=== PATIENT | male | born 1955 | race Caucasian/White ===

== ENCOUNTER 2017-07-22 14:58 | Emergency (ER) | payer MEDICAID, SELFPAY ==
[2017-07-22 14:59] VITALS: BP 159/103; PULSE 62; RESP 16; TEMP 36.7; O2SAT 100; BMI 41.9
--- NOTE | 2017-07-22 15:19 | ED.RN ---
PT REPORTED DIZZINESS IN TRIAGE. PT REPORTS MY SUGAR MAY BE LOW. GLUCOSE 90. PT WHEELED TO ROOM IN WHEELCHAIR. NO DIFFICULTY AMBULATING FROM WHEELCHAIR TO BED.
--- NOTE | 2017-07-22 15:34 | RAD_ITS ---
STUDY: X-RAY CHEST REASON FOR EXAM: Male, 61 years old. Cough TECHNIQUE: Frontal and lateral views of the chest COMPARISON: None. FINDINGS: The lungs are clear. There are no pleural effusions. There is no pneumothorax. The heart is normal in size. The visualized osseous structures are within normal limits. RAD/Chest PA and Lateral IMPRESSION: No acute thoracic pathology. Electronically Signed: Angel Walker, at 16:48 EST Tel , Service support ,
--- NOTE | 2017-07-22 15:39 | ED.DCSUM_ITS ---
- ER Visit Summary Date of Service: 07/22/17 Chief Complaint: Cough and congestion History of Present Illness: The patient is a 61 M who complains of a 7 day history of body aches, head and chest congestion, cough with clear sputum. He denies fever chills. Patient was seen at urgent care on the . He was given what sounds like Mucinex. He also has an albuterol inhaler. Patient reports no improvement. She denies having fever. He has had ill contacts with similar. Physical Examination: Blood pressure is 159/103, otherwise vitals are normal. Pulse ox is 100% on room air. Head and neck examination is unremarkable. Heart is regular rate and rhythm. Lung sounds are diminished throughout. Abdomen is soft nontender. Neuro exam is unremarkable. Test Results: Two-view chest x-ray reveals no acute pathology. Emergency Department Course and Treatment: Patient was given aerosols. On repeat evaluation he does have improved air movement. Oxygen saturations have maintained in the high 90s. Patient raises concern that the albuterol inhaler he has at home just states his tongue the back of his throat but is not really doing any good. Respiratory therapy will get him a spacer and teach him how to use it. He will be given a short course of prednisone. He was warned that this will make his blood sugars increase for a short period. I do not believe he needs antibiotics. Treatment Plan: [] Disposition: Discharge Impression: Viral URI with bronchospasm This note was generated with [employer] dictation software. It may contain incorrect words, spelling, and punctuation that were not noted in review of the chart prior to signing ED Disposition - Plan for ED Patient: Chief Complaint: Cold Sx Referrals: Frederic Montero MD [Primary Care Provider] -
[2017-07-22] MEDS: Ipratropium/Albuterol Sulfate 3 ML AMPUL.NEB INHALATION (15:44)
[2017-07-22] MEDS: Albuterol 2.5 MG/3 ML VIAL.NEB. INHALATION ×2 (15:44)
[2017-07-22 15:45] VITALS: PULSE 68; RESP 16
[2017-07-22 15:46] LABS: Bedside Glucose 90 mg/dL (70-110)
--- NOTE | 2017-07-22 17:09 | ED.DEP ---
ED Disposition - Plan for ED Patient: Disposition: Home or Assisted Living Chief Complaint: Cold Sx Instructions: ED URI Viral W Wheezing Prescriptions: Prednisone [Deltasone] 60 mg PO DAILY #15 tablet Referrals: Frederic Montero MD [Primary Care Provider] - 5-7 Days
[2017-07-22 17:35] VITALS: BP 130/69; PULSE 63; RESP 20; O2SAT 98
== END 2017-07-22 17:37 | disposition home or self-care (01) ==
PROVIDERS: Emergency Provider Emergency Medicine; Family Provider Family Medicine; PCP Family Medicine
DX: J06.9 Acute upper respiratory infection, unspecified (principal); J98.01 Acute bronchospasm; K21.9 Gastro-esophageal reflux disease without esophagitis; E11.40 Type 2 diabetes mellitus with diabetic neuropathy, unspecified; I10 Essential (primary) hypertension; Z86.39 Personal history of other endocrine, nutritional and metabolic disease; G47.33 Obstructive sleep apnea (adult) (pediatric); M54.9 Dorsalgia, unspecified; Z90.89 Acquired absence of other organs; Z90.49 Acquired absence of other specified parts of digestive tract; Z87.891 Personal history of nicotine dependence; Z79.82 Long term (current) use of aspirin; Z79.4 Long term (current) use of insulin; Z79.84 Long term (current) use of oral hypoglycemic drugs; Z79.899 Other long term (current) drug therapy
CPT/HCPCS: 71046; 82962; 94640; 94664; 99283

== ENCOUNTER → 2017-08-07 10:14 | Outpatient (CLI) | payer MEDICAID, SELFPAY ==
[2017-08-07 12:04] LABS: Hematocrit 39.6 % (40-54); Hemoglobin 13.1 g/dl (13.0-16.5); Mean Corp Hgb Conc 33.1 g/gl (32-36); Mean Corpuscular Hgb 29.7 pg (27.0-32.0); Mean Corpuscular Volume 89.8 fL (80-94); Mean Platelet Vol. 10.8 fl (6.2-12.0); Platelet Count 162 K/mm3 (150-450); RBC Distribution Width CV 14.8 % (11.6-14.6); RBC Distribution Width SD 47.6 fl (35.1-43.9); Red Blood Count 4.41 M/mm3 (4.6-6.2); White Blood Count 9.3 K/mm3 (4.4-11.0)
[2017-08-07 12:08] LABS: Scan Indicated on CBC? Y/N NO
[2017-08-07 12:30] LABS: Hemoglobin A1c 6.1 % (4.2-6.3)
[2017-08-07 12:31] LABS: ALB/GLOB Ratio 0.9 RATIO (0.9-2.4); AST(SGOT) 16 U/L (15-37); Alanine Aminotransfer ALT/SGPT 29 U/L (16-61); Albumin, Serum 3.5 g/dL (3.2-5.0); Alkaline Phosphatase 58 U/L (45-117); Anion Gap 7 (5-15); BUN 20 mg/dL (7-18); BUN/Creat Ratio 22.4 RATIO (10-20); Calcium,Total 8.4 mg/dL (8.5-10.1); Chloride 105 mmol/L (98-107); Cholesterol 110 mg/dL (200); Creatinine, Serum 0.89 mg/dL (0.70-1.30); EST Glomerular Filtration Rate 92 mL/min (>60); Est Glom Filt Rate - Afr Amer 112 mL/min (>60); Globulin 3.8 g/dL (2.2-4.2); Glucose 130 mg/dL (74-106); High Density Lipoprotein 31 mg/dL; Potassium 3.9 mmol/L (3.5-5.1); Protein, Total 7.3 g/dL (6.4-8.2); Sodium Level 140 mmol/L (136-145); Triglycerides 140 mg/dL; Very Low Density Lipoprotein 28 mg/dL (5-40)
[2017-08-07 12:43] LABS: Color, Urine Yellow (Yellow); Glucose, Dipstick 50 mg/dl (Normal); Ketone-Dipstick Negative (Negative); Leukocyte Esterase-Dipstick Negative /ul (Negative); Nitrite-Dipstick Negative (Negative); Occult Blood-Urine Negative /ul (Negative); Protein-Dipstick 15 mg/dl (Negative); Urine Bilirubin Dipstick Negative (Negative); Urine Clarity Clear (Clear); Urine Urobilinogen 1 mg/dl (Normal)
[2017-08-07 12:53] LABS: Microalbumin,Random Urine 66.8 mg/L (NO RANGE EST.); Microalbumin:Creatinine Ratio 52.6 mg/g CRE (<30 mg/g CRE)
== END ==
PROVIDERS: Family Provider Family Medicine; PCP Family Medicine; Visit Provider Family Medicine
DX: E11.9 Type 2 diabetes mellitus without complications (principal); E78.2 Mixed hyperlipidemia; I10 Essential (primary) hypertension
CPT/HCPCS: 36415; 80053; 80061; 81002; 82043; 82570; 83036; 85027

== ENCOUNTER → 2017-08-08 09:11 | Outpatient (CLI) | payer MEDICAID, SELFPAY ==
--- NOTE | 2017-08-08 09:13 | RAD_ITS ---
STUDY: X-RAY - RIGHT SHOULDER REASON FOR EXAM: Male, 61 years old. Right shoulder pain TECHNIQUE: 4 view(s) of the shoulder. COMPARISON: None. FINDINGS: Normal glenohumeral articulation. There is degenerative arthrosis of the acromioclavicular joint without inferior osseous spur formation. Normal acromion. Normal humeral head and visualized proximal humerus. There is a tiny calcification lateral to the humeral head on the internal rotation view which may represent calcific tendinitis or bursitis. Normal visualized pulmonary apex. RAD/Shoulder min 2 Views IMPRESSION: Degenerative changes of the right AC joint. Tiny calcification lateral to the right humeral head which may represent calcific tendinitis/bursitis. Electronically Signed: Sebastian Lim MD at 17:07 EDT , Service support ,
== END ==
PROVIDERS: Family Provider Family Medicine; PCP Family Medicine; Visit Provider Family Medicine
DX: M25.511 Pain in right shoulder (principal)
CPT/HCPCS: 73030

== ENCOUNTER → 2017-10-31 08:35 | Outpatient (CLI) | payer MEDICAID, SELFPAY ==
--- NOTE | 2017-10-31 08:35 | DT_ITS ---
This patient was seen during an EMR downtime October 30, 2017 - November 06, 2017. This patient may have a combination of paper and electronic documentation or all paper documentation. All documentation is viewable within the e-chart portion of [facility] for each patient visit.
[2017-11-05 09:31] LABS: ALB/GLOB Ratio 0.9 RATIO (0.9-2.4); Albumin, Serum 3.5 g/dL (3.2-5.0); BUN 16 mg/dL (7-18); BUN/Creat Ratio 17.6 RATIO (10-20); Calcium,Total 9.1 mg/dL (8.5-10.1); Creatinine, Serum 0.91 mg/dL (0.70-1.30); EST Glomerular Filtration Rate 91 mL/min (>60); Est Glom Filt Rate - Afr Amer 110 mL/min (>60); Globulin 3.7 g/dL (2.2-4.2); Glucose 188 mg/dL (74-106); Protein, Total 7.2 g/dL (6.4-8.2)
[2017-11-05 09:32] LABS: AST(SGOT) 15 U/L (15-37); Alanine Aminotransfer ALT/SGPT 27 U/L (16-61); Alkaline Phosphatase 64 U/L (45-117); Anion Gap 7 (5-15); Chloride 102 mmol/L (98-107); Cholesterol 93 mg/dL (200); Hemoglobin A1c 6.4 % (4.2-6.3); High Density Lipoprotein 29 mg/dL; Potassium 3.8 mmol/L (3.5-5.1); Sodium Level 139 mmol/L (136-145); Triglycerides 98 mg/dL; Very Low Density Lipoprotein 20 mg/dL (5-40)
[2017-11-05 09:33] LABS: Microalbumin,Random Urine 41.9 mg/L (NO RANGE EST.)
[2017-11-05 09:56] LABS: Hematocrit 39.1 % (40-54); Hemoglobin 12.7 g/dl (13.0-16.5); Mean Corp Hgb Conc 32.5 g/gl (32-36); Mean Corpuscular Hgb 29.3 pg (27.0-32.0); Mean Corpuscular Volume 90.1 fL (80-94); Red Blood Count 4.34 M/mm3 (4.6-6.2)
[2017-11-05 09:57] LABS: Platelet Count 155 K/mm3 (150-450); RBC Distribution Width SD 48.4 fl (35.1-43.9); Scan Indicated on CBC? Y/N NO
== END ==
LOC: MTLAB 11-04 08:59 → MFPLAB 11-04 17:55
PROVIDERS: Family Provider Family Medicine; PCP Family Medicine; Visit Provider Family Medicine
DX: I10 Essential (primary) hypertension (principal); E11.9 Type 2 diabetes mellitus without complications; Z13.220 Encounter for screening for lipoid disorders
CPT/HCPCS: 36415; 80053; 80061; 82043; 82570; 83036; 85027

== ENCOUNTER 2017-11-12 05:10 | Emergency (ER) | payer MEDICAID, SELFPAY ==
[2017-11-12 05:12] VITALS: BP 181/86; PULSE 74; RESP 18; TEMP 36.4; O2SAT 95; BMI 45.1
--- NOTE | 2017-11-12 05:50 | ED.DCSUM_ITS ---
- ER Visit Summary Date of Service: 11/12/17 Chief Complaint: Right shoulder pain after lifting things History of Present Illness: The patient is a 61 M hand dominant. Past medical history of insulin pen diabetes, hypertension, high cholesterol. He has never had any shoulder surgery. He states 2 weeks ago he was helping family move multiple objects. He felt a pop in his right shoulder and since that time he has had continued dull aching pain. He is able to move it. He has had no prior right shoulder history or surgery. He denies any weakness. Denies any fever or redness. He was seen by his primary care physician and he states his PCP did a shoulder joint injection without any significant relief. He denies any fever or redness. Physical Examination: Very well-appearing middle-age male. Vital signs are stable afebrile. No distress. H EENT exam unremarkable neck nontender no lymphadenopathy. Lungs clear to auscultation bilaterally. Chest wall nontender. Heart regular rate rhythm no murmur. Abdomen obese soft nontender normal bowel sounds no peritoneal signs. He is moving all 4 extremities. Neurovascular intact. Specifically he has mild soft tissue tenderness diffusely of his right shoulder. Clavicles nontender and appears to be normal position. He has full flexion, extension, and Abduction of his right shoulder. There is no bony deformity. No signs of dislocation. No bony tenderness. No redness or warmth. No axillary lymphadenopathy. Distal of the right humerus , elbow, forearm, wrist and hand are nontender neurovascular intact he has 5/5 motor strength in his right hand. He has normal touch sensation in the hand. Normal cap refill and radial pulse. Test Results: Discussed with patient and he deferred x-ray at this time. Clinically I do not think an x-ray would be of any significance. Emergency Department Course and Treatment: Be discharged home. To follow-up with local orthopedic surgeon Dr. Cr Escoto if he is not improving. He will be treated conservatively with ice and anti-inflammatories. Return if worse. Treatment Plan: Discharge follow-up with Dr. Cr Escoto of orthopedics Disposition: dc Impression: Acute right shoulder pain secondary to right shoulder strain This note was generated with [employer] software. It may contain incorrect words, spelling, and punctuation that were not noted in review of the chart prior to signing ED Disposition - Plan for ED Patient: Chief Complaint: Upper Extremity Injury Referrals: Frederic Montero MD [Primary Care Provider] -
--- NOTE | 2017-11-12 05:50 | ED.DEP ---
ED Disposition - Plan for ED Patient: Disposition: Home or Assisted Living Chief Complaint: Upper Extremity Injury Instructions: ED Sprain Shoulder Referrals: Frederic Montero MD [Primary Care Provider] - 1 Week if not improving Additional Instructions: Ice to the right shoulder to decrease inflammation. Motrin, Advil or Aleve for pain and inflammation. If not improving call follow-up with an area orthopedic surgeon for further evaluation.
[2017-11-12 05:57] VITALS: BP 172/80; PULSE 80; RESP 16; O2SAT 96
== END 2017-11-12 05:58 | disposition home or self-care (01) ==
PROVIDERS: Emergency Provider Emergency Medicine; Family Provider Family Medicine; PCP Family Medicine
DX: S46.911A Strain of unspecified muscle, fascia and tendon at shoulder and upper arm level, right arm, initial encounter (principal); M25.511 Pain in right shoulder; X50.9XXA Other and unspecified overexertion or strenuous movements or postures, initial encounter; Y93.9 Activity, unspecified; Y92.9 Unspecified place or not applicable; E11.9 Type 2 diabetes mellitus without complications; I10 Essential (primary) hypertension; E78.00 Pure hypercholesterolemia, unspecified; Z90.49 Acquired absence of other specified parts of digestive tract; Z79.4 Long term (current) use of insulin; Z79.84 Long term (current) use of oral hypoglycemic drugs; Z79.82 Long term (current) use of aspirin; Z79.899 Other long term (current) drug therapy
CPT/HCPCS: 99282

== ENCOUNTER 2018-01-04 18:32 | Emergency (ER) | payer MEDICAID, SELFPAY ==
[2018-01-04 18:33] VITALS: BP 163/71; PULSE 59; RESP 20; TEMP 37.2; O2SAT 97; BMI 44.4
--- NOTE | 2018-01-04 19:32 | RAD_ITS ---
STUDY: X-RAY CHEST REASON FOR EXAM: Male, 62 years old. Bilateral lower extremity swelling. TECHNIQUE: 1 view COMPARISON: Prior chest radiograph of July 22, 2017. FINDINGS: The lungs are clear and expanded. There is no demonstrated pleural abnormality. Normal size heart. Normal mediastinum and pina. Normal visualized pulmonary arteries. There is atherosclerotic calcification of the aortic arch with tortuosity. Normal visualized thoracic spine. Normal visualized ribs, clavicles, and shoulders. There is no demonstrated abnormality of the visualized soft tissue structures of the upper abdomen. RAD/Chest 1 View (Portable) IMPRESSION: No acute cardiopulmonary findings or changes. Negative for major consolidation, atelectasis, pleural effusion or cardiomegaly. Electronically Signed: Pinky Cain MD at 19:46 EDT , Service support ,
--- NOTE | 2018-01-04 19:39 | US_ITS ---
STUDY: VENOUS DOPPLER ULTRASOUND - BILATERAL LOWER EXTREMITIES REASON FOR EXAM: Male, 62 years old. Swelling of lower extremities TECHNIQUE: Ultrasound evaluation of the deep vein system to include riojas-scale imaging and compression was performed. Riojas-scale imaging and Doppler sonographic evaluation, including duplex spectral analysis and qualitative color flow sonography, was performed. COMPARISON: None. FINDINGS: RIGHT LEG Common Femoral Vein: Normal compression, spontaneity and augmentation. Normal color Doppler. Common Femoral Vein/Greater Saphenous Junction: Normal compression, spontaneity and augmentation. Normal color Doppler. Deep Femoral Vein: Normal compression, spontaneity and augmentation. Normal color Doppler. Femoral Proximal: Normal compression, spontaneity and augmentation. Normal color Doppler. Femoral Middle: Normal compression, spontaneity and augmentation. Normal color Doppler. Femoral Distal: Normal compression, spontaneity and augmentation. Normal color Doppler. Popliteal Vein: Normal compression, spontaneity and augmentation. Normal color Doppler. Posterior Tibial Vein: Normal compression, spontaneity and augmentation. Normal color Doppler. Peroneal Vein: Normal compression, spontaneity and augmentation. Normal color Doppler. LEFT LEG Common Femoral Vein: Normal compression, spontaneity and augmentation. Normal color Doppler. Common Femoral Vein/Greater Saphenous Junction: Normal compression, spontaneity and augmentation. Normal color Doppler. Deep Femoral Vein: Normal compression, spontaneity and augmentation. Normal color Doppler. Femoral Proximal: Normal compression, spontaneity and augmentation. Normal color Doppler. Femoral Middle: Normal compression, spontaneity and augmentation. Normal color Doppler. Femoral Distal: Normal compression, spontaneity and augmentation. Normal color Doppler. Popliteal Vein: Normal compression, spontaneity and augmentation. Normal color Doppler. Posterior Tibial Vein: Normal compression, spontaneity and augmentation. Normal color Doppler. Peroneal Vein: Normal compression, spontaneity and augmentation. Normal color Doppler. US/Venous Duplex Imag/Caesar Extrem IMPRESSION: Normal venous Doppler ultrasound of the bilateral lower extremities. Electronically Signed: Avtar Ceron MD at 20:23 EDT , Service support ,
[2018-01-04 20:14] LABS: Absolute Lymphocyte Count 3.16 X10^3/ul (0.83-4.51); Absolute Neutrophil Count 4.5 X10^3/uL (2.0-7.7); Basophil# 0.09 X10^3/uL; Eosinophil# 0.51 X10^3/uL; Eosinophils% 5.9 % (0-5); Hematocrit 37.2 % (40-54); Hemoglobin 12.3 g/dl (13.0-16.5); Lymphocyte # 3.16 X10^3/ul (4.0); Lymphocyte % 36.3 % (19-41); Mean Corp Hgb Conc 33.1 g/gl (32-36); Mean Corpuscular Hgb 29.2 pg (27.0-32.0); Mean Corpuscular Volume 88.4 fL (80-94); Mean Platelet Vol. 10.3 fl (6.2-12.0); Monocyte# 0.39 X10^3/uL; Monocyte% 4.5 % (0-10); Neutrophil # 4.52 X10^3/uL (2.7-7.7); Platelet Count 172 K/mm3 (150-450); RBC Distribution Width CV 14.8 % (11.6-14.6); RBC Distribution Width SD 46.9 fl (35.1-43.9); Red Blood Count 4.21 M/mm3 (4.6-6.2); White Blood Count 8.7 K/mm3 (4.4-11.0)
[2018-01-04 20:15] LABS: POSITIVE COUNT NO; POSITIVE DIFFERENTIAL NO; POSITIVE MORPHOLOGY NO
[2018-01-04 20:20] LABS: Anion Gap 6 (5-15); BUN 21 mg/dL (7-18); BUN/Creat Ratio 21.8 RATIO (10-20); Calcium,Total 8.9 mg/dL (8.5-10.1); Chloride 103 mmol/L (98-107); Creatinine, Serum 0.96 mg/dL (0.70-1.30); EST Glomerular Filtration Rate 85 mL/min (>60); Est Glom Filt Rate - Afr Amer 102 mL/min (>60); Estimated Creatinine Clearance 73.84 ml/min; Glucose 167 mg/dL (74-106); Potassium 4.1 mmol/L (3.5-5.1); Sodium Level 139 mmol/L (136-145)
[2018-01-04 20:42] LABS: BNP,B-Type NATRIURETIC PEPTIDE 8.3 pg/mL (0-100)
--- NOTE | 2018-01-04 21:05 | ED.VISSUMM ---
- ER Visit Summary Date of Service: 01/04/18 Chief Complaint: [] History of Present Illness: The patient is a 62 M [leg swelling presents the emergency department with leg swelling for 3 weeks. Patient states that he is on a diuretic. Patient denies any chest pain. He denies any significant shortness of breath. Patient denies recent travel or surgery. Patient denies any fevers. Patient does have a history of GERD, diabetes, hypertension, and high cholesterol.] Physical Examination: [HEENT-PERRLA, EOMI. Cranial nerves II through XII grossly intact. TMs clear. Mucous membranes moist. No adenopathy. Cardiovascular-regular rate and rhythm without murmur or ectopy Lungs-clear to auscultation, chest wall stable without crepitus or subcu emphysema Abdomen-normoactive bowel sounds, soft, nontender, no rebound or rigidity, no peritoneal signs. Extremities-intact ?4, normal range of motion, normal pulses, atraumatic]. Patient does have +2 edema both lower extremities from the knees down to the feet. Test Results: [EKG obtained arrival shows sinus rhythm with a ventricular rate of 59 bpm with no acute ST segment changes. CBC with differential was normal. Chemistries were normal. BUN was 21 creatinine 0.96. Troponin was less than 0.015. BNP was normal at 8.3. Venous duplex of both lower extremities were negative for DVT. Chest x-ray showed nothing acute.] Emergency Department Course and Treatment: [Patient was advised to continue with his Lasix and use compression stockings. Patient's states that he has 2 pair of compression stockings at home but will not wear them. ] Treatment Plan: [Vision advised to follow-up with primary care physician 3-5 days.] Disposition: [Discharged home in stable condition] Impression: [Bilateral lower extremity edema] This note was generated with [facility] dictation software. It may contain incorrect words, spelling, and punctuation that were not noted in review of the chart prior to signing ED Disposition - Plan for ED Patient: Chief Complaint: Edema Referrals: Frederic Montero MD [Primary Care Provider] -
--- NOTE | 2018-01-04 21:07 | ED.DEP ---
ED Disposition - Plan for ED Patient: Chief Complaint: Edema Instructions: ED Leg Swelling Bilateral Referrals: Frederic Montero MD [Primary Care Provider] - 3-5 Days
[2018-01-04 21:15] VITALS: BP 157/80; PULSE 76; RESP 18; O2SAT 97
== END 2018-01-04 21:15 | disposition home or self-care (01) ==
LOC: ED 19:48
PROVIDERS: Emergency Provider Emergency Medicine; Family Provider Family Medicine; PCP Family Medicine
DX: R60.0 Localized edema (principal); K21.9 Gastro-esophageal reflux disease without esophagitis; E11.9 Type 2 diabetes mellitus without complications; I10 Essential (primary) hypertension; E78.00 Pure hypercholesterolemia, unspecified; Z90.49 Acquired absence of other specified parts of digestive tract; Z79.82 Long term (current) use of aspirin; Z79.4 Long term (current) use of insulin; Z79.84 Long term (current) use of oral hypoglycemic drugs; Z79.899 Other long term (current) drug therapy
CPT/HCPCS: 71045; 80048; 83880; 84484; 85025; 93005; 93970; 99283; A4216

== ENCOUNTER → 2018-01-23 10:17 | Outpatient (CLI) | payer MEDICAID, SELFPAY ==
[2018-01-23 12:17] LABS: Anion Gap 9 (5-15); BUN 23 mg/dL (7-18); BUN/Creat Ratio 25.5 RATIO (10-20); Calcium,Total 8.9 mg/dL (8.5-10.1); Chloride 105 mmol/L (98-107); EST Glomerular Filtration Rate 91 mL/min (>60); Est Glom Filt Rate - Afr Amer 110 mL/min (>60); Glucose 169 mg/dL (74-106); Magnesium 1.9 mg/dL (1.6-2.6); Sodium Level 139 mmol/L (136-145)
== END ==
PROVIDERS: Family Provider Family Medicine; PCP Family Medicine; Visit Provider Family Medicine
DX: I10 Essential (primary) hypertension (principal)
CPT/HCPCS: 36415; 80048; 83735

== ENCOUNTER → 2018-02-13 09:21 | Outpatient (CLI) | payer MEDICAID, SELFPAY ==
[2018-02-13 09:24] LABS: Bacteria 0 SEEN /hpf (None Seen); Mucous, Urine 0 SEEN /hpf (<or=2+); Red Blood Cells-Urine 0 SEEN /hpf (0-5); White Blood Cells 0 SEEN /hpf (0-5)
[2018-02-13 12:14] LABS: Color, Urine Yellow (Yellow); Glucose, Dipstick 1000 mg/dl (Normal); Ketone-Dipstick 5 mg/dl (Negative); Leukocyte Esterase-Dipstick Negative /ul (Negative); Nitrite-Dipstick Negative (Negative); Occult Blood-Urine Negative /ul (Negative); Protein-Dipstick 30 mg/dl (Negative); Specific Gravity, Urine 1.015 (1.002-1.030); Urine Bilirubin Dipstick Negative (Negative); Urine Clarity Clear (Clear); Urine Urobilinogen 4 mg/dl (Normal)
[2018-02-13 12:23] LABS: Absolute Lymphocyte Count 2.07 X10^3/ul (0.83-4.51); Absolute Neutrophil Count 4.2 X10^3/uL (2.0-7.7); Basophil# 0.07 X10^3/uL; Eosinophil# 0.33 X10^3/uL; Eosinophils% 4.7 % (0-5); Hematocrit 39.7 % (40-54); Hemoglobin 12.9 g/dl (13.0-16.5); Lymphocyte # 2.07 X10^3/ul (4.0); Lymphocyte % 29.4 % (19-41); Mean Corp Hgb Conc 32.5 g/gl (32-36); Mean Corpuscular Hgb 28.9 pg (27.0-32.0); Mean Platelet Vol. 10.3 fl (6.2-12.0); Monocyte# 0.36 X10^3/uL; Monocyte% 5.1 % (0-10); Neutrophil # 4.21 X10^3/uL (2.7-7.7); Neutrophil % 59.7 % (47-70); Platelet Count 137 K/mm3 (150-450); RBC Distribution Width CV 14.9 % (11.6-14.6); RBC Distribution Width SD 47.9 fl (35.1-43.9); Red Blood Count 4.46 M/mm3 (4.6-6.2); White Blood Count 7.1 K/mm3 (4.4-11.0)
[2018-02-13 12:28] LABS: ALB/GLOB Ratio 0.9 RATIO (0.9-2.4); AST(SGOT) 14 U/L (15-37); Alanine Aminotransfer ALT/SGPT 31 U/L (16-61); Albumin, Serum 3.5 g/dL (3.2-5.0); Alkaline Phosphatase 65 U/L (45-117); Anion Gap 9 (5-15); BUN 23 mg/dL (7-18); BUN/Creat Ratio 27.9 RATIO (10-20); Calcium,Total 8.8 mg/dL (8.5-10.1); Chloride 104 mmol/L (98-107); Creatinine, Serum 0.82 mg/dL (0.70-1.30); EST Glomerular Filtration Rate 101 mL/min (>60); Est Glom Filt Rate - Afr Amer 122 mL/min (>60); Globulin 3.8 g/dL (2.2-4.2); Glucose 228 mg/dL (74-106); Potassium 3.8 mmol/L (3.5-5.1); Protein, Total 7.3 g/dL (6.4-8.2); Sodium Level 141 mmol/L (136-145)
[2018-02-13 12:31] LABS: POSITIVE COUNT NO; POSITIVE DIFFERENTIAL NO; POSITIVE MORPHOLOGY NO
[2018-02-13 12:36] LABS: Squamous Epithelial Cells - UA 0-5 SEEN /hpf (0-5)
[2018-02-13 12:45] LABS: Hemoglobin A1c 6.1 % (4.2-6.3)
[2018-02-13 12:48] LABS: Microalbumin:Creatinine Ratio 159.4 mg/g CRE (<30 mg/g CRE)
== END ==
PROVIDERS: Family Provider Family Medicine; PCP Family Medicine; Visit Provider Family Medicine
DX: I10 Essential (primary) hypertension (principal); E11.9 Type 2 diabetes mellitus without complications
CPT/HCPCS: 36415; 80053; 81001; 82043; 82570; 83036; 85025

== ENCOUNTER → 2018-05-15 10:16 | Outpatient (CLI) | payer MEDICAID, SELFPAY ==
--- NOTE | 2018-05-15 10:20 | RAD_ITS ---
STUDY: X-RAY CHEST REASON FOR EXAM: Male, 62 years old. Supraclavicular lymphadenopathy. TECHNIQUE: PA and lateral views of the chest. COMPARISON: January 04, 2018 chest x-ray FINDINGS: Alignment for body habitus there is mild prominence of the bilateral suprapubic clavicular soft tissues. There is minimal lower lobe atelectasis. There is no demonstrated pleural abnormality. Normal size heart. Normal mediastinum and pina. Normal visualized pulmonary arteries. There is atherosclerotic calcification of the aortic arch with tortuosity. There are diffuse degenerative changes of the visualized thoracic spine. Normal visualized ribs, clavicles, and shoulders. There is no demonstrated abnormality of the visualized soft tissue structures of the upper abdomen. RAD/Chest PA and Lateral IMPRESSION: Minimal lower lobe atelectasis. No obvious asymmetry of the supraclavicular soft tissues. If there is concern for neck soft tissue mass recommend dedicated CT scan neck soft tissue with IV contrast. Electronically Signed: Denise Hernandez MD at 3:00 EST Tel , Service support ,
[2018-05-15 12:11] LABS: Absolute Lymphocyte Count 2.13 X10^3/ul (0.83-4.51); Absolute Neutrophil Count 4.6 X10^3/uL (2.0-7.7); Basophil# 0.05 X10^3/uL; Basophil% 0.7 % (0-1); Eosinophil# 0.31 X10^3/uL; Eosinophils% 4.2 % (0-5); Hematocrit 40.4 % (40-54); Hemoglobin 13.4 g/dl (13.0-16.5); Lymphocyte # 2.13 X10^3/ul (4.0); Lymphocyte % 28.6 % (19-41); Mean Corp Hgb Conc 33.2 g/gl (32-36); Mean Corpuscular Hgb 29.7 pg (27.0-32.0); Mean Corpuscular Volume 89.6 fL (80-94); Mean Platelet Vol. 10.5 fl (6.2-12.0); Monocyte# 0.34 X10^3/uL; Monocyte% 4.6 % (0-10); Neutrophil # 4.59 X10^3/uL (2.7-7.7); Neutrophil % 61.5 % (47-70); Platelet Count 149 K/mm3 (150-450); RBC Distribution Width CV 15.3 % (11.6-14.6); RBC Distribution Width SD 49.3 fl (35.1-43.9); Red Blood Count 4.51 M/mm3 (4.6-6.2); White Blood Count 7.5 K/mm3 (4.4-11.0)
[2018-05-15 12:13] LABS: POSITIVE COUNT NO; POSITIVE DIFFERENTIAL NO; POSITIVE MORPHOLOGY NO
[2018-05-15 12:30] LABS: Hemoglobin A1c 6.8 % (4.2-6.3)
[2018-05-15 12:36] LABS: ALB/GLOB Ratio 0.9 RATIO (0.9-2.4); AST(SGOT) 17 U/L (15-37); Alanine Aminotransfer ALT/SGPT 32 U/L (16-61); Albumin, Serum 3.5 g/dL (3.2-5.0); Alkaline Phosphatase 58 U/L (45-117); Anion Gap 10 (5-15); BUN 28 mg/dL (7-18); BUN/Creat Ratio 26.2 RATIO (10-20); Calcium,Total 9.2 mg/dL (8.5-10.1); Chloride 103 mmol/L (98-107); Cholesterol 109 mg/dL (200); Creatinine, Serum 1.07 mg/dL (0.70-1.30); EST Glomerular Filtration Rate 75 mL/min (>60); Est Glom Filt Rate - Afr Amer 91 mL/min (>60); Globulin 3.7 g/dL (2.2-4.2); Glucose 253 mg/dL (74-106); High Density Lipoprotein 31 mg/dL; Protein, Total 7.2 g/dL (6.4-8.2); Sodium Level 142 mmol/L (136-145); Triglycerides 171 mg/dL; Very Low Density Lipoprotein 34 mg/dL (5-40)
[2018-05-15 12:39] LABS: Microalbumin:Creatinine Ratio 78.8 mg/g CRE (<30 mg/g CRE)
--- OUTSIDE RECORDS SUMMARY | 2018-08-16 18:31 | XMS RPT_ITS ---
:1955 Author Organization OH[employer] Support Name Relationship Address Phone D Unavailable Unavailable Unavailable RICHMOND, MIRTA Unavailable [address] [place] [address] [place] [address] D Unavailable Unavailable Unavailable RICHMOND, MIRTA Unavailable [address] [place] [address] [place] [address] D Unavailable Unavailable Unavailable RICHMOND, MIRTA Unavailable [phone] [place] [address] D Unavailable Unavailable Unavailable RICHMOND, MIRTA Unavailable [phone] [place] [address] D Unavailable Unavailable Unavailable RICHMOND, MIRTA Unavailable [phone] [place] [address] D Unavailable Unavailable Unavailable RICHMOND, MIRTA Unavailable [phone] [place] [address] D Unavailable Unavailable Unavailable RICHMOND, MIRTA Unavailable [phone] [place] [address] D Unavailable Unavailable Unavailable RICHMOND, MIRTA Unavailable [phone] [place] [address] D Unavailable Unavailable Unavailable RICHMOND, MIRTA Unavailable [phone] [place] [address] D Unavailable Unavailable Unavailable RICHMOND, MIRTA Unavailable [phone] [place] [address] D Unavailable Unavailable Unavailable RICHMOND, MIRTA Unavailable [address] + [place] [address] D Unavailable Unavailable Unavailable RICHMOND, MIRTA Unavailable [address] + [place] [address] D Unavailable Unavailable Unavailable MIRTA RICHMOND Unavailable [address] + [place] [address] D Unavailable Unavailable Unavailable MIRTA RICHMOND Unavailable [address] + [place] [address] D Unavailable Unavailable Unavailable MIRTA RICHMOND Unavailable [address] + [place] [address] Care Team Providers Name Role Phone Frederic Montero Attending Unavailable Frederic Montero Referring Unavailable Frederic Montero Primary Care Unavailable Frederic Montero Attending Unavailable Frederic Montero Referring Unavailable Frederic Montero Primary Care Unavailable Frederic Montero Attending Unavailable Frederic Montero Primary Care Unavailable SchFrederic beckwith Attending Unavailable Frederic Montero Referring Unavailable Frederic Montero Primary Care Unavailable Frederic Montero Attending Unavailable Frederic Montero Primary Care Unavailable Frederic Montero Attending Unavailable Frederic Montero Referring Unavailable Frederic Montero Primary Care Unavailable Frederic Montero Primary Care Unavailable Aleshia Galdamez Attending Unavailable Freddy Richmond Attending Unavailable Frederic Montero Primary Care Unavailable Matt Martell Attending Unavailable Frederic Montero Attending Unavailable Frederic Montero Primary Care Unavailable Frederic Montero Attending Unavailable Frederic Montero Referring Unavailable Frederic Montero Primary Care Unavailable Frederic Montero Attending Unavailable Frederic Montero Primary Care Unavailable Frederic Montero Primary Care Unavailable Luiza Barker Attending Unavailable Kathie Recinos Attending Unavailable Kathie Recinos Attending Unavailable Matt Almanzar Attending Unavailable PROBLEMS PROBLEMS DATE TYPE CONDITION / CODE ATTENDING STATUS SOURCE 05/15/2018 Unknown R59.0 - Localized Frederic Montero enlarged lymph E Community nodes / Hospital R59.0(ICD-10) Repository 01/03/2018 Unknown R60.9 - Edema, Freddy Richmond Active [place] unspecified / Community R60.9(ICD-10) Hospital Repository 11/22/2017 Unknown I10 - Essential Frederic Montero Active [place] (primary) E Community hypertension / Hospital I10(ICD-10) Repository 09/15/2017 Admitting Unknown / [place], Active [facility] Medical diagnosis UNK(Unknown) Matt [facility] Repository PROCEDURES PROCEDURES No Procedure Records FoundRESULTS RESULTS CAROTID DUPLEX Observed: 06/13/2018 Status: F Source: [place] ULTRASOUND 4:46 PM [facility] REPOSITORY [facility] Cardiovascular Services [address] [place] [address] Carotid Duplex Ultrasound 06/11/18 1246 MR#: [id number] Acct: [id number] Name: CHRIS RICHMOND Sr. Rep #: [id number] : 1955 62 From: Sohail Lambert MD Attending Dr: Frederic Montero MD Status: REG CLI Ordering Dr: Frederic Montero MD Date: 06/11/18 Location: [facility] Sex: M C Admitted: Reason For Study: Carotid Stenosis Rt. Velocities/BP Lt. Velocities/BP Prox CCA 67/12 cm/sec. Prox CCA 87/13 cm/sec. Mid CCA 58/11 cm/sec. Mid CCA 55/13 cm/sec. Dist CCA 49/9 cm/sec. Dist CCA 50/12 cm/sec. Prox ICA 82/17 cm/sec. Prox ICA 51/13 cm/sec. Mid ICA 158/60 cm/sec. Mid ICA 76/22 cm/sec. Dist ICA 84/16 cm/sec. Dist ICA 71/23 cm/sec. Rt. ICA/CCA = 2.72. Lt. ICA/CCA = 1.38. Prox ECA 65/6 cm/sec. Prox ECA 89/10 cm/sec. Rt. Vert. 43/13 cm/sec. Lt. Vert. 58/15 cm/sec. Right Extracranial There is heterogeneous, smooth atherosclerotic plaque noted in the right common carotid artery. There is heterogeneous, irregular atherosclerotic plaque noted in the right internal carotid artery. There is no significant atherosclerotic plaque noted in the right external carotid artery. Antegrade flow is noted in the right vertebral artery. Left Extracranial There is intimal thickening but no significant atherosclerotic plaque noted in the left common carotid artery. There is heterogeneous, irregular atherosclerotic plaque noted in the left internal carotid artery. There is heterogeneous, irregular atherosclerotic plaque noted in the left external carotid artery. Antegrade flow is noted in the left vertebral artery. Procedure Carotid Duplex 93252. Exam performed in department. Interpretation Summary Moderate (50-69%) stenosis right extracranial internal carotid. Mild (<50%) stenosis left extracranial internal carotid. Flow within the vertebral arteries is antegrade bilaterally. Ordering Physician: Frederic Montero Referring Physician: Frederic Montero Performed By: Shani Hines, JEFF, RVT 06/13/18 1646 Date Sohail Lambert MD CC: Frederic Montero MD Date Dictated: 06/11/18 1246 Date Transcribed: 06/13/181645 Fingerprint Technician: Signed THYROID Observed: 06/11/2018 Status: F Source: [place] 1:10 PM [facility] REPOSITORY [facility] Imaging Services [address] [place] [address] [place] [address] Thyroid MR#: [id number] Acct: [id number] Name: CHRIS RICHMOND Sr. Rep #: [id number] : 1955 M 62 From: Misael Allen PCP: Frederic Montero MD Status: REG CLI Study: Thyroid Date of Exam: 06/11/18 Exam# [id number] Ordering Dr: Frederic Montero MD STUDY: THYROID ULTRASOUND REASON FOR EXAM: Male, 62 years old. Goiter/nodule. TECHNIQUE: Ultrasound evaluation of the thyroid was performed with real-time and static riojas-scale imaging. COMPARISON: April 17, 2017. FINDINGS: RIGHT LOBE: The right lobe of the thyroid gland measures 5.4 x 2.3 x 2.6 cm. There is a homogeneous echotexture. There are no demonstrated solid, cystic or complex lesions. LEFT LOBE: The left lobe of the thyroid gland measures 4.6 x 1.9 x 2.1 cm. There is a homogeneous echotexture. There are no demonstrated solid, cystic or complex lesions. ISTHMUS: The isthmus measures 9 mm which is enlarged . The regional lymph nodes are normal. US/Thyroid IMPRESSION: Enlarged right lobe of the thyroid gland as well as the thyroid isthmus unchanged. No nodules identified. Slight decrease in size of the left lobe of the thyroid gland which is now at the upper limits of normal in size. No nodules identified. Electronically Signed: Misael Allen MD at 2:18 EST , Service support , CC: Frederic Montero MD Fingerprint Technician: Signed SOFT TISSUE NECK WITH Observed: 05/30/2018 Status: F Source: [place] CONTRAST 12:24 PM [facility] REPOSITORY [facility] Imaging Services [address] [place] [address] Soft Tissue Neck WITH Contrast MR#: [id number] Acct: [id number] Name: CHRIS RICHMOND Wang Sr. Rep #: [id number] : 1955 M 62 From: Pool Car MD PCP: Frederic Montero MD Status: REG CLI Study: Soft Tissue Neck WITH Contrast Date of Exam: 05/30/18 Exam# [id number] Ordering Dr: Frederic Montero MD STUDY: CT SOFT TISSUE NECK WITH CONTRAST REASON FOR EXAM: Male, 62 years old. Lymphadenopathy right side of the neck. RADIATION DOSAGE (If Supplied By Facility): CTDIvol = ( 24.88 ) mGy, DLP = ( 714.60 ) mGycm TECHNIQUE: The patient was scanned in a multi-detector CT scanner. High resolution transaxial imaging was performed following intravenous administration of 75CC ml of Isovue 300 contrast material. Sagittal and coronal images were reconstructed. Individualized dose optimization techniques were used for this CT. COMPARISON: X-ray chest 05/15/2018 FINDINGS: Thorax: Apical lungs clear. Apical thoracic cage and apical spine exhibit no acute process. Thoracic spondylosis and mild kyphoscoliosis with osteopenia. Supraclavicular: Nodular enlargement of the thyroid gland bilaterally, likely goitrous changes, partially extending substernal. Correlate thyroid function and thyroid ultrasound. No supraclavicular lymphadenopathy. Cervical soft tissues: Normal submandibular glands. Normal parotid glands. No cervical lymphadenopathy. Normal appearance of pharyngeal and laryngeal soft tissues. Facial: Superficial and deep facial soft tissues exhibit no acute process. Sinuses within the field of view are clear. Craniofacial osseous structures normal. Cervical spine: Moderately severe disc narrowing is present in the cervical spine between C3 and C7, with uncovertebral joint hypertrophy and facet hypertrophy contributing to most prominent foraminal stenosis on the left at C4-C5. At least mild multilevel foraminal stenosis is present at additional levels. Intracranial: No acute intracranial process, limited evaluation of the skull base. Vasculature: Nondilated aortic arch, patent cervical arch branching, normal cervical vertebral arteries. Mild calcified plaque of the right carotid bulb and bifurcation, with a more prominent focus of calcified irregular plaque in the right ICA beginning approximately 12 mm above the bifurcation. The segment of dense plaque measures up to 14 mm in length and contributes to high-grade stenosis. Mild plaque of the right carotid bulb, moderate calcified plaque in the proximal ICA over a segment measuring approximately 1.3 cm in length. Contributing to stenosis of the lumen of approximately 50%. CT/Soft Tissue Neck WITH Contrast IMPRESSION: There is no acute supraclavicular or cervical mass or lymphadenopathy. Suspected high-grade stenosis of the right ICA. Mild to moderate stenosis of the left ICA. Ultrasound carotid duplex imaging is recommended. Nodular enlargement of the thyroid gland likely reflecting goiter. Clinically correlate. Multilevel cervical spondylosis with foraminal stenosis. Correlate for any symptoms of cervical radiculopathy that may indicate the presence of nerve root impingement. Electronically Signed: Pool Car MD at 11:00 EST Tel , Service support , CC: Frederic Montero MD Fingerprint Technician: Signed CBC W/DIFF, AUTOMATED Collected: 05/15/2018 Status: F Source: [place] 10:29 AM [facility] REPOSITORY TYPE CODE TESTS RESULT OUT OF RANGE REFERENCE UNITS LAB L100.1000 4.4-11.0 K/mm3 Normal WBC 7.5 LAB L100.1200 4.6-6.2 M/mm3 Low RBC 4.51 LAB L100.1300 13.0-16.5 g/dl Normal HGB 13.4 LAB L100.1400 40-54 % Normal HCT 40.4 LAB L100.1500 80-94 fL Normal MCV 89.6 LAB L100.1600 27.0-32.0 pg Normal MCH 29.7 LAB L100.1700 32-36 g/gl Normal MCHC 33.2 LAB L100.1810 11.6-14.6 % High RDW CV 15.3 LAB L100.1820 35.1-43.9 fl High RDW SD 49.3 LAB L100.1900 150-450 K/mm3 Low PLT 149 LAB L100.2000 6.2-12.0 fl Normal MPV 10.5 LAB L100.2100 47-70 % Normal NEUT% 61.5 LAB L100.2200 19-41 % Normal LY% 28.6 LAB L100.2300 0-10 % Normal MONO% 4.6 LAB L100.2400 0-5 % Normal EO% 4.2 LAB L100.2500 0-1 % Normal BASO% 0.7 LAB L100.2550 0.0-0.9 % Normal IM GRAN % 0.400 Result Comment: IG% - Immature Granulocytes (promyelocytes, myelocytes and metamyelocytes) > 1% indicates that a LEFT SHIFT is Present. LAB L100.2620 2.0-7.7 X10 3/uL Normal Absolute Neut 4.6 LAB L100.2720 0.83-4.51 X10 3/ul Normal Absolute Lymph 2.13 Performed By: #### L100.0100 #### [facility] [address] [place], [place], [id number] HEMOGLOBIN A1C Collected: 05/15/2018 Status: F Source: [place] 10:29 AM [facility] REPOSITORY TYPE CODE TESTS RESULT OUT OF RANGE REFERENCE UNITS LAB L501.9985 4.2-6.3 % High HGB A1C 6.8 Performed By: #### L501.9985 #### [facility] [address] [place], [address] COMPREHENSIVE METABOLIC Collected: 05/15/2018 Status: F Source: [facility] 10:29 AM [facility] REPOSITORY TYPE CODE TESTS RESULT OUT OF RANGE REFERENCE UNITS LAB L501.0100 74-106 mg/dL High GLU 253 Result Comment: Glucose result greater than or equal to 200 mg/dL suggests DIABETES MELLITUS per A.D.A. criteria. Please note revised GLUCOSE reference range effective 2017. LAB L501.1000 7-18 mg/dL High BUN 28 LAB L501.1100 0.70-1.30 mg/dL Normal CREAT,SERUM 1.07 Result Comment: The validity of the calculated GFR AND GFRAA in patients over 70 years has not been determined. Clinical correlation is essential. LAB L501.1110 >60 mL/min Normal EST GFR 75 Result Comment: Non- GFR Calc LAB L501.1115 >60 mL/min Normal EST GFR - AA 91 Result Comment: GFR Calc LAB L501.1300 10-20 RATIO High BUN/CRE 26.2 LAB L501.1500 6.4-8.2 g/dL T Normal PROT 7.2 LAB L501.1800 3.2-5.0 g/dL Normal ALB 3.5 LAB L501.1950 2.2-4.2 g/dL Normal GLOB 3.7 LAB L501.2000 0.9-2.4 RATIO Normal A/G 0.9 LAB L501.2200 8.5-10.1 mg/dL CA Normal 9.2 LAB L501.4100 15-37 U/L Normal AST 17 LAB L501.4305 45-117 U/L Normal ALK P 58 LAB L501.4405 16-61 U/L Normal ALT 32 LAB L501.4600 0.20-1.00 mg/dL T Normal BILI 0.60 LAB L501.5300 136-145 mmol/L NA Normal 142 LAB L501.5600 3.5-5.1 mmol/L K Normal 4.0 LAB L501.5900 98-107 mmol/L CL Normal 103 LAB L501.6100 21.0-32.0 mmol/L Normal CO2 29.0 LAB L501.6200 5-15 Normal GAP 10 Performed By: #### L500.4050, L500.4100 #### [facility] [address] [place], [place], [id number] LIPID PROFILE Collected: 05/15/2018 Status: F Source: [place] 10:29 AM [facility] REPOSITORY TYPE CODE TESTS RESULT OUT OF RANGE REFERENCE UNITS LAB L501.4900 200 mg/dL Normal CHOL 109 Result Comment: <200 mg/dL Desirable 200-240 mg/dL Borderline >240 mg/dL High Risk LAB L501.5000 mg/dL Normal TRIG 171 Result Comment: The drugs N-Acetylcysteine and Metamizole may falsely depress this assay. Serum Triglycerides Reference Interval Normal <150 mg/dL Borderline high 150 - 199 mg/dL High 200 - 499 mg/dL Very High > or = 500 mg/dL LAB L501.6400 mg/dL Low HDL 31 Result Comment: The drugs N-Acetylcysteine and Metamizole may falsely depress this assay. Reference Range HDL <40 mg/dL Low HDL Cholesterol HDL >or= 60 mg/dL High HDL Cholesterol LAB L501.6500 0-130 mg/dL Normal LDL 44 LAB L501.6600 5-40 mg/dL Normal VLDL 34 Performed By: #### L500.4050, L500.4100 #### [facility] [address] [place], [place], [id number] MICROALB:CREAT Collected: 05/15/2018 Status: F Source: [place] RATIO,R[facility]OM UR 10:29 AM [facility] REPOSITORY TYPE CODE TESTS RESULT OUT OF RANGE REFERENCE UNITS LAB L501.1200 NO RANGE EST. mg/dL Normal UR CREAT 33.00 LAB L502.0500 NO RANGE EST. mg/L Normal 26.0 MICROALBUMIN ,UR LAB L502.0600 <30 mg/g CRE mg/g CRE High 78.8 MALB:CREAT Performed By: #### L502.0250 #### [facility] [address] [place], [address] CHEST PA AND LATERAL Observed: 05/15/2018 Status: F Source: [place] 10:20 AM [facility] REPOSITORY [facility] Imaging Services [address] [place] [address] Chest PA and Lateral MR#: [id number] Acct: [id number] Name: CHRIS RICHMOND Sr. Rep #: [id number] : 1955 M 62 From: Denise Hernandez MD PCP: Frederic Montero MD Status: REG CLI Study: Chest PA and Lateral Date of Exam: 05/15/18 Exam# [id number] Ordering Dr: Frederic Montero MD STUDY: X-RAY CHEST REASON FOR EXAM: Male, 62 years old. Supraclavicular lymphadenopathy. TECHNIQUE: PA and lateral views of the chest. COMPARISON: January 04, 2018 chest x-ray FINDINGS: Alignment for body habitus there is mild prominence of the bilateral suprapubic clavicular soft tissues. There is minimal lower lobe atelectasis. There is no demonstrated pleural abnormality. Normal size heart. Normal mediastinum and pina. Normal visualized pulmonary arteries. There is atherosclerotic calcification of the aortic arch with tortuosity. There are diffuse degenerative changes of the visualized thoracic spine. Normal visualized ribs, clavicles, and shoulders. There is no demonstrated abnormality of the visualized soft tissue structures of the upper abdomen. RAD/Chest PA and Lateral IMPRESSION: Minimal lower lobe atelectasis. No obvious asymmetry of the supraclavicular soft tissues. If there is concern for neck soft tissue mass recommend dedicated CT scan neck soft tissue with IV contrast. Electronically Signed: Denise Hernandez MD at 3:00 EST Tel , Service support , CC: Frederic Montero MD Fingerprint Technician: Signed URINALYSIS, COMPLETE Collected: 02/13/2018 Status: F Source: [place] 9:22 AM [facility] REPOSITORY Order Comment: How was Urine Obtained? CLEAN CATCH TYPE CODE TESTS RESULT OUT OF RANGE REFERENCE UNITS LAB L400.3000 Yellow COLOR Normal Yellow LAB L400.3050 Clear Normal CLARITY Clear LAB L400.3200 Normal mg/dl High GLUCOSE, UR 1000 LAB L400.3300 Negative mg/dL Normal BILIRUBIN URINE Negative LAB L400.3400 Negative mg/dl High 5 KETONE UR LAB L400.3465 1.002-1.030 Normal SP.GR. DIPSTX 1.015 LAB L400.3550 5.0 - 8.0 pH UR Normal 6.0 LAB L400.3600 Negative mg/dl High PROT 30 DIPSTX LAB L400.3700 Normal mg/dl High 4 UROBILI LAB L400.3750 Negative Normal NITRITE UR Negative LAB L400.3780 Negative /ul Normal OCCULT BLOOD-UR Negative LAB L400.3800 Negative /ul LEUK Normal ESTERASE Negative LAB L400.4050 0-5 /hpf WBC 0 Normal SEEN LAB L400.4100 0-5 /hpf 0 Normal RBC-UA SEEN LAB L400.4150 0-5 /hpf SQUAM Normal EPI 0-5 SEEN LAB L400.4300 None Seen /hpf 0 Normal BACTERIA SEEN LAB L400.4350 <or=2+ /hpf 0 Normal MUCUS, URINE SEEN Performed By: #### L400.0001 #### [facility] [address] [place], [place], [id number] COMPREHENSIVE METABOLIC Collected: 02/13/2018 Status: F [facility] REPOSITORY Order Comment: Order Date: 02/12/18 Order Info: 0786-1 - CMP TYPE CODE TESTS RESULT OUT OF RANGE REFERENCE UNITS LAB L501.0100 74-106 mg/dL High GLU 228 Result Comment: Glucose result greater than or equal to 200 mg/dL suggests DIABETES MELLITUS per A.D.A. criteria. Please note revised GLUCOSE reference range effective 2017. LAB L501.1000 7-18 mg/dL High BUN 23 LAB L501.1100 0.70-1.30 mg/dL Normal CREAT,SERUM 0.82 Result Comment: The validity of the calculated GFR AND GFRAA in patients over 70 years has not been determined. Clinical correlation is essential. LAB L501.1110 >60 mL/min Normal EST GFR 101 Result Comment: Non- GFR Calc LAB L501.1115 >60 mL/min Normal EST GFR - AA 122 Result Comment: GFR Calc LAB L501.1300 10-20 RATIO High BUN/CRE 27.9 LAB L501.1500 6.4-8.2 g/dL T Normal PROT 7.3 LAB L501.1800 3.2-5.0 g/dL Normal ALB 3.5 LAB L501.1950 2.2-4.2 g/dL Normal GLOB 3.8 LAB L501.2000 0.9-2.4 RATIO Normal A/G 0.9 LAB L501.2200 8.5-10.1 mg/dL CA Normal 8.8 LAB L501.4100 15-37 U/L Low AST 14 LAB L501.4305 45-117 U/L Normal ALK P 65 LAB L501.4405 16-61 U/L Normal ALT 31 LAB L501.4600 0.20-1.00 mg/dL T Normal BILI 0.50 LAB L501.5300 136-145 mmol/L NA Normal 141 LAB L501.5600 3.5-5.1 mmol/L K Normal 3.8 LAB L501.5900 98-107 mmol/L CL Normal 104 LAB L501.6100 21.0-32.0 mmol/L Normal CO2 28.0 LAB L501.6200 5-15 Normal GAP 9 Performed By: #### L500.4050, L100.0100, L501.9985, L502.0250 #### [facility] [address] [place], [address] CBC W/DIFF, AUTOMATED Collected: 02/13/2018 Status: F Source: [place] 9:22 AM [facility] REPOSITORY Order Comment: Order Date: 02/12/18 Order Info: 0184-1 - CBCD TYPE CODE TESTS RESULT OUT OF RANGE REFERENCE UNITS LAB L100.1000 4.4-11.0 K/mm3 Normal WBC 7.1 LAB L100.1200 4.6-6.2 M/mm3 Low RBC 4.46 LAB L100.1300 13.0-16.5 g/dl Low HGB 12.9 LAB L100.1400 40-54 % Low HCT 39.7 LAB L100.1500 80-94 fL Normal MCV 89.0 LAB L100.1600 27.0-32.0 pg Normal MCH 28.9 LAB L100.1700 32-36 g/gl Normal MCHC 32.5 LAB L100.1810 11.6-14.6 % High RDW CV 14.9 LAB L100.1820 35.1-43.9 fl High RDW SD 47.9 LAB L100.1900 150-450 K/mm3 Low PLT 137 LAB L100.2000 6.2-12.0 fl Normal MPV 10.3 LAB L100.2100 47-70 % Normal NEUT% 59.7 LAB L100.2200 19-41 % Normal LY% 29.4 LAB L100.2300 0-10 % Normal MONO% 5.1 LAB L100.2400 0-5 % Normal EO% 4.7 LAB L100.2500 0-1 % Normal BASO% 1.0 LAB L100.2550 0.0-0.9 % Normal IM GRAN % 0.100 Result Comment: IG% - Immature Granulocytes (promyelocytes, myelocytes and metamyelocytes) > 1% indicates that a LEFT SHIFT is Present. LAB L100.2620 2.0-7.7 X10 3/uL Normal Absolute Neut 4.2 LAB L100.2720 0.83-4.51 X10 3/ul Normal Absolute Lymph 2.07 Performed By: #### L500.4050, L100.0100, L501.9985, L502.0250 #### [facility] [address] [place], [address] HEMOGLOBIN A1C Collected: 02/13/2018 Status: F Source: [place] 9:22 AM [facility] REPOSITORY Order Comment: Order Date: 02/12/18 Order Info: 4548-4 - A1C TYPE CODE TESTS RESULT OUT OF RANGE REFERENCE UNITS LAB L501.9985 4.2-6.3 % Normal HGB A1C 6.1 Performed By: #### L500.4050, L100.0100, L501.9985, L502.0250 #### [facility] [address] [place], [address] MICROALB:CREAT Collected: 02/13/2018 Status: F Source: [place] RATIO,RANDOM UR 9:22 AM [facility] REPOSITORY Order Comment: Order Date: 02/12/18 Order Info: 0779-1 - MIACRE TYPE CODE TESTS RESULT OUT OF RANGE REFERENCE UNITS LAB L501.1200 NO RANGE EST. mg/dL Normal UR CREAT 143.00 LAB L502.0500 NO RANGE EST. mg/L Normal 228.0 MICROALBUMIN ,UR LAB L502.0600 <30 mg/g CRE mg/g CRE High 159.4 MALB:CREAT Performed By: #### L500.4050, L100.0100, L501.9985, L502.0250 #### [facility] [address] [place], [address] BASIC METABOLIC Collected: 01/23/2018 Status: F Source: [place] PROFILE (BMP) 10:18 AM [facility] REPOSITORY Order Comment: Order Date: 01/23/18 Order Info: 0667-1 - BMP Order Info: 26588-2 - MG TYPE CODE TESTS RESULT OUT OF RANGE REFERENCE UNITS LAB L501.0100 74-106 mg/dL High GLU 169 Result Comment: Fasting Glucose result greater than or equal to 126 mg/dL suggests DIABETES MELLITUS per A.D.A. criteria. Please note revised GLUCOSE reference range effective 2017. LAB L501.1000 7-18 mg/dL High BUN 23 LAB L501.1100 0.70-1.30 mg/dL Normal CREAT,SERUM 0.90 Result Comment: The validity of the calculated GFR AND GFRAA in patients over 70 years has not been determined. Clinical correlation is essential. LAB L501.1110 >60 mL/min Normal EST GFR 91 Result Comment: Non- GFR Calc LAB L501.1115 >60 mL/min Normal EST GFR - AA 110 Result Comment: GFR Calc LAB L501.1300 10-20 RATIO High BUN/CRE 25.5 LAB L501.2200 8.5-10.1 mg/dL CA Normal 8.9 LAB L501.5300 136-145 mmol/L NA Normal 139 LAB L501.5600 3.5-5.1 mmol/L K Normal 4.0 LAB L501.5900 98-107 mmol/L CL Normal 105 LAB L501.6100 21.0-32.0 mmol/L Normal CO2 25.0 LAB L501.6200 5-15 Normal GAP 9 Performed By: #### L500.2500, L501.5200 #### [facility] [facility] [address] [place], [address] MAGNESIUM Collected: 01/23/2018 Status: F Source: [place] 10:18 AM [facility] REPOSITORY Order Comment: Order Date: 01/23/18 Order Info: 0667-1 - BMP Order Info: 35657-7 - MG TYPE CODE TESTS RESULT OUT OF RANGE REFERENCE UNITS LAB L501.5200 1.6-2.6 mg/dL Normal MG 1.9 Performed By: #### L500.2500, L501.5200 #### [facility] [address] [facility] [place], [place], [address] 12 LEAD ELECTROCARDIOGRAM Observed: 01/08/2018 Status: F Source: [place] 3:17 PM [facility] REPOSITORY [facility] Cardiovascular Services [address] [place] [address] 12 Lead EKG 01/04/182012 MR#: [id number] Acct: [id number] Name: KERACHRIS R Sr. Rep #: [id number] : 1955 62 From: Wong Brown MD Attending Dr: Status: DEP ER Ordering Dr: Aleshia Galdamez DO Date: 01/04/18 Location: ED Sex: M C Admitted: Test Reason : EDEMA Blood Pressure : / mmHG Vent. Rate : 059 BPM Atrial Rate : 059 BPM P-R Int : 166 ms QRS Dur : 090 ms QT Int : 408 ms P-R-T Axes : 054 011 042 degrees QTc Int : 403 ms Sinus bradycardia Otherwise normal ECG Confirmed by ONEAL LOCO, WONG ([id number]), rewrite editor RAMILA QUINONEZ ([id number]) on 01/08/2018 3:17:23 PM Referred By: KAYLIN Confirmed By:WONG BROWN MD 01/08/18 1517 Date Wong Brown MD CC: Frederic Montero MD; Aleshia Galdamez DO Signed DISCHARGE INSTRUCTION Observed: 01/04/2018 Status: F Source: [place] 9:08 PM [facility] REPOSITORY [facility] Medical Records Department [address] [place] [address] Discharge Instruction 01/04/182106 MR#: [id number] Acct: [id number] Name: CHRIS RICHMOND Sr. Rep #: [id number] : 1955 62 From: Aleshia Galdamez DO PCP: Frederic Montero MD Status: REG ER ED Disposition - Plan for ED Patient: Chief Complaint: Edema Instructions: ED Leg Swelling Bilateral Referrals: Frederic Montero MD [Primary Care Provider] - 3-5 Days What to do if you have Problems For any increased pain, shortness of breath, bleeding, nausea or vomiting, chest pain, or any unexpected problems, contact your Primary Care Provider. Call [facility] ([phone]) or report to the closest Emergency Room. Call 911 if necessary. 01/04/182107 <Electronically signed by Aleshia Galdamez DO> Date Aleshia Galdamez DO Cosigner Signature (If Indicated): Date CC: Frederic Montero MD EMERGENCY DEPARTMENT Observed: 01/04/2018 Status: F Source: [place] SUMMARY 9:07 PM [facility] REPOSITORY [facility] Medical Records Department [address] [place] [address] Emergency Department Summary 01/04/18 2105 MR#: [id number] Acct: [id number] Name: CHRIS RICHMOND Sr. Rep #: [id number] : 1955 62 From: Aleshia Galdamez DO PCP: Frederic Montero MD Status: REG ER - ER Visit Summary Date of Service: 01/04/18 Chief Complaint: [] History of Present Illness: The patient is a 62 M [leg swelling presents the emergency department with leg swelling for 3 weeks. Patient states that he is on a diuretic. Patient denies any chest pain. He denies any significant shortness of breath. Patient denies recent travel or surgery. Patient denies any fevers. Patient does have a history of GERD, diabetes, hypertension, and high cholesterol.] Physical Examination: [HEENT-PERRLA, EOMI. Cranial nerves II through XII grossly intact. TMs clear. Mucous membranes moist. No adenopathy. Cardiovascular-regular rate and rhythm without murmur or ectopy Lungs-clear to auscultation, chest wall stable without crepitus or subcu emphysema Abdomen-normoactive bowel sounds, soft, nontender, no rebound or rigidity, no peritoneal signs. Extremities-intact 4, normal range of motion, normal pulses, atraumatic]. Patient does have +2 edema both lower extremities from the knees down to the feet. Test Results: [EKG obtained arrival shows sinus rhythm with a ventricular rate of 59 bpm with no acute ST segment changes. CBC with differential was normal. Chemistries were normal. BUN was 21 creatinine 0.96. Troponin was less than 0.015. BNP was normal at 8.3. Venous duplex of both lower extremities were negative for DVT. Chest x- ray showed nothing acute.] Emergency Department Course and Treatment: [Patient was advised to continue with his Lasix and use compression stockings. Patient's states that he has 2 pair of compression stockings at home but will not wear them. ] Treatment Plan: [Vision advised to follow-up with primary care physician 3-5 days.] Disposition: [Discharged home in stable condition] Impression: [Bilateral lower extremity edema] This note was generated with Dragon dictation software. It may contain incorrect words, spelling, and punctuation that were not noted in review of the chart prior to signing ED Disposition - Plan for ED Patient: Chief Complaint: Edema Referrals: Frederic Montero MD [Primary Care Provider] - What to do if you have Problems For any increased pain, shortness of breath, bleeding, nausea or vomiting, chest pain, or any unexpected problems, contact your Primary Care Provider. Call [facility] ([phone]) or report to the closest Emergency Room. Call 911 if necessary. 01/04/182106 <Electronically signed by Aleshia Galdamez DO> Date Aleshia Galdamez DO Cosigner Signature (If Indicated): Date CC: Frederic Montero MD CBC W/DIFF, AUTOMATED Collected: 01/04/2018 Status: F Source: [place] 7:42 PM [facility] REPOSITORY TYPE CODE TESTS RESULT OUT OF RANGE REFERENCE UNITS LAB L100.1000 4.4-11.0 K/mm3 Normal WBC 8.7 LAB L100.1200 4.6-6.2 M/mm3 Low RBC 4.21 LAB L100.1300 13.0-16.5 g/dl Low HGB 12.3 LAB L100.1400 40-54 % Low HCT 37.2 LAB L100.1500 80-94 fL Normal MCV 88.4 LAB L100.1600 27.0-32.0 pg Normal MCH 29.2 LAB L100.1700 32-36 g/gl Normal MCHC 33.1 LAB L100.1810 11.6-14.6 % High RDW CV 14.8 LAB L100.1820 35.1-43.9 fl High RDW SD 46.9 LAB L100.1900 150-450 K/mm3 Normal PLT 172 LAB L100.2000 6.2-12.0 fl Normal MPV 10.3 LAB L100.2100 47-70 % Normal NEUT% 52.0 LAB L100.2200 19-41 % Normal LY% 36.3 LAB L100.2300 0-10 % Normal MONO% 4.5 LAB L100.2400 0-5 % High EO% 5.9 LAB L100.2500 0-1 % Normal BASO% 1.0 LAB L100.2550 0.0-0.9 % Normal IM GRAN % 0.300 Result Comment: IG% - Immature Granulocytes (promyelocytes, myelocytes and metamyelocytes) > 1% indicates that a LEFT SHIFT is Present. LAB L100.2620 2.0-7.7 X10 3/uL Normal Absolute Neut 4.5 LAB L100.2720 0.83-4.51 X10 3/ul Normal Absolute Lymph 3.16 Performed By: #### L100.0100 #### [facility] [address] [place], [address] BASIC METABOLIC Collected: 01/04/2018 Status: F Source: [place] PROFILE ([facility]) 7:42 PM [facility] REPOSITORY TYPE CODE TESTS RESULT OUT OF RANGE REFERENCE UNITS LAB L501.0100 74-106 mg/dL High GLU 167 Result Comment: Fasting Glucose result greater than or equal to 126 mg/dL suggests DIABETES MELLITUS per A.D.A. criteria. Please note revised GLUCOSE reference range effective 2017. LAB L501.1000 7-18 mg/dL High BUN 21 LAB L501.1100 0.70-1.30 mg/dL Normal CREAT,SERUM 0.96 Result Comment: The validity of the calculated GFR AND GFRAA in patients over 70 years has not been determined. Clinical correlation is essential. LAB L501.1110 >60 mL/min Normal EST GFR 85 Result Comment: Non- GFR Calc LAB L501.1115 >60 mL/min Normal EST GFR - AA 102 Result Comment: GFR Calc LAB L501.1255 ml/min Normal Estimated CRCL 73.84 LAB L501.1300 10-20 RATIO High BUN/CRE 21.8 LAB L501.2200 8.5-10 mg/dL Normal .1 CA 8.9 LAB L501.5300 136-14 mmol/L Normal 5 NA 139 LAB L501.5600 3.5-5. mmol/L Normal 1 K 4.1 Result Comment: Moderate Hemolysis, Result may be falsely increased. LAB L501.5900 98-107 mmol/L Normal CL 103 LAB L501.6100 21.0-32.0 mmol/L Normal CO2 30.0 LAB L501.6200 5-15 Normal 6 GAP Performed By: #### L500.2500, L501.4010 #### [facility] [address] [place], [address] TROPONIN-I Collected: 01/04/2018 Status: F Source: [place] 7:42 PM [facility] REPOSITORY TYPE CODE TESTS RESULT OUT OF RANGE REFERENCE UNITS LAB L501.4010 <0.045 ng/mL Normal < 0.015 TROPONIN-I Result Comment: TROPONIN-I EXPECTED VALUES <0.045 Negative 0.045 - 0.590 Consistent with Cardiac Damage > OR = 0.600 Critical Value Not every elevated troponin is indicative of IL. These values should be used with clinical judgement in examining the patient's clinical picture for diagnosis. To establish a diagnosis of IL versus myocardial injury, there must be a demonstrated rise and/or fall in the troponin values, in addition to ischemic symptoms, EKG changes, new regional wall motion abnormality, and/or angiographical evidence. PLEASE NOTE: REFERENCE RANGES EDITED 17 Performed By: #### L500.2500, L501.4010 #### [facility] [address] [place], [address] BNP,B-TYPE NATRIURETIC Collected: 01/04/2018 Status: F Source: [place] PEPTIDE 7:42 PM [facility] REPOSITORY TYPE CODE TESTS RESULT OUT OF RANGE REFERENCE UNITS LAB L503.6620 0-100 pg/mL Normal B-TYPE 8.3 KEL PEP Performed By: #### L503.6620 #### [facility] [address] [place], [address] VENOUS DUPLEX Observed: 01/04/2018 Status: F Source: [place] IMAG/CAESAR EXTREM 7:39 PM [facility] REPOSITORY [facility] Imaging Services [address] [place] [address] Venous Duplex Imag/Caesar Extrem MR#: [id number] Acct: [id number] Name: CHRIS RICHMOND . Rep #: [id number] : 1955 M 62 From: Avtar Ceron MD PCP: Frederic Montero MD Status: REG ER Study: Venous Duplex Imag/Caesar Extrem Date of Exam: 01/04/18 Exam# [id number] Ordering Dr: Aleshia Galdamez DO STUDY: VENOUS DOPPLER ULTRASOUND - BILATERAL LOWER EXTREMITIES REASON FOR EXAM: Male, 62 years old. Swelling of lower extremities TECHNIQUE: Ultrasound evaluation of the deep vein system to include riojas-scale imaging and compression was performed. Riojas-scale imaging and Doppler sonographic evaluation, including duplex spectral analysis and qualitative color flow sonography, was performed. COMPARISON: None. FINDINGS: RIGHT LEG Common Femoral Vein: Normal compression, spontaneity and augmentation. Normal color Doppler. Common Femoral Vein/Greater Saphenous Junction: Normal compression, spontaneity and augmentation. Normal color Doppler. Deep Femoral Vein: Normal compression, spontaneity and augmentation. Normal color Doppler. Femoral Proximal: Normal compression, spontaneity and augmentation. Normal color Doppler. Femoral Middle: Normal compression, spontaneity and augmentation. Normal color Doppler. Femoral Distal: Normal compression, spontaneity and augmentation. Normal color Doppler. Popliteal Vein: Normal compression, spontaneity and augmentation. Normal color Doppler. Posterior Tibial Vein: Normal compression, spontaneity and augmentation. Normal color Doppler. Peroneal Vein: Normal compression, spontaneity and augmentation. Normal color Doppler. LEFT LEG Common Femoral Vein: Normal compression, spontaneity and augmentation. Normal color Doppler. Common Femoral Vein/Greater Saphenous Junction: Normal compression, spontaneity and augmentation. Normal color Doppler. Deep Femoral Vein: Normal compression, spontaneity and augmentation. Normal color Doppler. Femoral Proximal: Normal compression, spontaneity and augmentation. Normal color Doppler. Femoral Middle: Normal compression, spontaneity and augmentation. Normal color Doppler. Femoral Distal: Normal compression, spontaneity and augmentation. Normal color Doppler. Popliteal Vein: Normal compression, spontaneity and augmentation. Normal color Doppler. Posterior Tibial Vein: Normal compression, spontaneity and augmentation. Normal color Doppler. Peroneal Vein: Normal compression, spontaneity and augmentation. Normal color Doppler. US/Venous Duplex Imag/Caesar Extrem IMPRESSION: Normal venous Doppler ultrasound of the bilateral lower extremities. Electronically Signed: Avtar Ceron MD at 20:23 EDT , Service support , CC: Frederic Montero MD; Aleshia Galdamez DO Fingerprint Technician: Signed CHEST 1 VIEW Observed: 01/04/2018 Status: F Source: [place] (PORTABLE) 7:30 PM [facility] REPOSITORY [facility] Imaging Services [address] [place] [address] [place] [address] Chest 1 View (Portable) MR#: [id number] Acct: [id number] Name: CHRIS RICHMOND Wang Sr. Rep #: [id number] : 1955 62 From: Pinky Cain MD PCP: Frederic Montero MD Status: PRE ER Study: Chest 1 View (Portable) Date of Exam: 01/04/18 Exam# [id number] Ordering Dr: Aleshia Galdamez DO STUDY: X-RAY CHEST REASON FOR EXAM: Male, 62 years old. Bilateral lower extremity swelling. TECHNIQUE: 1 view COMPARISON: Prior chest radiograph of July 22, 2017. FINDINGS: The lungs are clear and expanded. There is no demonstrated pleural abnormality. Normal size heart. Normal mediastinum and pina. Normal visualized pulmonary arteries. There is atherosclerotic calcification of the aortic arch with tortuosity. Normal visualized thoracic spine. Normal visualized ribs, clavicles, and shoulders. There is no demonstrated abnormality of the visualized soft tissue structures of the upper abdomen. RAD/Chest 1 View (Portable) IMPRESSION: No acute cardiopulmonary findings or changes. Negative for major consolidation, atelectasis, pleural effusion or cardiomegaly. Electronically Signed: Pinky Cain MD at 19:46 EDT , Service support , CC: Frederic Montero MD; Aleshia Galdamez DO Fingerprint Technician: Signed DOWNTIME REPORT Observed: 11/16/2017 Status: F Source: [place] 1:57 PM [facility] Medical Records Department [address] [place] [address] Downtime Report MR#: [id number] Acct: [id number] Name: CHRIS RICHMOND Sr. Rep #: [id number] : 1955 61 From: Michael Quinonez PCP: Frederic Montero MD Status: REG CLI This patient was seen during an EMR downtime October 30, 2017 - November 06, 2017. This patient may have a combination of paper and electronic documentation or all paper documentation. All documentation is viewable within the e-chart portion of Monitor for each patient visit. EMERGENCY DEPARTMENT Observed: 11/12/2017 Status: F Source: [place] SUMMARY 7:45 AM [facility] Medical Records Department [address] [place] [address] Emergency Department Summary 11/12/17 0546 MR#: [id number] Acct: [id number] Name: RICHMONDCHRIS Sr. Rep #: [id number] : 1955 61 From: Matt Martell MD PCP: Frederic Montero MD Status: DEP ER - ER Visit Summary Date of Service: 11/12/17 Chief Complaint: Right shoulder pain after lifting things History of Present Illness: The patient is a 61 M hand dominant. Past medical history of insulin pen diabetes, hypertension, high cholesterol. He has never had any shoulder surgery. He states 2 weeks ago he was helping family move multiple objects. He felt a pop in his right shoulder and since that time he has had continued dull aching pain. He is able to move it. He has had no prior right shoulder history or surgery. He denies any weakness. Denies any fever or redness. He was seen by his primary care physician and he states his PCP did a shoulder joint injection without any significant relief. He denies any fever or redness. Physical Examination: Very well-appearing middle-age male. Vital signs are stable afebrile. No distress. H EENT exam unremarkable neck nontender no lymphadenopathy. Lungs clear to auscultation bilaterally. Chest wall nontender. Heart regular rate rhythm no murmur. Abdomen obese soft nontender normal bowel sounds no peritoneal signs. He is moving all 4 extremities. Neurovascular intact. Specifically he has mild soft tissue tenderness diffusely of his right shoulder. Clavicles nontender and appears to be normal position. He has full flexion, extension, and Abduction of his right shoulder. There is no bony deformity. No signs of dislocation. No bony tenderness. No redness or warmth. No axillary lymphadenopathy. Distal of the right humerus, elbow, forearm, wrist and hand are nontender neurovascular intact he has 5/5 motor strength in his right hand. He has normal touch sensation in the hand. Normal cap refill and radial pulse. Test Results: Discussed with patient and he deferred x-ray at this time. Clinically I do not think an x-ray would be of any significance. Emergency Department Course and Treatment: Be discharged home. To follow-up with local orthopedic surgeon Dr. Cr Escoto if he is not improving. He will be treated conservatively with ice and anti-inflammatories. Return if worse. Treatment Plan: Discharge follow-up with Dr. Cr Escoto of orthopedics Disposition: dc Impression: Acute right shoulder pain secondary to right shoulder strain This note was generated with flux - neutrinity dictation software. It may contain incorrect words, spelling, and punctuation that were not noted in review of the chart prior to signing ED Disposition - Plan for ED Patient: Chief Complaint: Upper Extremity Injury Referrals: Frederic Montero MD [Primary Care Provider] - What to do if you have Problems For any increased pain, shortness of breath, bleeding, nausea or vomiting, chest pain, or any unexpected problems, contact your Primary Care Provider. Call [facility] ([phone]) or report to the closest Emergency Room. Call 911 if necessary. 11/12/17 3578 <Electronically signed by Matt Martell MD> Date Matt Martell MD Cosigner Signature (If Indicated): Date CC: Frederic Montero MD DISCHARGE INSTRUCTION Observed: 11/12/2017 Status: F Source: [place] 7:45 AM [facility] REPOSITORY [facility] Medical Records Department [address] [place] [address] Discharge Instruction 11/12/17 0550 MR#: [id number] Acct: [id number] Name: CHRIS RICHMOND Sr. Rep #: [id number] : 1955 61 From: Matt Martell MD PCP: Frederic Montero MD Status: DEP ER ED Disposition - Plan for ED Patient: Disposition: Home or Assisted Living Chief Complaint: Upper Extremity Injury Instructions: ED Sprain Shoulder Referrals: Frederic Montero MD [Primary Care Provider] - 1 Week if not improving Additional Instructions: Ice to the right shoulder to decrease inflammation. Motrin, Advil or Aleve for pain and inflammation. If not improving call follow-up with an area orthopedic surgeon for further evaluation. What to do if you have Problems For any increased pain, shortness of breath, bleeding, nausea or vomiting, chest pain, or any unexpected problems, contact your Primary Care Provider. Call [facility] ([phone]) or report to the closest Emergency Room. Call 911 if necessary. 11/12/17 0745 <Electronically signed by Matt Martell MD> Date Matt Martell MD Cosigner Signature (If Indicated): Date CC: Frederic Montero MD CBC-COMPLETE BLOOD CNT Collected: 10/31/2017 Status: F Source: [place] NO DIFF 8:35 AM [facility] REPOSITORY Order Comment: RESULT(S) PREVIOUSLY REPORTED ON MANUAL REQUISITION DURING DOWNTIME. TYPE CODE TESTS RESULT OUT OF RANGE REFERENCE UNITS LAB L100.1000 4.4-11.0 K/mm3 Normal WBC 8.0 LAB L100.1200 4.6-6.2 M/mm3 Low RBC 4.34 LAB L100.1300 13.0-16.5 g/dl Low HGB 12.7 LAB L100.1400 40-54 % Low HCT 39.1 LAB L100.1500 80-94 fL Normal MCV 90.1 LAB L100.1600 27.0-32.0 pg Normal MCH 29.3 LAB L100.1700 32-36 g/gl Normal MCHC 32.5 LAB L100.1810 11.6-14.6 % High RDW CV 15.0 LAB L100.1820 35.1-43.9 fl High RDW SD 48.4 LAB L100.1900 150-450 K/mm3 Normal PLT 155 LAB L100.2000 6.2-12.0 fl Normal MPV 11.0 Performed By: #### L100.0500 #### [facility] [address] [place], [place], [address] COMPREHENSIVE METABOLIC Collected: 10/31/2017 Status: F Source: [place] PROFIL 8:35 AM [facility] REPOSITORY Order Comment: RESULT(S) PREVIOUSLY REPORTED ON MANUAL REQUISITION DURING DOWNTIME. TYPE CODE TESTS RESULT OUT OF RANGE REFERENCE UNITS LAB L501.0100 74-106 mg/dL High GLU 188 Result Comment: Fasting Glucose result greater than or equal to 126 mg/dL suggests DIABETES MELLITUS per A.D.A. criteria. Please note revised GLUCOSE reference range effective 2017. LAB L501.1000 7-18 mg/dL Normal BUN 16 LAB L501.1100 0.70-1.30 mg/dL Normal CREAT,SERUM 0.91 Result Comment: The validity of the calculated GFR AND GFRAA in patients over 70 years has not been determined. Clinical correlation is essential. LAB L501.1110 >60 mL/min Normal EST GFR 91 LAB L501.1115 >60 mL/min Normal EST GFR - AA 110 LAB L501.1300 10-20 RATIO Normal BUN/CRE 17.6 LAB L501.1500 6.4-8.2 g/dL Normal T PROT 7.2 LAB L501.1800 3.2-5.0 g/dL Normal ALB 3.5 LAB L501.1950 2.2-4.2 g/dL Normal GLOB 3.7 LAB L501.2000 0.9-2.4 RATIO Normal A/G 0.9 LAB L501.2200 8.5-10.1 mg/dL Normal CA 9.1 LAB L501.4100 15-37 U/L Normal AST 15 LAB L501.4305 45-117 U/L Normal ALK P 64 LAB L501.4405 16-61 U/L Normal ALT 27 LAB L501.4600 0.20-1.00 mg/dL Normal T BILI 0.50 LAB L501.5300 136-145 mmol/L Normal NA 139 LAB L501.5600 3.5-5.1 mmol/L Normal K 3.8 LAB L501.5900 98-107 mmol/L Normal CL 102 LAB L501.6100 21.0-32.0 mmol/L Normal CO2 30.0 LAB L501.6200 5-15 Normal GAP 7 Performed By: #### L500.4050, L500.4100 #### [facility] [address] [place], [place], [address] LIPID PROFILE Collected: 10/31/2017 Status: F Source: [place] 8:35 AM [facility] REPOSITORY Order Comment: RESULT(S) PREVIOUSLY REPORTED ON MANUAL REQUISITION DURING DOWNTIME. TYPE CODE TESTS RESULT OUT OF RANGE REFERENCE UNITS LAB L501.4900 200 mg/dL Normal CHOL 93 Result Comment: <200 mg/dL Desirable 200-240 mg/dL Borderline >240 mg/dL High Risk LAB L501.5000 mg/dL Normal TRIG 98 Result Comment: The drugs N-Acetylcysteine and Metamizole may falsely depress this assay. Serum Triglycerides Reference Interval Normal <150 mg/dL Borderline high 150 - 199 mg/dL High 200 - 499 mg/dL Very High > or = 500 mg/dL LAB L501.6400 mg/dL Low HDL 29 Result Comment: The drugs N-Acetylcysteine and Metamizole may falsely depress this assay. Reference Range HDL <40 mg/dL Low HDL Cholesterol HDL >or= 60 mg/dL High HDL Cholesterol LAB L501.6500 0-130 mg/dL Normal LDL 44 LAB L501.6600 5-40 mg/dL Normal VLDL 20 Performed By: #### L500.4050, L500.4100 #### [facility] [address] [facility] [place], [address] HEMOGLOBIN A1C Collected: 10/31/2017 Status: F Source: [place] 8:35 AM [facility] REPOSITORY Order Comment: RESULT(S) PREVIOUSLY REPORTED ON MANUAL REQUISITION DURING DOWNTIME. TYPE CODE TESTS RESULT OUT OF RANGE REFERENCE UNITS LAB L501.9985 4.2-6.3 % High HGB A1C 6.4 Performed By: #### L501.9985 #### [facility] [address] [place], [address] MICROALB:CREAT Collected: 10/31/2017 Status: F Source: [facility] 8:35 AM [facility] REPOSITORY Order Comment: RESULT(S) PREVIOUSLY REPORTED ON MANUAL REQUISITION DURING DOWNTIME. TYPE CODE TESTS RESULT OUT OF RANGE REFERENCE UNITS LAB L501.1200 NO RANGE EST. mg/dL Normal UR CREAT 141.00 LAB L502.0500 NO RANGE EST. mg/L Normal 41.9 MICROALBUMIN ,UR LAB L502.0600 <30 mg/g CRE mg/g CRE Normal 29.0 MALB:CREAT Performed By: #### L502.0250 #### [facility] [address] [place], [address] SHOULDER MIN 2 VIEWS Observed: 08/08/2017 Status: F Source: [place] 9:13 AM [facility] REPOSITORY [facility] Imaging Services [address] [place] [address] Shoulder min 2 Views MR#: [id number] Acct: [id number] Name: CHRIS RICHMOND Wang Sr. Rep #: [id number] : 1955 M 61 From: Sebastian Lim MD PCP: Frederic Montero MD Status: REG CLI Study: Shoulder min 2 Views Date of Exam: 08/08/17 Exam# [id number] Ordering Dr: Frederic Montero MD STUDY: X-RAY - RIGHT SHOULDER REASON FOR EXAM: Male, 61 years old. Right shoulder pain TECHNIQUE: 4 view(s) of the shoulder. COMPARISON: None. FINDINGS: Normal glenohumeral articulation. There is degenerative arthrosis of the acromioclavicular joint without inferior osseous spur formation. Normal acromion. Normal humeral head and visualized proximal humerus. There is a tiny calcification lateral to the humeral head on the internal rotation view which may represent calcific tendinitis or bursitis. Normal visualized pulmonary apex. RAD/Shoulder min 2 Views IMPRESSION: Degenerative changes of the right AC joint. Tiny calcification lateral to the right humeral head which may represent calcific tendinitis/bursitis. Electronically Signed: Sebastian Lim MD at 17:07 EDT , Service support , CC: Frederic Montero MD Fingerprint Technician: Signed CBC-COMPLETE BLOOD CNT Collected: 08/07/2017 Status: F Source: [place] NO DIFF 10:16 AM [facility] REPOSITORY Order Comment: Order Date: 08/07/17 Order Info: [id number] - CBC TYPE CODE TESTS RESULT OUT OF RANGE REFERENCE UNITS LAB L100.1000 4.4-11.0 K/mm3 Normal WBC 9.3 LAB L100.1200 4.6-6.2 M/mm3 Low RBC 4.41 LAB L100.1300 13.0-16.5 g/dl Normal HGB 13.1 LAB L100.1400 40-54 % Low HCT 39.6 LAB L100.1500 80-94 fL Normal MCV 89.8 LAB L100.1600 27.0-32.0 pg Normal MCH 29.7 LAB L100.1700 32-36 g/gl Normal MCHC 33.1 LAB L100.1810 11.6-14.6 % High RDW CV 14.8 LAB L100.1820 35.1-43.9 fl High RDW SD 47.6 LAB L100.1900 150-450 K/mm3 Normal PLT 162 LAB L100.2000 6.2-12.0 fl Normal MPV 10.8 Performed By: #### L100.0500, L501.9985, L500.4050, L500.4100, L400.2011, L502.0250 #### [facility] [address] [place], [address] HEMOGLOBIN A1C Collected: 08/07/2017 Status: F Source: [place] 10:16 AM [facility] REPOSITORY Order Comment: Order Date: 08/07/17 Order Info: [id number] - A1C TYPE CODE TESTS RESULT OUT OF RANGE REFERENCE UNITS LAB L501.9985 4.2-6.3 % Normal HGB A1C 6.1 Performed By: #### L100.0500, L501.9985, L500.4050, L500.4100, L400.2010, L502.0250 #### [facility] [address] [place], [place], [address] COMPREHENSIVE METABOLIC Collected: 08/07/2017 Status: F Source: [facility] 10:16 AM [facility] REPOSITORY Order Comment: Order Date: 08/07/17 Order Info: [id number] - CMP Order Info: [id number] - LIPID TYPE CODE TESTS RESULT OUT OF RANGE REFERENCE UNITS LAB L501.0100 74-106 mg/dL High GLU 130 Result Comment: Fasting Glucose result greater than or equal to 126 mg/dL suggests DIABETES MELLITUS per A.D.A. criteria. Please note revised GLUCOSE reference range effective 2017. LAB L501.1000 7-18 mg/dL High BUN 20 LAB L501.1100 0.70-1.30 mg/dL Normal CREAT,SERUM 0.89 Result Comment: The validity of the calculated GFR AND GFRAA in patients over 70 years has not been determined. Clinical correlation is essential. LAB L501.1110 >60 mL/min Normal EST GFR 92 Result Comment: Non- GFR Calc LAB L501.1115 >60 mL/min Normal EST GFR - AA 112 Result Comment: GFR Calc LAB L501.1300 10-20 RATIO High BUN/CRE 22.4 LAB L501.1500 6.4-8.2 g/dL T Normal PROT 7.3 LAB L501.1800 3.2-5.0 g/dL Normal ALB 3.5 LAB L501.1950 2.2-4.2 g/dL Normal GLOB 3.8 LAB L501.2000 0.9-2.4 RATIO Normal A/G 0.9 LAB L501.2200 8.5-10.1 mg/dL Low CA 8.4 LAB L501.4100 15-37 U/L Normal AST 16 LAB L501.4305 45-117 U/L Normal ALK P 58 LAB L501.4405 16-61 U/L Normal ALT 29 Result Comment: Please note revised ALT reference range effective 2017. LAB L501.4600 0.20-1.00 mg/dL Normal T BILI 0.50 LAB L501.5300 136-145 mmol/L Normal NA 140 LAB L501.5600 3.5-5.1 mmol/L Normal K 3.9 LAB L501.5900 98-107 mmol/L Normal CL 105 LAB L501.6100 21.0-32.0 mmol/L Normal CO2 28.0 LAB L501.6200 5-15 Normal GAP 7 Performed By: #### L100.0500, L501.9985, L500.4050, L500.4100, L400.2011, L502.0250 #### [facility] [address] [place], [address] LIPID PROFILE Collected: 08/07/2017 Status: F Source: [place] 10:16 AM [facility] REPOSITORY Order Comment: Order Date: 08/07/17 Order Info: [id number] - CMP Order Info: [id number] - LIPID TYPE CODE TESTS RESULT OUT OF RANGE REFERENCE UNITS LAB L501.4900 200 mg/dL Normal CHOL 110 Result Comment: <200 mg/dL Desirable 200-240 mg/dL Borderline >240 mg/dL High Risk LAB L501.5000 mg/dL Normal TRIG 140 Result Comment: The drugs N-Acetylcysteine and Metamizole may falsely depress this assay. Serum Triglycerides Reference Interval Normal <150 mg/dL Borderline high 150 - 199 mg/dL High 200 - 499 mg/dL Very High > or = 500 mg/dL LAB L501.6400 mg/dL Low HDL 31 Result Comment: The drugs N-Acetylcysteine and Metamizole may falsely depress this assay. Reference Range HDL <40 mg/dL Low HDL Cholesterol HDL >or= 60 mg/dL High HDL Cholesterol LAB L501.6500 0-130 mg/dL Normal LDL 51 LAB L501.6600 5-40 mg/dL Normal VLDL 28 Performed By: #### L100.0500, L501.9985, L500.4050, L500.4100, L400.2010, L502.0250 #### [facility] [address] [place], [place], [id number] URINALYSIS, ROUTINE Collected: 08/07/2017 Status: F Source: [place] (DIPSTICK) 10:16 AM [facility] REPOSITORY Order Comment: Order Date: 08/07/17 Order Info: [id number] - UA How was Urine Obtained? NAILHEAD SETTER TO SPECIFY TYPE CODE TESTS RESULT OUT OF RANGE REFERENCE UNITS LAB L400.3000 Yellow COLOR Normal Yellow LAB L400.3050 Clear Normal CLARITY Clear LAB L400.3200 Normal mg/dl High 50 GLUCOSE, UR LAB L400.3300 Negative mg/dL Normal BILIRUBIN URINE Negative LAB L400.3400 Negative mg/dl Normal KETONE UR Negative LAB L400.3465 1.002-1.030 Normal SP.GR. DIPSTX 1.010 LAB L400.3550 5.0 - 8.0 pH UR Normal 8.0 LAB L400.3600 Negative mg/dl High PROT 15 DIPSTX LAB L400.3700 Normal mg/dl High 1 UROBILI LAB L400.3750 Negative Normal NITRITE UR Negative LAB L400.3780 Negative /ul Normal OCCULT BLOOD-UR Negative LAB L400.3800 Negative /ul LEUK Normal ESTERASE Negative Performed By: #### L100.0500, L501.9985, L500.4050, L500.4100, L400.2010, L502.0250 #### [facility] [address] [place], [place], [id number] MICROALB:CREAT Collected: 08/07/2017 Status: F Source: [place] RATIO,RANDOM UR 10:16 AM [facility] REPOSITORY Order Comment: Order Date: 08/07/17 Order Info: [id number] - MIACRE TYPE CODE TESTS RESULT OUT OF RANGE REFERENCE UNITS LAB L501.1200 NO RANGE EST. mg/dL Normal UR CREAT 127.00 LAB L502.0500 NO RANGE EST. mg/L Normal 66.8 MICROALBUMIN ,UR LAB L502.0600 <30 mg/g CRE mg/g CRE High 52.6 MALB:CREAT Performed By: #### L100.0500, L501.9985, L500.4050, L500.4100, L400.2011, L502.0250 #### [facility] [address] [place], [address] EMERGENCY DEPARTMENT Observed: 07/22/2017 Status: F Source: [place] SUMMARY 10:56 PM [facility] REPOSITORY [facility] Medical Records Department [address] [place] [address] Emergency Department Summary 07/22/17 1538 MR#: [id number] Acct: [id number] Name: CHRIS RICHMOND . Rep #: [id number] : 1955 61 From: Luiza Barker MD PCP: Frederic Montero MD Status: DEP ER - ER Visit Summary Date of Service: 07/22/17 Chief Complaint: Cough and congestion History of Present Illness: The patient is a 61 M who complains of a 7 day history of body aches, head and chest congestion, cough with clear sputum. He denies fever chills. Patient was seen at urgent care on the . He was given what sounds like Mucinex. He also has an albuterol inhaler. Patient reports no improvement. She denies having fever. He has had ill contacts with similar. Physical Examination: Blood pressure is 159/103, otherwise vitals are normal. Pulse ox is 100% on room air. Head and neck examination is unremarkable. Heart is regular rate and rhythm. Lung sounds are diminished throughout. Abdomen is soft nontender. Neuro exam is unremarkable. Test Results: Two-view chest x-ray reveals no acute pathology. Emergency Department Course and Treatment: Patient was given aerosols. On repeat evaluation he does have improved air movement. Oxygen saturations have maintained in the high 90s. Patient raises concern that the albuterol inhaler he has at home just states his tongue the back of his throat but is not really doing any good. Respiratory therapy will get him a spacer and teach him how to use it. He will be given a short course of prednisone. He was warned that this will make his blood sugars increase for a short period. I do not believe he needs antibiotics. Treatment Plan: [] Disposition: Discharge Impression: Viral URI with bronchospasm This note was generated with flux - neutrinity dictation software. It may contain incorrect words, spelling, and punctuation that were not noted in review of the chart prior to signing ED Disposition - Plan for ED Patient: Chief Complaint: Cold Sx Referrals: Frederic Montero MD [Primary Care Provider] - What to do if you have Problems For any increased pain, shortness of breath, bleeding, nausea or vomiting, chest pain, or any unexpected problems, contact your Primary Care Provider. Call [facility] ([phone]) or report to the closest Emergency Room. Call 911 if necessary. 07/22/17 2256 <Electronically signed by Luiza Barker MD> Date Luiza Barker MD Cosigner Signature (If Indicated): Date CC: Frederic Montero MD DISCHARGE INSTRUCTION Observed: 07/22/2017 Status: F Source: [place] 5:11 PM [facility] REPOSITORY [facility] Medical Records Department [address] [place] [address] Discharge Instruction 07/22/17 1709 MR#: [id number] Acct: [id number] Name: CHRIS RICHMOND Wang . Rep #: [id number] : 1955 61 From: Luiza Barker MD PCP: Frederic Montero MD Status: REG ER ED Disposition - Plan for ED Patient: Disposition: Home or Assisted Living Chief Complaint: Cold Sx Instructions: ED URI Viral W Wheezing Prescriptions: Prednisone [Deltasone] 60 mg PO DAILY #15 tablet Referrals: Frederic Montero MD [Primary Care Provider] - 5-7 Days What to do if you have Problems For any increased pain, shortness of breath, bleeding, nausea or vomiting, chest pain, or any unexpected problems, contact your Primary Care Provider. Call [facility] ([phone]) or report to the closest Emergency Room. Call 911 if necessary. 07/22/17 1711 <Electronically signed by Luiza Barker MD> Date Luiza Barker MD Cosigner Signature (If Indicated): Date CC: Frederic Montero MD CHEST PA AND LATERAL Observed: 07/22/2017 Status: F Source: [place] 3:35 PM [facility] REPOSITORY [facility] Imaging Services [address] [place] [address] Chest PA and Lateral MR#: [id number] Acct: [id number] Name: KERACHRIS Wang Sr. Rep #: [id number] : 1955 M 61 From: Angel Walker MD PCP: Frederic Montero MD Status: REG ER Study: Chest PA and Lateral Date of Exam: 07/22/17 Exam# [id number] Ordering Dr: Luiza Barker MD STUDY: X-RAY CHEST REASON FOR EXAM: Male, 61 years old. Cough TECHNIQUE: Frontal and lateral views of the chest COMPARISON: None. FINDINGS: The lungs are clear. There are no pleural effusions. There is no pneumothorax. The heart is normal in size. The visualized osseous structures are within normal limits. RAD/Chest PA and Lateral IMPRESSION: No acute thoracic pathology. Electronically Signed: Angel Walker, at 16:48 EST Tel , Service support , CC: Luiza Barker MD; Frederic Montero MD Fingerprint Technician: Signed BEDSIDE GLUCOSE Collected: 07/22/2017 Status: F Source: [place] 3:13 PM [facility] REPOSITORY TYPE CODE TESTS RESULT OUT OF RANGE REFERENCE UNITS LAB L501.080 70-110 mg/dL Normal BEDSIDE GLU 90 Result Comment: MANAGEMENT OF PATIENT CARE PER NURSING PROTOCOL Performed By: #### L501.080 #### [facility] Point of Care [address] [place] [address] PROGRESS Observed: 07/18/2017 Status: COMPLETED Source: [place] 8:28 AM [facility] REPOSITORY HNO ID: [id number] Author: Pepper Trejo (Pa) Service: (none) Author Type: Physician Engineering Analyst Type: Progress Notes Filed: 07/18/2017 8:38 AM Note Text: Subjective HPI Pt presents with productive cough x 1 week. He states the sputum is clear. He is not a smoker, he quit 7 years ago. No history with asthma or copd that he knows of. He is diabetic. He feels short of breath when he coughs. No fever at home. He did get a flu shot this year. No chest pain. He states his throat is scratchy also. Review of Systems Constitutional: Negative for chills and fever. HENT: Positive for congestion and sore throat. Eyes: Negative. Respiratory: Positive for cough and sputum production. Cardiovascular: Negative. Gastrointestinal: Negative. Genitourinary: Negative. Musculoskeletal: Negative. Skin: Negative. Neurological: Negative. Psychiatric/Behavioral: Negative. All other systems reviewed and are negative. PAST MEDICAL HISTORY Diagnosis Date - Bilateral leg edema - GERD (gastroesophageal reflux disease) - Gout - HTN (hypertension) - Hyperlipidemia - Morbid obesity (HCC) - Neuropathy (HCC) - Restless legs - Type II or unspecified type diabetes mellitus without mention of complication, uncontrolled - Umbilical hernia 08/02/2016 Current Outpatient Prescriptions: aspirin, enteric coated (ASPIRIN, ENTERIC COATED) 81 mg EC tablet Take 1 tablet by mouth once daily. Disp: 30 tablet Rfl: 11 8 HOUR PAIN RELIEVER 650 mg CR tablet TAKE 1 TABLET BY MOUTH EVERY 8 HOURS Disp: 90 tablet Rfl: 1 FREESTYLE LITE STRIPS test strip Test blood sugar(s) 3 times daily. Dx: 250.02. Insulin: Yes Disp: 150 Strip Rfl: 3 insulin needles, DISPOSABLE, (UNIFINE PENTIPS) 31 gauge x 5/16 ndle Uses up to 5 times a day Disp: 200 Each Rfl: 5 furosemide (LASIX) 80 mg tablet Take 1 tablet by mouth once daily. Disp: 90 tablet Rfl: 3 losartan (COZAAR) 25 mg tablet Take 1 tablet by mouth once daily. Disp: 90 tablet Rfl: 3 traZODone (DESYREL) 50 mg tablet Take 1 tablet by mouth daily at bedtime. Disp: 30 tablet Rfl: 11 metFORMIN ER (FORTAMET) 1,000 mg 24 hr tablet Take 1 tablet by mouth twice daily with meals. Disp: 180 tablet Rfl: 3 insulin degludec (TRESIBA) 200 unit/mL (3 mL) injection Inject 118 Units subcutaneously every 24 hours. Disp: 18 mL Rfl: 5 gabapentin (NEURONTIN) 800 mg tablet Take 1 tablet by mouth three times daily. Disp: 270 tablet Rfl: 1 rosuvastatin (CRESTOR) 20 mg tablet TAKE 1 TABLET BY MOUTH AT BEDTIME Disp: 30 tablet Rfl: 11 meloxicam (MOBIC) 15 mg tablet Take 1 tablet by mouth once daily. Disp: 90 tablet Rfl: 1 Oral Medication Containers (BD SHARPS NAILHEAD SETTER) misc Use as directed for disposal of needles and lancets DM: yes Insulin: yes Dx: E11.40 Disp: 1 Each Rfl: 0 Blood Pressure Cuff - Home Use BLOOD PRESSURE CUFF FOR HOME USE. DX: LABILE BLOOD PRESSURE Disp: 1 Each Rfl: 0 Lancets lancets Test blood sugar(s) 3 times daily. Dx: E11.65. Insulin: Yes Disp: 100 Each Rfl: 11 COMPOUNDED PRESCRIPTION GabaKeto LP: Gabapentin 2.5%, Ketoprofen 2.5%, Lidocaine 2.225%, Prilocaine 2.25%SIG: Apply 0.5-1 g to area of pain BID-QID PRN, massaging in well. Repeat application after 10 minDispense: 240 G with 5 refills Disp: Rfl: Blood-Glucose Meter (FREESTYLE SYSTEM KIT) monitoring kit 1 Each as needed. Disp: 1 Each Rfl: 0 insulin aspart (NOVOLOG FLEXPEN) 100 unit/mL inpn Inject 50 Units subcutaneously three times daily with meals. Disp: 45 mL Rfl: 11 Medical Information ID Tag misc ID bracelet for type 2 diabetes Disp: 1 Each Rfl: 0 COMPOUNDED PRESCRIPTION Compression socks: 20-30 mmhg: venous insufficiency, Disp: 1 pair, six refillsWith zipper Disp: 1 Each Rfl: 0 COMPOUNDED PRESCRIPTION Patient is able to perform silver sneakersDX: DM Disp: 1 Each Rfl: 0 COMPOUNDED PRESCRIPTION jobst stockings diagnosis edema R60.115-20 wt1 large pair, 2 refills Disp: 1 Each Rfl: 0 COMPOUNDED PRESCRIPTION Diabetic shoes:Diabetes with neuropathy Disp: 1 Each Rfl: 0 Wheel Chair paris Diagnosis: debility Disp: 1 Device Rfl: 0 COMPOUNDED PRESCRIPTION Diabetic shoes Dx: 250.02 Disp: 1 Each Rfl: 0 doxycycline (VIBRA-TABS) 100 mg tablet Take 1 tablet by mouth twice daily for 10 days. Disp: 20 tablet Rfl: 0 albuterol HFA (VENTOLIN HFA) 90 mcg/actuation inhaler Inhale 2 Puffs as instructed every 4 hours as needed for Wheezing/Shortness of Breath. Disp: 1 Inhaler Rfl: 0 benzonatate (TESSALON PERLE) 100 mg capsule Take 2 capsules by mouth three times daily as needed for Cough. Disp: 20 capsule Rfl: 0 No current facility-administered medications for this visit. PAST SURGICAL HISTORY Procedure Laterality Date - LAP CHOLECYSTECT/CHOLANGIOGRAPHY 12/24/2007 Normal IOC - PAST SURGICAL HISTORY OF myringotomy tubes - REMOVAL OF TONSILS,<12 Y/O Tonsillectomy - REPAIR UMBILICAL HERNIA 08/02/2016 FAMILY HISTORY Problem Relation Age of Onset - Diabetes Mother - Hypertension Mother - brain tumor [OTHER] Mother - cirrhosis [OTHER] Father Social History Substance Use Topics - Smoking status: Former Smoker Packs/day: 1.00 Years: 25.00 Types: Cigarettes Quit date: 05/26/2011 - Smokeless tobacco: Never Used - Alcohol use No BP 130/60 Pulse 64 Temp 37.1 ?C (98.8 ?F) (Tympanic) Resp 16 Wt 119.7 kg (264 lb) SpO2 98% BMI 41.35 kg/m2 Objective Physical Exam Constitutional: He is oriented to person, place, and time and well-developed, well-nourished, and in no distress. HENT: Head: Normocephalic and atraumatic. Right Ear: External ear normal. Left Ear: External ear normal. Nose: Mucosal edema and rhinorrhea present. Mouth/Throat: Oropharynx is clear and moist. Neck: Normal range of motion. Neck supple. Cardiovascular: Normal rate, regular rhythm and normal heart sounds. Pulmonary/Chest: Effort normal and breath sounds normal. No respiratory distress. He has no wheezes. Harsh cough noted Lymphadenopathy: He has no cervical adenopathy. Neurological: He is alert and oriented to person, place, and time. Skin: Skin is warm and dry. No rash noted. Psychiatric: Affect and judgment normal. Nursing note and vitals reviewed. ASSESSMENT/PLAN: 1. Acute bronchitis, unspecified organism - ICD9: 466.0, ICD10: J20.9 Pt likely has underlying COPD as he is a former smoker. Oxygenating well here, no wheezing on auscultation. I will treat with doxycycline, albuterol mdi and tessalon. Discussed with patient concerning symptoms to go to the emergency department or follow up here. Pt agreeable with this plan. Pepper Trejo PA-C OBSOLETE Observed: 06/26/2017 Status: COMPLETED Source: [place] 12:00 AM [facility] REPOSITORY Refill (INTMWS) CHRIS RICHMOND ([id number]) 1955 M Date Time Provider Department 06/26/17 MARYANA MATOSWS During your visit today, we recorded the following information about you: Kiah Jackson LPN 06/26/2017 11:16 AM Signed Call from pharmacy requesting refill. Pending Prescriptions Disp Refills ASPIRIN 81 MG TABLET,DELAYED RELEASE 30 tablet 11 Sig: Take 1 tablet by mouth once daily. NAVARRO: No Patient last seen 02/2017 Kiah Jackson LILIANE Allergies As of Date: 06/26/2017 Noted Allergy Reaction LATEX 12/18/2012 2 - Rash 9 - Itching NORVASC (AMLODIPINE BESYLATE) 09/13/2016 5 - Intolerance Comments: Leg swelling uncomfortable Date Reviewed: 03/14/2017 Reviewed by: Lima Hancock Lamp Tester And Inspector - Fully Assessed Reason for Visit: Refill Request [94] Order(s):aspirin, enteric coated (ASPIRIN, ENTERIC COATED) 81 mg EC tabletTake 1 tablet by mouth once daily.Disp: 30 tabletRfl: 11 Prescriptions as of 06/26/2017 Sig: ASPIRIN 81 MG TABLET,DELAYED * Take 1 tablet by mouth once d* 8 HOUR PAIN RELIEVER 650 MG T* TAKE 1 TABLET BY MOUTH EVERY * FREESTYLE LITE STRIPS Test blood sugar(s) 3 times d* PEN NEEDLE, DIABETIC 31 GAUGE* Uses up to 5 times a day FUROSEMIDE 80 MG TABLET Take 1 tablet by mouth once d* LOSARTAN 25 MG TABLET Take 1 tablet by mouth once d* TRAZODONE 50 MG TABLET Take 1 tablet by mouth daily * METFORMIN ER 1,000 MG TABLET,* Take 1 tablet by mouth twice * INSULIN DEGLUDEC 200 UNIT/ML * Inject 118 Units subcutaneous* GABAPENTIN 800 MG TABLET Take 1 tablet by mouth three * ROSUVASTATIN 20 MG TABLET TAKE 1 TABLET BY MOUTH AT BED* MELOXICAM 15 MG TABLET Take 1 tablet by mouth once d* EMPTY CONTAINER Use as directed for disposal * COMPOUNDED PRESCRIPTION BLOOD PRESSURE CUFF FOR HOME * LANCETS Test blood sugar(s) 3 times d* COMPOUNDED PRESCRIPTION GabaKeto LP: Gabapentin 2.5%,* BLOOD-GLUCOSE METER KIT 1 Each as needed. INSULIN ASPART 100 UNIT/ML [place]* Inject 50 Units subcutaneousl* MEDICAL INFORMATION IDENTIFIC* ID bracelet for type 2 diabet* COMPOUNDED PRESCRIPTION Compression socks: 20- 30 mmhg* COMPOUNDED PRESCRIPTION Patient is able to perform si* COMPOUNDED PRESCRIPTION jobst stockings diagnosis* COMPOUNDED PRESCRIPTION Diabetic shoes: Diabetes wit* WHEELCHAIR Diagnosis: debility COMPOUNDED PRESCRIPTION Diabetic shoes Dx: 250.02 Problem List As Of Date 06/26/2017 Noted Resolved Acute cholecystitis [K81.0] INVALID FOR*07/28/2015 Diabetes mellitus type 2, uncontrolled (HCC) [E*INVALID FOR*11/10/2015 More... HTN (hypertension) [I10] Neuropathy (HCC) [G62.9] 11/10/2015 Restless legs [G25.81] Mixed hyperlipidemia [E78.2] Microalbuminuria [R80.9] INVALID FOR* Insulin use (long-term) in type 2 diabetes (HCC*INVALID FOR*11/10/2015 Bilateral adrenal adenomas [D35.00] INVALID FOR* More... 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 If too soon, we will put new RX on hold for next cycle. Route: ORAL Sig: Take 1 tablet by mouth once daily. Medications Discontinued During This Encounter aspirin, enteric coated (ASPIRIN, EN* 60 t* 11 06/24/2016 06/26/2017 Route: ORAL Sig: Take 1 tablet by mouth once daily. Disc: Reason for discontinue is not on file. Encounter Status:Closed by MARYANA MATOS MD on 06/26/17 ALLERGIES ALLERGIES DATE TYPE / CODE NAME / CODE REACTION SEVERITY SOURCE 01/04/2018 Drug Latex, Natural Rash Unknown [place] [facility]/416 Rubber/[id number] [facility] [id number]([facility](RXNORM) [facility] ED [place]) Repository 07/07/2017 Drug tramadol/[id number] Upset Stomach [place] [facility]/416 180(RXNORM) [facility] [id number]([facility] ED [place]) Repository 09/13/2016 DRUG AMLODIPINE INTOLERANCE [facility] INGREDI/419 BESYLATE [facility] 349505(SNOM Repository ED CT) 12/18/2012 DRUG LATEX RASH [facility] INGREDI/419 [facility] 188212(SNOM Repository ED CT) ENCOUNTERS ENCOUNTERS ADMIT/DISCHARGE ACCOUNT ADMITTING ENCOUNTER LOCATION SOURCE NUMBER CLASS 06/11/2018 [id number] [facility] ing:[facility] Repository 05/30/2018 [id number] Ambulatory [facility] ing:CT Repository 05/15/2018 [id number] Ambulatory [facility] ing:MTLAB Repository 02/13/2018 [id number] Ambulatory [facility] ing:MFPLAB Repository 01/31/2018 [id number] [facility] ing:OT Repository 01/23/2018 [id number] [facility] ing:MFPLAB Repository 01/04/2018/01/05/20 [id number] Emergency [address] ing:ED Repository 01/03/2018 [id number] Ambulatory [facility] ing:LAB.FUTUR Repository E 11/12/2017/11/13/19 [id number] Emergency [address] [address] ing:ED Repository 10/31/2017 [id number] [facility] ing:MFPLAB Repository 09/15/2017 [id number] Ambulatory [facility] [place] g:H.PM Repository 08/08/2017 [id number] [facility] ing:MTRAD Repository 08/07/2017 [id number] Ambulatory [facility] ing:MFPLAB Repository 07/22/2017/07/22/19 [id number] Emergency [address] ing:ED Repository 07/18/2017/07/19/19 [id number] Ambulatory [address] Repository 07/10/2017 [id number] Ambulatory BMSBuilding:Luann Reinoso [facility] Repository 07/07/2017 [id number] Ambulatory BMSBuilding:B [place].PM[facility] Repository PAYERS PAYERS ENCOUNTER GUARANTOR PAYER SUBSCRIBER SOURCE 06/11/2018 CHRIS RICHMOND Primary CHRIS Wang [place] [address] Insurance:CARESOURCEP Sr.: Community [place] porras [place]: [id number], [place] [id number] Repository 215[address]Wxm: [phone] Date:2018-06-06P O [phone] (HP) [address]ATTN: [place] [address]RW: 06/11/2018 Secondary NOT GIVENUNK [place] Insurance:SELF PAY [facility] Number: Effective Repository Date:2018-06-06 05/30/2018 CHRIS RICHMOND Primary CHRIS R KERA [place] Sr[address] [place] Insurance:CARESOURCEP Sr.: Community [place] porras Number: [id number], [place] [id number] Repository 13887Qsd: [phone]) Date:2018-05-23P O [phone] (HP) [address]ATTN: [place] [address]XW: 05/30/2018 Secondary NOT GIVENUNK [place] Insurance:SELF PAY [facility] Number: Effective Repository Date:2018-05-23 05/15/2018 CHRIS RICHMOND Primary CHRIS R KERA [place] Sr[address] PO[address] Insurance:CARESOURCEP Sr.: Community [place] porras Number: [id number], [place] [id number] Repository 85971Tos: [phone] Date:2018-05-15P O [phone] (HP) [address]ATTN: [place] [address]XS: 05/15/2018 Secondary NOT GIVENUNK [place] Insurance:SELF PAY [facility] Number: Effective Repository Date:2018-05-15 02/13/2018 CHRIS RICHMOND Primary CHRIS RICHMOND [place] Sr[address] [place] Insurance:CARESOURCEP Sr.: [facility] chiquita TEJADA Number: [id number] [facility] [address]Wni: [id number] Repository Date:2018-02-13P O (HP) [address]ATTN: [place] [address]HM: 02/13/2018 Secondary NOT GIVENUNK [place] Insurance:SELF PAY [facility] Number: Effective Repository Date:2018-02-13 01/31/2018 CHRIS RICHMOND Primary CHRIS RICHMOND [place] Sr[address] [place] Insurance:CARESOURCEP Sr.: [facility] chiquita TEJADA Number: [id number] Regional Medical Center [address]Fnb: [id number] Repository Date:2017-02-26P O (HP) [address]ATTN: [place] [address]JC: 01/31/2018 Secondary NOT GIVENUNK [place] Insurance:SELF PAY [facility] Number: Effective Repository Date:2018-01-23 01/23/2018 CHRIS RICHMOND Primary CHRIS Wang RICHMOND [place] Sr[address] [place] Insurance:CARESOURCEP Sr.: [facility] chiquita TEJADA Number: [id number] Regional Medical Center [address]Vow: [id number] Repository Date:2018-01-23P O (HP) [address]ATTN: [place] [address]VV: 01/23/2018 Secondary NOT GIVENUNK [place] Insurance:SELF PAY [facility] Number: Effective Repository Date:2018-01-23 01/04/2018 CHRIS Wang RICHMOND Primary CHRIS RICHMOND [place] Sr[address] [place] Insurance:CARESOURCEP Sr.: [facility] chiquita TEJADA Number: [id number] Regional Medical Center [address]Ldj: [id number] Repository Date:2018-01-04P O (HP) [address]ATTN: [place] [address]AO: 01/04/2018 Secondary NOT GIVENUNK [place] Insurance:SELF PAY [facility] Number: Effective Repository Date:2018-01-04 01/03/2018 CHRIS RICHMOND Primary CHRIS R KERA [place] Sr[address] [place] Insurance:CARESOURCEP Sr.: [facility] chiquita ETJADA Number: [id number] [facility] [address]Oug: [id number] Repository Date:2018-01-03P O (HP) [address]ATTN: CLAIMS [facility] [place] [address]PA: 01/03/2018 Secondary NOT GIVENUNK [place] Insurance:SELF PAY [facility] Number: Effective Repository Date:2018-01-03 11/12/2017 CHRIS RICHMOND Primary CHRIS R RICHMOND [place] Sr.[address] [facility] Insurance:CARESOURCEP Sr.: [facility] chiquita TEJADA Number: [id number] Regional Medical Center [address]Ypz: [id number] Repository [phone] Date:2017-11-12P O -6 (HP) [address]ATTN: [place] [address]TY: 11/12/2017 Secondary NOT GIVENUNK [place] Insurance:SELF PAY [facility] Number: Effective Repository Date:2017-11-12 10/31/2017 CHRIS RICHMOND Primary CHRIS R KERA [place] Sr[address] [place] Insurance:CARESOURCEP Sr.: [facility] chiquita TEJADA Number: [id number] Regional Medical Center [address]Omd: [id number] Repository Date:2017-10-31P O (HP) [address]ATTN: CLAIMS [facility] [place] [address]ZZ: 10/31/2017 Secondary NOT GIVENUNK [place] Insurance:SELF PAY [facility] Number: Effective Repository Date:2017-10-31 09/15/2017 CHRIS CESAR Primary CHRIS [facility] [place] Insurance:[facility] Number: [place] [address]Fwz: [id number] Date:2017-02-26P.O. () [address] [place] [address]JT: 08/08/2017 CHRIS RICHMOND Primary CHRIS RICHMOND [place] Sr[address] [place] Insurance:CARESOURCEP Sr.: [facility] Number: [id number], [place] [id number] Repository [address]Azd: Date:2017-08-08P O [phone] [address]ATTN: CLAIMS -6 (HP) [place] [address]EB: 08/08/2017 Secondary NOT GIVENUNK [place] Insurance:SELF PAY [facility] Number: Effective Repository Date:2017-08-08 08/07/2017 CHRIS RICHMOND Primary CHRIS RICHMOND [place] Sr[address] [place] Insurance:CARESOURCEP Sr.: [facility] Number: [id number], [place] [id number] Repository [address]Fio: Date:2017-08-07 O [phone] [address]ATTN: CLAIMS -6 (HP) [place] [address]EU: 08/07/2017 Secondary NOT GIVENUNK [place] Insurance:SELF PAY [facility] Number: Effective Repository Date:2017-08-07 07/22/2017 CHRIS RICHMOND Primary CHRIS RICHMOND [place] [address] Insurance:CARESOURCEP Sr.: [facility] Number: [id number] [address]Zob: [id number] Repository [phone] Date:2017-07-22P O -6 (HP) [address]ATTN: [place] [address]GI: 07/22/2017 Secondary NOT GIVENUNK [place] Insurance:SELF PAY [facility] Number: Effective Repository Date:2017-07-22 07/10/2017 CHRIS RICHMOND Primary CHRIS RICHMOND [place] [address] [place] Insurance:CARESOURCEP Sr.: [facility] Number: [id number] [address]Ixz: [id number] Repository [phone] Date:2017-07-10 O -6 (HP) [address]ATTN: [place] [address]CT: 07/10/2017 Secondary NOT GIVENUNK [place] Insurance:SELF PAY [facility] Number: Effective Repository Date:2017-07-10 07/07/2017 CHRIS RICHMOND Primary CHRIS RICHMOND [place] [address] Insurance:CARESOURCEP Sr.: [facility] Number: [id number] Hospital [address]Fjj: [id number] Repository [phone] Date:2017-07-07P O -6 (HP) [address]ATTN: [place] [address]VN: 07/07/2017 Secondary NOT GIVENUNK [place] Insurance:SELF PAY [facility] Number: Effective Repository Date:2017-07-07
== END ==
PROVIDERS: Family Provider Family Medicine; PCP Family Medicine; Referring Provider Family Medicine; Visit Provider Family Medicine
DX: R59.0 Localized enlarged lymph nodes (principal); E11.9 Type 2 diabetes mellitus without complications; E78.2 Mixed hyperlipidemia; R80.9 Proteinuria, unspecified
CPT/HCPCS: 36415; 71046; 80053; 80061; 82043; 82570; 83036; 85025

== ENCOUNTER → 2018-05-30 12:22 | Outpatient (CLI) | payer MEDICAID, SELFPAY ==
--- NOTE | 2018-05-30 12:24 | CT_ITS ---
STUDY: CT SOFT TISSUE NECK WITH CONTRAST REASON FOR EXAM: Male, 62 years old. Lymphadenopathy right side of the neck. RADIATION DOSAGE (If Supplied By Facility): CTDIvol = ( 24.88 ) mGy, DLP = ( 714.60 ) mGycm TECHNIQUE: The patient was scanned in a multi-detector CT scanner. High resolution transaxial imaging was performed following intravenous administration of 75CC ml of Isovue 300 contrast material. Sagittal and coronal images were reconstructed. Individualized dose optimization techniques were used for this CT. COMPARISON: X-ray chest 05/15/2018 FINDINGS: Thorax: Apical lungs clear. Apical thoracic cage and apical spine exhibit no acute process. Thoracic spondylosis and mild kyphoscoliosis with osteopenia. Supraclavicular: Nodular enlargement of the thyroid gland bilaterally, likely goitrous changes, partially extending substernal. Correlate thyroid function and thyroid ultrasound. No supraclavicular lymphadenopathy. Cervical soft tissues: Normal submandibular glands. Normal parotid glands. No cervical lymphadenopathy. Normal appearance of pharyngeal and laryngeal soft tissues. Facial: Superficial and deep facial soft tissues exhibit no acute process. Sinuses within the field of view are clear. Craniofacial osseous structures normal. Cervical spine: Moderately severe disc narrowing is present in the cervical spine between C3 and C7, with uncovertebral joint hypertrophy and facet hypertrophy contributing to most prominent foraminal stenosis on the left at C4-C5. At least mild multilevel foraminal stenosis is present at additional levels. Intracranial: No acute intracranial process, limited evaluation of the skull base. Vasculature: Nondilated aortic arch, patent cervical arch branching, normal cervical vertebral arteries. Mild calcified plaque of the right carotid bulb and bifurcation, with a more prominent focus of calcified irregular plaque in the right ICA beginning approximately 12 mm above the bifurcation. The segment of dense plaque measures up to 14 mm in length and contributes to high-grade stenosis. Mild plaque of the right carotid bulb, moderate calcified plaque in the proximal ICA over a segment measuring approximately 1.3 cm in length. Contributing to stenosis of the lumen of approximately 50%. CT/Soft Tissue Neck WITH Contrast IMPRESSION: There is no acute supraclavicular or cervical mass or lymphadenopathy. Suspected high-grade stenosis of the right ICA. Mild to moderate stenosis of the left ICA. Ultrasound carotid duplex imaging is recommended. Nodular enlargement of the thyroid gland likely reflecting goiter. Clinically correlate. Multilevel cervical spondylosis with foraminal stenosis. Correlate for any symptoms of cervical radiculopathy that may indicate the presence of nerve root impingement. Electronically Signed: Pool Car MD at 11:00 EST Tel , Service support ,
== END ==
PROVIDERS: Family Provider Family Medicine; PCP Family Medicine; Referring Provider Family Medicine; Visit Provider Family Medicine
DX: R59.1 Generalized enlarged lymph nodes (principal)
CPT/HCPCS: 70491; Q9967

== ENCOUNTER → 2018-06-11 12:40 | Outpatient (CLI) | payer MEDICAID, SELFPAY ==
--- NOTE | 2018-06-11 12:43 | CDU_ITS ---
Reason For Study: Carotid Stenosis Rt. Velocities/BP Lt. Velocities/BP Prox CCA 67/12 cm/sec. Prox CCA 87/13 cm/sec. Mid CCA 58/11 cm/sec. Mid CCA 55/13 cm/sec. Dist CCA 49/9 cm/sec. Dist CCA 50/12 cm/sec. Prox ICA 82/17 cm/sec. Prox ICA 51/13 cm/sec. Mid ICA 158/60 cm/sec. Mid ICA 76/22 cm/sec. Dist ICA 84/16 cm/sec. Dist ICA 71/23 cm/sec. Rt. ICA/CCA = 2.72. Lt. ICA/CCA = 1.38. Prox ECA 65/6 cm/sec. Prox ECA 89/10 cm/sec. Rt. Vert. 43/13 cm/sec. Lt. Vert. 58/15 cm/sec. Right Extracranial There is heterogeneous, smooth atherosclerotic plaque noted in the right common carotid artery. There is heterogeneous, irregular atherosclerotic plaque noted in the right internal carotid artery. There is no significant atherosclerotic plaque noted in the right external carotid artery. Antegrade flow is noted in the right vertebral artery. Left Extracranial There is intimal thickening but no significant atherosclerotic plaque noted in the left common carotid artery. There is heterogeneous, irregular atherosclerotic plaque noted in the left internal carotid artery. There is heterogeneous, irregular atherosclerotic plaque noted in the left external carotid artery. Antegrade flow is noted in the left vertebral artery. Procedure Carotid Duplex [id number]. Exam performed in department. Interpretation Summary Moderate (50-69%) stenosis right extracranial internal carotid. Mild (<50%) stenosis left extracranial internal carotid. Flow within the vertebral arteries is antegrade bilaterally. Ordering Physician: Frederic Montero Referring Physician: Frederic Montero Performed By: Shani Hines, JEFF, RVT
--- NOTE | 2018-06-11 13:10 | US_ITS ---
STUDY: THYROID ULTRASOUND REASON FOR EXAM: Male, 62 years old. Goiter/nodule. TECHNIQUE: Ultrasound evaluation of the thyroid was performed with real-time and static coughlin-scale imaging. COMPARISON: April 17, 2017. FINDINGS: RIGHT LOBE: The right lobe of the thyroid gland measures 5.4 x 2.3 x 2.6 cm. There is a homogeneous echotexture. There are no demonstrated solid, cystic or complex lesions. LEFT LOBE: The left lobe of the thyroid gland measures 4.6 x 1.9 x 2.1 cm. There is a homogeneous echotexture. There are no demonstrated solid, cystic or complex lesions. ISTHMUS: The isthmus measures 9 mm which is enlarged . The regional lymph nodes are normal. US/Thyroid IMPRESSION: Enlarged right lobe of the thyroid gland as well as the thyroid isthmus unchanged. No nodules identified. Slight decrease in size of the left lobe of the thyroid gland which is now at the upper limits of normal in size. No nodules identified. Electronically Signed: Misael Allen MD at 2:18 EST , Service support ,
== END ==
PROVIDERS: Family Provider Family Medicine; PCP Family Medicine; Referring Provider Family Medicine; Visit Provider Family Medicine
DX: E04.2 Nontoxic multinodular goiter (principal); I65.23 Occlusion and stenosis of bilateral carotid arteries
CPT/HCPCS: 76536; 93880

== ENCOUNTER → 2018-08-14 11:04 | Outpatient (CLI) | payer MEDICAID, SELFPAY ==
[2018-08-14 11:11] LABS: Mucous, Urine 0 SEEN /hpf (<or=2+); Red Blood Cells-Urine 0 SEEN /hpf (0-5); White Blood Cells 0 SEEN /hpf (0-5)
[2018-08-14 12:33] LABS: Color, Urine Yellow (Yellow); Glucose, Dipstick 1000 mg/dl (Normal); Ketone-Dipstick Negative (Negative); Leukocyte Esterase-Dipstick Negative /ul (Negative); Nitrite-Dipstick Negative (Negative); Occult Blood-Urine Negative /ul (Negative); Protein-Dipstick 30 mg/dl (Negative); Specific Gravity, Urine 1.015 (1.002-1.030); Urine Bilirubin Dipstick Negative (Negative); Urine Clarity Cloudy (Clear); Urine Urobilinogen 1 mg/dl (Normal)
[2018-08-14 12:52] LABS: Amorphous Sediment 2+; Bacteria 2+ /hpf (None Seen); Squamous Epithelial Cells - UA 5-10 SEEN /hpf (0-5)
[2018-08-14 13:01] LABS: Absolute Neutrophil Count 4.1 X10^3/uL (2.0-7.7); Basophil# 0.08 X10^3/uL; Basophil% 1.1 % (0-1); Eosinophil# 0.29 X10^3/uL; Eosinophils% 4.1 % (0-5); Hemoglobin 13.5 g/dl (13.0-16.5); Mean Corp Hgb Conc 32.9 g/gl (32-36); Mean Corpuscular Hgb 29.4 pg (27.0-32.0); Mean Corpuscular Volume 89.3 fL (80-94); Mean Platelet Vol. 10.6 fl (6.2-12.0); Monocyte% 5.7 % (0-10); Neutrophil % 58.7 % (47-70); POSITIVE COUNT NO; POSITIVE DIFFERENTIAL NO; POSITIVE MORPHOLOGY NO; Platelet Count 154 K/mm3 (150-450); RBC Distribution Width CV 14.7 % (11.6-14.6); RBC Distribution Width SD 47.4 fl (35.1-43.9); Red Blood Count 4.59 M/mm3 (4.6-6.2)
[2018-08-14 13:26] LABS: ALB/GLOB Ratio 1.2 RATIO (0.9-2.4); AST(SGOT) 18 U/L (15-37); Alanine Aminotransfer ALT/SGPT 34 U/L (16-61); Albumin, Serum 3.7 g/dL (3.2-5.0); Alkaline Phosphatase 61 U/L (45-117); Anion Gap 10 (5-15); BUN 18 mg/dL (7-18); BUN/Creat Ratio 19.8 RATIO (10-20); Calcium,Total 9.2 mg/dL (8.5-10.1); Chloride 104 mmol/L (98-107); Cholesterol 112 mg/dL (200); Creatinine, Serum 0.91 mg/dL (0.70-1.30); EST Glomerular Filtration Rate 91 mL/min (>60); Est Glom Filt Rate - Afr Amer 110 mL/min (>60); Globulin 3.1 g/dL (2.2-4.2); Glucose 258 mg/dL (74-106); High Density Lipoprotein 31 mg/dL; Potassium 3.8 mmol/L (3.5-5.1); Protein, Total 6.8 g/dL (6.4-8.2); Sodium Level 142 mmol/L (136-145); Triglycerides 183 mg/dL; Very Low Density Lipoprotein 37 mg/dL (5-40)
[2018-08-14 13:44] LABS: Microalbumin:Creatinine Ratio 186.4 mg/g CRE (<30 mg/g CRE)
[2018-08-14 14:03] LABS: Hemoglobin A1c 6.6 % (4.2-6.3)
== END ==
PROVIDERS: Family Provider Family Medicine; PCP Family Medicine; Referring Provider Family Medicine; Visit Provider Family Medicine
DX: E11.9 Type 2 diabetes mellitus without complications (principal); I10 Essential (primary) hypertension; E78.2 Mixed hyperlipidemia
CPT/HCPCS: 36415; 80053; 80061; 81001; 82043; 82570; 83036; 85025

== ENCOUNTER → 2018-09-04 | Outpatient (CLI) | payer MEDICAID, SELFPAY ==
--- NOTE | 2018-09-04 10:52 | ECHOCS_ITS ---
Reason For Study: SOB Procedure This was a 2D Doppler, Color Flow transthoracic echocardiogram. The study was technically difficult. Contrast injection was performed. Exam performed in department. Left Ventricle Normal LV size. Left ventricular systolic function is normal. The estimated ejection fraction is 65 %. Transmitral doppler flow suggestive of impaired relaxation of left ventricle. No regional wall motion abnormalities noted. Right Ventricle Normal RV size. Normal systolic function. Atria The left atrium is mildly enlarged. Normal right atrium. No doppler evidence for ASD. Mitral Valve There is no mitral annular calcification. Normal mitral valve. Trivial mitral valve insufficiency. Tricuspid Valve Normal tricuspid valve. Trivial tricuspid valve insufficiency. Unable to estimate RV systolic pressure/pulmonary artery pressure due to technically difficult study. Aortic Valve Trisinus/trileaflet aortic valve. Normal aortic valve. Trivial aortic valve insufficiency. Pulmonic Valve The pulmonic valve is not well visualized. Great Vessels Normal sized aortic root. Pericardium/Pleural No pericardial effusion. Medication 22 gauge I.V. with prn adaptor inserted into right arm. Diluted definity 4ml given slow IV push to enhance endocardial definition. MMode/2D Measurements & Calculations LVIDd: 5.1 cm IVSd: 1.1 cm Ao root diam: 3.6 cm LVIDs: 3.5 cm LVPWd: 1.0 cm RVDd: 3.8 cm FS: 32.1 % LAV(MOD-bp): 59.9 ml LVAd ap4: 33.3 cm2 SV(MOD-sp4): 72.1 ml LAV(MOD-bp) Indexed: 26.0 ml/m2 EDV(MOD-sp4): 107.4 ml LAV(MOD-sp2): 63.6 ml EDV(sp4-el): 113.1 ml LAV(MOD-sp4): 53.6 ml LVAs ap4: 16.6 cm2 ESV(MOD-sp4): 35.3 ml ESV(sp4-el): 37.0 ml EF(MOD-sp4): 67.2 % EF(sp4-el): 67.2 % SV(sp4-el): 76.0 ml LA A4 area: 21.1 cm2 LA dimension(2D): 3.8 cm RA A4 area: 17.9 cm2 Time Measurements MV dec time: 0.20 sec Doppler Measurements & Calculations MV E max maxwell: 88.7 cm/sec Lat Peak E' Maxwell: 6.8 cm/sec Med Peak E' Maxwell: 5.7 cm/sec MV A max maxwell: 92.3 cm/sec E/E' lat: 13.1 E/E' med: 15.6 MV E/A: 0.96 Ao V2 max: 169.4 cm/sec LV V1 max: 128.2 cm/sec Ao max P.5 mmHg LV V1 max P.6 mmHg Interpretation Summary The study was technically difficult. Contrast injection was performed. Left ventricular systolic function is normal. The estimated ejection fraction is 65 %. The left atrium is mildly enlarged. Trivial mitral valve insufficiency. Trivial tricuspid valve insufficiency. Trivial aortic valve insufficiency. Unable to estimate RV systolic pressure/pulmonary artery pressure due to technically difficult study. Transmitral doppler flow suggestive of impaired relaxation of left ventricle Ordering Physician: Frederic Montero Referring Physician: Frederic Montero Performed By: Ivy Ulloa, JEFF, RVT
== END | disposition home or self-care (01) ==
LOC: CVS 10:51
PROVIDERS: Family Provider Family Medicine; PCP Family Medicine; Referring Provider Family Medicine; Visit Provider Family Medicine
DX: R06.02 Shortness of breath (principal)
CPT/HCPCS: 93306; Q9957; A4216; C8929

== ENCOUNTER 2018-10-09 08:00 | Day surgery (SDC) | payer MEDICAID, SELFPAY ==
[2018-10-09 08:30] VITALS: BP 153/74; PULSE 63; RESP 16; TEMP 36.7; O2SAT 100; BMI 43.7
[2018-10-09 09:01] LABS: Bedside Glucose 80 mg/dL (70-110)
--- NOTE | 2018-10-09 09:30 | COLBX_PTH ---
PATIENT: CHRIS COTE LOC: EN U#:[id number] AGE/SX: 62/M ROOM: RE10/09/[address]: Dr. Max Villagomez MD : 1955 BED: DIS: 10/09/2018 SPEC #: [id number] RECD: 10/09/18 11:33 STATUS: ANGELINA GARIMA #: [id number] DEENA: 10/09/18 09:[address]: Max Villagomez DEPT: SURGICAL PATHOLOGY RECD BY: Cruzito Espinal ENTERED: 10/09/18 12:23 SP TYPE: COLON BX OT DR: Dr. Frederic Montero MD Tissues: A - Transverse colon B - Rectum, NOS Procedures: Surgery Specimen Level IV HEADER OPERATION: Colonoscopy - open access (MAC) PRE-OP DIAGNOSIS: Screening colonoscopy TISSUE SUBMITTED: A - Mid transverse colon polyp biopsy, B - Proximal rectum polyp biopsy MICROSCOPIC DIAGNOSIS A. Mid transverse colon polyp, biopsy: Fragments of tubular adenoma. B. Proximal rectal polyp, biopsy: Fragments of hyperplastic polyp. AM:christian 10/10/18 MICROSCOPIC DESCRIPTION Slides are reviewed. GROSS DESCRIPTION A - Received in fixative is one container labeled with the patient's name and designated mid transverse colon polyp biopsy. The specimen consists of multiple irregular fragments of light arnold soft tissue mixed with fecal material that in aggregate measure 0.7 x 0.5 x 0.1 cm. The specimen is totally submitted in one cassette. B - Received in fixative is one container labeled with the patient's name and designated proximal rectum polyp biopsy. The specimen consists of multiple irregular fragments of light arnold soft tissue that in aggregate measure 1.5 x 0.5 x 0.1 cm. The specimen is totally submitted in one cassette. / SJ:christian 10/09/18 TC:[facility]: [id number] x2
--- NOTE | 2018-10-09 10:01 | HP.PCM_ITS ---
Problem List (1) Personal history of colonic polyps Status: Acute History of Present Illness Date of Admission: 10/09/18 The patient is a 62 year old M who presents for surveillance colonoscopy. His previous colonoscopy was performed May 30, 2017. That was a very difficult c olonoscopy due to the patient's spasm of the bowels and sleep apnea and violent respiratory motions. Forcep biopsy of a descending colon polyp and snare polypectomy of a transverse colon polyp and snare polypectomy of a sigmoid colon polyp was performed. The pathology for the more proximal polyp was an adenoma in the transverse colon polyp with tubular adenoma in the distal sigmoid polyp tubulovillous adenoma with focal high-grade dysplasia. Bowel prep was moderate at that time. Elected to bring him back at this time for a follow-up colonoscopy. He denies bright red blood per rectum or melena. He does have severe sleep apnea but he refuses to utilize a CPAP mask. He has chronic lower extremity edema. Past Medical History Past Medical History (Chronic Problems): Chronic Problems (Last Updated 07/10/17 @ 06:52 by Kathie Recinos) GERD (gastroesophageal reflux disease) (Chronic) 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) nonhealing hidradenitis ulcer right inguinal area Hidradenitis (Chronic) hidradenitis right inguinal area Diabetes type 2, uncontrolled (Chronic) Medical History: Medical History (Last Updated 07/10/17 @ 06:52 by Kathie Recinos) Epigastric abdominal pain (Acute) R10.13 Screening for intestinal cancer (Acute) Z12.10 GERD (gastroesophageal reflux disease) (Chronic) K21.9 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) L98.492 nonhealing hidradenitis ulcer right inguinal area Hidradenitis (Chronic) L73.2 hidradenitis right inguinal area Non-healing open wound of right groin (Acute) S31.103A Diabetes type 2, uncontrolled (Chronic) E11.65 Right groin pain (Acute) R10.30 Adrenal adenoma D35.00 bilateral FIGUEROA (dyspnea on exertion) R06.09 Degeneration of intervertebral disc Former tobacco use Z87.891 GERD (gastroesophageal reflux disease) K21.9 Hx MRSA infection Z86.14 Lumbosacral neuritis M54.17 Microalbuminuria R80.9 Mixed hyperlipidemia E78.2 Pain in limb M79.609 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 Restless legs Hypertension I10 SANIA (obstructive sleep apnea) G47.33 Allergies Latex, Natural Rubber Adverse Reaction (Verified 10/05/18 09:49) Rash Home Medications: Ambulatory Orders Medication Instructions Recorded Aspirin [Aspirin, Baby] 81 mg PO DAILY@0800 10/20/13 Omeprazole [Prilosec] 20 mg PO PRN PRN 10/20/13 Insulin Aspart [Novolog Flexpen 45 units SC TIDCM 12/16/14 ([facility])] Insulin Degludec [Tresiba 128 unit SC DAILY 03/22/17 Flextouch U-200] Metformin(XR) [Glucophage Xr] 500 mg PO BIDCM 03/22/17 gabapentin 800 mg tablet 800 mg PO PRN PRN 05/03/17 Losartan/Hydrochlorothiazide 1 each PO DAILY 05/23/17 [Losartan-Hctz 100-25 mg Tab] Furosemide [Lasix] 20 mg PO BIDLX 01/04/18 Surgical History: Surgical History (Last Updated 07/10/17 @ 06:52 by Kathie Recinos) Hx of umbilical hernia repair Z98.890, Z87.19 08/02/2016 S/P laparoscopic cholecystectomy Z90.49 12/24/2007 S/P tonsillectomy Z90.89 S/P tube myringotomy Z96.22 History of appendectomy Z98.890, Z90.49 Left ear drum surgery Smoking Status: Former smoker Tobacco Use: Non-smoker Review of Systems Constitutional: Denies: Anorexia HEENT: Denies: Difficulty Swallowing Cardiovascular: Denies: Chest Pain Respiratory: Denies: Cough Gastrointestinal: Denies: Abdominal Pain, Melena Endocrine: Reports: Change in Body Habitus - Increased weight VTE Information - Inpt Only VTE Present on Admission: No Patient Problems: Active and Suspected Problems (Last Updated 07/10/17 @ 06:52 by Kathie Recinos) Personal history of colonic polyps (Acute) - Physical Exam General: Alert, Oriented x3, Cooperative, No apparent distress HEENT: Atraumatic Oral: Moist Mucosa Neck: Supple Lungs: Clear to auscultation Cardiovascular: Regular rate, Regular Rhythm Abdomen: Bowel Sounds Present, Soft, Non Tender, Obese Musculoskeletal: - - Marked nonpitting bilateral lower extremity edema Psych/Mental Status: Normal Affect Vital Signs Temp Pulse Resp BP Pulse Ox 98.1 F 63 16 153/74 H 100 10/09/18 08:30 10/09/18 08:30 10/09/18 08:30 10/09/18 08:30 10/09/18 08:30 Oxygen Delivery Method Room Air Weight: 288 lb Body Mass Index (BMI) 43.7 Finger Stick Blood Glucose 90 POC Glucose 10/09/18 08:47 POC Glucose 80 Assessment/Plan All Active Problems (Last Updated 07/10/17 @ 06:52 by Kathie Recinos) Personal history of colonic polyps (Acute) Epigastric abdominal pain (Acute) Screening for intestinal cancer (Acute) Non-healing open wound of right groin (Acute) Right groin pain (Acute) I recommend to the patient a surveillance colonoscopy. He is aware of the technique, benefits, risks and alternatives. He has had an opportunity to ask and have questions answered. He presents via open access for today. I have also vigorously encouraged him that he 3 rethink utilization of his CPAP mask at home Max Villagomez M.D., F.A.C.S.
[2018-10-09 10:41] VITALS: BP 127/61; BP 153/74; PULSE 74; RESP 16; TEMP 36.5; O2SAT 99
[2018-10-09 10:45] VITALS: BP 152/64; BP 153/74; PULSE 71; RESP 16; O2SAT 100
--- NOTE | 2018-10-09 10:45 | OP.ENDO_ITS ---
10/09/2018 Frederic Montero [address] [place] [address] Re : Colonoscopy procedure for Vinicio Richmond Dear Dr. Montero This procedure was performed on Tuesday, October 09, 2018. My impressions and recommendations are as follows: Impressions : - Non-thrombosed internal hemorrhoids and internal hemorrhoids that prolapse with straining, but spontaneously regress to the resting position (Grade II) found on digital rectal exam. - One 6 mm polyp in the mid transverse colon, removed with a cold biopsy forceps. Resected and retrieved. - One 5 mm polyp in the rectum, removed with a cold biopsy forceps. Resected and retrieved. - Diverticulosis in the sigmoid colon. Recommendations : - Discharge patient to home. - Resume previous diet. - Continue present medications. - Repeat colonoscopy in 5 years for surveillance. - Telephone my office for pathology results in 1 week. MAC provided and yet patient obesity and deep respiratory motion made this exam difficult My findings are described in the full procedure note, which is enclosed. If I can be of further assistance, please feel free to contact me at Doctor phone number(s): Work: . Sincerely, Max Villagomez MD 10/09/2018 10:44:58 AM This report has been signed electronically.
[2018-10-09 10:50] VITALS: BP 150/48; BP 153/74; PULSE 70; RESP 16; O2SAT 100
[2018-10-09 10:56] VITALS: BP 151/65; BP 153/74; PULSE 68; RESP 16; TEMP 36.7; O2SAT 100
[2018-10-09 11:37] VITALS: BP 153/74
== END 2018-10-09 11:25 | disposition home or self-care (01) ==
LOC: EN 08:01 → AC 08:02
PROVIDERS: Family Provider Family Medicine; PCP Family Medicine; Referring Provider Family Medicine; Visit Provider Surgery
PROC: 0DJD8ZZ Inspection of Lower Intestinal Tract, Via Natural or Artificial Opening Endoscopic (ICD-10-PCS; CPT 45378; principal; 2018-10-09 09:25)
DX: D12.3 Benign neoplasm of transverse colon (principal); K62.1 Rectal polyp; K64.1 Second degree hemorrhoids; K57.30 Diverticulosis of large intestine without perforation or abscess without bleeding; Z86.010 Personal history of colon polyps; I10 Essential (primary) hypertension; G47.33 Obstructive sleep apnea (adult) (pediatric); G25.81 Restless legs syndrome; K21.9 Gastro-esophageal reflux disease without esophagitis; E78.00 Pure hypercholesterolemia, unspecified; E11.9 Type 2 diabetes mellitus without complications; L73.2 Hidradenitis suppurativa; Z86.14 Personal history of Methicillin resistant Staphylococcus aureus infection; Z86.2 Personal history of diseases of the blood and blood-forming organs and certain disorders involving the immune mechanism; Z79.82 Long term (current) use of aspirin; Z79.4 Long term (current) use of insulin; Z79.84 Long term (current) use of oral hypoglycemic drugs; Z79.899 Other long term (current) drug therapy; Z87.891 Personal history of nicotine dependence
CPT/HCPCS: 45380; 82962; 88305; J7120

== ENCOUNTER 2018-10-15 09:51 | Day surgery (SDC) | payer MEDICAID, SELFPAY ==
[2018-10-15] VITALS (7 sets, daily range): BP systolic 139–156; BP diastolic 56–82; PULSE 68–75; RESP 16; TEMP 36.4–36.8; O2SAT 97–99; BMI 42.4
[2018-10-15 11:21] LABS: Bedside Glucose 155 mg/dL (70-110)
--- NOTE | 2018-10-15 11:30 | RAD_ITS ---
PROCEDURE: Cervical facet block. DATE OF EXAMINATION: October 15, 2018. INDICATION: Male, 62 years old. Chronic neck pain. FLUOROSCOPY TIME (if supplied): (0:15) minutes/seconds. 4 coned-down views were obtained. Intraoperative imaging provided for right C4-C7 cervical facet block. RAD/Cerv Spine 4 or 5 Views IMPRESSION: Intraoperative imaging provided for right C4 C7 cervical facet block. Electronically Signed: Anthony Watson, at 15:27 EDT , Service support ,
[2018-10-15] MEDS: Bupivacaine 0.25% 30 ML Vial (11:38)
[2018-10-15] MEDS: MethylPREDNISolone Acetate 80 MG/ML Vial (11:38)
--- NOTE | 2018-10-15 13:42 | PCM.OPRPT ---
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 Status: Chronic (2) Spondylosis of cervical region without myelopathy or radiculopathy Status: Chronic Report of Operation Date of Procedure: 10/15/18 Pre-Operative Diagnosis: Cervical spondylosis, cervicogenic disc disease, cervical facet arthropathy Post-Operative Diagnosis: Cervical spondylosis, cervicogenic disc disease, cervical facet arthropathy Surgery/Procedure Performed:: Right-sided cervical facet steroid injection C4, C5, C6, C7 Description of Surgical Findings:: PROCEDURE: Right-sided cervical facet steroid injection C4, C5, C6, C7 PREOPERATIVE DIAGNOSES: Cervical spondylosis, cervical degenerative disc disease, and cervical facet arthropathy POSTOPERATIVE DIAGNOSES: Cervical spondylosis, cervical degenerative disc disease, and cervical facet arthropathy ANESTHESIA: MAC COMPLICATIONS: None BLOOD LOSS: Minimal PROCEDURE IN DETAIL: History and physical today was reviewed. Risks and benefits of the procedure were explained. The patient understood, agreed to our procedure, and informed consent was obtained. IV inserted per routine protocol. The patient was taken to the operating room, placed in a prone position with a pillow positioned underneath the chest. The neck area was prepped and draped in a sterile fashion using iodine x3. Under fluoroscopy guidance, on AP view, C4 through C7 vertebral bodies were visualized. Approximately 10 degrees angle starting on the right C4 ending on the right C7 passing through the C5-C6 using a 25-gauge 3-1/2 inch spinal needle the needle was advanced by the skin the top of the knee was maneuvering directed towards the epiphyseal junction of each corresponding vertebra once the tip of the needle was at the percentage of the medial branch and contact with the bone the needle pulled approximately 2 mm of the bone after negative aspiration for blood or CSF and confirmation AP as well as oblique and lateral view a total of 4 cc of preservative-free 0.25% Marcaine with 80 mg of Depo-Medrol were injected in divided doses between those 4 and levels. The needles were then removed intact. The patient experienced no signs or symptoms of intrathecal, intravascular injection. The patient experienced no paraesthesia. The procedure was completed without any apparent difficulty, any complication. The patient appeared to tolerate well. Sensory as well as motor exam was unchanged from prior to procedure. ASSESSMENT AND PLAN: This is a 62-year-old male with cervical spondylosis, cervical degenerative disc disease, and cervical facet arthropathy, status post right-sided cervical facet steroid injection C4-C7. The patient will continue his current medications. The patient will follow up in approximately 2 weeks fo reevaluation.
== END 2018-10-15 12:55 | disposition home or self-care (01) ==
LOC: SDC 09:51 → AC 10:17
PROVIDERS: Family Provider Family Medicine; PCP Family Medicine; Referring Provider Anesthesiology Pain Medicine; Visit Provider Anesthesiology Pain Medicine
PROC: 3E0U3BZ Introduction of Anesthetic Agent into Joints, Percutaneous Approach (ICD-10-PCS; CPT 64490; principal; 2018-10-15 11:25)
DX: M47.812 Spondylosis without myelopathy or radiculopathy, cervical region (principal); M50.30 Other cervical disc degeneration, unspecified cervical region; E11.9 Type 2 diabetes mellitus without complications; I10 Essential (primary) hypertension; E78.00 Pure hypercholesterolemia, unspecified; Z87.891 Personal history of nicotine dependence; Z79.899 Other long term (current) drug therapy; Z79.82 Long term (current) use of aspirin; Z79.4 Long term (current) use of insulin; Z79.891 Long term (current) use of opiate analgesic; K21.9 Gastro-esophageal reflux disease without esophagitis
CPT/HCPCS: 01992; 64490; 64491; 64492; 72050; 82962

== ENCOUNTER → 2018-12-18 | Outpatient (CLI) | payer MEDICAID, SELFPAY ==
[2018-10-15 10:35] VITALS: BMI 42.4
[2018-12-18 10:09] LABS: Absolute Lymphocyte Count 2.59 X10^3/uL (0.83-4.51); Absolute Neutrophil Count 4.5 X10^3/uL (2.0-7.7); Basophil# 0.11 X10^3/uL; Basophil% 1.4 % (0-1); Eosinophil# 0.26 X10^3/uL; Eosinophils% 3.3 % (0-5); Hematocrit 37.9 % (40-54); Hemoglobin 12.4 g/dL (13.0-16.5); Lymphocyte # 2.59 X10^3/ul (4.0); Lymphocyte % 32.7 % (19-41); Mean Corp Hgb Conc 32.7 g/dL (32-36); Mean Corpuscular Hgb 29.2 pg (27.0-32.0); Mean Corpuscular Volume 89.2 fL (80-94); Mean Platelet Vol. 10.7 fl (6.2-12.0); Monocyte# 0.42 X10^3/uL; Monocyte% 5.3 % (0-10); NRBC Flagged by Analyzer 0 % (0-5); Neutrophil # 4.49 X10^3/uL (2.7-7.7); Neutrophil % 56.8 % (47-70); Platelet Count 152 K/mm3 (150-450); RBC Distribution Width CV 14.8 % (11.6-14.6); RBC Distribution Width SD 47.8 fl (35.1-43.9); Red Blood Count 4.25 M/mm3 (4.6-6.2); White Blood Count 7.9 K/mm3 (4.4-11.0)
[2018-12-18 10:31] LABS: ALB/GLOB Ratio 1.2 RATIO (0.9-2.4); AST(SGOT) 19 U/L (15-37); Alanine Aminotransfer ALT/SGPT 32 U/L (16-61); Albumin, Serum 3.7 g/dL (3.2-5.0); Alkaline Phosphatase 62 U/L (45-117); Anion Gap 8 (5-15); BUN 19 mg/dL (7-18); BUN/Creat Ratio 19.8 RATIO (10-20); Calcium,Total 8.5 mg/dL (8.5-10.1); Chloride 105 mmol/L (98-107); Cholesterol 89 mg/dL (200); Creatinine, Serum 0.96 mg/dL (0.70-1.30); EST Glomerular Filtration Rate 85 mL/min (>60); Est Glom Filt Rate - Afr Amer 102 mL/min (>60); Globulin 3.2 g/dL (2.2-4.2); Glucose 141 mg/dL (74-106); High Density Lipoprotein 33 mg/dL; Potassium 3.8 mmol/L (3.5-5.1); Protein, Total 6.9 g/dL (6.4-8.2); Sodium Level 140 mmol/L (136-145); Triglycerides 104 mg/dL; Very Low Density Lipoprotein 21 mg/dL (5-40)
[2018-12-18 10:44] LABS: Hemoglobin A1c 7.3 % (4.2-6.3)
[2018-12-18 13:19] LABS: Microalbumin,Random Urine 10.6 mg/L (NO RANGE EST.); Microalbumin:Creatinine Ratio 20.1 mg/g CRE (<30 mg/g CRE)
== END | disposition home or self-care (01) ==
LOC: MFPLAB 09:01
PROVIDERS: Family Provider Family Medicine; PCP Family Medicine; Referring Provider Family Medicine; Visit Provider Family Medicine
DX: E11.9 Type 2 diabetes mellitus without complications (principal); E78.2 Mixed hyperlipidemia; R80.9 Proteinuria, unspecified
CPT/HCPCS: 36415; 80053; 80061; 82043; 82570; 83036; 85025

== ENCOUNTER → 2019-01-18 | Outpatient (CLI) | payer MEDICAID, SELFPAY ==
[2018-10-15 10:35] VITALS: BMI 42.4
--- NOTE | 2019-01-18 09:43 | ART_ITS ---
Reason For Study: CLAUDICATION Procedure A bilateral lower extremity continuous wave Doppler with analog waveform analysis,segmental pressures,and ankle brachial indexes without exercise. Left Segmental Pressures Left brachial= 149mmHg. Left posterior tibial artery = 176mmHg. Left dorsalis pedis artery = 174mmHg. Left digit = 133 mmHg. The left dorsalis pedis waveforms are triphasic. The left posterior tibial artery waveforms are triphasic. Right Segmental Pressures Right brachial= 146mmHg. Right posterior tibial artery = 190mmHg. Right dorsalis pedis artery = 198mmHg. Right digit = 119 mmHg. The right dorsalis pedis waveforms are triphasic. The right posterior tibial artery waveforms are triphasic. Indices The right ankle brachial index by the dorsalis pedis is 1.33. The right ankle brachial index by the posterior tibial artery is 1.28. The right digital-brachial index is 0.80. The left ankle brachial index by the dorsalis pedis is 1.17. The left ankle brachial index by the posterior tibial artery is 1.18. The left digital-brachial index is 0.89. Interpretation Summary Triphasic Doppler waveforms are noted at ankle level bilaterally. Pulse-volume recordings appear satisfactory at ankle and digital levels bilaterally. Resting ankle-brachial indices are normal bilaterally. Digital-brachial indices are normal bilaterally. There is no evidence of significant arterial occlusive disease in the lower extremities bilaterally. (Concern for patient safety, did not exercise patient per order. PT ambulating with a cane, did not appear steady on feet.). Ordering Physician: Frederic Montero Referring Physician: Frederic Montero Performed By: Leandra Tellez RVT, RDCS
== END | disposition home or self-care (01) ==
LOC: CVS 09:41
PROVIDERS: Family Provider Family Medicine; PCP Family Medicine; Referring Provider Family Medicine; Visit Provider Family Medicine
DX: I73.9 Peripheral vascular disease, unspecified (principal)
CPT/HCPCS: 93922

== ENCOUNTER 2019-09-16 12:09 | Emergency (ER) | payer MEDICAID, SELFPAY ==
[2018-10-15 10:35] VITALS: BMI 42.4
[2019-09-16 12:11] VITALS: BP 205/83; PULSE 75; RESP 17; TEMP 36.4; O2SAT 98; BMI 45.6
--- NOTE | 2019-09-16 12:30 | RAD_ITS ---
STUDY: X-RAY CHEST REASON FOR EXAM: Male, 63 years old. INCREASED EDEMA IN B/L LEGS AND ABD -- NIGHT SWEATS TECHNIQUE: Single AP portable view of the chest. COMPARISON: Comparison is made with prior study dated May 15, 2018. FINDINGS: The lungs are clear and expanded. There is no demonstrated pleural abnormality. There is moderate cardiac enlargement. Normal mediastinum and pina. Normal visualized pulmonary arteries. Normal visualized aortic arch and descending thoracic aorta. There are diffuse degenerative changes of the visualized thoracic spine. Normal visualized ribs, clavicles, and shoulders. There is no demonstrated abnormality of the visualized soft tissue structures of the upper abdomen. RAD/Chest 1 View (Portable) IMPRESSION: Moderate cardiomegaly. Electronically Signed: Anthony Watson, at 13:13 EDT , Service support ,
--- NOTE | 2019-09-16 12:31 | EKG12_ITS ---
Test Reason : EDEMA Blood Pressure : / mmHG Vent. Rate : 068 BPM Atrial Rate : 068 BPM P-R Int : 170 ms QRS Dur : 088 ms QT Int : 384 ms P-R-T Axes : 012 046 069 degrees QTc Int : 408 ms Normal sinus rhythm Normal ECG Confirmed by NUSRAT LOCO, MAIA ([id number]), video editor RAMILA QUINONEZ ([id number] on 09/18/2019 9:35:21 AM Referred By: YOBANI Confirmed By:MAIA SILVERIO MD
--- NOTE | 2019-09-16 12:32 | ED.VIS.GEN ---
History of Present Illness Chief Complaint: Edema Informant: Patient Onset: Month(s) Narrative: Patient states that for months he has had swelling in his legs and his abdomen. He states he is on a water pill but it does not really help and that he ends up sweating it out. Called his doctor today and he is tells me that because he is a diabetic they wanted him to come to the emergency room to be seen. Patient states that nothing is really new over the past weeks to months. He denies any chest pain. No shortness of breath. He denies any cough or fevers. He states he is urinating normally. Noted 205/ in triage. He is unsure what medications he is on and we will call his doctors office to get a list. He denies any scrotal or penile swelling. Denies any wounds on his lower extremities that are present. Past Medical History - Allergies and Home Meds Allergies/Adverse Reactions: Allergies Latex, Natural Rubber Adverse Reaction (Verified 09/16/19 12:11) Rash Primary Care Physician: Domo Richards MD [Primary Care Provider] - Smoking Status: Former smoker Review of Systems General: Denies: Chills, Fever, Sweats Eyes: Denies: Visual changes - bilaterally, Diplopia ENT: Denies: Rhinorrhea, Sore throat Cardiovascular: Denies: Chest pain, Palpitations Respiratory: Denies: Dyspnea, Cough, Dyspnea on exertion Gastrointestinal: Reports: - - Abdominal swelling. Denies: Abdominal pain, Nausea, Vomiting, Diarrhea, Melena, Hematochezia Genitourinary: Denies: Dysuria, Hematuria, Frequency Musculoskeletal: Reports: Swelling. Denies: Back pain, Extremity Pain Skin: Denies: Rash, Wounds Neurological: Denies: Headache, Weakness, Numbness Physical Exam Vital Signs/Narrative: Vital Signs Temp Pulse Resp BP Pulse Ox 09/16/19 12:11 97.5 F L 75 17 205/83 H 98 Inital Vital Signs reviewed: Yes General: Well nourished, Well developed, Obese, No Acute Distress Head: Normocephalic, Atraumatic Eyes: Perrl, EOMI ENT: Moist mucous membranes, No rhinorrhea Neck: Supple, Nontender Cardiovascular: Regular rate, Regular rhythm, No murmurs Respiratory: No distress, CTA bilaterally, Chest nontender Abdomen: Soft, Nontender, Normal bowel sounds, - - The abdomen is firm but not painful. Back: Nontender, Normal Inspection Extremities: Nontender, Edema - There are 2+ lower extremity edema. Mild venous stasis changes. Skin: Normal color, No rash Neurological: Alert, Oriented x3, Cranial nerves II-XII grossly intact, Normal Strength, Normal Sensation Psychological: Normal affect, Normal Mood Diagnostic/Tx/Re-eval - EKG Initial EKG Interpretation: Sinus Rhythm - KG is a normal sinus rhythm at a rate of 68 without ectopy or concerning features of ACS - Medical Decision Making Chest x-ray shows no pleural effusion or evidence of CHF. Basic labs are essentially normal including a beta natruretic peptide and troponin. Patient's EKG is a normal sinus rhythm at a rate of 68 with no ACS features. Patient appears to have longstanding lymphedema. He appears volume overloaded. While he appears to be taking losartan-hydrochlorothiazide as well as Lasix. We do have substantial room to increase his Lasix especially with a normal creatinine. Therefore we will increase his Lasix and I would encourage early PCP follow-up. ED Disposition - Plan for ED Patient: Disposition: Home or Assisted Living Diagnosis: Lymphedema Instructions: ED Peripheral Edema, Bilateral Prescriptions: Furosemide [Lasix] 40 mg PO BID #10 tab Transmission Status: Pending to [facility] Referrals: Domo Richards MD [Primary Care Provider] - 3-5 Days Additional Instructions: For the next 5 days I would like you to take 60 mg of Lasix twice a day. I have written for 40 mg tablets that you can take twice daily in addition to the 20 mg you already take twice daily. You need to have early primary care follow-up.
--- NOTE | 2019-09-16 12:38 | ED.RN ---
DR [facility] OFFICE CONTACTED FOR MED LIST
[2019-09-16 12:53] LABS: Absolute Lymphocyte Count 2.45 X10^3/uL (0.83-4.51); Basophil# 0.11 X10^3/uL; Basophil% 1.3 % (0-1); Eosinophil# 0.31 X10^3/uL; Eosinophils% 3.7 % (0-5); Hematocrit 41.9 % (40-54); Hemoglobin 13.7 g/dL (13.0-16.5); Lymphocyte # 2.45 X10^3/ul (4.0); Lymphocyte % 29.2 % (19-41); Mean Corp Hgb Conc 32.7 g/dL (32-36); Mean Corpuscular Hgb 29.2 pg (27.0-32.0); Mean Corpuscular Volume 89.3 fL (80-94); Mean Platelet Vol. 10.9 fl (6.2-12.0); Monocyte# 0.49 X10^3/uL; Monocyte% 5.8 % (0-10); NRBC Flagged by Analyzer 0 % (0-5); Neutrophil # 4.97 X10^3/uL (2.7-7.7); Neutrophil % 59.3 % (47-70); Platelet Count 146 K/mm3 (150-450); RBC Distribution Width CV 15.1 % (11.6-14.6); RBC Distribution Width SD 48.2 fl (35.1-43.9); Red Blood Count 4.69 M/mm3 (4.6-6.2); White Blood Count 8.4 K/mm3 (4.4-11.0)
[2019-09-16 13:04] LABS: BNP,B-Type NATRIURETIC PEPTIDE 19.1 pg/mL (0-100)
[2019-09-16 13:08] LABS: AST(SGOT) 24 U/L (15-37); Alanine Aminotransfer ALT/SGPT 31 U/L (16-61); Albumin, Serum 3.8 g/dL (3.2-5.0); Alkaline Phosphatase 64 U/L (45-117); Anion Gap 6 (5-15); BUN 22 mg/dL (7-18); BUN/Creat Ratio 21.8 RATIO (10-20); Calcium,Total 9.1 mg/dL (8.5-10.1); Chloride 104 mmol/L (98-107); Creatinine, Serum 1.01 mg/dL (0.70-1.30); EST Glomerular Filtration Rate 80 mL/min (>60); Est Glom Filt Rate - Afr Amer 96 mL/min (>60); Estimated Creatinine Clearance 71.81 ml/min; Globulin 3.7 g/dL (2.2-4.2); Glucose 294 mg/dL (74-106); Potassium 4.1 mmol/L (3.5-5.1); Protein, Total 7.5 g/dL (6.4-8.2); Sodium Level 139 mmol/L (136-145)
== END 2019-09-16 13:45 | disposition home or self-care (01) ==
PROVIDERS: Emergency Provider Emergency Medicine; PCP Family Medicine
DX: I89.0 Lymphedema, not elsewhere classified (principal); E87.70 Fluid overload, unspecified; M79.89 Other specified soft tissue disorders; E11.9 Type 2 diabetes mellitus without complications; Z79.01 Long term (current) use of anticoagulants; Z79.82 Long term (current) use of aspirin; Z79.4 Long term (current) use of insulin; Z79.899 Other long term (current) drug therapy; Z91.040 Latex allergy status; Z87.891 Personal history of nicotine dependence
CPT/HCPCS: 71045; 80053; 83880; 84484; 85025; 93005; 99283

== ENCOUNTER → 2020-03-09 06:54 | Outpatient (CLI) | payer MEDICAID, SELFPAY | PROVIDERS: PCP Family Medicine | DX: R07.2 Precordial pain (principal); R07.89 Other chest pain | CPT/HCPCS: A4216; J2785 ==

== ENCOUNTER → 2020-07-23 11:24 | Outpatient (CLI) | payer MEDICAID, SELFPAY ==
[2020-07-15 07:51] VITALS: BMI 45.2
--- NOTE | 2020-07-23 11:26 | ECHOD_ITS ---
Reason For Study: Chest pain Procedure This was a 2D Doppler, Color Flow transthoracic echocardiogram. The study was technically difficult. Exam performed in department. Left Ventricle Normal LV size. Left ventricular systolic function is normal. The estimated ejection fraction is 65 %. Stage 1 diastolic dysfunction. No regional wall motion abnormalities noted. Right Ventricle Normal RV size. Normal systolic function. Atria Normal left atrium. Mitral Valve Normal mitral valve. Tricuspid Valve The tricuspid valve is not well visualized. Aortic Valve The aortic valve is not well visualized. Pulmonic Valve The pulmonic valve is not well visualized. Great Vessels Normal aortic root. The pulmonary artery is normal size. Normal inferior vena cava. Pericardium/Pleural No pericardial effusion. Medication 22 gauge I.V. with prn adaptor inserted into right arm. Diluted definity 4.5ml given slow IV push to enhance endocardial definition. MMode/2D Measurements & Calculations Ao root diam: 3.5 cm LAV(MOD-bp): 52.7 ml LA A4 area: 16.4 cm2 LAV(MOD-bp) Indexed: 22.3 ml/m2 LAV(MOD-sp2): 57.7 ml LAV(MOD-sp4): 43.8 ml LA dimension(2D): 3.4 cm RA A4 area: 13.5 cm2 Doppler Measurements & Calculations MV E max maxwell: 67.8 cm/sec Lat Peak E' Maxwell: 7.3 cm/sec Med Peak E' Maxwell: 4.3 cm/sec MV A max maxwell: 72.0 cm/sec E/E' lat: 9.3 E/E' med: 15.9 MV E/A: 0.94 Ao V2 max: 167.2 cm/sec LV V1 max: 116.4 cm/sec PA V2 max: 131.8 cm/sec Ao max P.2 mmHg LV V1 max P.4 mmHg Interpretation Summary Normal LV size. Left ventricular systolic function is normal. The estimated ejection fraction is 65 %. Stage 1 diastolic dysfunction. Contrast injection was performed. The study was technically limited. Ordering Physician: Wong Brown Referring Physician: Domo Richards Performed By: Gwendolyn Smart, JEFF
--- NOTE | 2020-07-23 12:00 | RAD_ITS ---
STUDY: X-RAY CHEST REASON FOR EXAM: Male, 64 years old. Chest pain, SOB AT NIGHT TECHNIQUE: PA and lateral views of the chest. COMPARISON: Comparison is made with prior study dated 09/16/2019. FINDINGS: The lungs are clear and expanded. There is no demonstrated pleural abnormality. There is borderline cardiomegaly. Normal mediastinum and pina. Normal visualized pulmonary arteries. There is atherosclerotic calcification of the aortic arch with tortuosity. There are diffuse degenerative changes of the visualized thoracic spine. Normal visualized ribs, clavicles, and shoulders. There is no demonstrated abnormality of the visualized soft tissue structures of the upper abdomen. RAD/Chest PA and Lateral IMPRESSION: No acute abnormality is seen. Electronically Signed: Anthony Watson MD at 12:05 EST , Service support ,
== END ==
PROVIDERS: PCP Family Medicine; Referring Provider Internal Medicine Cardiovascular Disease; Visit Provider Internal Medicine Cardiovascular Disease
DX: R07.9 Chest pain, unspecified (principal); R06.00 Dyspnea, unspecified
CPT/HCPCS: 71046; 93306; Q9957; A4216; C8929

== ENCOUNTER 2020-08-10 08:41 | Day surgery (SDC) | payer MEDICAID, SELFPAY ==
[2020-07-15 07:51] VITALS: BMI 45.2
[2020-07-23 12:07] LABS: Absolute Lymphocyte Count 2.36 X10^3/uL (0.83-4.51); Absolute Neutrophil Count 4.9 X10^3/uL (2.0-7.7); Basophil# 0.09 X10^3/uL; Basophil% 1.1 % (0-1); Eosinophil# 0.36 X10^3/uL; Eosinophils% 4.4 % (0-5); Hematocrit 43.8 % (40-54); Hemoglobin 14.1 g/dL (13.0-16.5); Lymphocyte # 2.36 X10^3/ul (4.0); Lymphocyte % 29.2 % (19-41); Mean Corp Hgb Conc 32.2 g/dL (32-36); Mean Corpuscular Hgb 29.5 pg (27.0-32.0); Mean Corpuscular Volume 91.6 fL (80-94); Mean Platelet Vol. 10.5 fl (6.2-12.0); Monocyte# 0.26 X10^3/uL; Monocyte% 3.2 % (0-10); NRBC Flagged by Analyzer 0 % (0-5); Neutrophil % 60.6 % (47-70); Platelet Count 156 K/mm3 (150-450); RBC Distribution Width CV 14.8 % (11.6-14.6); RBC Distribution Width SD 49.2 fl (35.1-43.9); Red Blood Count 4.78 M/mm3 (4.6-6.2); White Blood Count 8.1 K/mm3 (4.4-11.0)
[2020-07-23 12:34] LABS: Anion Gap 4 (5-15); BUN 21 mg/dL (7-18); BUN/Creat Ratio 21.1 RATIO (10-20); Calcium,Total 8.9 mg/dL (8.5-10.1); Chloride 102 mmol/L (98-107); EST Glomerular Filtration Rate 81 mL/min (>60); Est Glom Filt Rate - Afr Amer 98 mL/min (>60); Glucose 183 mg/dL (74-106); Potassium 3.7 mmol/L (3.5-5.1); Sodium Level 137 mmol/L (136-145)
[2020-07-24 09:50] VITALS: BMI 45.2
--- NOTE | 2020-08-10 05:55 | HP_ITS ---
HPI HPI History of Present Illness Details: Pleasant 64-year-old man with a history of hypertension, hyperlipidemia, obesity, adrenal adenoma who presents with exertional shortness of breath as well as chest discomfort. He also has had lower extremity edema. He did see the physician of the [facility] and after presenting his history it was decided that due to his inability to perform any stress testing he should undergo a left heart catheterization. He preferred to have this done locally here in [place] rather than travel out of town. He therefore sought attention with us. He has had no dizziness or diaphoresis no near syncope or syncope. He has been compliant with his medications. His physical exam today demonstrates clear lung rodriguez regular rate and rhythm and no pedal edema his most recent lipid profile demonstrated a total cholesterol of 123, HDL of 26 and LDL of 53. Intake Vital Signs 07/15/20 Height 5 ft 7 in 07/15/20 Weight: 289 lb 07/15/20 BMI 45.2 07/15/20 BP 169/74 H 07/15/20 Respiration 20 H 07/15/20 Pulse 82 07/15/20 Pulse Oximetry (%) 97 Intake Visit Reasons: REF BY DR HELTON - NEEDS CATH Allergies amlodipine Adverse Reaction (Verified 07/15/20 07:52) lower extremity edema Latex, Natural Rubber Adverse Reaction (Verified 07/15/20 07:52) Rash Medications Aspirin [Aspirin, Baby] 81 mg PO DAILY@0800 10/20/13 [History Confirmed 07/15/20] Omeprazole [Prilosec] 20 mg PO PRN PRN 10/20/13 [History Confirmed 07/15/20] Insulin Degludec [Tresiba Flextouch U-200] 128 unit SC DAILY 03/22/17 [History Confirmed 07/15/20] Furosemide [Lasix] 40 mg PO BID #10 tab 09/16/19 [Rx Confirmed 07/15/20] cyclobenzaprine 10 mg tablet 10 mg PO TID PRN tab 07/15/20 [History Confirmed 07/15/20] gabapentin 800 mg tablet 800 mg PO TID tab 07/15/20 [History Confirmed 07/15/20] hydrochlorothiazide 25 mg tablet 25 mg PO DAILY tab 07/15/20 [History Confirmed 07/15/20] insulin aspart U-100 100 unit/mL (3 mL) subcutaneous pen 53 unit SC TID ml 07/15/20 [History Confirmed 07/15/20] losartan 100 mg tablet 100 mg PO DAILY tab 07/15/20 [History Confirmed 07/15/20] meloxicam 15 mg tablet 15 mg PO DAILY tab 07/15/20 [History Confirmed 07/15/20] metformin 500 mg tablet,extended release 24 hr 1,500 mg PO QAM tab 07/15/20 [History Confirmed 07/15/20] potassium chloride 10 mEq tablet,extended release 10 meq PO DAILY 07/15/20 [History Confirmed 07/15/20] rosuvastatin 20 mg tablet 20 mg PO DAILY tab 07/15/20 [History Confirmed 07/15/20] Ejection fraction %: 60 to 64 PFS Medical History Essential (primary) hypertension (Chronic) Mixed hyperlipidemia (Chronic) Diabetes type 2, uncontrolled (Chronic) Morbid obesity (Chronic) History of claustrophobia (Chronic) Adrenal adenoma (Chronic) 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) Degeneration of intervertebral disc (Chronic) GERD (gastroesophageal reflux disease) (Chronic) Hidradenitis (Chronic) Lumbosacral neuritis (Chronic) Microalbuminuria (Chronic) Neuropathy (Chronic) SANIA (obstructive sleep apnea) (Chronic) Personal history of colonic polyps (Chronic) Prurigo nodularis (Chronic) Restless legs (Chronic) Spondylosis of cervical region without myelopathy or radiculopathy (Chronic) Epigastric abdominal pain (Resolved) Former tobacco use (Resolved) Non-healing open wound of right groin (Resolved) Nonhealing skin ulcer with fat layer exposed (Resolved) Pain in limb (Resolved) Right groin pain (Resolved) Screening for intestinal cancer (Resolved) Superficial thrombophlebitis of right leg (Resolved) Hx MRSA infection (Ruled-out) Surgical History Hx of umbilical hernia repair (Chronic) History of appendectomy (Resolved) History of cholecystectomy (Resolved) History of myringotomy (Resolved) History of tonsillectomy (Resolved) Left ear drum surgery (Resolved) Family History Mother Diabetes Hypertension Brain tumor Father Cirrhosis Social History (Updated 07/15/20 @ 14:[address] Wong Brown MD) Smoking Status: Former smoker quit date: 05/26/11 pack-years: 25 second hand exposure: No alcohol intake: never substance use type: does not use what type of physical activity do you participate in: none seatbelt use: always ROS Const Const: Negative for fatigue, weakness, headache(s), frequent falls, difficulty sleeping or excessive sweating Eyes Eyes: Negative for loss of peripheral vision, transient loss of vision, blurry vision, double vision or tunnel vision ENT ENT: Negative for headache(s), dizziness, Nosebleed/epistaxis or balance problems Cardio Chest Pain: Yes (with exertion and at rest) Frequency: daily Character: tightness Onset: at rest, exercise Location: left chest Duration: minutes Exacerbation: activity, rest Palpitations: No Edema: Bilateral (BLE edema) Muscle aches with walking: None Resp Respiratory: Positive for SOB with activity; negative for SOB at rest, SOB orthopnea\SOB lying down, Cough or paroxysmal nocturnal dyspnea GI GI: Negative nausea, vomiting, heartburn or black,tarry stools : Negative for hematuria Musc Musc: Negative for muscle aches/ myalgia, muscle weakness, joint pain or balance problems Skin Skin: Negative non-healing lesions, rash or unusual bruising Neuro Neuro: Negative for dizziness, lightheadedness, near syncope, syncope, orthostatic symptoms, frequent falls, headache(s), weakness, blurry vision, double vision or lack of coordination Hao Hematologic/Lymphatic: Negative for easy bleeding or easy bruising Endo Endo: Negative for fatigue, excessive sweating or increased thirst/drinking Psych Psych: Negative for anxiety or depression Allergy Allergy/Immunology: Negative for hives, Negative for rash Cardiology Exam Const Appearance: cooperative, healthy appearing, no acute distress, well developed and well groomed Nutritional Appearance: average body habitus and well nourished Orientation: alert, awake and oriented x3 Head Head: normal to inspection, normocephalic and atraumatic Ears: hearing grossly normal bilaterally and external ears normal Nose: external nose normal, nares normal, nasal mucous membranes and turbinates normal, septum normal, no nasal discharge Face and Sinus: face symmetric Mouth: oral mucosae normal, tongue normal, oropharynx normal and moist mucous membranes Teeth and gingiva: dentition normal Throat: posterior oropharynx normal, tonsils normal and uvula midline Eyes General: appearance normal, both eyes and all related structures Eyelids: eyelids normal Conjunctivae: conjunctivae normal Pupils: PERRL, normal by confrontation and accommodation normal EOM: EOM intact bilaterally Neck Neck: normal visual inspection, trachea midline and no JVD JVD: +5 Carotids: normal carotid upstroke and bounding pulses Chest Chest inspection: normal inspection of the chest, symmetric chest movement and normal respiratory effort Auscultation: Bilateral: Clear to Auscultation Cardio Palpation: normal PMI Rate: regular rate Rhythm: regular rhythm Heart sounds: S1 normal, S2 normal and normal, physiologic split S2; negative rub, gallop or murmur GI GI: normal to inspection, soft, no hepatosplenomegaly and bowel sounds present Neuro General: alert, awake, oriented x3, gait normal, moves all extremities and no focal sensory deficit Skin Skin: no rashes or lesions noted Extremities Pulses: Normal: Right Femoral Pulse, Left Femoral Pulse, Right Dorsalis Pedis Pulse, Left Dorsalis Pedis Pulse, Right Posterior Tibial Pulse, Left Posterior Tibial Pulse, Right Radial Pulse, Left Radial Pulse Lower Extremity Edema: None: Bilateral Musculoskel Musculoskeletal: No joint tenderness Psych Psychological: normal affect Assessment & Plan 1. Chest pain R07.9 Plan He has a history of chest discomfort. It is felt that performing a stress test will be fraught with false positive and therefore would suggest at this time that we proceed with a left heart catheterization. To the risk benefits alternatives of been explained to him he understands and agrees to proceed. Depending on the findings further recommendations will be made. Orders Orders: 12 Lead EKG performed by [facility] Today Left Heart Cath/COR/LV Percut Today Basic Metabolic Profile (BMP) Today CBC W/Diff, Automated Today Chest PA and Lateral Today Echo Complete Today 2. Dyspnea on exertion R06.00 Plan He does have dyspnea on exertion some of which could be due to his weight. I will however like us to obtain an echocardiogram to assess his ventricular function and look for any diastolic abnormalities. Depending on those findings further recommendations will be made. Orders Orders: 12 Lead EKG performed by [facility] Today Left Heart Cath/COR/LV Percut Today Basic Metabolic Profile (BMP) Today CBC W/Diff, Automated Today Chest PA and Lateral Today Echo Complete Today 3. Essential (primary) hypertension I10 Plan He does have a history of hypertension. His blood pressure is not very well controlled at this particular time. It appears that when he was seen in your office his blood pressure was under better control. I would recommend that we continue him on the same medications at this time. Electrolyte panels will be obtained. Orders Orders: 12 Lead EKG performed by [facility] Today Plan Detail Other Orders Orders: 12 Lead EKG performed by [facility]MS Today E11.65, E66.01, E78.2, Z86.59 Follow Up prn Coding Level of Care Code Off vis,new,level 5 Diagnoses Chest pain R07.9 Dyspnea on exertion R06.00 Essential (primary) hypertension I10 Coding Level of Care Code Off vis,new,level 5 Diagnoses Chest pain R07.9 Dyspnea on exertion R06.00 Essential (primary) hypertension I10 Supplemental Info Supplemental Information Labs LDL Cholesterol 35 mg/dL (0-130) 12/18/18 HDL Cholesterol 33 mg/dL (40-) L 12/18/18 Triglycerides 104 mg/dL (-199) 12/18/18 VLDL Cholesterol 21 mg/dL (5-40) 12/18/18 Diagnostics Electrocardiogram 07/15/20 Echocardiogram 09/04/18 Chest X-Ray 09/16/19
--- NOTE | 2020-08-10 10:37 | CL.D_ITS ---
Patient Name: CHRIS COTE Study Date: 08/10/2020 Performing: Wong Brown MD Ht: 66.92 inches 170 cm : 1955 Wt: 288.81 lbs 131 kg Age: 64 Gender: male BSA: 2.36 PROCEDURE(S) PERFORMED SO96-RJO/COR/LV CLINICAL PROFILE AND INDICATIONS Indications: Suspected CAD Heart Failure: None Stress/Imaging Stress/Image Study Performed: No CAD Presentations: Unstable angina. CONCLUSIONS Totally occluded mid LAD with calcification and right to left collaterals. Mild disease in the circu mflex artery and moderate disease in the distal right coronary artery. Preserved left ventricular sy stolic function. RECOMMENDATIONS Medical therapy Add Beta luis alberto and isosorbide and follow medically DESCRIPTION OF PROCEDURE The patient arrived to the procedure lab. The risks and benefits of the procedure as well as a full d escription of our services here and current unavailability of surgical backup were fully explained to the patient and/or their significant other prior to the catheterization. The Timeout was completed, verifying the correct patient and procedure. The patient's procedural site was prepped and draped in the usual fashion. Local anesthetic was given subcutaneously to right radial region with Lidocaine 2% . Using a modified Seldinger technique, arterial access was obtained via the right radial artery, a 6 Fr sheath was inserted. Left Coronary Artery selective angiography was performed in multiple views u sing a 5 Fr. 4.0 [place] catheter. Right Coronary Artery selective angiography was then performed in mu ltiple views using a 5 Fr. 4.0 [place] catheter. Left Ventriculography was performed in PERDOMO projection using a 5 Fr. Pig[place] catheter. LV to AO pullback pressures were then recorded.The arterial sheath was pulled and a TR Band was applied for hemostasis w/13ml air CORONARY ANGIOGRAPHY DOMINANCE: Right Dominant LEFT HEART ASSESSMENT Left Ventricular Ejection Fraction: by LV Gram 60 % Normal LV wall motion Normal Left Ventricular systolic function LEFT MAIN: Non-obstructive LEFT ANTERIOR DESCENDING ARTERY: MID LAD: is occluded CIRCUMFLEX ARTERY: Mild luminal irregularities less than 30% RIGHT CORONARY ARTERY: RT PLV: Moderate luminal irregularities up to 50% RT PDA: Proximal - Diffusely diseased up to 60 % COLLATERAL FLOW: Collateral flow from Right to Left COMPLICATIONS No Complications PROCEDURE MEDICATIONS Versed 1 mg IV Fentanyl 50 mcg IV Versed 1 mg IV Oxygen: 2 L/min via nasal cannula Heparin diluted in 23cc Heparinized saline. Patient given 10cc IA of this solution. 08/10/2020 10:05: 43 Verapamil 2.5mg, Ntg 100mcgs, 2000 units of Heparin diluted in 23cc Heparinized saline. Patient give n 10cc IA of this solution. 08/10/2020 10:05:43 SUMMARY OF HEMODYNAMIC DATA Time AIR REST ECG 09:06:20 AO 169/88 (123) SA 10:10:01 LV 175/15, 20 10:16:31 LV 176/12, 26 10:16:37 LV 176/15, 23 10:17:37 LVp 177/12, 21 10:17:42 AOp 176/82 (123) 10:17:47 Signed By Wong Brown MD On 08/10/2020 10:37:07 AM Wong Brown MD
== END 2020-08-10 12:15 | disposition home or self-care (01) ==
LOC: CLSP 08:41
PROVIDERS: PCP Family Medicine; Referring Provider Internal Medicine Cardiovascular Disease; Visit Provider Internal Medicine Cardiovascular Disease
DX: I25.110 Atherosclerotic heart disease of native coronary artery with unstable angina pectoris (principal); E11.40 Type 2 diabetes mellitus with diabetic neuropathy, unspecified; I10 Essential (primary) hypertension; E78.2 Mixed hyperlipidemia; K21.9 Gastro-esophageal reflux disease without esophagitis; E66.01 Morbid (severe) obesity due to excess calories; Z79.82 Long term (current) use of aspirin; Z79.4 Long term (current) use of insulin; Z79.899 Other long term (current) drug therapy; Z87.891 Personal history of nicotine dependence
CPT/HCPCS: 36415; 80048; 85025; 93458; 99152; 99153; J7040; Q9967; C1769; C1894

== ENCOUNTER 2020-11-20 09:00 | Outpatient (RCR) | payer MEDICAID, SELFPAY ==
[2020-10-27 10:42] VITALS: BMI 45.8
[2020-11-13 08:57] VITALS: BMI 45.8
--- NOTE | 2020-11-13 10:16 | HP.PCM_ITS ---
History of Present Illness Date of Service: 11/13/20 Chief Complaint: edema and blisters to bilateral lower legs History of Wound: Vinicio is a 64 yo gentleman that presents to the wound healing center for evaluation and treatment of chronic blistering and edema to bilateral lower legs for the last year. He was referred by his PCP. 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 He reports that for the last year he has been having intermittent increased swelling in his lower legs and development of blisters bilaterally that break open and become blisters. He has compression stockings that he uses intermittently and he reports that he has been elevating his lower legs and avoiding letting them hang down. He sleeps in a bed most nights but sometimes in a recliner due to chronic back issues. He does have his feet elevated when he sleeps in the recliner. He underwent vascular testing last month for his edema but it is unavailable at this time for review. He reports that there was no evidence of DVT but he is not aware of any other findings. He denies any erythema, fever, chills, drainage or odor. [facility] Medical History (Updated 11/13/20 @ 11:[address] Zayda Daily, ) Adrenal adenoma Atherosclerosis of coronary artery of [place] heart without angina pectoris Degeneration of cervical disc without myelopathy Degeneration of intervertebral disc Diabetes type 2, uncontrolled Epigastric abdominal pain Essential (primary) hypertension Former tobacco use GERD (gastroesophageal reflux disease) Hidradenitis History of claustrophobia Hx MRSA infection Lumbosacral neuritis Microalbuminuria Mixed hyperlipidemia Morbid obesity Neuropathy Non-healing open wound of right groin Nonhealing skin ulcer with fat layer exposed SANIA (obstructive sleep apnea) Pain in limb Personal history of colonic polyps Prurigo nodularis Restless legs Right groin pain Screening for intestinal cancer Spondylosis of cervical region without myelopathy or radiculopathy Superficial thrombophlebitis of right leg Home Medications aspirin 81 mg PO DAILY@0800 10/20/13 [History Last Taken 08/10/20] omeprazole 20 mg PO PRN PRN 10/20/13 [History Last Taken 08/10/20] insulin degludec 128 unit SC DAILY 03/22/17 [History Last Taken 11/12/17] furosemide 40 mg PO BID #10 tab 09/16/19 [Rx Last Taken Unknown] cyclobenzaprine 10 mg tablet 10 mg PO TID PRN tab 07/15/20 [History Last Taken Unknown] gabapentin 800 mg tablet 800 mg PO TID tab 07/15/20 [History Last Taken Unknown] hydrochlorothiazide 25 mg tablet 25 mg PO DAILY tab 07/15/20 [History Last Taken Unknown] insulin aspart U-100 100 unit/mL (3 mL) subcutaneous pen 53 unit SC TID ml 07/15/20 [History Last Taken Unknown] losartan 100 mg tablet 100 mg PO DAILY tab 07/15/20 [History Last Taken 08/10/20] meloxicam 15 mg tablet 15 mg PO DAILY tab 07/15/20 [History Last Taken Unknown] metformin 500 mg tablet,extended release 24 hr 1,500 mg PO QAM tab 07/15/20 [History Last Taken 08/09/20] potassium chloride 10 mEq tablet,extended release 10 meq PO DAILY 07/15/20 [History Last Taken Unknown] rosuvastatin 20 mg tablet 20 mg PO DAILY tab 07/15/20 [History Last Taken Unknown] metoprolol succinate 50 mg tablet,extended release 24 hr 50 mg PO DAILY #30 tab 08/10/20 [Rx Last Taken Unknown] isosorbide mononitrate 60 mg tablet,extended release 24 hr 60 mg PO DAILY #30 tab 10/27/20 [Rx Last Taken Unknown] Allergy/AdvReac Type Severity Reaction Status Date / Time amlodipine AdvReac lower Verified 10/27/20 10:42 extremity edema Latex, Natural Rubber AdvReac Rash Verified 10/27/20 10:42 Family History Mother Diabetes Hypertension Brain tumor Father Cirrhosis Surgical History History of appendectomy History of cholecystectomy History of left heart catheterization (08/10/20) History of myringotomy History of tonsillectomy Hx of umbilical hernia repair Left ear drum surgery Social History Smoking Status: Former smoker quit date: 05/26/11 pack-years: 25 second hand exposure: No alcohol intake: never substance use type: does not use what type of physical activity do you participate in: none seatbelt use: always ROS Constitutional Constitutional: Denies chills or fever(s) Eyes Eyes: Denies blurry vision or loss of vision ENT HEENT: Denies dizziness, ear pain or hearing loss Cardiovascular Cardiovascular: Reports leg edema; Denies chest pain, dizziness or dyspnea Respiratory/Chest Respiratory/Chest: Denies chest congestion, cough or dyspnea Gastrointestinal Gastrointestinal: Denies abdominal pain, constipation or diarrhea Musculoskeletal Musculoskeletal: Reports back pain Integumentary Integumentary: Reports erythema and other Details: blisters ; Denies wounds Neurologic Neurologic: Reports paresthesias RLE and LLE; Denies frequent falls, headache(s) or weakness Psychiatric Psychiatric: Denies anxiety, depression, memory loss or suicidal thoughts Endocrine Endocrinology: Denies fatigue, polydipsia or polyuria Hematologic/Lymphatic Hematologic/Lymphatic: Denies easy bleeding or easy bruising Vital Signs Vital Signs Vital Signs: 11/13/20 08:57 Temperature Source Temporal Blood Pressure Source Monitor Blood Pressure Position Semi-Fowlers Blood Pressure Location Right Arm Weight Body Mass Index (BMI) 45.8 Physical Exam Const alert, oriented x3 and no apparent distress HEENT normocephalic and head/scalp atraumatic Mouth: oral and palatal mucosa normal and lips normal Eyes PERRL and EOMs intact bilaterally Lymph Lymphatic: no lymphadenopathy noted and lymphedema moderate Resp normal respiratory effort and normal air movement Effort and Inspection: able to speak in complete sentences Auscultation: clear to auscultation bilaterally Cardio regular rate and regular rhythm Jugular Venous Distention: Negative for JVD GI normal to inspection, nondistended, normoactive bowel sounds, soft to palpation and non-tender Inspection: central obesity Extremity Negative for no calf tenderness General Extremity: edema bilateral lower extremity Details: severe and other findings Other Details: nodular skin changes to shins bilaterally Skin Wound Narrative: intact blisters to shins bilaterally and nodular changes of skin consistent with chronic lymphedema Psych cooperative and affect normal Debridement Note Debridement Note Post-Debridement Measurements and Additional Note: Post-Debridement Measurements/Treatment - Nurse 1 - General Ulcer Assessment Start: 11/13/20 08:56 Freq: Status: Active Protocol: LOWEXT Activity Type Activity Date Activity User E-Sign Co-Sign Detail Recorded Client Recorded Date Recorded By Document 11/13/20 08:57 TREVOR [id number] 11/13/20 09:18 TREVOR 11/13/20 08:57 WC - Today's Visit Information Type of service Initial Visit Arrival Mode Ambulatory Patient Identification Verified (Name & Yes ) Height and Weight Body Mass Index (BMI) 45.8 BMI Classification Obese Vital Signs Temperature Source Temporal Pulse Location Monitor Source Monitor Position Semi-Fowlers Blood Pressure Location Right Arm History Since Last Visit- (Skip if this is Patient's initial visit) Have you changed medications since your No last visit? Any new allergies or adverse reactions No Had a fall/change in ADL's that may No increase risk of falls Signs or symptoms of abuse and/or No neglect since last visit Have you been in the hospital since your No last visit? Has dressing in place as prescribed No Has offloadiing in place as prescribed N/A Experienced any changes in pain level or No management Left Footwear Regular Shoe Right Footwear Regular Shoe Pain Scale: 0-10 Numeric Is Patient Pain Free? Yes - Nurse 1 - General Ulcer Measurement Start: 11/13/20 08:56 Freq: Status: Active Protocol: Activity Type Activity Date Activity User E-Sign Co-Sign Detail Recorded Client Recorded Date Recorded By Document 11/13/20 08:57 KR [id number] 11/13/20 09:18 KR 11/13/20 08:57 Wound Center Nurse 1 Lower Limb Edema Present Yes Right Calf (cm) 49.2 Right Ankle (cm) 32 Left Calf (cm) 50.8 Left Ankle (cm) 33.1 - Nurse 2 - General Ulcer CM Notes Start: 11/13/20 08:56 Freq: Status: Active Protocol: Activity Type Activity Date Activity User E-Sign Co-Sign Detail Recorded Client Recorded Date Recorded By Document 11/13/20 09:35 MW [id number] 11/13/20 09:39 MW 11/13/20 09:35 Pain Scale: 0-10 Numeric Is Patient Pain Free? Yes - Nurse 3 - General Ulcer D/C NN Start: 11/13/20 08:56 Freq: Status: Active Protocol: Activity Type Activity Date Activity User E-Sign Co-Sign Detail Recorded Client Recorded Date Recorded By Document 11/13/20 09:47 RB [id number] 11/13/20 09:48 RB 11/13/20 09:47 Wound Care Nurse 3 bilateral -Multi-Layered Wrap Application Unna Boot - Bilateral ($) -Unna Boots (Bilat) ($) 2 Pain Scale: 0-10 Numeric Is Patient Pain Free? Yes WC - Visit Discharge Discharge Condition Stable Ambulatory Status Ambulatory Transportation Private Auto Medication Reconcilliation completed & No provided to patient/care provider Clinical Summary of Care Provided Yes No debridement was completed: No debridement was completed today Assessment/Plan Assessment/Plan (1) Lower extremity edema: CODE(S): R60.0 - Localized edema (2) Atherosclerosis of coronary artery of [place] heart without angina pectoris: CODE(S): I25.10 - Atherosclerotic heart disease of [place] coronary artery without angina pectoris QUALIFIERS: Coronary Disease-Associated Artery/Lesion type: [place] artery Qualified Code(s): I25.10 - Atherosclerotic heart disease of [place] coronary artery without angina pectoris (3) Essential (primary) hypertension: CODE(S): I10 - Essential (primary) hypertension (4) Mixed hyperlipidemia: CODE(S): E78.2 - Mixed hyperlipidemia (5) Diabetes type 2, uncontrolled: CODE(S): E11.65 - Type 2 diabetes mellitus with hyperglycemia QUALIFIERS: Glycemic state: with hyperglycemia Qualified Code(s): E11.65 - Type 2 diabetes mellitus with hyperglycemia (6) Morbid obesity: CODE(S): E66.01 - Morbid (severe) obesity due to excess calories (7) Lymphedema of both lower extremities: CODE(S): I89.0 - Lymphedema, not elsewhere classified PLAN: Vinicio's lower extremity edema was evaluated today. There are currently not any open wounds or ulcers to treat but he has significant uncontrolled edema bilaterally with some skin changes that are associated with lymphedema. He will be treated with UNNA boot compression today to try to get his edema under control and then proceed with maintenance of edema with daily use of compression stockings. He was educated on the importance of elevation of his lower extremities at or above the level of his heart as well as the role of compression stockings and devices to treat chronic edema of his lower legs and the risks that blisters turning to open wounds and ultimately limb loss if not treated. His vascular tests have been requested as well as recent labs from his PCP. He has arterial tests from 2019 which do not show any significant arterial occlusive disease. Encouraged adequate protein intake and treatment of his SANIA. Discussed referral to lymphedema clinic at [facility] as well to help him manage his chronic lymphedema. Follow up in 1 week.
[2020-11-16 08:59] VITALS: BP 198/73; PULSE 74; RESP 16; TEMP 36.6; BMI 45.8
[2020-11-20 08:48] VITALS: BP 157/68; PULSE 57; RESP 18; TEMP 37.1; BMI 45.8
--- NOTE | 2020-11-20 11:33 | PCM.WC.PN ---
History of Present Illness Date of Service: 11/20/20 Chief Complaint: edema and blisters to bilateral lower legs History of Wound: Vinicio is a 64 yo gentleman that presents to the wound healing center for evaluation and treatment of chronic blistering and edema to bilateral lower legs for the last year. He was referred by his PCP. 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 He reports that for the last year he has been having intermittent increased swelling in his lower legs and development of blisters bilaterally that break open and become blisters. He has compression stockings that he uses intermittently and he reports that he has been elevating his lower legs and avoiding letting them hang down. He sleeps in a bed most nights but sometimes in a recliner due to chronic back issues. He does have his feet elevated when he sleeps in the recliner. He underwent vascular testing last month for his edema but it is unavailable at this time for review. He reports that there was no evidence of DVT but he is not aware of any other findings. He denies any erythema, fever, chills, drainage or odor. Subjective Subjective Vinicio is here for follow up visit for edema of bilateral LE and blisters. He tolerated UNNA boot treatment very well and has improvement in his edema. He does not currently have any open wounds. Objective Data Objective Data Vital Signs: Vital Signs Temp Pulse Resp BP 98.7 F 57 L 18 157/68 H 11/20/20 08:48 11/20/20 08:48 11/20/20 08:48 11/20/20 08:48 Oxygen Delivery Method Room Air Body Mass Index (BMI) 45.8 Physical Exam Const alert, oriented x3 and no apparent distress HEENT normocephalic and head/scalp atraumatic Eyes PERRL and EOMs intact bilaterally Lymph Lymphatic: no lymphadenopathy noted and lymphedema moderate Resp normal respiratory effort and normal air movement Effort and Inspection: able to speak in complete sentences Auscultation: clear to auscultation bilaterally Cardio regular rate and regular rhythm Jugular Venous Distention: Negative for JVD GI normal to inspection, nondistended, normoactive bowel sounds, soft to palpation and non-tender Inspection: central obesity Extremity Negative for no calf tenderness General Extremity: edema bilateral lower extremity Details: severe and other findings Other Details: nodular skin changes to shins bilaterally Skin Wound Narrative: nodular changes of skin consistent with chronic lymphedema Psych cooperative and affect normal Debridement Note Debridement Note Post-Debridement Measurements and Additional Note: Post-Debridement Measurements/Treatment WC - Nurse 1 - General Ulcer Assessment Start: 11/13/20 08:56 Freq: Status: Active Protocol: ALMITA.LOWEXT Activity Type Activity Date Activity User E-Sign Co-Sign Detail Recorded Client Recorded Date Recorded By Document 11/13/20 08:57 KR [id number] 11/13/20 09:18 KR Document 11/16/20 08:59 BMF [id number] 11/16/20 09:00 BMF Document 11/20/20 08:48 DL [id number] 11/20/20 08:50 DL 11/13/20 11/16/20 11/20/20 08:57 08:59 08:48 - Today's Visit Information Type of service Initial Visit Nurse-only Follow-up Visit Visit (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 ) Arrival Mode Ambulatory Ambulatory Ambulatory Transfer Assistance None None Patient Identification Verified (Name & Yes Yes Yes ) Patient Requires Transmission-Based No No Precautions Height and Weight Body Mass Index (BMI) 45.8 45.8 45.8 BMI Classification Obese Obese Obese Vital Signs Temperature (97.8 F-99.1 F) 97.8 F 98.7 F Temperature Source Temporal Temporal Temporal Pulse Rate (60-100) 74 57 L Pulse Location Monitor Monitor Monitor Respiratory Rate (12-18) 16 18 Respiratory rate source Observation Observation Oxygen Delivery Method Room Air Blood Pressure (90/60-120/80) 198/73 H 157/68 H Blood Pressure Mean (mm Hg) 114 97 Source Monitor Monitor Monitor Position Semi-Fowlers Sitting Blood Pressure Location Right Arm Left Arm Comment removed unna to shower this am History Since Last Visit- (Skip if this is Patient's initial visit) Have you changed medications since your No No No last visit? Any new allergies or adverse reactions No No No Had a fall/change in ADL's that may No No No increase risk of falls Signs or symptoms of abuse and/or No No No neglect since last visit Have you been in the hospital since your No No No last visit? Has dressing in place as prescribed No No No Has compression in place as prescribed N/A No Has offloadiing in place as prescribed N/A N/A N/A Experienced any changes in pain level or No No No management Left Footwear Regular Shoe Regular Shoe Right Footwear Regular Shoe Regular Shoe Pain Scale: 0-10 Numeric Is Patient Pain Free? Yes Yes Yes - Nurse 1 - General Ulcer Measurement Start: 11/13/20 08:56 Freq: Status: Active Protocol: Activity Type Activity Date Activity User E-Sign Co-Sign Detail Recorded Client Recorded Date Recorded By Document 11/13/20 08:57 KR [id number] 11/13/20 09:18 KR Document 11/20/20 08:48 DL [id number] 11/20/20 08:50 DL 11/13/20 11/20/20 08:57 08:48 Wound Center Nurse 1 Lower Limb Edema Present Yes Right Calf (cm) 49.2 48 Right Ankle (cm) 32 29.7 Left Calf (cm) 50.8 47.9 Left Ankle (cm) 33.1 31 - Nurse 2 - General Ulcer CM Notes Start: 11/13/20 08:56 Freq: Status: Active Protocol: Activity Type Activity Date Activity User E-Sign Co-Sign Detail Recorded Client Recorded Date Recorded By Document 11/13/20 09:35 MW [id number] 11/13/20 09:39 MW Document 11/20/20 09:38 MW [id number] 11/20/20 09:46 MW 11/13/20 11/20/20 09:35 09:38 Pain Scale: 0-10 Numeric Is Patient Pain Free? Yes Yes - Nurse 3 - General Ulcer D/C NN Start: 11/13/20 08:56 Freq: Status: Active Protocol: Activity Type Activity Date Activity User E-Sign Co-Sign Detail Recorded Client Recorded Date Recorded By Document 11/13/20 09:47 RB [id number] 11/13/20 09:48 RB Document 11/16/20 08:59 BMF [id number] 11/16/20 09:00 BMF 11/13/20 11/16/20 09:47 08:59 Wound Care Nurse 3 bilateral -Multi-Layered Wrap Application Unna Boot - Unna Boot - Bilateral ($) Bilateral ($) -Unna Boots (Bilat) ($) 2 1 Treatment Response Procedure Tolerated Well Vital Signs Temperature (97.8 F-99.1 F) 97.8 F Temperature Source Temporal Pulse Rate (60-100) 74 Pulse Location Monitor Respiratory Rate (12-18) 16 Respiratory rate source Observation Oxygen Delivery Method Room Air Blood Pressure (90/60-120/80) 198/73 H Blood Pressure Mean (mm Hg) 114 Source Monitor Position Sitting Blood Pressure Location Left Arm Pain Scale: 0-10 Numeric Is Patient Pain Free? Yes Yes WC - Visit Discharge Discharge Condition Stable Stable Ambulatory Status Ambulatory Ambulatory Transportation Private Auto Private Auto Medication Reconcilliation completed & No provided to patient/care provider Clinical Summary of Care Provided Yes Assessment/Plan Assessment/Plan (1) Lower extremity edema: CODE(S): R60.0 - Localized edema (2) Atherosclerosis of coronary artery of [place] heart without angina pectoris: CODE(S): I25.10 - Atherosclerotic heart disease of [place] coronary artery without angina pectoris QUALIFIERS: Coronary Disease-Associated Artery/Lesion type: [place] artery Qualified Code(s): I25.10 - Atherosclerotic heart disease of [place] coronary artery without angina pectoris (3) Essential (primary) hypertension: CODE(S): I10 - Essential (primary) hypertension (4) Mixed hyperlipidemia: CODE(S): E78.2 - Mixed hyperlipidemia (5) Diabetes type 2, uncontrolled: CODE(S): E11.65 - Type 2 diabetes mellitus with hyperglycemia QUALIFIERS: Glycemic state: with hyperglycemia Qualified Code(s): E11.65 - Type 2 diabetes mellitus with hyperglycemia (6) Morbid obesity: CODE(S): E66.01 - Morbid (severe) obesity due to excess calories (7) Lymphedema of both lower extremities: CODE(S): I89.0 - Lymphedema, not elsewhere classified PLAN: Vinicio's lower extremity edema was evaluated today. There are currently not any open wounds or ulcers to treat. His edema is improved bilaterally and he is able to don compression stockings with zippers that he brought with him today. He has some skin changes that are associated with lymphedema. He was educated on the importance of controlling edema with daily use of compression stockings. He was educated on the importance of elevation of his lower extremities at or above the level of his heart as well as the role of compression stockings and devices to treat chronic edema of his lower legs and the risks that blisters turning to open wounds and ultimately limb loss if not treated. His vascular tests have been reviewed as well as recent labs from his PCP. He has arterial tests from 2019 which do not show any significant arterial occlusive disease. His venous studies do not show any blood clots but they do not assess valvular function or reflux of veins. He agrees to undergo venous dopplers bilaterally to assess venous hypertension and reflux. This was ordered today. Encouraged adequate protein intake and treatment of his SANIA. Referral to lymphedema clinic at [facility] made as well to help him manage his chronic lymphedema. Follow up in 1 week.
== END 2020-11-25 23:59 ==
LOC: WC 09:00
PROVIDERS: PCP Family Medicine; Referring Provider Family Medicine; Visit Provider Family Medicine
DX: R60.0 Localized edema (principal); I87.2 Venous insufficiency (chronic) (peripheral); I89.0 Lymphedema, not elsewhere classified; E11.65 Type 2 diabetes mellitus with hyperglycemia; E11.40 Type 2 diabetes mellitus with diabetic neuropathy, unspecified; I25.10 Atherosclerotic heart disease of native coronary artery without angina pectoris; I10 Essential (primary) hypertension; E78.2 Mixed hyperlipidemia; G25.81 Restless legs syndrome; G47.33 Obstructive sleep apnea (adult) (pediatric); K21.9 Gastro-esophageal reflux disease without esophagitis; E66.01 Morbid (severe) obesity due to excess calories; Z68.42 Body mass index [BMI] 45.0-49.9, adult; Z79.82 Long term (current) use of aspirin; Z79.4 Long term (current) use of insulin; Z79.1 Long term (current) use of non-steroidal anti-inflammatories (NSAID); Z79.899 Other long term (current) drug therapy; Z86.14 Personal history of Methicillin resistant Staphylococcus aureus infection; Z87.19 Personal history of other diseases of the digestive system; Z87.891 Personal history of nicotine dependence
CPT/HCPCS: 29580; 99213; G0463

== ENCOUNTER 2020-12-04 09:00 | Outpatient (RCR) | payer MEDICAID, SELFPAY ==
[2020-11-26 00:33] VITALS: BP 157/68; PULSE 57; RESP 18; TEMP 37.1
--- NOTE | 2020-12-02 12:41 | VDLE_ITS ---
Reason For Study: Lymphedema RIGHT LEFT CFV is compressible, spontaneous, phasic, CFV is compressible, spontaneous, phasic, competent and demonstrates normal competent, and demonstrates normal augmentation. augmentation. FV is compressible, spontaneous, phasic, FV is compressible, spontaneous, phasic, competent and demonstrates normal competent and demonstrates normal augmentation. augmentation. POP V is compressible, spontaneous, phasic, POP V is compressible, spontaneous, phasic, competent and demonstrates normal competent and demonstrates normal augmentation. augmentation. T/P Trunk is compressible. T/P Trunk is compressible. PTV is compressible. PTV is compressible. RT PerV is compressible. LT PerV is compressible. SFJ is competent and measures 0.68 x 0.84 cm. SFJ is competent and measures 1.06 x 1.02 cm. GSV proximal thigh measures 0.51 x 0.50 cm. GSV proximal thigh measures 0.55 x 0.57 cm. GSV at knee measures 0.49 x 0.49 cm. GSV at knee measures 0.45 x 0.47 cm. GSV is competent throughout. GSV is competent throughout. SSV proximal calf is INCOMPETENT for greater SSV at junction is competent and measures than 0.5 seconds and measures 0.28 x 0.28 cm. 0.14 x 0.14 cm. Procedure This is a venous duplex using B-mode, color flow and spectral Doppler. Exam performed in department. A preliminary report was called and/or faxed to . VL/Venous Duplex US - Caesar Extrem Interpretation Summary Deep veins of the lower extremities are bilaterally patent and compressible seg mentally. There is no evidence of deep vein thrombosis on either side. Valvular competence appears in tact within the proximal deep venous systems bilaterally. The great saphenous veins appear bila terally patent and compressible segmentally. Sapheno-femoral junctions are bilaterally competent . Valvular competence appears to be intact segmentally within the great saphenous veins bilaterally. The right small saphenous vein is patent and incompetent. The left small saphenous vein is harp nt and competent. Ordering Physician: Zayda Daily Referring Physician: Domo Richards Performed By: Dalia Etienne RVT
[2020-12-04 08:41] VITALS: RESP 18; TEMP 36.2; BMI 45.8
--- NOTE | 2020-12-04 14:30 | PN.PCM_ITS ---
History of Present Illness Date of Service: 12/04/20 Chief Complaint: edema and blisters to bilateral lower legs History of Wound: Vinicio is a 64 yo gentleman that presents to the wound healing center for evaluation and treatment of chronic blistering and edema to bilateral lower legs for the last year. He was referred by his PCP. 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 He reports that for the last year he has been having intermittent increased swelling in his lower legs and development of blisters bilaterally that break open and become blisters. He has compression stockings that he uses intermittently and he reports that he has been elevating his lower legs and avoiding letting them hang down. He sleeps in a bed most nights but sometimes in a recliner due to chronic back issues. He does have his feet elevated when he sleeps in the recliner. He underwent vascular testing last month for his edema but it is unavailable at this time for review. He reports that there was no evidence of DVT but he is not aware of any other findings. He denies any erythema, fever, chills, drainage or odor. Subjective Subjective Vinicio is here for follow up visit for edema of bilateral LE and blisters. He had venous vascular testing to evaluate his venous competency and is here to discuss results. He has not been faithfully wearing compression and has started to develop blisters and skin thickening to his ankle area again. No open ulcers and no erythema or fever or chills. He denies receiving contact from lymphedema clinic at [facility]. Objective Data Objective Data Vital Signs: Vital Signs Temp Pulse Resp BP 97.2 F L 57 L 18 157/68 H 12/04/20 08:41 11/26/20 00:33 12/04/20 08:41 11/26/20 00:33 Body Mass Index (BMI) 45.8 Physical Exam Const alert, oriented x3 and no apparent distress Nutritional Appearance: obese HEENT normocephalic and head/scalp atraumatic Resp normal respiratory effort Effort and Inspection: able to speak in complete sentences Auscultation: clear to auscultation bilaterally Cardio regular rate and regular rhythm Extremity General Extremity: edema bilateral lower extremity Details: moderate and other findings Other Details: nodular skin changes to shins bilaterally and medial left ankle Skin General Skin Exam: other nodular skin changes bilaterally to ankle areas c/w lymphedema Psych thought process normal, cooperative and affect normal Debridement Note Debridement Note Wound debrided: left collins No debridement was completed: No debridement was completed today (no open wounds present) Assessment/Plan Assessment/Plan (1) SANIA (obstructive sleep apnea): CODE(S): G47.33 - Obstructive sleep apnea (adult) (pediatric) (2) Lymphedema of both lower extremities: CODE(S): I89.0 - Lymphedema, not elsewhere classified (3) Lower extremity edema: CODE(S): R60.0 - Localized edema (4) Essential (primary) hypertension: CODE(S): I10 - Essential (primary) hypertension (5) Diabetes type 2, uncontrolled: CODE(S): E11.65 - Type 2 diabetes mellitus with hyperglycemia QUALIFIERS: Glycemic state: with hyperglycemia Qualified Code(s): E11.65 - Type 2 diabetes mellitus with hyperglycemia (6) Morbid obesity: CODE(S): E66.01 - Morbid (severe) obesity due to excess calories PLAN: Vinicio's lower extremity edema was evaluated today. There are currently not any open wounds or ulcers to treat. His edema is worsened bilaterally. He has some skin changes that are associated with lymphedema. He was educated on the importance of controlling edema with daily use of compression stockings. He was advised to use compression stockings daily and contact [facility] lymphedema clinic. His venous studies were reviewed with him and he does show incompetence and reflux of small saphenous vein of right LE. He was educated on the importance of elevation of his lower extremities at or above the level of his heart as well as the role of compression stockings and devices to treat chronic edema of his lower legs and the risks that blisters turning to open wounds and ultimately limb loss if not treated. His vascular tests have been reviewed as well as recent labs from his PCP. He has arterial tests from 2019 which do not show any significant arterial occlusive disease. Encouraged adequate protein intake and treatment of his SANIA. Referral to lymphedema clinic at [facility] made as well to help him manage his chronic lymphedema. Referral sent to Dr. Carpio - vascular surgeon at [facility] for evaluation for venous ablation. Follow up in 1 week.
== END 2020-12-04 09:21 | disposition home or self-care (01) ==
LOC: WC 09:00
PROVIDERS: PCP Family Medicine; Referring Provider Family Medicine; Visit Provider Family Medicine
DX: R60.0 Localized edema (principal); I87.2 Venous insufficiency (chronic) (peripheral); I89.0 Lymphedema, not elsewhere classified; I25.10 Atherosclerotic heart disease of native coronary artery without angina pectoris; E11.65 Type 2 diabetes mellitus with hyperglycemia; I10 Essential (primary) hypertension; G47.33 Obstructive sleep apnea (adult) (pediatric); E66.01 Morbid (severe) obesity due to excess calories; Z79.4 Long term (current) use of insulin; Z79.82 Long term (current) use of aspirin; Z79.899 Other long term (current) drug therapy
CPT/HCPCS: 93970; 99213; G0463

== ENCOUNTER 2021-01-22 09:30 | Outpatient (RCR) | payer MEDICAID, SELFPAY ==
[2021-01-08 09:20] VITALS: BP 156/68; PULSE 63; TEMP 36.4; BMI 45.8
--- NOTE | 2021-01-08 11:07 | HP.PCM_ITS ---
History of Present Illness Date of Service: 01/08/21 Chief Complaint: edema and blisters to bilateral lower legs History of Wound: Vinicio is a 64 yo gentleman that presents to the wound healing center for evaluation and treatment of chronic blistering and edema to bilateral lower legs. He recently underwent treatment here in October and November and was discharged on December 04, 2020 with plan to maintain control of edema with 20-30 mmHg compression stockings. 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 He reports that for the last year he has been having intermittent increased swelling in his lower legs and development of blisters bilaterally that break open and become blisters. He reports that his legs were good for a few days after discharge from treatment at the wound healing center but then he developed blisters again with using compression stockings. He has been elevating his lower legs and avoiding letting them hang down. He sleeps in a bed most nights but sometimes in a recliner due to chronic back issues. He does have his feet elevated when he sleeps in the recliner. He has tried exercises to treat his lymphedema as well without improvement or maintained edema control. He underwent vascular testing in October which showed incompetence of right superficial saphenous vein. He denies any erythema, fever, chills, or odor. There is mild drainage from blisters/ulcers. [facility] Medical History Adrenal adenoma Atherosclerosis of coronary artery of [place] heart without angina pectoris Degeneration of cervical disc without myelopathy Degeneration of intervertebral disc Diabetes type 2, uncontrolled Epigastric abdominal pain Essential (primary) hypertension Former tobacco use GERD (gastroesophageal reflux disease) Hidradenitis History of claustrophobia Hx MRSA infection Lumbosacral neuritis Microalbuminuria Mixed hyperlipidemia Morbid obesity Neuropathy Non-healing open wound of right groin Nonhealing skin ulcer with fat layer exposed SANIA (obstructive sleep apnea) Pain in limb Personal history of colonic polyps Prurigo nodularis Restless legs Right groin pain Screening for intestinal cancer Spondylosis of cervical region without myelopathy or radiculopathy Superficial thrombophlebitis of right leg Home Medications aspirin 81 mg PO DAILY@0800 10/20/13 [History Last Taken 08/10/20] omeprazole 20 mg PO PRN PRN 10/20/13 [History Last Taken 08/10/20] insulin degludec 128 unit SC DAILY 03/22/17 [History Last Taken 11/12/17] furosemide 40 mg PO BID #10 tab 09/16/19 [Rx Last Taken Unknown] cyclobenzaprine 10 mg tablet 10 mg PO TID PRN tab 07/15/20 [History Last Taken Unknown] gabapentin 800 mg tablet 800 mg PO TID tab 07/15/20 [History Last Taken Un known] hydrochlorothiazide 25 mg tablet 25 mg PO DAILY tab 07/15/20 [History Last Taken Unknown] insulin aspart U-100 100 unit/mL (3 mL) subcutaneous pen 53 unit SC TID ml 07/15/20 [History Last Taken Unknown] losartan 100 mg tablet 100 mg PO DAILY tab 07/15/20 [History Last Taken 08/10/20] meloxicam 15 mg tablet 15 mg PO DAILY tab 07/15/20 [History Last Taken Unknown] metformin 500 mg tablet,extended release 24 hr 1,500 mg PO QAM tab 07/15/20 [History Last Taken 08/09/20] potassium chloride 10 mEq tablet,extended release 10 meq PO DAILY 07/15/20 [History Last Taken Unknown] rosuvastatin 20 mg tablet 20 mg PO DAILY tab 07/15/20 [History Last Taken Unknown] metoprolol succinate 50 mg tablet,extended release 24 hr 50 mg PO DAILY #30 tab 08/10/20 [Rx Last Taken Unknown] isosorbide mononitrate 60 mg tablet,extended release 24 hr 60 mg PO DAILY #30 tab 10/27/20 [Rx Last Taken Unknown] Allergy/AdvReac Type Severity Reaction Status Date / Time amlodipine AdvReac lower Verified 10/27/20 10:42 extremity edema Latex, Natural Rubber AdvReac Rash Verified 10/27/20 10:42 Family History Mother Diabetes Hypertension Brain tumor Father Cirrhosis Surgical History History of appendectomy History of cholecystectomy History of left heart catheterization (08/10/20) History of myringotomy History of tonsillectomy Hx of umbilical hernia repair Left ear drum surgery Social History Smoking Status: Former smoker quit date: 05/26/11 pack-years: 25 second hand exposure: No alcohol intake: never substance use type: does not use what type of physical activity do you participate in: none seatbelt use: always ROS Constitutional Constitutional: Denies chills, fatigue or fever(s) Eyes Eyes: Denies blurry vision or erythema ENT HEENT: Denies dizziness or headache(s) Cardiovascular Cardiovascular: Reports edema, leg edema and leg ulcers; Denies chest pain or palpitations Respiratory/Chest Respiratory/Chest: Denies cough or shortness of breath with exertion Gastrointestinal Gastrointestinal: Denies diarrhea, nausea or vomiting Musculoskeletal Musculoskeletal: Reports back pain Integumentary Integumentary: Reports skin ulcer Psychiatric Psychiatric: Denies homicidal ideation or suicidal ideation Endocrine Endocrinology: Denies cold intolerance or heat intolerance Hematologic/Lymphatic Hematologic/Lymphatic: Denies easy bleeding, easy bruising or lymphadenopathy Vital Signs Vital Signs Vital Signs: 01/08/21 09:20 Temperature 97.5 F L Temperature Source Temporal Pulse Rate 63 Blood Pressure 156/68 H Blood Pressure Mean 97 Blood Pressure Source Monitor Weight Body Mass Index (BMI) 45.8 Physical Exam Const alert, oriented x3, no apparent distress and healthy appearing Nutritional Appearance: morbidly obese HEENT normocephalic and head/scalp atraumatic Head and Scalp: normal to inspection and normocephalic Mouth: oral and palatal mucosa normal Eyes PERRL Neck no lymphadenopathy Lymph Lymphatic: lymphedema severe and pitting Resp normal respiratory effort Effort and Inspection: able to speak in complete sentences Auscultation: clear to auscultation bilaterally Cardio Rate: regular rate Rhythm: regular rhythm GI soft to palpation and non-tender Extremity General Extremity: edema bilateral lower extremity Details: severe Skin General Skin Exam: venous stasis and dermatitis Wounds: wounds noted Wound Narrative: as in clinical panel Psych mental status grossly normal, thought process normal and affect normal Debridement Note Debridement Note Post-Debridement Measurements and Additional Note: Post-Debridement Measurements/Treatment - Nurse 1 - General Ulcer Assessment Start: 01/08/21 09:19 Freq: Status: Active Protocol: KATHRYN Activity Type Activity Date Activity User E-Sign Co-Sign Detail Recorded Client Recorded Date Recorded By Document 01/08/21 09:20 JESIKA [id number] 01/08/21 09:36 JESIKA 01/08/21 09:20 WC - Today's Visit Information Type of service Initial Visit Arrival Mode Ambulatory Patient Identification Verified (Name & Yes ) Patient Requires Transmission-Based No Precautions Height and Weight Body Mass Index (BMI) 45.8 BMI Classification Obese Vital Signs Temperature (97.8 F-99.1 F) 97.5 F L Temperature Source Temporal Pulse Rate (60-100) 63 Pulse Location Monitor Blood Pressure (90/60-120/80) 156/68 H Blood Pressure Mean 97 Source Monitor History Since Last Visit- (Skip if this is Patient's initial visit) Have you changed medications since your No last visit? Any new allergies or adverse reactions No Had a fall/change in ADL's that may No increase risk of falls Signs or symptoms of abuse and/or No neglect since last visit Have you been in the hospital since your No last visit? Has dressing in place as prescribed No Has compression in place as prescribed N/A Has offloadiing in place as prescribed N/A Experienced any changes in pain level or No management Left Footwear Regular Shoe Right Footwear Regular Shoe Lower Extremity Assessment/ Foot Assessment/ Toe Nail Assessment Left -Polpliteal Pulses Palpable Yes -Popliteal Doppler Monophasic -Dorsalis Pedis Doppler Monophasic -Extremity Color Red -Hair Growth on Legs Yes -Hair Growth on Toes Yes -Temperature of Extremity Warm -Capillary Refill Less than 3 Seconds -Dependent Rubor Yes -Other Deformity No -Prior Foot Ulcer No -Charcot Joint No -Prior Amputation No -Thick No -Discolored No -Deformed No -Improper Length & Hygeine No Neuropathy Assessment Feet - Top Side and Bottom <Entered> (a) (a) 1 - + WC - Nurse 1 - General Ulcer Measurement Start: 01/08/21 09:19 Freq: Status: Active Protocol: Activity Type Activity Date Activity User E-Sign Co-Sign Detail Recorded Client Recorded Date Recorded By Document 01/08/21 09:20 JESIKA [id number] 01/08/21 09:36 JESIKA 01/08/21 09:20 Wound Center Nurse 1 Right Calf (cm) 52 Right Ankle (cm) 31 Left Calf (cm) 52.5 Left Ankle (cm) 31.5 WC - Nurse 2 - General Ulcer CM Notes Start: 01/08/21 09:19 Freq: Status: Active Protocol: Activity Type Activity Date Activity User E-Sign Co-Sign Detail Recorded Client Recorded Date Recorded By Document 01/08/21 09:48 MW [id number] 01/08/21 09:55 MW 01/08/21 09:48 Wound Center Nurse 2 #3 left collins cluster -Time 09:52 -Correct Patient Yes -Correct Side, Site, Position Yes -Correct Procedure Yes -Procedure Performed Yes -Type of Procedure Debridement -Clinical Debridement Subcutaneous -Tissue Removed Subcutaneous -Post Debridement (cm) - Length 0.9 -Post Debridement (cm) - Width 0.9 -Post Debridement (cm) - Depth 0.1 -Total Square (Post) (cm) 0.81 -Area of Debridement (cm) - Length 0.9 -Area of Debridement (cm) - Width 0.9 -Total Square (Area) (cm) 0.81 -Tunneling No -Undermining/Tunneling No -Circular Undermining No -Wound/Ulcer Outcome Not Healed -Ulcer Cleansing Rinsed/ Irrigated with Saline -Foul Odor after Cleansing No -Bioengineered Tissue No -Bleeding Controlled with Pressure -Offloading No -Treatment Response Procedure Tolerated Well -Debridement - Subq, 1st 20sq cm No #2 Right Collins Cluster -Time 09:48 -Correct Patient Yes -Correct Side, Site, Position Yes -Correct Procedure Yes -Procedure Performed Yes -Type of Procedure Debridement -Clinical Debridement Subcutaneous -Tissue Removed Subcutaneous -Post Debridement (cm) - Length 0.4 -Post Debridement (cm) - Width 0.4 -Post Debridement (cm) - Depth 0.1 -Total Square (Post) (cm) 0.16 -Area of Debridement (cm) - Length 0.4 -Area of Debridement (cm) - Width 0.4 -Total Square (Area) (cm) 0.16 -Tunneling No -Undermining/Tunneling No -Circular Undermining No -Wound/Ulcer Outcome Not Healed -Ulcer Cleansing Rinsed/ Irrigated with Saline -Foul Odor after Cleansing No -Bioengineered Tissue No -Bleeding Controlled with Pressure -Offloading No -Treatment Response Procedure Tolerated Well -Debridement - Subq, 1st 20sq cm Yes Pain Scale: 0-10 Numeric Is Patient Pain Free? Yes WC - Nurse 3 - General Ulcer D/C NN Start: 01/08/21 09:19 Freq: Status: Active Protocol: Activity Type Activity Date Activity User E-Sign Co-Sign Detail Recorded Client Recorded Date Recorded By Document 01/08/21 10:11 JESIKA [id number] 01/08/21 10:14 JESIKA 01/08/21 10:11 Wound Care Nurse 3 #3 left collins cluster -Ulcer Cleansing Rinsed/ Irrigated with Saline -Foul Odor after Cleansing No -Primary Dressing Applied Promogran -Primary Dressing Covered/Secured with Dry Gauze -Promogran 0 Left -Lotion applied to leg before No compression wrap -Multi-Layered Wrap Application Unna Boot - Bilateral ($) -Unna Boots (Bilat) ($) 2 Wound debrided: left collins cluster Laterality: Left Type of Debridement: Excisional debridement Anesthesia Used: 4% Lidocaine Solution Depth: Down to and including healthy tissue and in the subcutaneous layer Percentage of wound debrided: 100 Instrument Used: 3mm curette Tissue Removed: yellow slough, devitalized tissue Severity: Fat Layer Exposed Amount of bleeding with debridement: Mild Bleeding Controlled with: Compression and gauze Patient tolerated procedure: Patient tolerated procedure well Additional Wound Wound debrided: right collins Laterality: Right Type of Debridement: Excisional debridement Anesthesia Used: 4% Lidocaine Solution and 5% Lidocaine Gel Depth: Down to and including healthy tissue and in the subcutaneous layer Percentage of wound debrided: 100 Instrument Used: 3mm curette Tissue Removed: yellow slough, devitalized tissue Severity: Fat Layer Exposed Amount of bleeding with debridement: Mild Bleeding Controlled with: Pressure Patient tolerated procedure: Patient tolerated procedure well Assessment/Plan Assessment/Plan (1) SANIA (obstructive sleep apnea): CODE(S): G47.33 - Obstructive sleep apnea (adult) (pediatric) (2) Neuropathy: CODE(S): G62.9 - Polyneuropathy, unspecified (3) Lymphedema of both lower extremities: CODE(S): I89.0 - Lymphedema, not elsewhere classified (4) Lower extremity edema: CODE(S): R60.0 - Localized edema (5) Atherosclerosis of coronary artery of [place] heart without angina pectoris: CODE(S): I25.10 - Atherosclerotic heart disease of [place] coronary artery without angina pectoris QUALIFIERS: Coronary Disease-Associated Artery/Lesion type: [place] artery Qualified Code(s): I25.10 - Atherosclerotic heart disease of [place] coronary artery without angina pectoris (6) Mixed hyperlipidemia: CODE(S): E78.2 - Mixed hyperlipidemia (7) Diabetes type 2, uncontrolled: CODE(S): E11.65 - Type 2 diabetes mellitus with hyperglycemia QUALIFIERS: Glycemic state: with hyperglycemia Qualified Code(s): E11.65 - Type 2 diabetes mellitus with hyperglycemia (8) Morbid obesity: CODE(S): E66.01 - Morbid (severe) obesity due to excess calories (9) Essential (primary) hypertension: CODE(S): I10 - Essential (primary) hypertension PLAN: Vinicio's lower extremity lymphedema and ulcers were evaluated today. He has skin changes that are associated with lymphedema. He was educated on the importance of controlling edema with daily use of compression stockings. He was advised to use compression stockings daily once his ulcers are healed again and continue therapeutic lymphedema exercises . His venous studies were reviewed again and he does show incompetence and reflux of small saphenous vein of right LE. He was educated on the importance of elevation of his lower extremities at or above the level of his heart as well as the role of compression stockings and devices to treat chronic edema of his lower legs and the risks that blisters turning to open wounds and ultimately limb loss if not treated. His vascular tests have been reviewed as well as recent labs from his PCP. He has arterial tests from 2019 which do not show any significant arterial occlusive disease. Encouraged adequate protein intake and treatment of his SANIA. It is medically necessary as he has failed treatment with compression stockings and home exercises for him to receive and use lymphedema pumps to his b/l lower extremities to manage his chronic lymphedema and avoid development of ulcers. Referral sent to Dr. Carpio - vascular surgeon at [facility] for evaluation for venous ablation. Follow up in 1 week for UNNA boot change and 2 weeks for wound care.
[2021-01-15 11:41] VITALS: BP 125/90; PULSE 67; RESP 22; TEMP 36.9; BMI 45.8
[2021-01-22 09:22] VITALS: RESP 18; TEMP 36.3; BMI 45.8
--- NOTE | 2021-01-22 15:30 | PCM.WC.PN ---
History of Present Illness Date of Service: 01/22/21 Chief Complaint: edema and blisters to bilateral lower legs History of Wound: Vinicio is a 64 yo gentleman that presents to the wound healing center for evaluation and treatment of chronic blistering and edema to bilateral lower legs. He recently underwent treatment here in October and November and was discharged on December 04, 2020 with plan to maintain control of edema with 20-30 mmHg compression stockings. 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 He reports that for the last year he has been having intermittent increased swelling in his lower legs and development of blisters bilaterally that break open and become blisters. He reports that his legs were good for a few days after discharge from treatment at the wound healing center but then he developed blisters again with using compression stockings. He has been elevating his lower legs and avoiding letting them hang down. He sleeps in a bed most nights but sometimes in a recliner due to chronic back issues. He does have his feet elevated when he sleeps in the recliner. He has tried exercises to treat his lymphedema as well without improvement or maintained edema control. He underwent vascular testing in October which showed incompetence of right superficial saphenous vein. He denies any erythema, fever, chills, or odor. There is mild drainage from blisters/ulcers. Subjective Subjective Vinicio is here for follow up visit for edema of bilateral LE and blisters. His ulcers are healed today. He had venous vascular testing to evaluate his venous competency and is here to discuss results. He has not been faithfully wearing compression and has started to develop blisters and skin thickening to his ankle area again. No open ulcers and no erythema or fever or chills. He denies receiving contact from lymphedema clinic at [facility]. Objective Data Objective Data Vital Signs: Vital Signs Temp Pulse Resp BP 97.3 F L 67 18 125/90 H 01/22/21 09:22 01/15/21 11:41 01/22/21 09:22 01/15/21 11:41 Oxygen Delivery Method Room Air Body Mass Index (BMI) 45.8 Physical Exam Const alert, oriented x3, no apparent distress and healthy appearing Nutritional Appearance: morbidly obese HEENT normocephalic and head/scalp atraumatic Eyes PERRL Neck no lymphadenopathy Lymph Lymphatic: lymphedema severe and pitting Resp normal respiratory effort Effort and Inspection: able to speak in complete sentences Auscultation: clear to auscultation bilaterally Cardio Rate: regular rate Rhythm: regular rhythm GI soft to palpation and non-tender Extremity General Extremity: edema bilateral lower extremity Details: severe Skin General Skin Exam: venous stasis and dermatitis Wounds: wounds noted Wound Narrative: as in clinical panel Psych mental status grossly normal, thought process normal and affect normal Debridement Note Debridement Note Post-Debridement Measurements and Additional Note: Post-Debridement Measurements/Treatment - Nurse 1 - General Ulcer Assessment Start: 01/08/21 09:19 Freq: Status: Active Protocol: [email or web address] Activity Type Activity Date Activity User E-Sign Co-Sign Detail Recorded Client Recorded Date Recorded By Document 01/08/21 09:20 AK [id number] 01/08/21 09:36 AK Document 01/15/21 11:41 DL [id number] 01/15/21 11:52 DL Document 01/22/21 09:22 MW [id number] 01/22/21 09:26 MW 01/08/21 01/15/21 01/22/21 09:20 11:41 09:22 - Today's Visit Information Type of service Initial Visit Nurse-only Follow-up Visit Visit (Physician/PASSENGER CAR INSPECTOR ) Arrival Mode Ambulatory Ambulatory Ambulatory Transfer Assistance None None Accompanied by self Patient Identification Verified (Name & Yes Yes Yes ) Patient Requires Transmission-Based No No No Precautions Finger Stick Blood Sugar(mg/dl) (if 201 indicated): Blood Sugar Stated by Patient Height and Weight Body Mass Index (BMI) 45.8 45.8 45.8 BMI Classification Obese Obese Obese Vital Signs Temperature (97.8 F-99.1 F) 97.5 F L 98.5 F 97.3 F L Temperature Source Temporal Temporal Temporal Pulse Rate (60-100) 63 67 Pulse Location Monitor Monitor Respiratory Rate (12-18) 22 H 18 Respiratory rate source Observation Oxygen Delivery Method Room Air Blood Pressure (90/60-120/80) 156/68 H 125/90 H Blood Pressure Mean (mm Hg) 97 101 Source Monitor Monitor History Since Last Visit- (Skip if this is Patient's initial visit) Have you changed medications since your No No No last visit? Any new allergies or adverse reactions No No No Had a fall/change in ADL's that may No No No increase risk of falls Signs or symptoms of abuse and/or No No No neglect since last visit Have you been in the hospital since your No No No last visit? Has dressing in place as prescribed No Yes No Has compression in place as prescribed N/A Yes No Has offloadiing in place as prescribed N/A N/A N/A Experienced any changes in pain level or No No No management Left Footwear Regular Shoe Regular Shoe Right Footwear Regular Shoe Regular Shoe Pain Scale: 0-10 Numeric Is Patient Pain Free? Yes Yes Lower Extremity Assessment/ Foot Assessment/ Toe Nail Assessment Left -Polpliteal Pulses Palpable Yes -Popliteal Doppler Monophasic -Dorsalis Pedis Doppler Monophasic -Extremity Color Red -Hair Growth on Legs Yes -Hair Growth on Toes Yes -Temperature of Extremity Warm -Capillary Refill Less than 3 Seconds -Dependent Rubor Yes -Other Deformity No -Prior Foot Ulcer No -Charcot Joint No -Prior Amputation No -Thick No -Discolored No -Deformed No -Improper Length & Hygeine No Neuropathy Assessment Feet - Top Side and Bottom <Entered> (a) (a) 1 - + WC - Nurse 1 - General Ulcer Measurement Start: 01/08/21 09:19 Freq: Status: Active Protocol: Activity Type Activity Date Activity User E-Sign Co-Sign Detail Recorded Client Recorded Date Recorded By Document 01/08/21 09:20 AK [id number] 01/08/21 09:36 AK Document 01/15/21 11:41 DL [id number] 01/15/21 11:52 DL Document 01/22/21 09:22 MW [id number] 01/22/21 09:26 01/08/21 01/15/21 01/22/21 09:20 11:41 09:22 #3 left collins cluster -Combined with other wound No -Current Size (cm) - Length 0.1 -Current Size (cm) - Width 0.1 -Current Size (cm) - Depth 0.1 -Total Square Cm 0.01 -Photo Taken No No -Epithelialization Large 67-100% -Tunneling No -Undermining/Tunneling No -Circular Undermining No -Exudate Amt Small -Exudate Type Serosanguineous -Wound Margin Distinct, Outline Attached -Granulation Amt Large (67-100%) None Present (0 %) -Granulation Quality [place] N/A -Slough/Fibrin No -Necrosis Amt None Present (0 None Present (0 %) %) -Structure Exposed N/A N/A -Texture (Flory-wound Skin Appearance) Scarring Assessed, Localized Edema -Moisture (Flory-wound Skin Appearance) No Abnormality Assessed,Dry/ Scaly -Color (Flory-wound Skin Appearance) No Abnormality Assessed,Rubor -Temperature (Flory-wound Skin No Abnormality No Abnormality Appearance) (Pt Warm) (Pt Warm) -Tenderness on Palpation (Flory-wound No No Skin Appearance) -Ulcer Cleansing Wound Cleanser Rinsed/ Irrigated with Saline -Foul Odor after Cleansing No No #2 Right Collins Cluster -Combined with other wound No -Current Size (cm) - Length 0 0.1 -Current Size (cm) - Width 0 0.1 -Current Size (cm) - Depth 0 0.1 -Total Square Cm 0 0.01 -Photo Taken No No -Epithelialization Small 1-33% -Tunneling No -Undermining/Tunneling No -Circular Undermining No -Exudate Amt None Present None Present -Wound Margin Flat & Intact -Granulation Amt Large (67-100%) None Present (0 %) -Granulation Quality [place] N/A -Slough/Fibrin No -Necrosis Amt None Present (0 None Present (0 %) %) -Structure Exposed N/A N/A -Texture (Flory-wound Skin Appearance) Assessed Assessed, Localized Edema -Moisture (Flory-wound Skin Appearance) No Abnormality Assessed,Dry/ Scaly -Color (Flory-wound Skin Appearance) Assessed,Rubor -Temperature (Flory-wound Skin No Abnormality No Abnormality Appearance) (Pt Warm) (Pt Warm) -Tenderness on Palpation (Flory-wound No No Skin Appearance) -Ulcer Cleansing Wound Cleanser Not Cleansed -Foul Odor after Cleansing No No Wound Center Nurse 1 Lower Limb Edema Present Yes Right Calf (cm) 52 47 49.5 Right Ankle (cm) 31 29.2 31.2 Left Calf (cm) 52.5 47.5 48.5 Left Ankle (cm) 31.5 31.5 34.0 WC - Nurse 2 - General Ulcer CM Notes Start: 01/08/21 09:19 Freq: Status: Active Protocol: Activity Type Activity Date Activity User E-Sign Co-Sign Detail Recorded Client Recorded Date Recorded By Document 01/08/21 09:48 MW [id number] 01/08/21 09:55 MW Document 01/22/21 09:31 MW [id number] 01/22/21 09:34 MW 01/08/21 01/22/21 09:48 09:31 Wound Center Nurse 2 #3 left collins cluster -Time 09:52 09:31 -Correct Patient Yes Yes -Correct Side, Site, Position Yes Yes -Correct Procedure Yes Yes -Procedure Performed Yes No -Type of Procedure Debridement -Clinical Debridement Subcutaneous -Tissue Removed Subcutaneous -Post Debridement (cm) - Length 0.9 0 -Post Debridement (cm) - Width 0.9 0 -Post Debridement (cm) - Depth 0.1 0 -Total Square (Post) (cm) 0.81 0 -Area of Debridement (cm) - Length 0.9 -Area of Debridement (cm) - Width 0.9 -Total Square (Area) (cm) 0.81 -Tunneling No -Undermining/Tunneling No -Circular Undermining No -Wound/Ulcer Outcome Not Healed Healed- Epithelialized -Ulcer Cleansing Rinsed/ Irrigated with Saline -Foul Odor after Cleansing No -Bioengineered Tissue No -Bleeding Controlled with Pressure -Offloading No -Treatment Response Procedure Tolerated Well -Debridement - Subq, 1st 20sq cm No #2 Right Collins Cluster -Time 09:48 09:31 -Correct Patient Yes Yes -Correct Side, Site, Position Yes Yes -Correct Procedure Yes Yes -Procedure Performed Yes No -Type of Procedure Debridement -Clinical Debridement Subcutaneous -Tissue Removed Subcutaneous -Post Debridement (cm) - Length 0.4 0 -Post Debridement (cm) - Width 0.4 0 -Post Debridement (cm) - Depth 0.1 0 -Total Square (Post) (cm) 0.16 0 -Area of Debridement (cm) - Length 0.4 -Area of Debridement (cm) - Width 0.4 -Total Square (Area) (cm) 0.16 -Tunneling No -Undermining/Tunneling No -Circular Undermining No -Wound/Ulcer Outcome Not Healed Healed- Epithelialized -Ulcer Cleansing Rinsed/ Irrigated with Saline -Foul Odor after Cleansing No -Bioengineered Tissue No -Bleeding Controlled with Pressure -Offloading No -Treatment Response Procedure Tolerated Well -Debridement - Subq, 1st 20sq cm Yes Pain Scale: 0-10 Numeric Is Patient Pain Free? Yes Yes WC - Nurse 3 - General Ulcer D/C NN Start: 01/08/21 09:19 Freq: Status: Active Protocol: Activity Type Activity Date Activity User E-Sign Co-Sign Detail Recorded Client Recorded Date Recorded By Document 01/08/21 10:11 AK [id number] 01/08/21 10:14 AK Document 01/15/21 11:41 DL [id number] 01/15/21 11:52 DL Edit Result 01/15/21 11:41 DL (1) [id number] 01/16/21 07:35 PL Document 01/22/21 09:34 MW [id number] 01/22/21 09:35 MW (1) Bilateral - Multi-Layered Wrap Application => Unna Boot - => Bilateral ($) - Unna Boots (Bilat) ($) => 2 01/08/21 01/15/21 01/22/21 10:11 11:41 09:34 Wound Care Nurse 3 #3 left collins cluster -Ulcer Cleansing Rinsed/ Irrigated with Saline -Foul Odor after Cleansing No -Primary Dressing Applied Promogran -Primary Dressing Covered/Secured with Dry Gauze -Promogran 0 Bilateral -Lotion applied to leg before No compression wrap -Multi-Layered Wrap Application Unna Boot - Unna Boot - Bilateral ($) Bilateral ($) -Unna Boots (Bilat) ($) 2 2 Left -Lotion applied to leg before No compression wrap -Multi-Layered Wrap Application Unna Boot - Bilateral ($) -Unna Boots (Bilat) ($) 2 Treatment Response Procedure Tolerated Well Vital Signs Temperature (97.8 F-99.1 F) 98.5 F Temperature Source Temporal Pulse Rate (60-100) 67 Pulse Location Monitor Respiratory Rate (12-18) 22 H Respiratory rate source Observation Blood Pressure (90/60-120/80) 125/90 H Blood Pressure Mean (mm Hg) 101 Source Monitor Pain Scale: 0-10 Numeric Is Patient Pain Free? Yes Yes Teaching: Wound Center Compression Wraps & Stockings -Person Taught Patient -Teaching Method Discussion -Response to teaching Verbalize understanding Control Swelling with Leg Elevation -Person Taught Patient -Teaching Method Discussion -Response to teaching Verbalize understanding WC - Visit Discharge Discharge Condition Stable Ambulatory Status Ambulatory Transportation Private Auto Accompanied by self Medication Reconcilliation completed & No provided to patient/care provider Clinical Summary of Care Provided Yes Wound debrided: left collins cluster Laterality: Left No debridement was completed: No debridement was completed today Additional Wound Wound debrided: right collins cluster Laterality: Right Operative Diagnosis: no debridement completed as there are no open ulcers Assessment/Plan Assessment/Plan (1) SANIA (obstructive sleep apnea): CODE(S): G47.33 - Obstructive sleep apnea (adult) (pediatric) (2) Neuropathy: CODE(S): G62.9 - Polyneuropathy, unspecified (3) Lymphedema of both lower extremities: CODE(S): I89.0 - Lymphedema, not elsewhere classified (4) Lower extremity edema: CODE(S): R60.0 - Localized edema (5) Atherosclerosis of coronary artery of jamul heart without angina pectoris: CODE(S): I25.10 - Atherosclerotic heart disease of jamul coronary artery without angina pectoris QUALIFIERS: Coronary Disease-Associated Artery/Lesion type: jamul artery Qualified Code(s): I25.10 - Atherosclerotic heart disease of jamul coronary artery without angina pectoris (6) Mixed hyperlipidemia: CODE(S): E78.2 - Mixed hyperlipidemia (7) Diabetes type 2, uncontrolled: CODE(S): E11.65 - Type 2 diabetes mellitus with hyperglycemia QUALIFIERS: Glycemic state: with hyperglycemia Qualified Code(s): E11.65 - Type 2 diabetes mellitus with hyperglycemia (8) Morbid obesity: CODE(S): E66.01 - Morbid (severe) obesity due to excess calories (9) Essential (primary) hypertension: CODE(S): I10 - Essential (primary) hypertension PLAN: Vinicio's lower extremity lymphedema and ulcers were evaluated today. He has skin changes that are associated with lymphedema. His ulcers are healed today. UNNA boot compression will be reapplied today as he still has significant edema from removing his UNNA boots and showering last night without applying any compression. He was educated on the importance of controlling edema with daily use of compression stockings. He was advised to use compression stockings daily once his ulcers are healed again and continue therapeutic lymphedema exercises . His venous studies were reviewed again and he does show incompetence and reflux of small saphenous vein of right LE. He was educated on the importance of elevation of his lower extremities at or above the level of his heart as well as the role of compression stockings and devices to treat chronic edema of his lower legs and the risks that blisters turning to open wounds and ultimately limb loss if not treated. His vascular tests have been reviewed as well as recent labs from his PCP. He has arterial tests from 2019 which do not show any significant arterial occlusive disease. Encouraged adequate protein intake and treatment of his SANIA. It is medically necessary as he has failed treatment with compression stockings and home exercises for him to receive and use lymphedema pumps to his b/l lower extremities to manage his chronic lymphedema and avoid continued recurrent development of ulcers. Referral sent to Dr. Carpio - vascular surgeon at [facility] for evaluation for venous ablation. Follow up in 1 week for wound care.
== END 2021-01-26 23:59 ==
LOC: WC 09:30
PROVIDERS: PCP Family Medicine; Visit Provider Family Medicine
DX: R60.0 Localized edema (principal); I89.0 Lymphedema, not elsewhere classified; I87.2 Venous insufficiency (chronic) (peripheral); S80.822A Blister (nonthermal), left lower leg, initial encounter; X58.XXXA Exposure to other specified factors, initial encounter; Y93.9 Activity, unspecified; Y92.9 Unspecified place or not applicable; Y99.9 Unspecified external cause status; E11.42 Type 2 diabetes mellitus with diabetic polyneuropathy; E11.65 Type 2 diabetes mellitus with hyperglycemia; I25.10 Atherosclerotic heart disease of native coronary artery without angina pectoris; I10 Essential (primary) hypertension; G25.81 Restless legs syndrome; E78.2 Mixed hyperlipidemia; G47.33 Obstructive sleep apnea (adult) (pediatric); E66.01 Morbid (severe) obesity due to excess calories; Z68.42 Body mass index [BMI] 45.0-49.9, adult; Z79.82 Long term (current) use of aspirin; Z79.4 Long term (current) use of insulin; Z79.1 Long term (current) use of non-steroidal anti-inflammatories (NSAID); Z79.899 Other long term (current) drug therapy; Z86.14 Personal history of Methicillin resistant Staphylococcus aureus infection; Z87.891 Personal history of nicotine dependence
CPT/HCPCS: 11042; 29580; 99213; G0463

== ENCOUNTER 2021-01-29 09:30 | Outpatient (RCR) | payer MEDICAID, SELFPAY ==
[2021-01-27 00:18] VITALS: BP 125/90; PULSE 67; RESP 18; TEMP 36.3; BMI 45.8
[2021-01-29 09:27] VITALS: BP 121/62; PULSE 64; RESP 20; TEMP 36.6; BMI 45.8
--- NOTE | 2021-01-29 10:00 | PCM.WC.PN ---
History of Present Illness Date of Service: 01/29/21 Chief Complaint: edema and blisters to bilateral lower legs History of Wound: Vinicio is a 64 yo gentleman that presents to the wound healing center for evaluation and treatment of chronic blistering and edema to bilateral lower legs. He recently underwent treatment here in October and November and was discharged on December 04, 2020 with plan to maintain control of edema with 20-30 mmHg compression stockings. 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 He reports that for the last year he has been having intermittent increased swelling in his lower legs and development of blisters bilaterally that break open and become blisters. He reports that his legs were good for a few days after discharge from treatment at the wound healing center but then he developed blisters again with using compression stockings. He has been elevating his lower legs and avoiding letting them hang down. He sleeps in a bed most nights but sometimes in a recliner due to chronic back issues. He does have his feet elevated when he sleeps in the recliner. He has tried exercises to treat his lymphedema as well without improvement or maintained edema control. He underwent vascular testing in October which showed incompetence of right superficial saphenous vein. He denies any erythema, fever, chills, or odor. There is mild drainage from blisters/ulcers. Subjective Subjective Vinicio is here for follow up visit for edema of bilateral LE. His ulcers remain healed today. He tolerated UNNA boot compression wraps last week and removed them last night and applied his zippered compression stockings. His legs still show edema but no open ulcers and are improved from last week in size. No open ulcers and no erythema or fever or chills. Objective Data Objective Data Vital Signs: Vital Signs Temp Pulse Resp BP 97.8 F 64 20 H 121/62 H 01/29/21 09:27 01/29/21 09:27 01/29/21 09:27 01/29/21 09:27 Body Mass Index (BMI) 45.8 Physical Exam Const alert, oriented x3 and no apparent distress General Appearance: cooperative and comfortable Nutritional Appearance: obese HEENT Head and Scalp: normal to inspection and normocephalic Mouth: oral and palatal mucosa normal Lymph Lymphatic: lymphedema severe and pitting Resp normal respiratory effort Auscultation: clear to auscultation bilaterally Cardio regular rate and regular rhythm Extremity General Extremity: edema bilateral lower extremity Details: severe Skin General Skin Exam: venous stasis and dermatitis Psych affect normal Appearance: grossly normal and appropriate Debridement Note Debridement Note Wound debrided: left collins Laterality: Left No debridement was completed: No debridement was completed today (wound is healed) Post-Debridement Measurements and Additional Note: Post-Debridement Measurements/Treatment - Nurse 1 - General Ulcer Assessment Start: 01/29/21 09:27 Freq: Status: Active Protocol: KATHRYN Activity Type Activity Date Activity User E-Sign Co-Sign Detail Recorded Client Recorded Date Recorded By Document 01/29/21 09:27 PL [id number] 01/29/21 09:34 PL 01/29/21 09:27 WC - Today's Visit Information Type of service Follow-up Visit (Physician/MARKETING OPERATIONS MANAGER ) Arrival Mode Ambulatory Transfer Assistance None Patient Identification Verified (Name & Yes ) Patient Requires Transmission-Based No Precautions Blood Sugar Stated by Patient Height and Weight Body Mass Index (BMI) 45.8 BMI Classification Obese Vital Signs Temperature (97.8 F-99.1 F) 97.8 F Temperature Source Temporal Pulse Rate (60-100) 64 Respiratory Rate (12-18) 20 H Blood Pressure (90/60-120/80) 121/62 H Blood Pressure Mean (mm Hg) 81 History Since Last Visit- (Skip if this is Patient's initial visit) Have you changed medications since your No last visit? Any new allergies or adverse reactions No Had a fall/change in ADL's that may No increase risk of falls Signs or symptoms of abuse and/or No neglect since last visit Have you been in the hospital since your No last visit? Has dressing in place as prescribed Yes Has compression in place as prescribed Yes Has offloadiing in place as prescribed N/A Pain Scale: 0-10 Numeric Is Patient Pain Free? Yes - Nurse 1 - General Ulcer Measurement Start: 01/29/21 09:27 Freq: Status: Active Protocol: Activity Type Activity Date Activity User E-Sign Co-Sign Detail Recorded Client Recorded Date Recorded By Document 01/29/21 09:27 PL [id number] 01/29/21 09:34 PL 01/29/21 09:27 Wound Center Nurse 1 Right Calf (cm) 37.5 Point of measurement (cm from the medial 31 instep) Right Ankle (cm) 32.5 Point of Measurement (cm from the medial 13 instep) Left Calf (cm) 47.5 Point of measurement (cm from the medial 31 instep) Left Ankle (cm) 32.0 Point of Measurement (cm from the medial 13 instep) Assessment/Plan Assessment/Plan (1) SANIA (obstructive sleep apnea): CODE(S): G47.33 - Obstructive sleep apnea (adult) (pediatric) (2) Lymphedema of both lower extremities: CODE(S): I89.0 - Lymphedema, not elsewhere classified (3) Diabetes type 2, uncontrolled: CODE(S): E11.65 - Type 2 diabetes mellitus with hyperglycemia QUALIFIERS: Glycemic state: with hyperglycemia Qualified Code(s): E11.65 - Type 2 diabetes mellitus with hyperglycemia (4) Morbid obesity: CODE(S): E66.01 - Morbid (severe) obesity due to excess calories PLAN: Vinicio's lower extremity lymphedema and ulcers were evaluated today. He has skin changes that are associated with lymphedema. His ulcers remained healed today. UNNA boot compression was tolerated. He tolerated compression stocking treatment applied last night and edema is improved but still present. He was educated on the importance of controlling edema with daily use of compression stockings. He was advised to use compression stockings daily once his ulcers are healed again and continue therapeutic lymphedema exercises . His venous studies were reviewed again and he does show incompetence and reflux of small saphenous vein of right LE. Lymphedema pumps are medically necessary for this patient in order to maintain control of his lymphedema and prevent future ulcers and limb loss as he has failed conservative treatment of his edema with compression stockings and lymphedema exercises. He was educated on the importance of elevation of his lower extremities at or above the level of his heart as well as the role of compression stockings and devices to treat chronic edema of his lower legs and the risks that blisters turning to open wounds and ultimately limb loss if not treated. His vascular tests have been reviewed as well as recent labs from his PCP. He has arterial tests from 2019 which do not show any significant arterial occlusive disease. Encouraged adequate protein intake and treatment of his SANIA. It is medically necessary as he has failed treatment with compression stockings and home exercises for him to receive and use lymphedema pumps to his b/l lower extremities to manage his chronic lymphedema and avoid continued recurrent development of ulcers. Referral was sent to Dr. Carpoi - vascular surgeon at [facility] for evaluation for venous ablation. He will be discharged from treatment at wound care and will follow if needed.
== END 2021-01-29 10:10 | disposition home or self-care (01) ==
LOC: WC 09:30
PROVIDERS: PCP Family Medicine; Visit Provider Family Medicine
DX: I89.0 Lymphedema, not elsewhere classified (principal); I87.8 Other specified disorders of veins; R60.0 Localized edema; E11.65 Type 2 diabetes mellitus with hyperglycemia; I25.10 Atherosclerotic heart disease of native coronary artery without angina pectoris; I10 Essential (primary) hypertension; G47.33 Obstructive sleep apnea (adult) (pediatric); E66.01 Morbid (severe) obesity due to excess calories; Z68.42 Body mass index [BMI] 45.0-49.9, adult; Z79.4 Long term (current) use of insulin; Z79.82 Long term (current) use of aspirin; Z79.1 Long term (current) use of non-steroidal anti-inflammatories (NSAID); Z79.899 Other long term (current) drug therapy
CPT/HCPCS: 99212; G0463

== ENCOUNTER → 2021-02-10 08:01 | Outpatient (CLI) | payer MEDICAID, SELFPAY ==
--- NOTE | 2021-02-11 11:42 | PFTCOMP_ITS ---
COMPLETE PULMONARY FUNCTION TEST INTERPRETATION Brief HPI: Patient is a 65 year old male, currently under the care of Frederic Hines, who presents to [facility] for complete pulmonary function tests secondary to diagnosis of dyspnea. Respiratory therapist reports good effort and reproducible results. Interpretation: Forced expiration spirometry shows a severe large airways obstructive ventilatory defect with an FEV1 of 48% predicted. There is no significant bronchodilator response by strict ATS criteria. Spirograms are of good quality and plateau slowly, indicating slowly emptying areas of the lungs. The respiratory flow volume loop shows decreased expiratory flow rates at all lung volumes consistent with airway obstruction. Lung volumes by body plethysmography show a decreased total lung capacity at 4.98 L, 81% predicted. FRC and RV are elevated out of proportion. Lung volume measurements are consistent with air-trapping. Diffusion capacity by carbon monoxide is decreased at 74% predicted. The airway resistance is elevated. No previous pulmonary function tests were available for review. Impression: Irreversible severe mixed ventilatory defect resulting in air trapping, with relatively preserved diffusing capacity.
== END ==
PROVIDERS: PCP Family Medicine; Referring Provider Nurse Practitioner Family; Visit Provider Nurse Practitioner Family
DX: R06.00 Dyspnea, unspecified (principal); G47.33 Obstructive sleep apnea (adult) (pediatric); E66.01 Morbid (severe) obesity due to excess calories
CPT/HCPCS: 94060; 94726; 94729

== ENCOUNTER → 2021-05-17 10:22 | Outpatient (CLI) | payer MEDICAID, SELFPAY ==
[2021-05-17 10:32] VITALS: PULSE 61; PULSE 65; PULSE 70; PULSE 79; PULSE 82; PULSE 84; PULSE 88; O2SAT 92; O2SAT 93; O2SAT 94; O2SAT 95; O2SAT 97; O2SAT 98
--- NOTE | 2021-05-17 15:21 | PCM.PSN.6M ---
PSN 6 Minute Walk Test 6 Minute Walk Test 6 Minute Walk Test: 6 Minute Walk Test PSN:6-Minute Walk Test Start: 05/17/21 10:32 Freq: Status: Active Protocol: [id number].6MINW Document 05/17/21 10:32 [facility] (Rec: 05/17/21 10:36 [facility] Desktop) 6 Minute Walk Test Date Performed 05/17/21 Time Performed 10:00 Height 5 ft 8 in Weight: 127.006 kg Weight in Pounds 280.[address]: Randy Alberto Assistive device used: None Pre-test Oxygen Delivery Method Room Air Pulse Ox (%) 98 Pulse Rate (60-100 beats/min) 61 Dyspnea Durga Scale (0-10) 1 1st minute Oxygen Delivery Method Room Air Pulse Ox (%) 98 Pulse Rate (60-100 beats/min) 70 Dyspnea Durga Scale (0-10) 1 Number of Rests Taken 0 2nd minute Oxygen Delivery Method Room Air Pulse Ox (%) 92 Pulse Rate (60-100 beats/min) 79 Dyspnea Durga Scale (0-10) 2 Number of Rests Taken 0 3rd minute Oxygen Delivery Method Room Air Pulse Ox (%) 93 Pulse Rate (60-100 beats/min) 82 Dyspnea Durga Scale (0-10) 3 Number of Rests Taken 0 Reported Symptoms Increased Work of Breathing 4th minute Oxygen Delivery Method Room Air Pulse Ox (%) 94 Pulse Rate (60-100 beats/min) 79 Dyspnea Durga Scale (0-10) 3 Number of Rests Taken 0 Reported Symptoms Increased Work of Breathing 5th minute Oxygen Delivery Method Room Air Pulse Ox (%) 95 Pulse Rate (60-100 beats/min) 84 Dyspnea Durga Scale (0-10) 3 Number of Rests Taken 0 Reported Symptoms Increased Work of Breathing 6th minute Oxygen Delivery Method Room Air Pulse Ox (%) 94 Pulse Rate (60-100 beats/min) 88 Dyspnea Durga Scale (0-10) 3 Number of Rests Taken 0 Reported Symptoms Increased Work of Breathing Post-test Oxygen Delivery Method Room Air Pulse Ox (%) 97 Pulse Rate (60-100 beats/min) 65 Dyspnea Durga Scale (0-10) 1 Full Laps Walked 12 Partial Lap, Number of Tiles Walked 23 Total Distance Walked (ft) 731 Interpretation Interpretation: The patient was noted to be 98% on room air at rest. However, patient desaturated to as low as 92% with ambulation. No significant tachycardia was noted. In total, the patient traveled 731 feet over the course of 6 minutes on room air with no assistive devices or breaks. These findings are consistent with a respiratory limitation exercise tolerance. Recommendations Recommendations: No supplemental oxygen is indicated at this time. However, patient will need to be followed closely given level of desaturation.
== END ==
PROVIDERS: PCP Family Medicine; Referring Provider Internal Medicine Critical Care Medicine; Visit Provider Internal Medicine Critical Care Medicine
DX: R06.00 Dyspnea, unspecified (principal)
CPT/HCPCS: 94618; 94762

== ENCOUNTER 2021-12-04 18:27 | Emergency (ER) | payer MEDICAID, SELFPAY ==
[2021-12-04 18:28] VITALS: BP 208/79; PULSE 73; RESP 18; TEMP 36.6; O2SAT 98; BMI 45.7
--- NOTE | 2021-12-04 18:41 | EKG12_ITS ---
Test Reason : Blood Pressure : / mmHG Vent. Rate : 082 BPM Atrial Rate : 069 BPM P-R Int : 176 ms QRS Dur : 088 ms QT Int : 390 ms P-R-T Axes : 037 008 030 degrees QTc Int : 455 ms Sinus rhythm with occasional Premature ventricular complexes Otherwise normal ECG Confirmed by ONEAL LOCO, OLEGARIO ([id number]), web editor LYNETTE RAMIREZ ([id number]) on 12/07/2021 9:00:02 AM Referred By: Confirmed By:OLEGARIO NO MD
[2021-12-04] MEDS: Ondansetron 4 MG/2 ML Vial IV (18:47)
[2021-12-04] MEDS: Morphine 4 MG/ML Syringe IV (18:47)
[2021-12-04 18:51] LABS: Absolute Lymphocyte Count 3.35 X10^3/uL (0.83-4.51); Absolute Neutrophil Count 5.4 X10^3/uL (2.0-7.7); Basophil# 0.11 X10^3/uL; Basophil% 1.1 % (0-1); Eosinophil# 0.31 X10^3/uL; Eosinophils% 3.2 % (0-5); Hematocrit 45.6 % (40-54); Hemoglobin 15.2 g/dL (13.0-16.5); Lymphocyte # 3.35 X10^3/ul (0.83-4.51); Lymphocyte % 34.2 % (19-41); Mean Corp Hgb Conc 33.3 g/dL (32-36); Mean Corpuscular Volume 92.9 fL (80-94); Monocyte# 0.57 X10^3/uL; Monocyte% 5.8 % (0-10); NRBC Flagged by Analyzer 0 % (0-5); Neutrophil # 5.39 X10^3/uL (2.7-7.7); Platelet Count 191 K/mm3 (150-450); RBC Distribution Width CV 15.4 % (11.6-14.6); RBC Distribution Width SD 51.8 fl (35.1-43.9); Red Blood Count 4.91 M/mm3 (4.6-6.2); White Blood Count 9.8 K/mm3 (4.4-11.0)
--- NOTE | 2021-12-04 18:55 | EX.ED.DYSGE1 ---
HPI History of Present Illness Chief Complaint: Abd Pain Informant: patient Narrative Narrative: 65-year-old male multiple medical problems including COPD diabetes hypertension and chronic lymphedema presents to the emergency room with abdominal pain. Patient states that he developed a right-sided cramping abdominal pain yesterday. He was experience it still today but just prior to arrival he vomited. He had been eating fine earlier in the day. He notes he has had a normal bowel movement today. He states that after he vomited he began to feel the pain moving up towards his heart and he did not want to have a heart attack so he came in. He states he still feels somewhat nauseous. He has had prior cholecystectomy. No reported fevers. No dyspnea off of baseline. [facility] Medical History Adrenal adenoma Atherosclerosis of coronary artery of [place] heart without angina pectoris Degeneration of cervical disc without myelopathy Degeneration of intervertebral disc Diabetes type 2, uncontrolled Epigastric abdominal pain Essential (primary) hypertension Former tobacco use GERD (gastroesophageal reflux disease) Hidradenitis History of claustrophobia Hx MRSA infection Lumbosacral neuritis Microalbuminuria Mixed hyperlipidemia Morbid obesity Neuropathy Non-healing open wound of right groin Nonhealing skin ulcer with fat layer exposed SANIA (obstructive sleep apnea) Pain in limb Personal history of colonic polyps Prurigo nodularis Restless legs Right groin pain Screening for intestinal cancer Spondylosis of cervical region without myelopathy or radiculopathy Superficial thrombophlebitis of right leg Home Medications aspirin 81 mg chewable tablet 81 mg PO DAILY@0800 10/20/13 [History Last Taken 08/10/20] insulin degludec 200 unit/mL (3 mL) subcutaneous pen 128 unit subcut DAILY 03/22/17 [History Last Taken 11/12/17] cyclobenzaprine 10 mg tablet 10 mg PO TID PRN muscle spasm 07/15/20 [History Last Taken Unknown] gabapentin 800 mg tablet 800 mg PO TID Pain 07/15/20 [History Last Taken Unknown] hydrochlorothiazide 25 mg tablet 25 mg PO DAILY 07/15/20 [History Last Taken Unknown] losartan 100 mg tablet 100 mg PO DAILY 07/15/20 [History Last Taken 08/10/20] metformin 500 mg tablet,extended release 24 hr 1,500 mg PO QAM 07/15/20 [History Last Taken 08/09/20] rosuvastatin 20 mg tablet 20 mg PO DAILY 07/15/20 [History Last Taken Unknown] isosorbide mononitrate 60 mg tablet,extended release 24 hr 60 mg PO DAILY #30 tabs 10/27/20 [Rx Last Taken Unknown] metoprolol succinate 50 mg tablet,extended release 24 hr (Toprol XL) 50 mg PO DAILY #90 tabs 02/02/21 [Rx Last Taken Unknown] budesonide-formoterol HFA 160 mcg-4.5 mcg/actuation aerosol inhaler (Symbicort) 2 puff inhalation BID #1 ea 06/09/21 [Rx Last Taken Unknown] tiotropium bromide 2.5 mcg/actuation mist for inhalation (Spiriva Respimat) 2 puff inhalation QDAY #1 ea 06/09/21 [Rx Last Taken Unknown] acetaminophen 650 mg tablet,extended release 650 mg PO Q8H 08/03/21 [History Last Taken Unknown] albuterol sulfate 90 mcg/actuation aerosol inhaler (Ventolin HFA) 2 puff inhalation Q4H PRN shortness of breath or wheezing #18 grams 08/03/21 [Rx Last Taken Unknown] furosemide 40 mg tablet 60 mg PO BID 08/03/21 [History Last Taken Unknown] insulin aspart U-100 100 unit/mL (3 mL) subcutaneous pen 54 unit subcut TID 08/03/21 [History Last Taken Unknown] omeprazole 20 mg capsule,delayed release 20 mg PO DAILY reflux 08/03/21 [History Last Taken Unknown] potassium chloride 10 mEq tablet,extended release 10 meq PO BID 08/03/21 [History Last Taken Unknown] trazodone 50 mg tablet 50 mg PO QHS PRN 08/03/21 [History Last Taken Unknown] dulaglutide 0.75 mg/0.5 mL subcutaneous pen injector 0.75 mg subcut QWEEK 08/17/21 [History Last Taken Unknown] glycopyrrolate 9 mcg-formoterol 4.8 mcg HFA aerosol inhaler 2 inh inhalation BID 08/17/21 [History Last Taken Unknown] umeclidinium 62.5 mcg-vilanterol 25 mcg/actuation powdr for inhalation (Anoro Ellipta) 1 inh inhalation QDAY #60 ea 10/27/21 [Rx Last Taken Unknown] ondansetron 4 mg disintegrating tablet 4 mg PO Q6H PRN PRN Nausea #15 tabs 12/04/21 [Rx Last Taken Unknown] Allergy/AdvReac Type Severity Reaction Status Date / Time amlodipine AdvReac lower Verified 12/04/21 18:29 extremity edema Latex, Natural Rubber AdvReac Rash Verified 12/04/21 18:29 Family History Mother Diabetes Hypertension Brain tumor Father Cirrhosis Surgical History History of appendectomy History of cholecystectomy History of left heart catheterization (08/10/20) History of myringotomy History of tonsillectomy Hx of umbilical hernia repair Left ear drum surgery Social History Smoking Status: Former smoker quit date: 05/26/11 pack-years: 25 second hand exposure: No alcohol intake: never substance use type: does not use what type of physical activity do you participate in: none seatbelt use: always ROS ROS ED Constitutional Constitutional ED: Denies chills or weight loss Eyes Eyes: Denies change in vision or diplopia ENT ENT ED: Denies ear pain, rhinorrhea or sore throat Cardiovascular Cardiovascular: Denies chest pain, orthopnea, palpitations or racing heartbeat Respiratory/Chest Respiratory/Chest: Denies cough, dyspnea or orthopnea Gastrointestinal Gastrointestinal: Reports abdominal pain, nausea and vomiting; Denies diarrhea Genitourinary Genitourinary ED: Denies dysuria, hematuria or urinary frequency Musculoskeletal Musculoskeletal: Denies arthralgias or myalgias Integumentary Denies abscess or rash Neurologic Neurologic: Denies headache(s) or weakness Psychiatric Psychiatric: Denies anxiety, depression, suicidal ideation or suicidal thoughts Endocrine Endocrinology: Denies polydipsia, polyphagia or polyuria Allergic/Immunologic Allergic/Immunologic ED: Denies mouth swelling, tongue swelling or urticaria EXAM Physical Exam Const Vital Signs: 12/04/21 18:28 Temperature 97.8 F Temperature Source Temporal Pulse Rate 73 Respiratory Rate 18 Blood Pressure 208/79 H Blood Pressure Mean 122 Pulse Ox 98 Oxygen Delivery Method Room Air Positive well nourished, well developed and obese General Appearance ED: well developed Nutritional Appearance: obese HEENT Reports normocephalic, head/scalp atraumatic and moist mucous membranes Eyes PERRL and EOMs intact bilaterally Neck no lymphadenopathy, supple and no JVD Resp normal respiratory effort and clear to auscultation bilaterally Cardio regular rate, regular rhythm and no murmurs GI normal to inspection, nondistended, normoactive bowel sounds and non-tender Palpation: soft Back/Spine no CVA tenderness and normal ROM Extremity normal to inspection General Extremety ED: Negative for edema General Extremity: Negative for edema Neuro oriented x3 and CN's II-XII intact bilaterally Sensorium / Orientation: alert Motor Exam: strength 5/5 throughout Psych mental status grossly normal Mood & Affect: Negative for depressed or tearful Skin no rashes or lesions noted and no wounds MDM MDM MDM Narrative Medical decision making narrative: Patient's blood work shows a white count of 9.8 with normal differential. CMP with a glucose of 283 slight elevation in AST and ALT 41 and 73 respectively. Lipase is normal at 99. Patient was unable to get a abdominal CT because of his claustrophobia. He received morphine and Zofran. At this point I would say 1 episode of vomiting abdominal pain with no guarding or rebound and he allows deep palpation of the abdomen I would not say that he has a surgical abdomen. I think that he can be discharged home with observation I will write for Zofran. Lab Data Attestation: I reviewed the patient's lab results. Labs: Laboratory Results - last 24 hr 12/04/21 12/04/21 18:44 18:44 WBC 9.8 RBC 4.91 Hgb 15.2 Hct 45.6 MCV 92.9 MCH 31.0 MCHC 33.3 RDW Std Deviation 51.8 H RDW Coeff of Salome 15.4 H Plt Count 191 MPV 11.0 Immature Gran % (Auto) 0.700 Neut % (Auto) 55.0 Lymph % (Auto) 34.2 Clarke % (Auto) 5.8 Eos % (Auto) 3.2 Baso % (Auto) 1.1 H Absolute Neuts (auto) 5.4 Absolute Lymphs (auto) 3.35 Nucleated RBC % 0 Sodium 136 Potassium 3.6 Chloride 99 Carbon Dioxide 30.0 Anion Gap 7 BUN 22 H Creatinine 1.30 Estim Creat Clear Calc 54.38 Est GFR (MDRD) Af Amer 72 Est GFR (MDRD) Non-Af 59 L BUN/Creatinine Ratio 16.9 Glucose 283 H Calcium 9.3 Total Bilirubin 0.70 AST 41 H ALT 73 H Alkaline Phosphatase 73 Troponin I High Sens 8 Total Protein 8.1 Albumin 4.0 Globulin 4.1 Albumin/Globulin Ratio 1.0 Lipase 99 EKG Initial EKG: Attestation: I personally reviewed and interpreted this EKG as follows: Comments: Sinus rhythm with occasional PVCs at a ventricular rate of 82 bpm. No concerning features of ACS. Discharge Plan Triage Chief Complaint: Abd Pain ED Provider: Ludwig Hill Dx/Rx/DC Orders Clinical Impression: Abdominal pain, Vomiting Instructions: ED Vomiting (Adult) Prescriptions: New ondansetron [ondansetron] 4 mg tablet,disintegrating 4 mg PO Q6H PRN PRN (Reason: Nausea) Qty: 15 0RF No Action gabapentin 800 mg tablet 800 mg PO TID rosuvastatin 20 mg tablet 20 mg PO DAILY hydrochlorothiazide 25 mg tablet 25 mg PO DAILY losartan 100 mg tablet 100 mg PO DAILY cyclobenzaprine 10 mg tablet 10 mg PO TID PRN (Reason: muscle spasm) potassium chloride 10 mEq tablet extended release 10 meq PO BID isosorbide mononitrate 60 mg tablet extended release 24 hr 60 mg PO DAILY Qty: 30 11RF metoprolol succinate [Toprol XL] 50 mg tablet extended release 24 hr 50 mg PO DAILY Qty: 90 3RF Bevespi Aerosphere 9-4.8 mcg HFA aerosol inhaler 2 inh inhalation BID Trulicity 0.75 mg/0.5 mL pen injector 0.75 mg subcut QWEEK Label Comments: Inject 0.75 mg subcutaneously one time a week. acetaminophen 650 mg tablet extended release 650 mg PO Q8H furosemide 40 mg tablet 60 mg PO BID albuterol sulfate [Ventolin HFA] 90 mcg/actuation HFA aerosol inhaler 2 puff inhalation Q4H PRN (Reason: shortness of breath or wheezing) Qty: 18 6RF trazodone 50 mg tablet 50 mg PO QHS PRN aspirin 81 MG tablet,chewable 81 mg PO DAILY@0800 Label Comments: HOLD 4-5 DAYS PREOP omeprazole 20 mg capsule,delayed release(DR/EC) 20 mg PO DAILY insulin aspart U-100 100 unit/mL (3 mL) insulin pen 54 unit SC TID insulin degludec 200 UNIT/ML insulin pen 128 unit SC DAILY Label Comments: took half a dose this am, 05/30/17 metformin 500 mg tablet extended release 24 hr 1,500 mg PO QAM budesonide-formoterol [Symbicort] 160-4.5 mcg/actuation HFA aerosol inhaler 2 puff inhalation BID Qty: 1 3RF Rx Instructions: administer with spacer, rinse mouth after each use Spiriva Respimat 2.5 mcg/actuation mist 2 puff inhalation QDAY Qty: 1 6RF Rx Instructions: administer at approximately the same time(s) each day Anoro Ellipta 62.5-25 mcg/actuation blister with device 1 inh inhalation QDAY Qty: 60 3RF Primary Care Provider: Domo Richards Referrals: Domo Richards MD [Primary Care Provider] - As Needed Disposition Disposition: Home, Self Care
[2021-12-04 19:13] LABS: AST(SGOT) 41 U/L (15-37); Alanine Aminotransfer ALT/SGPT 73 U/L (16-61); Alkaline Phosphatase 73 U/L (45-117); Anion Gap 7 (5-15); BUN 22 mg/dL (7-18); BUN/Creat Ratio 16.9 RATIO (10-20); Calcium,Total 9.3 mg/dL (8.5-10.1); Chloride 99 mmol/L (98-107); EST Glomerular Filtration Rate 59 mL/min (>60); Est Glom Filt Rate - Afr Amer 72 mL/min (>60); Estimated Creatinine Clearance 54.38 ml/min; Globulin 4.1 g/dL (2.2-4.2); Glucose 283 mg/dL (74-106); Lipase 99 U/L (73-393); Potassium 3.6 mmol/L (3.5-5.1); Protein, Total 8.1 g/dL (6.4-8.2); Sodium Level 136 mmol/L (136-145); Troponin-I HS 8 pg/mL (3.0-78.0)
--- NOTE | 2021-12-04 19:37 | ED.RN ---
Patient refused abdominal CT due to claustrophobia.
== END 2021-12-04 20:18 | disposition home or self-care (01) ==
PROVIDERS: Emergency Provider Emergency Medicine; PCP Family Medicine; Visit Provider Emergency Medicine
DX: R11.2 Nausea with vomiting, unspecified (principal); J44.9 Chronic obstructive pulmonary disease, unspecified; E11.40 Type 2 diabetes mellitus with diabetic neuropathy, unspecified; Z79.4 Long term (current) use of insulin; R10.9 Unspecified abdominal pain; I25.10 Atherosclerotic heart disease of native coronary artery without angina pectoris; I10 Essential (primary) hypertension; E78.2 Mixed hyperlipidemia; I89.0 Lymphedema, not elsewhere classified; E66.9 Obesity, unspecified; G47.33 Obstructive sleep apnea (adult) (pediatric); Z79.899 Other long term (current) drug therapy; K21.9 Gastro-esophageal reflux disease without esophagitis; Z90.49 Acquired absence of other specified parts of digestive tract; Z87.891 Personal history of nicotine dependence; Z79.82 Long term (current) use of aspirin; G25.81 Restless legs syndrome
CPT/HCPCS: 80053; 83690; 84484; 85025; 93005; 96374; 96375; 99284; A4216; J2405

== ENCOUNTER 2022-01-24 12:22 | Outpatient (RCR) | payer MEDICAID, SELFPAY ==
[2022-01-24 12:38] VITALS: RESP 18; TEMP 36.2; BMI 44.5
--- NOTE | 2022-01-24 14:07 | HP.PCM_ITS ---
History of Present Illness Date of Service: 01/24/22 Chief Complaint: edema and blisters to bilateral lower legs History of Wound: Patient is a pleasant 66 yo gentleman that presents to the wound healing center for evaluation and treatment of chronic blistering and edema to bilateral lower legs. He underwent treatment here last year and was discharged with plan to maintain control of edema with 20-30 mmHg compression stockings. 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 He reports that for the last couple years he has been having intermittent increased swelling in his lower legs and development of blisters bilaterally that break open and become wounds. He reports having blisters that have now healed. He states he has been sleeping in a bed. He has not been wearing his compression. He was treated for cellulitis with Clindamycin 12/01/21 from his PCP at [facility]. He had vascular testing 11/16 which showed incompetence of right superficial saphenous vein. He was referred to vascular at [facility] but he never went because of transportation issue. He denies any erythema, fever, chills, or odor. There is mild drainage from blisters/ulcers. Progress of Wound: He has +4 edema of bilateral legs. No ulcers/wounds present. [facility] Medical History (Reviewed 01/26/22 @ 11:52 by Ivett Matias YOUTH CAREER SPECIALIST, YOUTH CAREER SPECIALIST-C) Adrenal adenoma Atherosclerosis of coronary artery of [place] heart without angina pectoris Degeneration of cervical disc without myelopathy Degeneration of intervertebral disc Diabetes type 2, uncontrolled Epigastric abdominal pain Essential (primary) hypertension Former tobacco use GERD (gastroesophageal reflux disease) Hidradenitis History of claustrophobia Hx MRSA infection Lumbosacral neuritis Microalbuminuria Mixed hyperlipidemia Morbid obesity Neuropathy Non-healing open wound of right groin Nonhealing skin ulcer with fat layer exposed SANIA (obstructive sleep apnea) Pain in limb Personal history of colonic polyps Prurigo nodularis Restless legs Right groin pain Screening for intestinal cancer Spondylosis of cervical region without myelopathy or radiculopathy Superficial thrombophlebitis of right leg Home Medications aspirin 81 mg chewable tablet 81 mg PO DAILY@0800 10/20/13 [History Last Taken 08/10/20] insulin degludec 200 unit/mL (3 mL) subcutaneous pen 128 unit subcut DAILY 03/22/17 [History Last Taken 11/12/17] cyclobenzaprine 10 mg tablet 10 mg PO TID PRN muscle spasm 07/15/20 [History Last Taken Unknown] gabapentin 800 mg tablet 800 mg PO TID Pain 07/15/20 [History Last Taken Unknown] hydrochlorothiazide 25 mg tablet 25 mg PO DAILY 07/15/20 [History Last Taken Unknown] losartan 100 mg tablet 100 mg PO DAILY 07/15/20 [History Last Taken 08/10/20] metformin 500 mg tablet,extended release 24 hr 1,500 mg PO QAM 07/15/20 [History Last Taken 08/09/20] rosuvastatin 20 mg tablet 20 mg PO DAILY 07/15/20 [History Last Taken Unknown] metoprolol succinate 50 mg tablet,extended release 24 hr (Toprol XL) 50 mg PO DAILY #90 tabs 02/02/21 [Rx Last Taken Unknown] acetaminophen 650 mg tablet,extended release 650 mg PO Q8H 08/03/21 [History Last Taken Unknown] albuterol sulfate 90 mcg/actuation aerosol inhaler (Ventolin HFA) 2 puff inhalation Q4H PRN shortness of breath or wheezing #18 grams 08/03/21 [Rx Last Taken Unknown] furosemide 40 mg tablet 60 mg PO BID 08/03/21 [History Last Taken Unknown] insulin aspart U-100 100 unit/mL (3 mL) subcutaneous pen 54 unit subcut TID 08/03/21 [History Last Taken Unknown] omeprazole 20 mg capsule,delayed release 20 mg PO DAILY reflux 08/03/21 [History Last Taken Unknown] potassium chloride 10 mEq tablet,extended release 10 meq PO BID 08/03/21 [History Last Taken Unknown] trazodone 50 mg tablet 50 mg PO QHS PRN 08/03/21 [History Last Taken Unknown] dulaglutide 0.75 mg/0.5 mL subcutaneous pen injector 0.75 mg subcut QWEEK 08/17/21 [History Last Taken Unknown] ondansetron 4 mg disintegrating tablet 4 mg PO Q6H PRN PRN Nausea #15 tabs 12/04/21 [Rx Last Taken Unknown] isosorbide mononitrate 60 mg tablet,extended release 24 hr 60 mg PO DAILY #30 tabs 12/07/21 [Rx Last Taken Unknown] tiotropium bromide 2.5 mcg/actuation mist for inhalation (Spiriva Respimat) 2 puff inhalation QDAY #1 ea 12/09/21 [Rx Last Taken Unknown] Allergy/AdvReac Type Severity Reaction Status Date / Time amlodipine AdvReac lower Verified 12/09/21 14:17 extremity edema Latex, Natural Rubber AdvReac Rash Verified 12/09/21 14:17 Family History Mother Diabetes Hypertension Brain tumor Father Cirrhosis Surgical History History of appendectomy History of cholecystectomy History of left heart catheterization (08/10/20) History of myringotomy History of tonsillectomy Hx of umbilical hernia repair Left ear drum surgery Social History Smoking Status: Former smoker quit date: 05/26/11 pack-years: 25 second hand exposure: No alcohol intake: never substance use type: does not use what type of physical activity do you participate in: none seatbelt use: always ROS Constitutional Constitutional: Denies chills, fever(s) or frequent falls Eyes Eyes: Reports requires corrective lenses ENT HEENT: Reports systems reviewed and no addt'l complaints, except as documented Cardiovascular Cardiovascular: Denies chest pain or dyspnea Respiratory/Chest Respiratory/Chest: Reports systems reviewed and no addt'l complaints, except as documented; Denies cough Gastrointestinal Gastrointestinal: Denies nausea or vomiting Genitourinary Genitourinary: Reports none Musculoskeletal Musculoskeletal: Reports systems reviewed and no addt'l complaints, except as documented Integumentary Integumentary: Reports systems reviewed and no addt'l complaints, except as do cumented and skin swelling Neurologic Neurologic: Reports systems reviewed and no addt'l complaints, except as documented Psychiatric Psychiatric: Reports none Endocrine Endocrinology: Reports none Vital Signs Vital Signs Vital Signs: 01/24/22 12:38 Temperature 97.2 F L Temperature Source Temporal Respiratory Rate 18 Weight Weight: 293 lb Body Mass Index (BMI) 44.5 Physical Exam Const alert and oriented x3 General Appearance: cooperative HEENT normocephalic Eyes PERRL Resp normal respiratory effort and normal air movement Effort and Inspection: able to speak in complete sentences Auscultation: clear to auscultation bilaterally Cardio regular rate and regular rhythm Peripheral Pulses: dorsalis pedis pulses present bilateral 2+ GI normal to inspection, nondistended, normoactive bowel sounds, soft to palpation and non-tender Extremity normal capillary refill Skin no wounds Skin Narrative: No lesions or blisters today. Edema +4 bilateral lower extremity. Neuro oriented x3 Debridement Note Debridement Note No debridement was completed: No debridement was completed today Post-Debridement Measurements and Additional Note: Post-Debridement Measurements/Treatment - Nurse 1 - General Ulcer Assessment Start: 01/24/22 12:38 Freq: Status: Active Protocol: ALMITA.LOWEXT Activity Type Activity Date Activity User E-sign Co-sign Detail Recorded Client Recorded Date Recorded By Document 01/24/22 12:38 REMY [id number] 01/24/22 12:51 REMY 01/24/22 12:38 - Today's Visit Information Type of service Initial Visit Arrival Mode Ambulatory Patient Identification Verified (Name & No ) Patient Requires Transmission-Based No Precautions Height and Weight Height 5 ft 8 in Weight 293 lb Weight in Pounds 293.0 lbs Weight Measurement Method Standing Scale Body Mass Index (BMI) 44.5 BMI Classification Obese BSA - Cameron 2.40 Vital Signs Temperature (97.8 F-99.1 F) 97.2 F L Temperature Source Temporal Respiratory Rate (12-18) 18 Respiratory rate source Observation History Since Last Visit- (Skip if this is Patient's initial visit) Left Footwear Regular Shoe Right Footwear Regular Shoe Pain Scale: 0-10 Numeric Is Patient Pain Free? Yes Lower Extremity Assessment/ Foot Assessment/ Toe Nail Assessment Right -Posterior Tibial Palpable No -Posterior Tibial Doppler Inaudible -Dorsalis Pedis Palpable Yes -Dorsalis Pedis Doppler Multiphasic -Hair Growth on Legs Yes -Hair Growth on Toes Yes -Temperature of Extremity Warm -Thick Yes -Discolored Yes -Deformed No -Improper Length & Hygeine No Left -Posterior Tibial Palpable No -Posterior Tibial Doppler Inaudible -Dorsalis Pedis Palpable Yes -Dorsalis Pedis Doppler Multiphasic -Hair Growth on Legs Yes -Hair Growth on Toes Yes -Temperature of Extremity Warm -Thick Yes -Discolored No -Deformed No -Improper Length & Hygeine No Neuropathy Assessment Feet - Top Side and Bottom <Entered> (a) Communication Assessment Primary Language Arabic Preferred language Arabic Steam Cleaner Required No Able to Read Yes Able to Write Yes Communication Tools None Right Hearing Abillity Normal Left Hearing Abillity Normal Visual Assistive Devices Glasses Teaching Assessment Preferences Demonstration Barriers to Learning Knowledge Deficit Readiness To Learn Fair Willingness to Engage in Self Management Med Activies Readiness to Engage in Self Management Med Activities Anxiety Level Calm Cooperation Cooperative Perception Coherent Interest in Health Problem Asks Questions Education Importance Acknowledges Need Does Patient Smoke tobacco or other No substances Smoking Status Former smoker Is Patient Diabetic Yes Functional Assessment Recent Decline in Ability to Perform Denies Any Declines Culture/Evangelical/Medical Clerical Assistant Cultural/Evangelical Needs that may affect No Treatment Plan Would you allow our hospital puncher and fastener to No meet you for the purpose of spiritual/ emotional support? Medical Clerical Assistant to contact place of pentecostalism No Teaching: Wound Center Control Swelling with Leg Elevation -Person Taught Patient -Teaching Method Discussion, Demonstration -Response to teaching Reinforcement needed (a) 1 - positive 2 - negative 3 - positive 4 - positive 5 - positive WC - Nurse 1 - General Ulcer Measurement Start: 01/24/22 12:38 Freq: Status: Active Protocol: Activity Type Activity Date Activity User E-sign Co-sign Detail Recorded Client Recorded Date Recorded By Document 01/24/22 12:38 [id number] 01/24/22 12:51 01/24/22 12:38 Wound Center Nurse 1 Lower Limb Edema Present Yes Right Calf (cm) 51 Right Ankle (cm) 31.2 Left Calf (cm) 49.4 Left Ankle (cm) 31.5 WC - Nurse 2 - General Ulcer CM Notes Start: 01/24/22 12:38 Freq: Status: Active Protocol: Activity Type Activity Date Activity User E-sign Co-sign Detail Recorded Client Recorded Date Recorded By Document 01/24/22 13:09 [id number] 01/24/22 13:10 01/24/22 13:09 Pain Scale: 0-10 Numeric Is Patient Pain Free? Yes - Nurse 3 - General Ulcer D/C NN Start: 01/24/22 12:38 Freq: Status: Active Protocol: Activity Type Activity Date Activity User E-sign Co-sign Detail Recorded Client Recorded Date Recorded By Document 01/24/22 13:37 PL [id number] 01/24/22 13:38 PL 01/24/22 13:37 Wound Care Nurse 3 Bilateral -Lotion applied to leg before No compression wrap -Multi-Layered Wrap Application Multi-Layer Comp - Bilat ($ ) Pain Scale: 0-10 Numeric Is Patient Pain Free? Yes WC - Visit Discharge Discharge Condition Stable Ambulatory Status Ambulatory Transportation Private Auto Charges/Coding Visit Charges Office Visits / Consults: [id number] OV L4 Est Assessment/Plan Assessment/Plan (1) Edema of both lower extremities: CODE(S): R60.0 - Localized edema (2) Lymphedema of both lower extremities: CODE(S): I89.0 - Lymphedema, not elsewhere classified (3) Diabetes type 2, uncontrolled: CODE(S): E11.65 - Type 2 diabetes mellitus with hyperglycemia QUALIFIERS: Glycemic state: with hyperglycemia Qualified Code(s): E11.65 - Type 2 diabetes mellitus with hyperglycemia (4) Venous (peripheral) insufficiency: CODE(S): I87.2 - Venous insufficiency (chronic) (peripheral) PLAN: Plan Patient was evaluated at the wound center today. He has no open wounds at this time. He does have a history of significant edema/lymphedema where he often gets blisters that form, drain, and will create wounds. We are limited on what we can do with him not having a wound, will work on edema control. Due to his significant edema, we will start him on 3M 2 layer wraps, start lightly. He does have palpable pedal pulses bilaterally. 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 He had been referred to a vascular physician in the past but never went. He states he has lymphedema pumps at home and he uses them. Will refer him to Dr. Beaver for further evaluation. I will not order any sort of vascular studies in case there is something specific that Dr. Beaver would be interested in ordering. Instructed patient that he needs to keep his legs elevated when sitting, avoid standing for long periods of time to prevent further swelling, encouraged him to walk as much as possible. Encourage patient to sleep in a bed instead of a chair, to help with his edema. Reinforced to patient that he will always need to wear compression, for the rest of his life to help prevent the severe edema. Encourage patient to eat a low carbohydrate and low-sodium diet to help control both his diabetes and his swelling in his legs. Will have him come back at the end of the week for nurses visit to have his 3M 2 layer wraps changed and to evaluate how he is doing with them. Follow-up in 1 week.
== END 2022-01-26 23:59 | disposition home or self-care (01) ==
LOC: WC 12:22
PROVIDERS: PCP Family Medicine; Visit Provider Nurse Practitioner Family
DX: R60.0 Localized edema (principal); E11.40 Type 2 diabetes mellitus with diabetic neuropathy, unspecified; E11.65 Type 2 diabetes mellitus with hyperglycemia; E66.01 Morbid (severe) obesity due to excess calories; Z68.41 Body mass index [BMI] 40.0-44.9, adult; Z79.4 Long term (current) use of insulin; I83.91 Asymptomatic varicose veins of right lower extremity; I89.0 Lymphedema, not elsewhere classified; I25.10 Atherosclerotic heart disease of native coronary artery without angina pectoris; E78.2 Mixed hyperlipidemia; I10 Essential (primary) hypertension; I87.2 Venous insufficiency (chronic) (peripheral); G47.33 Obstructive sleep apnea (adult) (pediatric); Z79.82 Long term (current) use of aspirin; Z86.14 Personal history of Methicillin resistant Staphylococcus aureus infection; Z87.891 Personal history of nicotine dependence
CPT/HCPCS: 29581; 99213; G0463

== ENCOUNTER 2022-02-22 15:00 | Outpatient (RCR) | payer MEDICAID, SELFPAY ==
[2022-01-27 00:50] VITALS: RESP 18; TEMP 36.2; BMI 44.5
[2022-01-27 14:29] VITALS: BP 141/72; PULSE 72; TEMP 36.4; BMI 44.5
[2022-02-01 14:45] VITALS: BP 139/64; PULSE 68; RESP 22; TEMP 36.4; BMI 44.5
[2022-02-04 08:38] VITALS: BP 153/69; PULSE 74; TEMP 36; BMI 44.5
[2022-02-08 13:07] VITALS: BP 123/57; PULSE 70; TEMP 35.7; BMI 44.5
--- NOTE | 2022-02-08 14:04 | PCM.WC.PN ---
History of Present Illness Date of Service: 02/08/22 Chief Complaint: edema and blisters to bilateral lower legs History of Wound: Patient is a pleasant 66 yo gentleman that presents to the wound healing center for evaluation and treatment of chronic blistering and edema to bilateral lower legs. He underwent treatment here last year and was discharged with plan to maintain control of edema with 20-30 mmHg compression stockings. 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 He reports that for the last couple years he has been having intermittent increased swelling in his lower legs and development of blisters bilaterally that break open and become wounds. He reports having blisters that have now healed. He states he has been sleeping in a bed. He has not been wearing his compression. He was treated for cellulitis with Clindamycin 12/01/21 from his PCP at [facility]. He had vascular testing 11/16 which showed incompetence of right superficial saphenous vein. He was referred to vascular at [facility] but he never went because of transportation issue. He denies any erythema, fever, chills, or odor. There is mild drainage from blisters/ulcers. Progress of Wound: He has been wearing the 3M 2 layer wraps but he states they make his legs itchy and would like the wraps with medicine on them that he has had in the past. 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 He saw Dr. Beaver today and states that he is going to have surgery. Objective Data Objective Data Vital Signs: Vital Signs Temp Pulse Resp BP 96.2 F L 70 22 H 123/57 H 02/08/22 13:07 02/08/22 13:07 02/01/22 14:45 02/08/22 13:07 Weight: 293 lb Body Mass Index (BMI) 44.5 Charges/Coding Visit Charges Office Visits / Consults: 70463 OV L3 Est Physical Exam Const alert and oriented x3 General Appearance: cooperative HEENT normocephalic Eyes PERRL Resp normal respiratory effort and normal air movement Effort and Inspection: able to speak in complete sentences Cardio regular rate Peripheral Pulses: dorsalis pedis pulses present bilateral 1+ GI normal to inspection, nondistended, normoactive bowel sounds, soft to palpation and non-tender Extremity normal capillary refill Skin no wounds Skin Narrative: No lesions or blisters today. Edema +2 bilateral lower extremity, which has improved since his last visit due the the 3M 2 layer wraps. Neuro oriented x3 Psych affect normal Debridement Note Debridement Note No debridement was completed: No debridement was completed today Post-Debridement Measurements and Additional Note: Post-Debridement Measurements/Treatment ALMITA - Nurse 1 - General Ulcer Assessment Start: 01/27/22 14:28 Freq: Status: Active Protocol: KATHRYN Activity Type Activity Date Activity User E-sign Co-sign Detail Recorded Client Recorded Date Recorded By Document 01/27/22 14:29 KR [id number] 01/27/22 14:30 KR Document 02/01/22 14:45 DL [id number] 02/01/22 14:47 DL Document 02/04/22 08:38 KR Desktop 02/04/22 08:38 KR Document 02/08/22 13:07 AK [id number] 02/08/22 13:08 AK 01/27/22 02/01/22 02/04/22 14:29 14:45 08:38 - Today's Visit Information Type of service Nurse-only Nurse-only Nurse-only Visit Visit Visit Arrival Mode Ambulatory Ambulatory Ambulatory Transfer Assistance None Patient Identification Verified (Name & Yes Yes Yes ) Patient Requires Transmission-Based No Precautions Safety Precautions NA Height and Weight Body Mass Index (BMI) 44.5 44.5 44.5 BMI Classification Obese Obese Obese Vital Signs Temperature (97.8 F-99.1 F) 97.5 F L 97.6 F L 96.8 F L Temperature Source Temporal Temporal Temporal Pulse Rate (60-100) 72 68 74 Pulse Location Monitor Monitor Monitor Respiratory Rate (12-18) 22 H Respiratory rate source Observation Blood Pressure (90/60-120/80) 141/72 H 139/64 H 153/69 H Blood Pressure Mean (mm Hg) 95 89 97 Source Monitor Monitor Monitor Position Semi-Fowlers Sitting Blood Pressure Location Left Arm Right Arm History Since Last Visit- (Skip if this is Patient's initial visit) Have you changed medications since your No No No last visit? Any new allergies or adverse reactions No No No Had a fall/change in ADL's that may No No No increase risk of falls Signs or symptoms of abuse and/or No No No neglect since last visit Have you been in the hospital since your No No No last visit? Has dressing in place as prescribed Yes No No Has compression in place as prescribed Yes Yes Yes Has offloadiing in place as prescribed N/A N/A Experienced any changes in pain level or No No No management Left Footwear Regular Shoe Regular Shoe Right Footwear Regular Shoe Regular Shoe Pain Scale: 0-10 Numeric Is Patient Pain Free? Yes Yes Yes 02/08/22 13:07 WC - Today's Visit Information Type of service Follow-up Visit (Physician/SCALP SPECIALIST ) Arrival Mode Ambulatory Transfer Assistance None Patient Identification Verified (Name & Yes ) Patient Requires Transmission-Based No Precautions Safety Precautions Height and Weight Body Mass Index (BMI) 44.5 BMI Classification Obese Vital Signs Temperature (97.8 F-99.1 F) 96.2 F L Temperature Source Temporal Pulse Rate (60-100) 70 Pulse Location Monitor Respiratory Rate (12-18) Respiratory rate source Blood Pressure (90/60-120/80) 123/57 H Blood Pressure Mean (mm Hg) 79 Source Monitor Position Sitting Blood Pressure Location Left Arm History Since Last Visit- (Skip if this is Patient's initial visit) Have you changed medications since your No last visit? Any new allergies or adverse reactions No Had a fall/change in ADL's that may Yes increase risk of falls Signs or symptoms of abuse and/or No neglect since last visit Have you been in the hospital since your No last visit? Has dressing in place as prescribed No Has compression in place as prescribed No Has offloadiing in place as prescribed N/A Experienced any changes in pain level or No management Left Footwear Regular Shoe Right Footwear Regular Shoe Pain Scale: 0-10 Numeric Is Patient Pain Free? Yes - Nurse 1 - General Ulcer Measurement Start: 01/27/22 14:28 Freq: Status: Active Protocol: Activity Type Activity Date Activity User E-sign Co-sign Detail Recorded Client Recorded Date Recorded By Document 02/01/22 14:45 DL [id number] 02/01/22 14:47 DL Document 02/08/22 13:07 AK [id number] 02/08/22 13:08 AK 02/01/22 02/08/22 14:45 13:07 Wound Center Nurse 1 Lower Limb Edema Present Yes Right Calf (cm) 47 48 Right Ankle (cm) 30 30 Left Calf (cm) 46.5 48.5 Left Ankle (cm) 30 31.2 WC - Nurse 2 - General Ulcer CM Notes Start: 01/27/22 14:28 Freq: Status: Active Protocol: Activity Type Activity Date Activity User E-sign Co-sign Detail Recorded Client Recorded Date Recorded By Document 02/08/22 13:32 JF [id number] 02/08/22 13:32 JF 02/08/22 13:32 Pain Scale: 0-10 Numeric Is Patient Pain Free? Yes WC - Nurse 3 - General Ulcer D/C NN Start: 01/27/22 14:28 Freq: Status: Active Protocol: Activity Type Activity Date Activity User E-sign Co-sign Detail Recorded Client Recorded Date Recorded By Document 01/27/22 14:29 KR [id number] 01/27/22 14:30 KR Document 02/01/22 14:45 DL [id number] 02/01/22 14:47 DL Edit Result 02/01/22 14:45 DL (1) [id number] 02/01/22 14:49 DL Document 02/04/22 08:38 KR Desktop 02/04/22 08:38 KR Document 02/08/22 13:42 AK [id number] 02/08/22 13:44 AK (1) Notes: => Dressing applied per Cheryl Nunes LPN today in clinic. 01/27/22 02/01/22 02/04/22 14:29 14:45 08:38 Vital Signs Temperature (97.8 F-99.1 F) 97.5 F L 97.6 F L 96.8 F L Temperature Source Temporal Temporal Temporal Pulse Rate (60-100) 72 68 74 Pulse Location Monitor Monitor Monitor Respiratory Rate (12-18) 22 H Respiratory rate source Observation Blood Pressure (90/60-120/80) 141/72 H 139/64 H 153/69 H Blood Pressure Mean (mm Hg) 95 89 97 Source Monitor Monitor Monitor Position Semi-Fowlers Sitting Blood Pressure Location Left Arm Right Arm Pain Scale: 0-10 Numeric Is Patient Pain Free? Yes Yes Yes Wound Care Nurse 3 bilateral -Lotion applied to leg before compression wrap -Multi-Layered Wrap Application -Unna Boots (Bilat) ($) -Other Left -Lotion applied to leg before compression wrap -Multi-Layered Wrap Application Multi-Layer Multi-Layer Multi-Layer Comp - Bilat ($ Comp - Bilat ($ Comp - Bilat ($ ) ) ) Treatment Response Procedure Tolerated Well WC - Visit Discharge Discharge Condition Stable Stable Stable Ambulatory Status Ambulatory Ambulatory Ambulatory Transportation Private Auto Private Auto Private Auto Medication Reconcilliation completed & provided to patient/care provider Clinical Summary of Care Provided Notes: Dressing applied per Cheryl Nunes LPN today in clinic . 02/08/22 13:42 Vital Signs Temperature (97.8 F-99.1 F) Temperature Source Pulse Rate (60-100) Pulse Location Respiratory Rate (12-18) Respiratory rate source Blood Pressure (90/60-120/80) Blood Pressure Mean (mm Hg) Source Position Blood Pressure Location Pain Scale: 0-10 Numeric Is Patient Pain Free? Yes Wound Care Nurse 3 bilateral -Lotion applied to leg before No compression wrap -Multi-Layered Wrap Application Unna Boot - Bilateral ($) -Unna Boots (Bilat) ($) 2 -Other applied by Celsa F Left -Lotion applied to leg before No compression wrap -Multi-Layered Wrap Application Unna Boot - Left ($) Treatment Response WC - Visit Discharge Discharge Condition Stable Ambulatory Status Ambulatory Transportation Private Auto Medication Reconcilliation completed & Yes provided to patient/care provider Clinical Summary of Care Provided Yes Notes: Assessment/Plan Assessment/Plan (1) Edema of both lower extremities: CODE(S): R60.0 - Localized edema (2) Lymphedema of both lower extremities: CODE(S): I89.0 - Lymphedema, not elsewhere classified (3) Diabetes type 2, uncontrolled: CODE(S): E11.65 - Type 2 diabetes mellitus with hyperglycemia QUALIFIERS: Glycemic state: with hyperglycemia Qualified Code(s): E11.65 - Type 2 diabetes mellitus with hyperglycemia (4) Venous (peripheral) insufficiency: CODE(S): I87.2 - Venous insufficiency (chronic) (peripheral) PLAN: Plan Patient was evaluated at the wound center today. He has no open wounds at this time. He does have a history of significant edema/lymphedema where he often gets blisters that form, drain, and will create wounds. We are limited on what we can do with him not having a wound, will work on edema control. The 3M 2 layer wraps have improved his edema on his lower legs bilaterally. Due to him stating he is having itching legs and he is requesting Unna boots, we will switch his compression to Unna boots. He saw Dr. Beaver 02/08/22, and he will be scheduled for a venogram for possible central venous compression/occlusion. 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 He had been referred to a vascular physician in the past but never went. He states he has lymphedema pumps at home and he uses them. Instructed patient that he needs to keep his legs elevated when sitting, avoid standing for long periods of time to prevent further swelling, encouraged him to walk as much as possible. Encourage patient to sleep in a bed instead of a chair, to help with his edema. Reinforced to patient that he will always need to wear compression, for the rest of his life to help prevent the severe edema. Encourage patient to eat a low carbohydrate and low-sodium diet to help control both his diabetes and his swelling in his legs. Will have him come back at the end of the week for nurses visit to have his Unna boots changed and to evaluate how he is doing with them. Follow-up in 1 week with me. We will remeasure him for compression once we get his edema under control. The issue is he states he is not able to afford compression stockings and he is not able to wear traditional compression stockings.
[2022-02-11 09:30] VITALS: BP 138/68; PULSE 61; TEMP 35.8; BMI 44.5
[2022-02-15 14:33] VITALS: BP 144/60; PULSE 66; TEMP 36.1; BMI 44.5
--- NOTE | 2022-02-15 15:08 | PCM.WC.PN ---
History of Present Illness Date of Service: 02/15/22 Chief Complaint: edema and blisters to bilateral lower legs History of Wound: Patient is a pleasant 66 yo gentleman that presents to the wound healing center for evaluation and treatment of chronic blistering and edema to bilateral lower legs. He underwent treatment here last year and was discharged with plan to maintain control of edema with 20-30 mmHg compression stockings. 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 He reports that for the last couple years he has been having intermittent increased swelling in his lower legs and development of blisters bilaterally that break open and become wounds. He reports having blisters that have now healed. He states he has been sleeping in a bed. He has not been wearing his compression. He was treated for cellulitis with Clindamycin 12/01/21 from his PCP at [facility]. He had vascular testing 11/16 which showed incompetence of right superficial saphenous vein. He was referred to vascular at [facility] but he never went because of transportation issue. He denies any erythema, fever, chills, or odor. There is mild drainage from blisters/ulcers. Progress of Wound: He has been wearing Unna boots but took them off last night to shower and did not place any compression back on and his legs and ankles have +2 edema today. Objective Data Objective Data Vital Signs: Vital Signs Temp Pulse Resp BP 96.9 F L 66 22 H 144/60 H 02/15/22 14:33 02/15/22 14:33 02/01/22 14:45 02/15/22 14:33 Weight: 293 lb Body Mass Index (BMI) 44.5 Charges/Coding Visit Charges Office Visits / Consults: [id number] OV L3 Est Physical Exam Const alert and oriented x3 General Appearance: cooperative HEENT normocephalic Eyes PERRL Resp normal respiratory effort and normal air movement Effort and Inspection: able to speak in complete sentences Cardio regular rate Peripheral Pulses: dorsalis pedis pulses present bilateral 1+ GI normal to inspection, nondistended, normoactive bowel sounds, soft to palpation and non-tender Extremity normal capillary refill Skin no wounds Skin Narrative: No lesions or blisters today. Edema +2 bilateral lower extremity Neuro oriented x3 Psych affect normal Debridement Note Debridement Note No debridement was completed: No debridement was completed today Post-Debridement Measurements and Additional Note: Post-Debridement Measurements/Treatment WC - Nurse 1 - General Ulcer Assessment Start: 01/27/22 14:28 Freq: Status: Active Protocol: KATHRYN Activity Type Activity Date Activity User E-sign Co-sign Detail Recorded Client Recorded Date Recorded By Document 01/27/22 14:29 KR [id number] 01/27/22 14:30 KR Document 02/01/22 14:45 DL [id number] 02/01/22 14:47 DL Document 02/04/22 08:38 KR Desktop 02/04/22 08:38 KR Document 02/08/22 13:07 AK [id number] 02/08/22 13:08 AK Document 02/11/22 09:30 KR [id number] 02/11/22 09:31 KR Document 02/15/22 14:33 AK [id number] 02/15/22 14:34 AK 01/27/22 02/01/22 02/04/22 14:29 14:45 08:38 WC - Today's Visit Information Type of service Nurse-only Nurse-only Nurse-only Visit Visit Visit Arrival Mode Ambulatory Ambulatory Ambulatory Transfer Assistance None Patient Identification Verified (Name & Yes Yes Yes ) Patient Requires Transmission-Based No Precautions Safety Precautions NA Height and Weight Body Mass Index (BMI) 44.5 44.5 44.5 BMI Classification Obese Obese Obese Vital Signs Temperature (97.8 F-99.1 F) 97.5 F L 97.6 F L 96.8 F L Temperature Source Temporal Temporal Temporal Pulse Rate (60-100) 72 68 74 Pulse Location Monitor Monitor Monitor Respiratory Rate (12-18) 22 H Respiratory rate source Observation Blood Pressure (90/60-120/80) 141/72 H 139/64 H 153/69 H Blood Pressure Mean (mm Hg) 95 89 97 Source Monitor Monitor Monitor Position Semi-Fowlers Sitting Blood Pressure Location Left Arm Right Arm History Since Last Visit- (Skip if this is Patient's initial visit) Have you changed medications since your No No No last visit? Any new allergies or adverse reactions No No No Had a fall/change in ADL's that may No No No increase risk of falls Signs or symptoms of abuse and/or No No No neglect since last visit Have you been in the hospital since your No No No last visit? Has dressing in place as prescribed Yes No No Has compression in place as prescribed Yes Yes Yes Has offloadiing in place as prescribed N/A N/A Experienced any changes in pain level or No No No management Left Footwear Regular Shoe Regular Shoe Right Footwear Regular Shoe Regular Shoe Pain Scale: 0-10 Numeric Is Patient Pain Free? Yes Yes Yes 02/08/22 02/11/22 02/15/22 13:07 09:30 14:33 - Today's Visit Information Type of service Follow-up Visit Nurse-only Follow-up Visit (Physician/MENSWEAR SALESPERSON Visit (Physician/MENSWEAR SALESPERSON ) ) Arrival Mode Ambulatory Ambulatory Ambulatory Transfer Assistance None Patient Identification Verified (Name & Yes Yes Yes ) Patient Requires Transmission-Based No No Precautions Safety Precautions NA Height and Weight Body Mass Index (BMI) 44.5 44.5 44.5 BMI Classification Obese Obese Obese Vital Signs Temperature (97.8 F-99.1 F) 96.2 F L 96.5 F L 96.9 F L Temperature Source Temporal Temporal Temporal Pulse Rate (60-100) 70 61 66 Pulse Location Monitor Monitor Monitor Respiratory Rate (12-18) Respiratory rate source Blood Pressure (90/60-120/80) 123/57 H 138/68 H 144/60 H Blood Pressure Mean (mm Hg) 79 91 88 Source Monitor Monitor Monitor Position Sitting Semi-Fowlers Blood Pressure Location Left Arm Right Arm History Since Last Visit- (Skip if this is Patient's initial visit) Have you changed medications since your No No No last visit? Any new allergies or adverse reactions No No No Had a fall/change in ADL's that may Yes No No increase risk of falls Signs or symptoms of abuse and/or No No No neglect since last visit Have you been in the hospital since your No No No last visit? Has dressing in place as prescribed No No Yes Has compression in place as prescribed No Yes No Has offloadiing in place as prescribed N/A N/A N/A Experienced any changes in pain level or No No No management Left Footwear Regular Shoe Regular Shoe Regular Shoe Right Footwear Regular Shoe Regular Shoe Regular Shoe Pain Scale: 0-10 Numeric Is Patient Pain Free? Yes Yes Yes - Nurse 1 - General Ulcer Measurement Start: 01/27/22 14:28 Freq: Status: Active Protocol: Activity Type Activity Date Activity User E-sign Co-sign Detail Recorded Client Recorded Date Recorded By Document 02/01/22 14:45 DL [id number] 02/01/22 14:47 DL Document 02/08/22 13:07 AK [id number] 02/08/22 13:08 AK Document 02/11/22 09:30 KR [id number] 02/11/22 09:31 KR Document 02/15/22 14:33 AK [id number] 02/15/22 14:34 AK 02/01/22 02/08/22 02/11/22 14:45 13:07 09:30 Wound Center Nurse 1 Lower Limb Edema Present Yes Right Calf (cm) 47 48 48 Point of measurement (cm from the medial instep) Right Ankle (cm) 30 30 32 Point of Measurement (cm from the medial instep) Left Calf (cm) 46.5 48.5 46.3 Left Ankle (cm) 30 31.2 31 02/15/22 14:33 Wound Center Nurse 1 Lower Limb Edema Present No Right Calf (cm) Point of measurement (cm from the medial 45 instep) Right Ankle (cm) Point of Measurement (cm from the medial 29.6 instep) Left Calf (cm) 47.2 Left Ankle (cm) 31.5 WC - Nurse 2 - General Ulcer CM Notes Start: 01/27/22 14:28 Freq: Status: Active Protocol: Activity Type Activity Date Activity User E-sign Co-sign Detail Recorded Client Recorded Date Recorded By Document 02/08/22 13:32 [id number] 02/08/22 13:32 Document 02/15/22 14:52 [id number] 02/15/22 14:52 02/08/22 02/15/22 13:32 14:52 Pain Scale: 0-10 Numeric Is Patient Pain Free? Yes Yes WC - Nurse 3 - General Ulcer D/C NN Start: 01/27/22 14:28 Freq: Status: Active Protocol: Activity Type Activity Date Activity User E-sign Co-sign Detail Recorded Client Recorded Date Recorded By Document 01/27/22 14:29 KR [id number] 01/27/22 14:30 KR Document 02/01/22 14:45 DL [id number] 02/01/22 14:47 DL Edit Result 02/01/22 14:45 DL (1) [id number] 02/01/22 14:49 DL Document 02/04/22 08:38 KR Desktop 02/04/22 08:38 KR Document 02/08/22 13:42 AK [id number] 02/08/22 13:44 AK Edit Result 02/08/22 13:42 AK (2) [id number] 02/09/22 07:21 PL Document 02/11/22 09:30 KR [id number] 02/11/22 09:31 KR Edit Result 02/11/22 09:30 KR (3) [id number] 02/14/22 06:55 PL (1) Notes: => Dressing applied per Cheryl Nunes LPN today in clinic. (2) Left - Multi-Layered Wrap Application Unna Boot - Left ( => $) => (3) bilateral - Multi-Layered Wrap Application => Unna Boot - => Bilateral ($) - Unna Boots (Bilat) ($) => 2 01/27/22 02/01/22 02/04/22 14:29 14:45 08:38 Vital Signs Temperature (97.8 F-99.1 F) 97.5 F L 97.6 F L 96.8 F L Temperature Source Temporal Temporal Temporal Pulse Rate (60-100) 72 68 74 Pulse Location Monitor Monitor Monitor Respiratory Rate (12-18) 22 H Respiratory rate source Observation Blood Pressure (90/60-120/80) 141/72 H 139/64 H 153/69 H Blood Pressure Mean (mm Hg) 95 89 97 Source Monitor Monitor Monitor Position Semi-Fowlers Sitting Blood Pressure Location Left Arm Right Arm Pain Scale: 0-10 Numeric Is Patient Pain Free? Yes Yes Yes Wound Care Nurse 3 bilateral -Lotion applied to leg before compression wrap -Multi-Layered Wrap Application -Unna Boots (Bilat) ($) -Other Left -Lotion applied to leg before compression wrap -Multi-Layered Wrap Application Multi-Layer Multi-Layer Multi-Layer Comp - Bilat ($ Comp - Bilat ($ Comp - Bilat ($ ) ) ) Treatment Response Procedure Tolerated Well WC - Visit Discharge Discharge Condition Stable Stable Stable Ambulatory Status Ambulatory Ambulatory Ambulatory Transportation Private Auto Private Auto Private Auto Medication Reconcilliation completed & provided to patient/care provider Clinical Summary of Care Provided Notes: Dressing applied per Cheryl Nunes LPN today in clinic . 02/08/22 02/11/22 13:42 09:30 Vital Signs Temperature (97.8 F-99.1 F) 96.5 F L Temperature Source Temporal Pulse Rate (60-100) 61 Pulse Location Monitor Respiratory Rate (12-18) Respiratory rate source Blood Pressure (90/60-120/80) 138/68 H Blood Pressure Mean (mm Hg) 91 Source Monitor Position Semi-Fowlers Blood Pressure Location Right Arm Pain Scale: 0-10 Numeric Is Patient Pain Free? Yes Yes Wound Care Nurse 3 bilateral -Lotion applied to leg before No compression wrap -Multi-Layered Wrap Application Unna Boot - Unna Boot - Bilateral ($) Bilateral ($) -Unna Boots (Bilat) ($) 2 2 -Other applied by Celsa F Left -Lotion applied to leg before No compression wrap -Multi-Layered Wrap Application Treatment Response WC - Visit Discharge Discharge Condition Stable Stable Ambulatory Status Ambulatory Ambulatory Transportation Private Auto Private Auto Medication Reconcilliation completed & Yes provided to patient/care provider Clinical Summary of Care Provided Yes Notes: Assessment/Plan Assessment/Plan (1) Edema of both lower extremities: CODE(S): R60.0 - Localized edema (2) Lymphedema of both lower extremities: CODE(S): I89.0 - Lymphedema, not elsewhere classified (3) Diabetes type 2, uncontrolled: CODE(S): E11.65 - Type 2 diabetes mellitus with hyperglycemia QUALIFIERS: Glycemic state: with hyperglycemia Qualified Code(s): E11.65 - Type 2 diabetes mellitus with hyperglycemia (4) Venous (peripheral) insufficiency: CODE(S): I87.2 - Venous insufficiency (chronic) (peripheral) PLAN: Plan Patient was evaluated at the wound center today. He has no open wounds at this time. He does have a history of significant edema/lymphedema where he often gets blisters that form, drain, and will create wounds. We are limited on what we can do with him not having a wound, will work on edema control. The 3M 2 layer wraps have improved his edema on his lower legs bilaterally. Switched to Unna boots per the patient's request. Patient likes to remove unna boots and shower before coming back in to have the unna boots changes. Instructed him to place zipper compression stockings that he has at home after showering so that he continues to have compression in place, to help prevent the edema from returning so quickly. He saw Dr. Beaver 02/08/22, and he will be scheduled for a venogram for possible central venous compression/occlusion on February 28. 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 He had been referred to a vascular physician in the past but never went. He states he has lymphedema pumps at home and he uses them. Instructed patient that he needs to keep his legs elevated when sitting, avoid standing for long periods of time to prevent further swelling, encouraged him to walk as much as possible. Encourage patient to sleep in a bed instead of a chair, to help with his edema. Reinforced to patient that he will always need to wear compression, for the rest of his life to help prevent the severe edema. Encourage patient to eat a low carbohydrate and low-sodium diet to help control both his diabetes and his swelling in his legs. Will have him come back at the end of the week for nurses visit to have his Unna boots changed and to evaluate how he is doing with them. Follow-up in 1 week with me. We can evaluate the quality of the compression stockings he has since he states he is no able to afford to buy stockings. The issue is he states he is not able to afford compression stockings and he is not able to wear traditional compression stockings.
--- NOTE | 2022-02-18 08:25 | WC ---
Pt came into clinic for a nurse visit to have unna boots applied. Pt stated i will cut them off when i get home . Pt refused to have unna boots reapplied. He was advised to speak with provider at next appointment regarding unna boot.
[2022-02-22 14:48] VITALS: BP 140/61; PULSE 64; RESP 22; TEMP 36.1; BMI 44.5
--- NOTE | 2022-02-22 15:46 | PCM.WC.PN ---
History of Present Illness Date of Service: 02/22/22 Chief Complaint: edema and blisters to bilateral lower legs History of Wound: Patient is a pleasant 66 yo gentleman that presents to the wound healing center for evaluation and treatment of chronic blistering and edema to bilateral lower legs. He underwent treatment here last year and was discharged with plan to maintain control of edema with 20-30 mmHg compression stockings. 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 He reports that for the last couple years he has been having intermittent increased swelling in his lower legs and development of blisters bilaterally that break open and become wounds. He reports having blisters that have now healed. He states he has been sleeping in a bed. He has not been wearing his compression. He was treated for cellulitis with Clindamycin 12/01/21 from his PCP at [facility]. He had vascular testing 11/16 which showed incompetence of right superficial saphenous vein. He was referred to vascular at [facility] but he never went because of transportation issue. He denies any erythema, fever, chills, or odor. There is mild drainage from blisters/ulcers. Progress of Wound: He has been wearing Unna boots but took them off last night to shower, he placed his zip up compression stocking which his brother gave him. His edema is +3 pitting. He has no wounds or any excoriation. Objective Data Objective Data Vital Signs: Vital Signs Temp Pulse Resp BP 97 F L 64 22 H 140/61 H 02/22/22 14:48 02/22/22 14:48 02/22/22 14:48 02/22/22 14:48 Weight: 293 lb Body Mass Index (BMI) 44.5 Charges/Coding Visit Charges Office Visits / Consults: 18168 OV L3 Est Physical Exam Const alert and oriented x3 General Appearance: cooperative HEENT normocephalic Eyes PERRL Resp normal respiratory effort and normal air movement Effort and Inspection: able to speak in complete sentences Cardio regular rate Peripheral Pulses: dorsalis pedis pulses present bilateral 1+ GI normal to inspection, nondistended, normoactive bowel sounds, soft to palpation and non-tender Extremity normal capillary refill Extremity Narrative: +3 bilateral lower extremity pitting edema. Skin no wounds Skin Narrative: No lesions or blisters or excoriation. Skin is clear and intact. Neuro oriented x3 Psych affect normal Debridement Note Debridement Note No debridement was completed: No debridement was completed today Post-Debridement Measurements and Additional Note: Post-Debridement Measurements/Treatment WC - Nurse 1 - General Ulcer Assessment Start: 01/27/22 14:28 Freq: Status: Active Protocol: ALMITA.CLAUDIAEXT Activity Type Activity Date Activity User E-sign Co-sign Detail Recorded Client Recorded Date Recorded By Document 01/27/22 14:29 KR [id number] 01/27/22 14:30 KR Document 02/01/22 14:45 DL [id number] 02/01/22 14:47 DL Document 02/04/22 08:38 KR Desktop 02/04/22 08:38 KR Document 02/08/22 13:07 AK [id number] 02/08/22 13:08 AK Document 02/11/22 09:30 KR [id number] 02/11/22 09:31 KR Document 02/15/22 14:33 AK [id number] 02/15/22 14:34 AK Document 02/22/22 14:48 DL [id number] 02/22/22 14:52 DL 01/27/22 02/01/22 02/04/22 14:29 14:45 08:38 - Today's Visit Information Type of service Nurse-only Nurse-only Nurse-only Visit Visit Visit Arrival Mode Ambulatory Ambulatory Ambulatory Transfer Assistance None Patient Identification Verified (Name & Yes Yes Yes ) Patient Requires Transmission-Based No Precautions Safety Precautions NA Finger Stick Blood Sugar(mg/dl) (if indicated): Blood Sugar Height and Weight Body Mass Index (BMI) 44.5 44.5 44.5 BMI Classification Obese Obese Obese Vital Signs Temperature (97.8 F-99.1 F) 97.5 F L 97.6 F L 96.8 F L Temperature Source Temporal Temporal Temporal Pulse Rate (60-100) 72 68 74 Pulse Location Monitor Monitor Monitor Respiratory Rate (12-18) 22 H Respiratory rate source Observation Blood Pressure (90/60-120/80) 141/72 H 139/64 H 153/69 H Blood Pressure Mean (mm Hg) 95 89 97 Source Monitor Monitor Monitor Position Semi-Fowlers Sitting Blood Pressure Location Left Arm Right Arm History Since Last Visit- (Skip if this is Patient's initial visit) Have you changed medications since your No No No last visit? Any new allergies or adverse reactions No No No Had a fall/change in ADL's that may No No No increase risk of falls Signs or symptoms of abuse and/or No No No neglect since last visit Have you been in the hospital since your No No No last visit? Has dressing in place as prescribed Yes No No Has compression in place as prescribed Yes Yes Yes Has offloadiing in place as prescribed N/A N/A Experienced any changes in pain level or No No No management Left Footwear Regular Shoe Regular Shoe Right Footwear Regular Shoe Regular Shoe Pain Scale: 0-10 Numeric Is Patient Pain Free? Yes Yes Yes 02/08/22 02/11/22 02/15/22 13:07 09:30 14:33 WC - Today's Visit Information Type of service Follow-up Visit Nurse-only Follow-up Visit (Physician/[facility] FORMER Visit (Physician/[facility] FORMER ) ) Arrival Mode Ambulatory Ambulatory Ambulatory Transfer Assistance None Patient Identification Verified (Name & Yes Yes Yes ) Patient Requires Transmission-Based No No Precautions Safety Precautions NA Finger Stick Blood Sugar(mg/dl) (if indicated): Blood Sugar Height and Weight Body Mass Index (BMI) 44.5 44.5 44.5 BMI Classification Obese Obese Obese Vital Signs Temperature (97.8 F-99.1 F) 96.2 F L 96.5 F L 96.9 F L Temperature Source Temporal Temporal Temporal Pulse Rate (60-100) 70 61 66 Pulse Location Monitor Monitor Monitor Respiratory Rate (12-18) Respiratory rate source Blood Pressure (90/60-120/80) 123/57 H 138/68 H 144/60 H Blood Pressure Mean (mm Hg) 79 91 88 Source Monitor Monitor Monitor Position Sitting Semi-Fowlers Blood Pressure Location Left Arm Right Arm History Since Last Visit- (Skip if this is Patient's initial visit) Have you changed medications since your No No No last visit? Any new allergies or adverse reactions No No No Had a fall/change in ADL's that may Yes No No increase risk of falls Signs or symptoms of abuse and/or No No No neglect since last visit Have you been in the hospital since your No No No last visit? Has dressing in place as prescribed No No Yes Has compression in place as prescribed No Yes No Has offloadiing in place as prescribed N/A N/A N/A Experienced any changes in pain level or No No No management Left Footwear Regular Shoe Regular Shoe Regular Shoe Right Footwear Regular Shoe Regular Shoe Regular Shoe Pain Scale: 0-10 Numeric Is Patient Pain Free? Yes Yes Yes 02/22/22 14:48 WC - Today's Visit Information Type of service Follow-up Visit (Physician/[facility] FORMER ) Arrival Mode Ambulatory Transfer Assistance None Patient Identification Verified (Name & Yes ) Patient Requires Transmission-Based No Precautions Safety Precautions Finger Stick Blood Sugar(mg/dl) (if not checked indicated): Blood Sugar Stated by Patient Height and Weight Body Mass Index (BMI) 44.5 BMI Classification Obese Vital Signs Temperature (97.8 F-99.1 F) 97 F L Temperature Source Temporal Pulse Rate (60-100) 64 Pulse Location Monitor Respiratory Rate (12-18) 22 H Respiratory rate source Observation Blood Pressure (90/60-120/80) 140/61 H Blood Pressure Mean (mm Hg) 87 Source Monitor Position Blood Pressure Location History Since Last Visit- (Skip if this is Patient's initial visit) Have you changed medications since your No last visit? Any new allergies or adverse reactions No Had a fall/change in ADL's that may No increase risk of falls Signs or symptoms of abuse and/or No neglect since last visit Have you been in the hospital since your No last visit? Has dressing in place as prescribed Yes Has compression in place as prescribed Yes Has offloadiing in place as prescribed N/A Experienced any changes in pain level or No management Left Footwear Regular Shoe Right Footwear Regular Shoe Pain Scale: 0-10 Numeric Is Patient Pain Free? Yes - Nurse 1 - General Ulcer Measurement Start: 01/27/22 14:28 Freq: Status: Active Protocol: Activity Type Activity Date Activity User E-sign Co-sign Detail Recorded Client Recorded Date Recorded By Document 02/01/22 14:45 DL [id number] 02/01/22 14:47 DL Document 02/08/22 13:07 AK [id number] 02/08/22 13:08 AK Document 02/11/22 09:30 KR [id number] 02/11/22 09:31 KR Document 02/15/22 14:33 AK [id number] 02/15/22 14:34 AK Document 02/22/22 14:48 DL [id number] 02/22/22 14:52 DL 02/01/22 02/08/22 02/11/22 14:45 13:07 09:30 Wound Center Nurse 1 Lower Limb Edema Present Yes Right Calf (cm) 47 48 48 Point of measurement (cm from the medial instep) Right Ankle (cm) 30 30 32 Point of Measurement (cm from the medial instep) Left Calf (cm) 46.5 48.5 46.3 Left Ankle (cm) 30 31.2 31 02/15/22 02/22/22 14:33 14:48 Wound Center Nurse 1 Lower Limb Edema Present No Right Calf (cm) 48.6 Point of measurement (cm from the medial 45 instep) Right Ankle (cm) 29.5 Point of Measurement (cm from the medial 29.6 instep) Left Calf (cm) 47.2 47.3 Left Ankle (cm) 31.5 31.5 WC - Nurse 2 - General Ulcer CM Notes Start: 01/27/22 14:28 Freq: Status: Active Protocol: Activity Type Activity Date Activity User E-sign Co-sign Detail Recorded Client Recorded Date Recorded By Document 02/08/22 13:32 [id number] 02/08/22 13:32 Document 02/15/22 14:52 [id number] 02/15/22 14:52 Document 02/22/22 15:41 [id number] 02/22/22 15:41 02/08/22 02/15/22 02/22/22 13:32 14:52 15:41 Pain Scale: 0-10 Numeric Is Patient Pain Free? Yes Yes Yes - Nurse 3 - General Ulcer D/C NN Start: 01/27/22 14:28 Freq: Status: Active Protocol: Activity Type Activity Date Activity User E-sign Co-sign Detail Recorded Client Recorded Date Recorded By Document 01/27/22 14:29 KR [id number] 01/27/22 14:30 KR Document 02/01/22 14:45 DL [id number] 02/01/22 14:47 DL Edit Result 02/01/22 14:45 DL (1) [id number] 02/01/22 14:49 DL Document 02/04/22 08:38 KR Desktop 02/04/22 08:38 KR Document 02/08/22 13:42 AK [id number] 02/08/22 13:44 AK Edit Result 02/08/22 13:42 AK (2) [id number] 02/09/22 07:21 PL Document 02/11/22 09:30 KR [id number] 02/11/22 09:31 KR Edit Result 02/11/22 09:30 KR (3) [id number] 02/14/22 06:55 PL Document 02/15/22 15:10 BMF [id number] 02/15/22 15:11 BMF (1) Notes: => Dressing applied per Cheryl Nunes LPN today in clinic. (2) Left - Multi-Layered Wrap Application Unna Boot - Left ( => $) => (3) bilateral - Multi-Layered Wrap Application => Unna Boot - => Bilateral ($) - Unna Boots (Bilat) ($) => 2 01/27/22 02/01/22 02/04/22 14:29 14:45 08:38 Vital Signs Temperature (97.8 F-99.1 F) 97.5 F L 97.6 F L 96.8 F L Temperature Source Temporal Temporal Temporal Pulse Rate (60-100) 72 68 74 Pulse Location Monitor Monitor Monitor Respiratory Rate (12-18) 22 H Respiratory rate source Observation Blood Pressure (90/60-120/80) 141/72 H 139/64 H 153/69 H Blood Pressure Mean (mm Hg) 95 89 97 Source Monitor Monitor Monitor Position Semi-Fowlers Sitting Blood Pressure Location Left Arm Right Arm Pain Scale: 0-10 Numeric Is Patient Pain Free? Yes Yes Yes Wound Care Nurse 3 bilateral -Lotion applied to leg before compression wrap -Multi-Layered Wrap Application -Unna Boots (Bilat) ($) -Other Left -Lotion applied to leg before compression wrap -Multi-Layered Wrap Application Multi-Layer Multi-Layer Multi-Layer Comp - Bilat ($ Comp - Bilat ($ Comp - Bilat ($ ) ) ) Treatment Response Procedure Tolerated Well WC - Visit Discharge Discharge Condition Stable Stable Stable Ambulatory Status Ambulatory Ambulatory Ambulatory Transportation Private Auto Private Auto Private Auto Medication Reconcilliation completed & provided to patient/care provider Clinical Summary of Care Provided Notes: Dressing applied per Cheryl Nunes LPN today in clinic . 02/08/22 02/11/22 02/15/22 13:42 09:30 15:10 Vital Signs Temperature (97.8 F-99.1 F) 96.5 F L Temperature Source Temporal Pulse Rate (60-100) 61 Pulse Location Monitor Respiratory Rate (12-18) Respiratory rate source Blood Pressure (90/60-120/80) 138/68 H Blood Pressure Mean (mm Hg) 91 Source Monitor Position Semi-Fowlers Blood Pressure Location Right Arm Pain Scale: 0-10 Numeric Is Patient Pain Free? Yes Yes Yes Wound Care Nurse 3 bilateral -Lotion applied to leg before No compression wrap -Multi-Layered Wrap Application Unna Boot - Unna Boot - Unna Boot - Bilateral ($) Bilateral ($) Bilateral ($) -Unna Boots (Bilat) ($) 2 2 2 -Other applied by Celsa F Left -Lotion applied to leg before No compression wrap -Multi-Layered Wrap Application Treatment Response Procedure Tolerated Well WC - Visit Discharge Discharge Condition Stable Stable Stable Ambulatory Status Ambulatory Ambulatory Ambulatory Transportation Private Auto Private Auto Private Auto Medication Reconcilliation completed & Yes provided to patient/care provider Clinical Summary of Care Provided Yes Notes: Assessment/Plan Assessment/Plan (1) Edema of both lower extremities: CODE(S): R60.0 - Localized edema (2) Lymphedema of both lower extremities: CODE(S): I89.0 - Lymphedema, not elsewhere classified (3) Diabetes type 2, uncontrolled: CODE(S): E11.65 - Type 2 diabetes mellitus with hyperglycemia QUALIFIERS: Glycemic state: with hyperglycemia Qualified Code(s): E11.65 - Type 2 diabetes mellitus with hyperglycemia (4) Venous (peripheral) insufficiency: CODE(S): I87.2 - Venous insufficiency (chronic) (peripheral) PLAN: Plan Patient was evaluated at the wound center today. He has no open wounds at this time. He does have a history of significant edema/lymphedema where he often gets blisters that form, drain, and will create wounds. We are limited on what we can do with him not having a wound, will work on edema control. The 3M 2 layer wraps have improved his edema on his lower legs bilaterally. He removes the compression the night before coming into the wound center and wears his zippered compression stockings, which his brother gave him, and his edema returns. He saw Dr. Beaver 02/08/22, and he is scheduled for a venogram for possible central venous compression/occlusion on February 28. 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 He had been referred to a vascular physician in the past but never went. He states he has lymphedema pumps at home and he uses them. Instructed patient that he needs to keep his legs elevated when sitting, avoid standing for long periods of time to prevent further swelling, encouraged him to walk as much as possible. Encourage patient to sleep in a bed instead of a chair, to help with his edema. Reinforced to patient that he will always need to wear compression, for the rest of his life to help prevent the severe edema. Reinforced patient to eat a low carbohydrate and low-sodium diet to help control both his diabetes and his swelling in his legs. Contacted Dr. Beaver to discuss appropriate compression for the patient. Follow-up in 2 weeks with me since he has his procedure with Dr. Beaver next week. The zipper compression stockings that his brother gave him are in good shape, but are too big for him, therefore his edema returns. He states he is no able to afford to buy stockings. The issue is he states he is not able to afford compression stockings and he is not able to wear traditional compression stockings due to pain.
== END 2022-02-25 23:59 | disposition home or self-care (01) ==
LOC: WC 15:00
PROVIDERS: PCP Family Medicine; Visit Provider Nurse Practitioner Family
DX: R60.0 Localized edema (principal); E11.65 Type 2 diabetes mellitus with hyperglycemia; Z68.41 Body mass index [BMI] 40.0-44.9, adult; Z79.4 Long term (current) use of insulin; I89.0 Lymphedema, not elsewhere classified; I10 Essential (primary) hypertension; I25.10 Atherosclerotic heart disease of native coronary artery without angina pectoris; I87.2 Venous insufficiency (chronic) (peripheral); G47.33 Obstructive sleep apnea (adult) (pediatric); E66.9 Obesity, unspecified; Z79.82 Long term (current) use of aspirin; Z79.02 Long term (current) use of antithrombotics/antiplatelets
CPT/HCPCS: 29580; 29581; 99213; G0463

== ENCOUNTER 2022-02-28 09:41 | Day surgery (SDC) | payer MEDICAID, SELFPAY ==
[2022-02-21 10:06] LABS: Hematocrit 41.5 % (40-54); Hemoglobin 13.7 g/dL (13.0-16.5); Mean Corpuscular Hgb 30.5 pg (27.0-32.0); Mean Corpuscular Volume 92.4 fL (80-94); Mean Platelet Vol. 10.5 fl (6.2-12.0); Platelet Count 150 K/mm3 (150-450); RBC Distribution Width CV 16.3 % (11.6-14.6); RBC Distribution Width SD 54.7 fl (35.1-43.9); Red Blood Count 4.49 M/mm3 (4.6-6.2); White Blood Count 7.6 K/mm3 (4.4-11.0)
[2022-02-21 10:38] LABS: Anion Gap 6 (5-15); BUN 22 mg/dL (7-18); BUN/Creat Ratio 22.3 RATIO (10-20); Calcium,Total 8.8 mg/dL (8.5-10.1); Chloride 104 mmol/L (98-107); Creatinine, Serum 0.99 mg/dL (0.70-1.30); EST Glomerular Filtration Rate 81 mL/min (>60); Est Glom Filt Rate - Afr Amer 98 mL/min (>60); Glucose 302 mg/dL (74-106); Potassium 3.7 mmol/L (3.5-5.1); Sodium Level 136 mmol/L (136-145)
--- NOTE | 2022-02-22 11:34 | EKG12_ITS ---
Test Reason : PREOP Blood Pressure : / mmHG Vent. Rate : 062 BPM Atrial Rate : 062 BPM P-R Int : 172 ms QRS Dur : 080 ms QT Int : 392 ms P-R-T Axes : 035 005 047 degrees QTc Int : 397 ms Normal sinus rhythm Normal ECG Confirmed by NUSRAT LOCO, MAIA ([id number]), purchase request editor LYNETTE RAMIREZ ([id number]) on 02/23/2022 9:05:04 AM Referred By: Freddy Beaver Confirmed By:MAIA SILVERIO MD
--- NOTE | 2022-02-22 11:40 | RAD_ITS ---
STUDY: X-RAY CHEST REASON FOR EXAM: Male, 66 years old. Preoperative evaluation. TECHNIQUE: Frontal and lateral views of the chest. COMPARISON: 07/23/2020. FINDINGS: Stable mild hyperinflation. There is no demonstrated pleural abnormality. Stable cardiomegaly. Normal mediastinum and pina. Normal visualized pulmonary arteries. Aortic tortuosity with calcification unchanged. Diffuse thoracic spondylosis unchanged. Normal visualized ribs, clavicles, and shoulders. There is no demonstrated abnormality of the visualized soft tissue structures of the upper abdomen. RAD/Chest PA and Lateral IMPRESSION: Stable cardiomegaly with mild hyperinflation. No active or acute cardiopulmonary disease. Electronically Signed: Carlos Quiroz, at 9:29 EDT ,
[2022-02-28] VITALS (13 sets, daily range): BP systolic 137–165; BP diastolic 42–82; PULSE 63–74; RESP 16–20; TEMP 35.9–36.7; O2SAT 92–98; BMI 43.8
[2022-02-28] MEDS: Lactated Ringers 1,000 ML 15 ML IV (10:45)
[2022-02-28 11:16] LABS: Bedside Glucose 201 mg/dL (74-106)
--- NOTE | 2022-02-28 13:19 | DCINST_ITS ---
Discharge Instructions Procedure Narrative: Venogram, right common iliac vein stent Diet Discharge Diet: No restrictions Activity May shower in (days): 1 Weight Bearing Status: Weight bearing as tolerated Lifting Restrictions: No >20 lbs for 3 weeks Dressing / Incision Call your doctor if your incision/area has: Sudden Increased Bleeding and Increased Pain/ Swelling Call your doctor if you observe: Fever of 101 or Higher and Uncontrolled pain Remove Dressing in: 1 day Follow Up Care Test Results: Test results from this visit will be discussed in further detail at your follow- up appointment, if applicable. Discharge Plan Admission Attending Provider: Freddy Beaver Primary Care Provider: Domo Richards Discharge Orders/Prescriptions Prescriptions: New clopidogrel [Plavix] 75 mg tablet 75 mg PO DAILY Qty: 90 3RF Continued gabapentin 800 mg tablet 800 mg PO TID rosuvastatin 20 mg tablet 20 mg PO DAILY hydrochlorothiazide 25 mg tablet 25 mg PO DAILY losartan 100 mg tablet 100 mg PO DAILY cyclobenzaprine 10 mg tablet 10 mg PO TID PRN (Reason: muscle spasm) potassium chloride 10 mEq tablet extended release 10 meq PO BID metoprolol succinate [Toprol XL] 50 mg tablet extended release 24 hr 50 mg PO DAILY Qty: 90 3RF dulaglutide 0.75 mg/0.5 mL pen injector 0.75 mg subcut QWEEK Label Comments: Inject 0.75 mg subcutaneously one time a week. acetaminophen 650 mg tablet extended release 650 mg PO Q8H PRN (Reason: Pain) furosemide 40 mg tablet 60 mg PO BID trazodone 50 mg tablet 50 mg PO QHS PRN (Reason: Sleep) budesonide-formoterol [Symbicort] 160-4.5 mcg/actuation HFA aerosol inhaler 2 puff inhalation QHS ProAir RespiClick 90 mcg/actuation aerosol powdr breath activated 2 inh inhalation Q4H PRN (Reason: COPD) aspirin 81 MG tablet,chewable 81 mg PO DAILY@0800 Label Comments: HOLD 2 DAYS PREOP omeprazole 20 mg capsule,delayed release(DR/EC) 20 mg PO PRN PRN (Reason: GERD) insulin aspart U-100 100 unit/mL (3 mL) insulin pen 54 unit SC TID insulin degludec [Tresiba FlexTouch U-200] 200 UNIT/ML insulin pen 128 unit SC DAILY Label Comments: took half a dose this am, 05/30/17 metformin 500 mg tablet extended release 24 hr 1,500 mg PO QAM isosorbide mononitrate 60 mg tablet extended release 24 hr 60 mg PO DAILY Qty: 30 11RF Referrals / Follow Up: Domo Richards MD [Primary Care Provider] - Disposition Disposition (needs filled in before D/C Order can be placed): Home, Self Care
[2022-02-28 13:25] LABS: Bedside Glucose 218 mg/dL (74-106)
--- NOTE | 2022-02-28 13:39 | OP.PCM_ITS ---
Report of Operation Date of Procedure: 02/28/22 Pre-Operative Diagnosis: Venous insufficiency with ulceration bilateral Post-Operative Diagnosis: Same, severe right common iliac vein compression, mild left common iliac vein compression Surgery/Procedure Performed:: Inferior vena cava venogram with intravascular ultrasound of the IVC and bilateral common and external iliac veins. Angioplasty and stenting of the right common iliac vein Surgeon: Freddy Beaver Type of Anesthesia: General Estimated Blood Loss (mL): 3 Description of Procedure: HPI: Patient is a 66-year-old male with chronic edema and skin changes consistent with venous insufficiency bilaterally. He also has had multiple episodes of bullae primarily on the right. He has consistently adhered to conse rvative measures with compression but continues to have recurrence of wounds. Description of procedure: Upon obtaining form consent and verification correct patient procedure site patient was taken the [facility] where he was placed under general anesthesia. He was then positioned prepped and draped in usual sterile fashion a timeout performed. Under also guidance the right common femoral vein was accessed in retrograde fashion using micropuncture needle and wire. This was exchanged out for micropuncture sheath through which hand-injection ilio caval venogram was performed revealing satisfactory positioning with some delay contrast transit and refluxing into the internal iliac vein. Through my puncture sheath Magic wire was advanced and the micropuncture sheath exchanged for a 10 [place] sheath. Next the left common femoral vein was accessed in retrograde fashion with a micropuncture needle and wire exchanged out for micropuncture sheath. Through this hand-injection ilio caval venogram was performed which again revealed delayed contrast transit widened common iliac vein but no reflux into the pelvis. Through the micropuncture sheath a J-wire was advanced and the micropuncture sheath exchanged for a 10 [place] sheath. Patient was then heparinized allowed a second for 3 minutes while the intravascular ultrasound probe was brought on the field. The ultrasound was then advanced over the Magic wire via the right femoral sheath and digital recorded pullback of the inferior vena cava the right common iliac and right external iliac vein was performed. This revealed a 55% compression of the common iliac vein. The ultrasound catheter was then withdrawn and advanced via the left femoral access sheath and recorded pullback of the vena cava left common iliac and left external iliac veins was performed. This revealed approximate 35% compression of the left common iliac vein. The right iliac vein compression met threshold for intervention so a [employer] Wallstent 18 x 90 was brought in the field prepped for manufactures instructions. This then advanced via the right femoral access sheath and positioned just below the confluence of the IVC with satisfactory coverage of the compressed area with landing zones and normal caliber vessel proximal and distal. That was then deployed and postdilated with a 16 mm [employer] [place] balloon. Repeat intravesical ultrasound assessment revealed satisfactory stent placement at the confluence of the IVC with total coverage of the area of compression with no residual compression and satisfactory wall apposition throughout. See no further need for intervention the ultrasound probe was withdrawn as with the wires and the access sheaths followed by 10 minutes of manual pressure. Patient was then reversed with 25 mg of protamine. The conclusion patient was awakened anesthesia taken to the recovery room anticipated discharge home. Grafts/Implants Used: [employer] Wallstent 18 x 90
[2022-02-28] MEDS: Aspirin 81 MG TAB.CHEW PO (13:52)
[2022-02-28] MEDS: Clopidogrel Bisulfate 300 MG Tablet PO (13:52)
--- NOTE | 2022-02-28 14:23 | SUR.PHASEI ---
PATIENT VOMITED X1 A SMALL AMOUNT
--- NOTE | 2022-02-28 16:28 | SUR.PHASEII ---
groin checks after ambulation with nurse. b/l groin soft. dressings clean dry and intact
== END 2022-02-28 16:36 | disposition home or self-care (01) ==
LOC: SDC 09:42 → AC 09:49
PROVIDERS: PCP Family Medicine; Referring Provider Surgery Trauma Surgery; Visit Provider Surgery Trauma Surgery
DX: L98.499 Non-pressure chronic ulcer of skin of other sites with unspecified severity (principal); J44.9 Chronic obstructive pulmonary disease, unspecified; E11.40 Type 2 diabetes mellitus with diabetic neuropathy, unspecified; E66.01 Morbid (severe) obesity due to excess calories; Z68.41 Body mass index [BMI] 40.0-44.9, adult; Z79.4 Long term (current) use of insulin; I87.2 Venous insufficiency (chronic) (peripheral); I87.1 Compression of vein; Z79.899 Other long term (current) drug therapy; Z79.84 Long term (current) use of oral hypoglycemic drugs; Z79.82 Long term (current) use of aspirin; I25.10 Atherosclerotic heart disease of native coronary artery without angina pectoris; I10 Essential (primary) hypertension; G25.81 Restless legs syndrome; K21.9 Gastro-esophageal reflux disease without esophagitis; G47.33 Obstructive sleep apnea (adult) (pediatric)
CPT/HCPCS: 36005; 36415; 37238; 37252; 37253; 71046; 75822; 76937; 80048; 82962; 85027; 93005; C1725; C1753; C1894; J7120; Q9967; C1769; C1876; J2405

== ENCOUNTER 2022-03-22 13:15 | Outpatient (RCR) | payer MEDICAID, SELFPAY ==
[2022-02-26 01:41] VITALS: BP 140/61; PULSE 64; RESP 22; TEMP 36.1; BMI 44.5
[2022-03-08 13:13] VITALS: BP 136/73; PULSE 63; RESP 16; TEMP 36; BMI 44.5
--- NOTE | 2022-03-08 16:31 | PCM.WC.PN ---
History of Present Illness Date of Service: 03/08/22 Chief Complaint: edema and blisters to bilateral lower legs History of Wound: Patient is a pleasant 66 yo gentleman that presents to the wound healing center for evaluation and treatment of chronic blistering and edema to bilateral lower legs. He underwent treatment here last year and was discharged with plan to maintain control of edema with 20-30 mmHg compression stockings. 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 He reports that for the last couple years he has been having intermittent increased swelling in his lower legs and development of blisters bilaterally that break open and become wounds. He reports having blisters that have now healed. He states he has been sleeping in a bed. He has not been wearing his compression. He was treated for cellulitis with Clindamycin 12/01/21 from his PCP at [facility]. He had vascular testing 11/16 which showed incompetence of right superficial saphenous vein. He saw Dr. Beaver and on 02/28/22 and Inferior vena cava venogram with intravascular ultrasound of the IVC and bilateral common and external iliac veins and Angioplasty and stenting of the right common iliac vein. He denies any erythema, fever, chills, or odor. There is mild drainage from blisters/ulcers. Progress of Wound: Patient continues to have +2-+3 pitting edema due to him not wearing any compression. He states he didn't know he was supposed to be wearing compression. Objective Data Objective Data Vital Signs: Vital Signs Temp Pulse Resp BP O2 Del Method 96.8 F L 63 16 136/73 H Room Air 03/08/22 13:13 03/08/22 13:13 03/08/22 13:13 03/08/22 13:13 03/08/22 13:13 Oxygen Delivery Method Room Air Weight: 293 lb Body Mass Index (BMI) 44.5 Charges/Coding Visit Charges Office Visits / Consults: 95654 OV L3 Est Physical Exam Const alert and oriented x3 HEENT normocephalic Eyes PERRL Resp normal respiratory effort Effort and Inspection: able to speak in complete sentences Cardio regular rate Peripheral Pulses: dorsalis pedis pulses present bilateral 1+ Extremity normal capillary refill Extremity Narrative: +2-+3 bilateral lower extremity pitting edema. Skin no wounds Skin Narrative: No lesions or blisters or excoriation. Skin is clear and intact. Neuro oriented x3 Psych affect normal Debridement Note Debridement Note No debridement was completed: No debridement was completed today Post-Debridement Measurements and Additional Note: Post-Debridement Measurements/Treatment - Nurse 1 - General Ulcer Assessment Start: 03/08/22 13:13 Freq: Status: Active Protocol: KATHRYN Activity Type Activity Date Activity User E-sign Co-sign Detail Recorded Client Recorded Date Recorded By Document 03/08/22 13:13 [facility] [id number] 03/08/22 13:16 [facility] 03/08/22 13:13 WC - Today's Visit Information Type of service Follow-up Visit (Physician/[employer] ) Arrival Mode Ambulatory Transfer Assistance None Patient Identification Verified (Name & Yes ) Patient Requires Transmission-Based No Precautions Finger Stick Blood Sugar(mg/dl) (if 183 indicated): Blood Sugar Stated by Patient Height and Weight Body Mass Index (BMI) 44.5 BMI Classification Obese Vital Signs Temperature (97.8 F-99.1 F) 96.8 F L Temperature Source Temporal Pulse Rate (60-100) 63 Pulse Location Monitor Respiratory Rate (12-18) 16 Respiratory rate source Observation Oxygen Delivery Method Room Air Blood Pressure (90/60-120/80) 136/73 H Blood Pressure Mean (mm Hg) 94 Source Monitor Position Sitting Blood Pressure Location Right Forearm History Since Last Visit- (Skip if this is Patient's initial visit) Have you changed medications since your No last visit? Any new allergies or adverse reactions No Had a fall/change in ADL's that may No increase risk of falls Signs or symptoms of abuse and/or No neglect since last visit Have you been in the hospital since your Yes last visit? Has compression in place as prescribed N/A Has offloadiing in place as prescribed N/A Experienced any changes in pain level or No management Left Footwear Regular Shoe Right Footwear Regular Shoe Other Footwear HAD LE PROCEDURE LAST WK W/ DR BEAVER , VASCULAR Pain Scale: 0-10 Numeric Is Patient Pain Free? Yes - Nurse 1 - General Ulcer Measurement Start: 03/08/22 13:13 Freq: Status: Active Protocol: Activity Type Activity Date Activity User E-sign Co-sign Detail Recorded Client Recorded Date Recorded By Document 03/08/22 13:13 [facility] [id number] 03/08/22 13:16 BMF 03/08/22 13:13 Wound Center Nurse 1 Lower Limb Edema Present Yes Right Calf (cm) 47.8 Right Ankle (cm) 31.1 Left Calf (cm) 48.8 Left Ankle (cm) 32 WC - Nurse 2 - General Ulcer CM Notes Start: 03/08/22 13:13 Freq: Status: Active Protocol: Activity Type Activity Date Activity User E-sign Co-sign Detail Recorded Client Recorded Date Recorded By Document 03/08/22 13:32 JF [id number] 03/08/22 13:33 JF 03/08/22 13:32 Pain Scale: 0-10 Numeric Is Patient Pain Free? Yes WC - Nurse 3 - General Ulcer D/C NN Start: 03/08/22 13:13 Freq: Status: Active Protocol: Activity Type Activity Date Activity User E-sign Co-sign Detail Recorded Client Recorded Date Recorded By Document 03/08/22 13:39 DL [id number] 03/08/22 13:41 DL 03/08/22 13:39 Wound Care Nurse 3 Caesar -Lotion applied to leg before Yes compression wrap -Multi-Layered Wrap Application Multi-Layer Comp - Bilat ($ ) Treatment Response Procedure Tolerated Well Pain Scale: 0-10 Numeric Is Patient Pain Free? Yes WC - Visit Discharge Discharge Condition Stable Ambulatory Status Ambulatory Transportation Private Auto Notes: Dressings applied per Carolina Delgado RN today Assessment/Plan Assessment/Plan (1) Edema of both lower extremities: CODE(S): R60.0 - Localized edema (2) Lymphedema of both lower extremities: CODE(S): I89.0 - Lymphedema, not elsewhere classified (3) Diabetes type 2, uncontrolled: CODE(S): E11.65 - Type 2 diabetes mellitus with hyperglycemia QUALIFIERS: Glycemic state: with hyperglycemia Qualified Code(s): E11.65 - Type 2 diabetes mellitus with hyperglycemia (4) Venous (peripheral) insufficiency: CODE(S): I87.2 - Venous insufficiency (chronic) (peripheral) PLAN: Plan Patient was evaluated at the wound center today. He has no open wounds at this time. He does have a history of significant edema/lymphedema where he often gets blisters that form, drain, and will create wounds. We are limited on what we can do with him not having a wound, will work on edema control. He has not been wearing any compression so his edema has increased again to +2-+3 pitting edema bilateral lower extremities. Since he had improvement in the past with 3M 2 layer wraps improving his edema, we will place them again to try and compress some of the fluid out of his legs before fitting him with compression stockings. 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 He had been referred to a vascular physician in the past but never went. He states he has lymphedema pumps at home and he uses them. He saw Dr. Beaver and on 02/28/22 and Inferior vena cava venogram with intravascular ultrasound of the IVC and bilateral common and external iliac veins and Angioplasty and stenting of the right common iliac vein. Instructed patient that he needs to keep his legs elevated when sitting, avoid standing for long periods of time to prevent further swelling, encouraged him to walk as much as possible. Encourage patient to sleep in a bed instead of a chair, to help with his edema. Reinforced to patient that he will always need to wear compression, for the rest of his life to help prevent the severe edema. Reinforced patient to eat a low carbohydrate and low-sodium diet to help control both his diabetes and his swelling in his legs. Follow-up in one week for a nurses visit to have 3M 2 layer wraps changed. Follow up in 2 weeks with me.
[2022-03-15 14:28] VITALS: BP 157/73; PULSE 69; RESP 18; TEMP 35.8; BMI 44.5
[2022-03-22 13:11] VITALS: BP 147/70; PULSE 66; RESP 16; BMI 44.5
--- NOTE | 2022-03-22 16:00 | PCM.WC.PN ---
History of Present Illness Date of Service: 03/22/22 Chief Complaint: edema and blisters to bilateral lower legs History of Wound: Patient is a pleasant 66 yo gentleman that presents to the wound healing center for evaluation and treatment of chronic blistering and edema to bilateral lower legs. He underwent treatment here last year and was discharged with plan to maintain control of edema with 20-30 mmHg compression stockings. 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 He reports that for the last couple years he has been having intermittent increased swelling in his lower legs and development of blisters bilaterally that break open and become wounds. He reports having blisters that have now healed. He states he has been sleeping in a bed. He has not been wearing his compression. He was treated for cellulitis with Clindamycin 12/01/21 from his PCP at [facility]. He had vascular testing 11/16 which showed incompetence of right superficial saphenous vein. He saw Dr. Beaver and on 02/28/22 and Inferior vena cava venogram with intravascular ultrasound of the IVC and bilateral common and external iliac veins and Angioplasty and stenting of the right common iliac vein. He denies any erythema, fever, chills, or odor. There is mild drainage from blisters/ulcers. Progress of Wound: Patient's edema has improved with the 3M 2 layer wraps. He has +1 pitting edema. He currently has no ulcers. Objective Data Objective Data Vital Signs: Vital Signs Temp Pulse Resp BP O2 Del Method 96.5 F L 66 16 147/70 H Room Air 03/15/22 14:28 03/22/22 13:11 03/22/22 13:11 03/22/22 13:11 03/22/22 13:11 Oxygen Delivery Method Room Air Weight: 293 lb Body Mass Index (BMI) 44.5 Charges/Coding Visit Charges Office Visits / Consults: 25041 OV L3 Est Physical Exam Const alert and oriented x3 HEENT normocephalic Eyes PERRL Resp normal respiratory effort and clear to auscultation bilaterally Effort and Inspection: able to speak in complete sentences Cardio regular rate and regular rhythm Peripheral Pulses: dorsalis pedis pulses present bilateral 1+ Extremity normal capillary refill Extremity Narrative: Edema improved with the 3M 2 layer wraps. Edema is +1 today. Skin no wounds Skin Narrative: No lesions or blisters or excoriation. Skin is clear and intact. Neuro oriented x3 Psych affect normal Debridement Note Debridement Note No debridement was completed: No debridement was completed today Post-Debridement Measurements and Additional Note: Post-Debridement Measurements/Treatment WC - Nurse 1 - General Ulcer Assessment Start: 03/08/22 13:13 Freq: Status: Active Protocol: [email or web address] Activity Type Activity Date Activity User E-sign Co-sign Detail Recorded Client Recorded Date Recorded By Document 03/08/22 13:13 [facility] [id number] 03/08/22 13:16 BM Document 03/15/22 14:28 [id number] 03/15/22 14:30 MW Document 03/22/22 13:11 [facility] [id number] 03/22/22 13:12 BM 03/08/22 03/15/22 03/22/22 13:13 14:28 13:11 WC - Today's Visit Information Type of service Follow-up Visit Nurse-only Follow-up Visit (Physician/[employer] Visit (Physician/[employer] ) ) Arrival Mode Ambulatory Ambulatory Ambulatory Transfer Assistance None None None Accompanied by self Patient Identification Verified (Name & Yes Yes Yes ) Patient Requires Transmission-Based No No No Precautions Safety Precautions NA Finger Stick Blood Sugar(mg/dl) (if 183 201 indicated): Blood Sugar Stated by Stated by Patient Patient Height and Weight Body Mass Index (BMI) 44.5 44.5 44.5 BMI Classification Obese Obese Obese Vital Signs Temperature (97.8 F-99.1 F) 96.8 F L 96.5 F L Temperature Source Temporal Temporal Pulse Rate (60-100) 63 69 66 Pulse Location Monitor Monitor Monitor Respiratory Rate (12-18) 16 18 16 Respiratory rate source Observation Observation Observation Oxygen Delivery Method Room Air Room Air Room Air Blood Pressure (90/60-120/80) 136/73 H 157/73 H 147/70 H Blood Pressure Mean (mm Hg) 94 101 95 Source Monitor Monitor Monitor Position Sitting Sitting Sitting Blood Pressure Location Right Forearm Right Forearm Left Arm History Since Last Visit- (Skip if this is Patient's initial visit) Have you changed medications since your No No No last visit? Any new allergies or adverse reactions No No No Had a fall/change in ADL's that may No No No increase risk of falls Signs or symptoms of abuse and/or No No No neglect since last visit Have you been in the hospital since your Yes No last visit? Has dressing in place as prescribed Yes Has compression in place as prescribed N/A Yes Yes Has offloadiing in place as prescribed N/A N/A N/A Experienced any changes in pain level or No No No management Left Footwear Regular Shoe Regular Shoe Diabetic Shoe Right Footwear Regular Shoe Regular Shoe Diabetic Shoe Other Footwear HAD LE PROCEDURE LAST WK W/ DR BEAVER , VASCULAR Pain Scale: 0-10 Numeric Is Patient Pain Free? Yes Yes Yes WC - Nurse 1 - General Ulcer Measurement Start: 03/08/22 13:13 Freq: Status: Active Protocol: Activity Type Activity Date Activity User E-sign Co-sign Detail Recorded Client Recorded Date Recorded By Document 03/08/22 13:13 [facility] [id number] 03/08/22 13:16 BMF Document 03/15/22 14:28 MW [id number] 03/15/22 14:30 MW Document 03/22/22 13:11 [facility] [id number] 03/22/22 13:12 BMF 03/08/22 03/15/22 03/22/22 13:13 14:28 13:11 Wound Center Nurse 1 Lower Limb Edema Present Yes Yes Yes Right Calf (cm) 47.8 47.8 45.5 Right Ankle (cm) 31.1 28.8 27.6 Left Calf (cm) 48.8 47.0 44 Left Ankle (cm) 32 30.2 28.8 WC - Nurse 2 - General Ulcer CM Notes Start: 03/08/22 13:13 Freq: Status: Active Protocol: Activity Type Activity Date Activity User E-sign Co-sign Detail Recorded Client Recorded Date Recorded By Document 03/08/22 13:32 [id number] 03/08/22 13:33 JF Document 03/22/22 13:42 [id number] 03/22/22 13:44 JF 03/08/22 03/22/22 13:32 13:42 Pain Scale: 0-10 Numeric Is Patient Pain Free? Yes Yes - Nurse 3 - General Ulcer D/C NN Start: 03/08/22 13:13 Freq: Status: Active Protocol: Activity Type Activity Date Activity User E-sign Co-sign Detail Recorded Client Recorded Date Recorded By Document 03/08/22 13:39 DL [id number] 03/08/22 13:41 DL Document 03/15/22 14:28 MW [id number] 03/15/22 14:30 MW Document 03/22/22 13:56 BMF [id number] 03/22/22 13:57 BMF 03/08/22 03/15/22 03/22/22 13:39 14:28 13:56 Wound Care Nurse 3 Caesar -Lotion applied to leg before Yes Yes compression wrap -Multi-Layered Wrap Application Multi-Layer Multi-Layer Multi-Layer Comp - Bilat ($ Comp - Bilat ($ Comp - Bilat ($ ) ) ) Treatment Response Procedure Procedure Procedure Tolerated Well Tolerated Well Tolerated Well Vital Signs Temperature (97.8 F-99.1 F) 96.5 F L Temperature Source Temporal Pulse Rate (60-100) 69 Pulse Location Monitor Respiratory Rate (12-18) 18 Respiratory rate source Observation Oxygen Delivery Method Room Air Blood Pressure (90/60-120/80) 157/73 H Blood Pressure Mean (mm Hg) 101 Source Monitor Position Sitting Blood Pressure Location Right Forearm Pain Scale: 0-10 Numeric Is Patient Pain Free? Yes Yes Yes WC - Visit Discharge Discharge Condition Stable Stable Stable Ambulatory Status Ambulatory Ambulatory Ambulatory Transportation Private Auto Private Auto Private Auto Accompanied by self Medication Reconcilliation completed & No provided to patient/care provider Clinical Summary of Care Provided Yes Notes: Dressings applied per Carolina Delgado RN today Assessment/Plan Assessment/Plan (1) Edema of both lower extremities: CODE(S): R60.0 - Localized edema (2) Lymphedema of both lower extremities: CODE(S): I89.0 - Lymphedema, not elsewhere classified (3) Diabetes type 2, uncontrolled: CODE(S): E11.65 - Type 2 diabetes mellitus with hyperglycemia QUALIFIERS: Glycemic state: with hyperglycemia Qualified Code(s): E11.65 - Type 2 diabetes mellitus with hyperglycemia (4) Venous (peripheral) insufficiency: CODE(S): I87.2 - Venous insufficiency (chronic) (peripheral) PLAN: Plan Patient was evaluated at the wound center today. He has no open wounds at this time. He does have a history of significant edema/lymphedema where he often gets blisters that form, drain, and will create wounds. We are working on edema control. He has improvement in his edema this past week using the 3M 2 layer wraps. Will order Circaid compression stockings now that his legs have been compressed and are not as edematous. Hopefully his insurance will cover this because the patient is not able to afford the cost of compression. Will place him back in 3M 2 layer wraps this week and hopefully he will have his compression stockings next week so we can educate him on how to use them at his next visit. Encouraged him to continue to use his home compression pumps. 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 He had been referred to a vascular physician in the past but never went. He states he has lymphedema pumps at home and he uses them. He saw Dr. Beaver and on 02/28/22 and Inferior vena cava venogram with intravascular ultrasound of the IVC and bilateral common and external iliac veins and Angioplasty and stenting of the right common iliac vein. Instructed patient that he needs to keep his legs elevated when sitting, avoid standing for long periods of time to prevent further swelling, encouraged him to walk as much as possible. Encourage patient to sleep in a bed instead of a chair, to help with his edema. Reinforced to patient that he will always need to wear compression, for the rest of his life to help prevent the severe edema. Reinforced patient to eat a low carbohydrate and low-sodium diet to help control both his diabetes and his swelling in his legs. Follow-up in one week.
== END 2022-03-28 23:59 | disposition home or self-care (01) ==
LOC: WC 13:15
PROVIDERS: PCP Family Medicine; Visit Provider Nurse Practitioner Family
DX: R60.0 Localized edema (principal); E11.65 Type 2 diabetes mellitus with hyperglycemia; Z68.41 Body mass index [BMI] 40.0-44.9, adult; Z79.4 Long term (current) use of insulin; I89.0 Lymphedema, not elsewhere classified; I25.10 Atherosclerotic heart disease of native coronary artery without angina pectoris; I10 Essential (primary) hypertension; I87.2 Venous insufficiency (chronic) (peripheral); G47.33 Obstructive sleep apnea (adult) (pediatric); E66.9 Obesity, unspecified; Z79.82 Long term (current) use of aspirin; Z79.02 Long term (current) use of antithrombotics/antiplatelets; Z79.899 Other long term (current) drug therapy
CPT/HCPCS: 29581; 99213; G0463

== ENCOUNTER 2022-03-29 12:56 | Outpatient (RCR) | payer MEDICAID, SELFPAY ==
[2022-03-29 00:34] VITALS: BP 147/70; PULSE 66; RESP 16; TEMP 35.8; BMI 44.5
[2022-03-29 13:13] VITALS: BP 124/60; PULSE 76; RESP 18; TEMP 35.9; BMI 44.5
--- NOTE | 2022-03-29 17:05 | PCM.WC.PN ---
History of Present Illness Date of Service: 03/29/22 Chief Complaint: edema and blisters to bilateral lower legs History of Wound: Patient is a pleasant 66 yo gentleman that presents to the wound healing center for evaluation and treatment of chronic blistering and edema to bilateral lower legs. He underwent treatment here last year and was discharged with plan to maintain control of edema with 20-30 mmHg compression stockings. 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 He reports that for the last couple years he has been having intermittent increased swelling in his lower legs and development of blisters bilaterally that break open and become wounds. He reports having blisters that have now healed. He states he has been sleeping in a bed. He has not been wearing his compression. He was treated for cellulitis with Clindamycin 12/01/21 from his PCP at [facility]. He had vascular testing 11/16 which showed incompetence of right superficial saphenous vein. He saw Dr. Beaver and on 02/28/22 and Inferior vena cava venogram with intravascular ultrasound of the IVC and bilateral common and external iliac veins and Angioplasty and stenting of the right common iliac vein. He had a follow up with Dr. Beaver on 03/24/22, he is stay on ASA indefinitely and be on Plavix for 1 year, he is to follow up with him in a year for a venous duplex. He denies any erythema, fever, chills, or odor. There is mild drainage from blisters/ulcers. Progress of Wound: Edema has improved wearing the 3M 2 layer wraps. He has obtained his 2 layer stockings. He has no open ulcers today. Objective Data Objective Data Vital Signs: Vital Signs Temp Pulse Resp BP O2 Del Method 96.6 F L 76 18 124/60 H Room Air 03/29/22 13:13 03/29/22 13:13 03/29/22 13:13 03/29/22 13:13 03/29/22 13:13 Oxygen Delivery Method Room Air Weight: 293 lb Body Mass Index (BMI) 44.5 Charges/Coding Visit Charges Office Visits / Consults: 44193 OV L3 Est Physical Exam Const alert and oriented x3 HEENT normocephalic Eyes PERRL Resp normal respiratory effort and clear to auscultation bilaterally Effort and Inspection: able to speak in complete sentences Cardio regular rate and regular rhythm Peripheral Pulses: dorsalis pedis pulses present bilateral 1+ Extremity normal capillary refill Extremity Narrative: Edema improved with the 3M 2 layer wraps. Edema is +1 today. Skin no wounds Skin Narrative: No lesions or blisters or excoriation. Skin is clear and intact. Neuro oriented x3 Psych affect normal Debridement Note Debridement Note No debridement was completed: No debridement was completed today Post-Debridement Measurements and Additional Note: Post-Debridement Measurements/Treatment - Nurse 1 - General Ulcer Assessment Start: 03/29/22 13:13 Freq: Status: Active Protocol: LOWMARINET Activity Type Activity Date Activity User E-sign Co-sign Detail Recorded Client Recorded Date Recorded By Document 03/29/22 13:13 MW [id number] 03/29/22 13:20 MW 03/29/22 13:13 WC - Today's Visit Information Type of service Follow-up Visit (Physician/CASTINGS TRIMMER ) Arrival Mode Ambulatory Transfer Assistance None Accompanied by Patient Identification Verified (Name & Yes ) Patient Requires Transmission-Based No Precautions Safety Precautions NA Height and Weight Body Mass Index (BMI) 44.5 BMI Classification Obese Vital Signs Temperature (97.8 F-99.1 F) 96.6 F L Temperature Source Temporal Pulse Rate (60-100) 76 Pulse Location Monitor Respiratory Rate (12-18) 18 Respiratory rate source Observation Oxygen Delivery Method Room Air Blood Pressure (90/60-120/80) 124/60 H Blood Pressure Mean (mm Hg) 81 Source Monitor Position Sitting Blood Pressure Location Left Arm History Since Last Visit- (Skip if this is Patient's initial visit) Have you changed medications since your No last visit? Any new allergies or adverse reactions No Had a fall/change in ADL's that may No increase risk of falls Signs or symptoms of abuse and/or No neglect since last visit Have you been in the hospital since your No last visit? Has dressing in place as prescribed Yes Has compression in place as prescribed Yes Has offloadiing in place as prescribed N/A Experienced any changes in pain level or No management Left Footwear Regular Shoe Right Footwear Regular Shoe Pain Scale: 0-10 Numeric Is Patient Pain Free? Yes - Nurse 1 - General Ulcer Measurement Start: 03/29/22 13:13 Freq: Status: Active Protocol: Activity Type Activity Date Activity User E-sign Co-sign Detail Recorded Client Recorded Date Recorded By Document 03/29/22 13:13 [id number] 03/29/22 13:20 03/29/22 13:13 Wound Center Nurse 1 Lower Limb Edema Present Yes Right Calf (cm) 45.0 Right Ankle (cm) 26.5 Left Calf (cm) 44.5 Left Ankle (cm) 28.0 WC - Nurse 2 - General Ulcer CM Notes Start: 03/29/22 13:13 Freq: Status: Active Protocol: Activity Type Activity Date Activity User E-sign Co-sign Detail Recorded Client Recorded Date Recorded By Document 03/29/22 13:39 [id number] 03/29/22 13:41 03/29/22 13:39 Pain Scale: 0-10 Numeric Is Patient Pain Free? Yes - Nurse 3 - General Ulcer D/C NN Start: 03/29/22 13:13 Freq: Status: Active Protocol: Activity Type Activity Date Activity User E-sign Co-sign Detail Recorded Client Recorded Date Recorded By Document 03/29/22 13:59 [facility] [id number] 03/29/22 14:02 [facility] 03/29/22 13:59 Wound Care Nurse 3 BLE -Other PTS OWN NEW COMPRESSION STOCKINGS APPLIED PER DL PORCELAIN MIXER Treatment Response Procedure Tolerated Well Pain Scale: 0-10 Numeric Is Patient Pain Free? Yes WC - Visit Discharge Discharge Condition Stable Ambulatory Status Ambulatory Transportation Private Auto Accompanied by Assessment/Plan Assessment/Plan (1) Edema of both lower extremities: CODE(S): R60.0 - Localized edema (2) Lymphedema of both lower extremities: CODE(S): I89.0 - Lymphedema, not elsewhere classified (3) Diabetes type 2, uncontrolled: CODE(S): E11.65 - Type 2 diabetes mellitus with hyperglycemia QUALIFIERS: Glycemic state: with hyperglycemia Qualified Code(s): E11.65 - Type 2 diabetes mellitus with hyperglycemia (4) Venous (peripheral) insufficiency: CODE(S): I87.2 - Venous insufficiency (chronic) (peripheral) PLAN: Plan Patient was evaluated at the wound center today. He has no open wounds at this time. He does have a history of significant edema/lymphedema where he often gets blisters that form, drain, and will create wounds. We are working on edema control. He has improvement in his edema this past week using the 3M 2 layer wraps. He obtained his two layer compression stockings that he was instructed how to place them. They are snug but should stretch to make putting the on and off easier. His is here to learn how to place them. Encouraged him to continue to use his home compression pumps. 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 He had been referred to a vascular physician in the past but never went. He states he has lymphedema pumps at home and he uses them. He saw Dr. Beaver and on 02/28/22 and Inferior vena cava venogram with intravascular ultrasound of the IVC and bilateral common and external iliac veins and Angioplasty and stenting of the right common iliac vein. He had a follow up with Dr. Beaver on 03/24/22, he is stay on ASA indefinitely and be on Plavix for 1 year, he is to follow up with him in a year for a venous duplex. Instructed patient that he needs to keep his legs elevated when sitting, avoid standing for long periods of time to prevent further swelling, encouraged him to walk as much as possible. Encourage patient to sleep in a bed instead of a chair, to help with his edema. Reinforced to patient that he will always need to wear compression, for the rest of his life to help prevent the severe edema. Reinforced patient to eat a low carbohydrate and low-sodium diet to help control both his diabetes and his swelling in his legs. Follow-up as needed.
== END 2022-03-31 14:38 | disposition home or self-care (01) ==
LOC: WC 12:56
PROVIDERS: PCP Family Medicine; Visit Provider Nurse Practitioner Family
DX: R60.0 Localized edema (principal); E11.65 Type 2 diabetes mellitus with hyperglycemia; Z68.41 Body mass index [BMI] 40.0-44.9, adult; Z79.4 Long term (current) use of insulin; I25.10 Atherosclerotic heart disease of native coronary artery without angina pectoris; I10 Essential (primary) hypertension; I89.0 Lymphedema, not elsewhere classified; I87.2 Venous insufficiency (chronic) (peripheral); E66.9 Obesity, unspecified; G47.33 Obstructive sleep apnea (adult) (pediatric); Z79.82 Long term (current) use of aspirin; Z79.899 Other long term (current) drug therapy
CPT/HCPCS: 99213; G0463

== ENCOUNTER → 2022-04-08 | Outpatient (CLI) | payer MEDICAID, SELFPAY ==
--- NOTE | 2022-04-08 08:14 | AAVD_ITS ---
Reason For Study: S/P Lt Iliac Vein Compression Aorta Measurements Aorta Doppler Measurements Mid aorta measures2.36 x 2.26cm. in cross- Peak systolic flow velocities within the mid aorta sectional axis. measure 119.8 cm/sec. Mid aorta measures2.36cm. in longitudinal axis. Peak systolic flow velocities within the distal Distal aorta measures2.07 x 2.11cm. in cross- aorta measure 131.5 cm/sec. sectional axis. Mid and Distal IVC appear to be patent spontaneous and phasic in color and pulsed wave doppler Rt Iliac V, EIV and CFV appear to be patent spontaneous and phasic in color and pulsed wave doppler Lt Iliac vein stent visualized in longitudinal view. appears to be patent spontaneous and phasic in color and pulsed wave doppler Lt Iliac V, EIV and CFV appear to be patent spontaneous and phasic in color and pulsed wave doppler. Procedure Aorta IVC Iliac vasculature or bypass grafts [id number]. The exam was diagnostic. Technically difficult study due to body habitus. Exam performed in department. VL/Abd Aortic/IVC Duplex scan Interpretation Summary Patent left iliac vein stent with normal flow pattern characteristics Ordering Physician: Freddy Beaver Referring Physician: Domo Richards Performed By: Eebn Cooper, RVT
== END | disposition home or self-care (01) ==
PROVIDERS: PCP Family Medicine; Referring Provider Surgery Trauma Surgery; Visit Provider Surgery Trauma Surgery
DX: I87.1 Compression of vein (principal)
CPT/HCPCS: 93978

== ENCOUNTER 2022-04-25 14:00 | Outpatient (RCR) | payer MEDICAID, SELFPAY ==
[2022-04-18 14:17] VITALS: BP 115/59; PULSE 71; RESP 16; TEMP 36.2; BMI 42.8
--- NOTE | 2022-04-18 15:15 | PN.PCM_ITS ---
History of Present Illness Date of Service: 04/18/22 Chief Complaint: edema and blisters to bilateral lower legs History of Wound: Patient is a pleasant 66 yo gentleman that presents to the wound healing center for evaluation and treatment of chronic blistering and edema to bilateral lower legs. He underwent treatment here last year and was discharged with plan to maintain control of edema with 20-30 mmHg compression stockings. 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 He reports that for the last couple years he has been having intermittent increased swelling in his lower legs and development of blisters bilaterally that break open and become wounds. He reports having blisters that have now healed. He states he has been sleeping in a bed. He has not been wearing his compression. He was treated for cellulitis with Clindamycin 12/01/21 from his PCP at [facility]. He had vascular testing 11/16 which showed incompetence of right superficial saphenous vein. He saw Dr. Beaver and on 02/28/22 and Inferior vena cava venogram with intravascular ultrasound of the IVC and bilateral common and external iliac veins and Angioplasty and stenting of the right common iliac vein. He had a follow up with Dr. Beaver on 03/24/22, he is stay on ASA indefinitely and be on Plavix for 1 year, he is to follow up with him in a year for a venous duplex. He denies any erythema, fever, chills, or odor. There is mild drainage from blisters/ulcers. Objective Data Objective Data Vital Signs: Vital Signs Temp Pulse Resp BP O2 Del Method 97.2 F L 71 16 115/59 L Room Air 04/18/22 14:17 04/18/22 14:17 04/18/22 14:17 04/18/22 14:17 04/18/22 14:17 Oxygen Delivery Method Room Air Weight: 282 lb Body Mass Index (BMI) 42.8 Debridement Note Debridement Note Post-Debridement Measurements and Additional Note: Post-Debridement Measurements/Treatment WC - Nurse 1 - General Ulcer Assessment Start: 04/18/22 14:17 Freq: Status: Active Protocol: WC.LOWEXT Activity Type Activity Date Activity User E-sign Co-sign Detail Recorded Client Recorded Date Recorded By Document 04/18/22 14:17 [facility] [id number] 04/18/22 14:23 [facility] 04/18/22 14:17 - Today's Visit Information Type of service Follow-up Visit (Physician/ITEM PROCESSING CLERK ) Arrival Mode Ambulatory Transfer Assistance None Accompanied by Patient Identification Verified (Name & Yes ) Patient Requires Transmission-Based No Precautions Finger Stick Blood Sugar(mg/dl) (if 201 indicated): Blood Sugar Stated by Patient Height and Weight Height 5 ft 8 in Weight 282 lb Weight in Pounds 282.0 lbs Body Mass Index (BMI) 42.8 BMI Classification Obese BSA - Cameron 2.37 Vital Signs Temperature (97.8 F-99.1 F) 97.2 F L Temperature Source Temporal Pulse Rate (60-100) 71 Pulse Location Monitor Respiratory Rate (12-18) 16 Respiratory rate source Observation Oxygen Delivery Method Room Air Blood Pressure (90/60-120/80) 115/59 L Blood Pressure Mean (mm Hg) 77 Source Monitor Position Sitting Blood Pressure Location Left Arm History Since Last Visit- (Skip if this is Patient's initial visit) Left Footwear Regular Shoe Right Footwear Regular Shoe Pain Scale: 0-10 Numeric Is Patient Pain Free? Yes - Nurse 1 - General Ulcer Measurement Start: 04/18/22 14:17 Freq: Status: Active Protocol: Activity Type Activity Date Activity User E-sign Co-sign Detail Recorded Client Recorded Date Recorded By Document 04/18/22 14:17 [facility] [id number] 04/18/22 14:23 [facility] 04/18/22 14:17 Wound Center Nurse 1 #4- R GREAT TOE -Combined with other wound No -Current Size (cm) - Length 0.1 -Current Size (cm) - Width 0.1 -Current Size (cm) - Depth 0.1 -Total Square Cm 0.01 -Date of Last Picture (Recall this 04/18/22 field) -Photo Taken Yes -Epithelialization None Present -Tunneling No -Undermining/Tunneling No -Circular Undermining No -Exudate Amt None Present -Wound Margin Distinct, Outline Attached -Texture (Flory-wound Skin Appearance) Assessed -Moisture (Flory-wound Skin Appearance) Assessed,Dry/ Scaly -Color (Flory-wound Skin Appearance) Assessed, Ecchymosis -Temperature (Flory-wound Skin No Abnormality Appearance) (Pt Warm) -Tenderness on Palpation (Flory-wound Yes Skin Appearance) -Ulcer Cleansing Rinsed/ Irrigated with Saline -Foul Odor after Cleansing No -Anesthetic Used 5% Lidocaine Gel WC - Nurse 2 - General Ulcer CM Notes Start: 04/18/22 14:17 Freq: Status: Active Protocol: Activity Type Activity Date Activity User E-sign Co-sign Detail Recorded Client Recorded Date Recorded By Document 04/18/22 14:46 [id number] 04/18/22 14:53 [facility] 04/18/22 14:46 Wound Center Nurse 2 -Time 14:48 -Correct Patient Yes -Correct Side, Site, Position Yes -Correct Procedure Yes -Procedure Performed Yes -Type of Procedure Debridement -Clinical Debridement Subcutaneous -Tissue Removed Subcutaneous -Post Debridement (cm) - Length 1.0 -Post Debridement (cm) - Width 1.6 -Post Debridement (cm) - Depth 0.1 -Total Square (Post) (cm) 1.60 -Area of Debridement (cm) - Length 1.0 -Area of Debridement (cm) - Width 1.6 -Total Square (Area) (cm) 1.60 -Tunneling No -Undermining/Tunneling No -Circular Undermining No -Wound/Ulcer Outcome Not Healed -Ulcer Cleansing Rinsed/ Irrigated with Saline -Foul Odor after Cleansing No -Bioengineered Tissue No -Bleeding Controlled with Pressure -Treatment Response Procedure Tolerated Well -Offloading Yes -Type of Offloading Surgical Shoe -Debridement - Subq, 1st 20sq cm Yes Pain Scale: 0-10 Numeric Is Patient Pain Free? Yes
--- NOTE | 2022-04-18 15:57 | PCM.WC.PN ---
History of Present Illness Date of Service: 04/18/22 Chief Complaint: edema and blisters to bilateral lower legs History of Wound: Patient is a pleasant 66 yo gentleman that presents to the wound healing center for evaluation and treatment of chronic blistering and edema to bilateral lower legs. He underwent treatment here last year and was discharged with plan to maintain control of edema with 20-30 mmHg compression stockings. 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 He reports that for the last couple years he has been having intermittent increased swelling in his lower legs and development of blisters bilaterally that break open and become wounds. He reports having blisters that have now healed. He states he has been sleeping in a bed. He has not been wearing his compression. He was treated for cellulitis with Clindamycin 12/01/21 from his PCP at [facility]. He had vascular testing 11/16 which showed incompetence of right superficial saphenous vein. He saw Dr. Beaver and on 02/28/22 and Inferior vena cava venogram with intravascular ultrasound of the IVC and bilateral common and external iliac veins and Angioplasty and stenting of the right common iliac vein. He had a follow up with Dr. Beaver on 03/24/22, he is stay on ASA indefinitely and be on Plavix for 1 year, he is to follow up with him in a year for a venous duplex. He presents today, 04/18/22 with a new blister/wound on right great toe. Wound care - Bactroban daily covered wit gauze. He denies any erythema, fever, chills, or odor. There is mild drainage from blisters/ulcers. Progress of Wound: Bilateral lower extremity edema has improved. He has a new blistered area that is draining and black in color on the tip of his right great toe. The non viable tissue was removed and the wound bed is a beefy pink. He is on Keflex from his PCP for this. He believes he bumped his toe into a piece of furniture Objective Data Objective Data Vital Signs: Vital Signs Temp Pulse Resp BP O2 Del Method 97.2 F L 71 16 115/59 L Room Air 04/18/22 14:17 04/18/22 14:17 04/18/22 14:17 04/18/22 14:17 04/18/22 14:17 Oxygen Delivery Method Room Air Weight: 282 lb Body Mass Index (BMI) 42.8 Charges/Coding Procedures Integumentary 111xxx-113xx: 11328 Yudi subq tissue 20 sq cm/< Debridement Note Debridement Note Wound debrided: great toe wound Laterality: Right Wound Grade/Stage: Stage II Type of Debridement: Excisional debridement Anesthesia Used: 5% Lidocaine Gel Depth: Down to and including healthy tissue and in the subcutaneous layer Percentage of wound debrided: 100 Instrument Used: 3mm curette and #15 blade (pickups) Tissue Removed: Devitalized tissue and slough Severity: Fat Layer Exposed Amount of bleeding with debridement: Mild Bleeding Controlled with: Pressure and Compression and gauze Patient tolerated procedure: Patient tolerated procedure well Post-Debridement Measurements and Additional Note: Post-Debridement Measurements/Treatment WC - Nurse 1 - General Ulcer Assessment Start: 04/18/22 14:17 Freq: Status: Active Protocol: KATHRYN Activity Type Activity Date Activity User E-sign Co-sign Detail Recorded Client Recorded Date Recorded By Document 04/18/22 14:17 [facility] [id number] 04/18/22 14:23 [facility] 04/18/22 14:17 WC - Today's Visit Information Type of service Follow-up Visit (Physician/CHIEF DEPUTY CORONER ) Arrival Mode Ambulatory Transfer Assistance None Accompanied by Patient Identification Verified (Name & Yes ) Patient Requires Transmission-Based No Precautions Finger Stick Blood Sugar(mg/dl) (if 201 indicated): Blood Sugar Stated by Patient Height and Weight Height 5 ft 8 in Weight 282 lb Weight in Pounds 282.0 lbs Body Mass Index (BMI) 42.8 BMI Classification Obese BSA - Cameron 2.37 Vital Signs Temperature (97.8 F-99.1 F) 97.2 F L Temperature Source Temporal Pulse Rate (60-100) 71 Pulse Location Monitor Respiratory Rate (12-18) 16 Respiratory rate source Observation Oxygen Delivery Method Room Air Blood Pressure (90/60-120/80) 115/59 L Blood Pressure Mean (mm Hg) 77 Source Monitor Position Sitting Blood Pressure Location Left Arm History Since Last Visit- (Skip if this is Patient's initial visit) Left Footwear Regular Shoe Right Footwear Regular Shoe Pain Scale: 0-10 Numeric Is Patient Pain Free? Yes - Nurse 1 - General Ulcer Measurement Start: 04/18/22 14:17 Freq: Status: Active Protocol: Activity Type Activity Date Activity User E-sign Co-sign Detail Recorded Client Recorded Date Recorded By Document 04/18/22 14:17 [facility] [id number] 04/18/22 14:23 [facility] 04/18/22 14:17 Wound Center Nurse 1 #4- R GREAT TOE -Combined with other wound No -Current Size (cm) - Length 0.1 -Current Size (cm) - Width 0.1 -Current Size (cm) - Depth 0.1 -Total Square Cm 0.01 -Date of Last Picture (Recall this 04/18/22 field) -Photo Taken Yes -Epithelialization None Present -Tunneling No -Undermining/Tunneling No -Circular Undermining No -Exudate Amt None Present -Wound Margin Distinct, Outline Attached -Texture (Flory-wound Skin Appearance) Assessed -Moisture (Flory-wound Skin Appearance) Assessed,Dry/ Scaly -Color (Flory-wound Skin Appearance) Assessed, Ecchymosis -Temperature (Flory-wound Skin No Abnormality Appearance) (Pt Warm) -Tenderness on Palpation (Flory-wound Yes Skin Appearance) -Ulcer Cleansing Rinsed/ Irrigated with Saline -Foul Odor after Cleansing No -Anesthetic Used 5% Lidocaine Gel WC - Nurse 2 - General Ulcer CM Notes Start: 04/18/22 14:17 Freq: Status: Active Protocol: Activity Type Activity Date Activity User E-sign Co-sign Detail Recorded Client Recorded Date Recorded By Document 04/18/22 14:46 [id number] 04/18/22 14:53 04/18/22 14:46 Wound Center Nurse 2 -Time 14:48 -Correct Patient Yes -Correct Side, Site, Position Yes -Correct Procedure Yes -Procedure Performed Yes -Type of Procedure Debridement -Clinical Debridement Subcutaneous -Tissue Removed Subcutaneous -Post Debridement (cm) - Length 1.0 -Post Debridement (cm) - Width 1.6 -Post Debridement (cm) - Depth 0.1 -Total Square (Post) (cm) 1.60 -Area of Debridement (cm) - Length 1.0 -Area of Debridement (cm) - Width 1.6 -Total Square (Area) (cm) 1.60 -Tunneling No -Undermining/Tunneling No -Circular Undermining No -Wound/Ulcer Outcome Not Healed -Ulcer Cleansing Rinsed/ Irrigated with Saline -Foul Odor after Cleansing No -Bioengineered Tissue No -Bleeding Controlled with Pressure -Treatment Response Procedure Tolerated Well -Offloading Yes -Type of Offloading Surgical Shoe -Debridement - Subq, 1st 20sq cm Yes Pain Scale: 0-10 Numeric Is Patient Pain Free? Yes Assessment/Plan Assessment/Plan (1) Open wound of right great toe without damage to nail: CODE(S): S91.101A - Unspecified open wound of right great toe without damage to nail, initial encounter (2) Edema of both lower extremities: CODE(S): R60.0 - Localized edema (3) Lymphedema of both lower extremities: CODE(S): I89.0 - Lymphedema, not elsewhere classified (4) Diabetes type 2, uncontrolled: CODE(S): E11.65 - Type 2 diabetes mellitus with hyperglycemia QUALIFIERS: Glycemic state: with hyperglycemia Qualified Code(s): E11.65 - Type 2 diabetes mellitus with hyperglycemia (5) Venous (peripheral) insufficiency: CODE(S): I87.2 - Venous insufficiency (chronic) (peripheral) PLAN: Plan Patient was evaluated at the wound center today. Wound care - Bactroban ointment to the right great toe wound covered with gauze daily after washing with soap and water. Continue Keflex as prescribed by his PCP. He does have a history of significant edema/lymphedema where he often gets blisters that form, drain, and will create wounds. He has been wearing his compression until the other day when he obtained the right great toe blister/wound and it was too painful to his toe to wear the compression. He obtained his two layer compression stockings that he was instructed how to place them. They are snug but should stretch to make putting the on and off easier. His is here to learn how to place them. Encouraged him to continue to use his home compression pumps. 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 He had been referred to a vascular physician in the past but never went. He states he has lymphedema pumps at home and he uses them. He saw Dr. Beaver and on 02/28/22 and Inferior vena cava venogram with intravascular ultrasound of the IVC and bilateral common and external iliac veins and Angioplasty and stenting of the right common iliac vein. He had a follow up with Dr. Beaver on 03/24/22, he is stay on ASA indefinitely and be on Plavix for 1 year, he is to follow up with him in a year for a venous duplex. Instructed patient that he needs to keep his legs elevated when sitting, avoid standing for long periods of time to prevent further swelling, encouraged him to walk as much as possible. Encourage patient to sleep in a bed instead of a chair, to help with his edema. Reinforced to patient that he will always need to wear compression, for the rest of his life to help prevent the severe edema. Reinforced patient to eat a low carbohydrate and low-sodium diet to help control both his diabetes and his swelling in his legs. Follow-up one week.
--- NOTE | 2022-04-25 14:37 | PN.PCM_ITS ---
History of Present Illness Date of Service: 04/25/22 Chief Complaint: Right great toe ulcer History of Wound: Patient is a pleasant 66 yo gentleman that presents to the wound healing center for evaluation and treatment of chronic blistering and edema to bilateral lower legs. He underwent treatment here last year and was discharged with plan to maintain control of edema with 20-30 mmHg compression stockings. 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 He reports that for the last couple years he has been having intermittent increased swelling in his lower legs and development of blisters bilaterally that break open and become wounds. He reports having blisters that have now healed. He states he has been sleeping in a bed. He has not been wearing his compression. He was treated for cellulitis with Clindamycin 12/01/21 from his PCP at [facility]. He had vascular testing 11/16 which showed incompetence of right superficial saphenous vein. He saw Dr. Bevaer and on 02/28/22 and Inferior vena cava venogram with int ravascular ultrasound of the IVC and bilateral common and external iliac veins and Angioplasty and stenting of the right common iliac vein. He had a follow up with Dr. Beaver on 03/24/22, he is stay on ASA indefinitely and be on Plavix for 1 year, he is to follow up with him in a year for a venous duplex. He presents today, 04/18/22 with a new blister/wound on right great toe. Wound care - Bactroban daily covered wit gauze. He denies any erythema, fever, chills, or odor. There is mild drainage from blisters/ulcers. Progress of Wound: Right great ulcer is stable. No improvement. Objective Data Objective Data Vital Signs: Vital Signs Temp Pulse Resp BP O2 Del Method 97.2 F L 71 16 115/59 L Room Air 04/18/22 14:17 04/18/22 14:17 04/18/22 14:17 04/18/22 14:17 04/18/22 14:17 Oxygen Delivery Method Room Air Weight: 282 lb Body Mass Index (BMI) 42.8 Charges/Coding Procedures Integumentary 111xxx-113xx: 81359 Yudi subq tissue 20 sq cm/< Debridement Note Debridement Note Wound debrided: great toe wound Laterality: Right Wound Grade/Stage: Stage II Type of Debridement: Excisional debridement Anesthesia Used: 5% Lidocaine Gel Depth: Down to and including healthy tissue and in the subcutaneous layer Percentage of wound debrided: 100 Instrument Used: 5mm curette Tissue Removed: Devitalized tissue and slough Severity: Fat Layer Exposed Amount of bleeding with debridement: Mild Bleeding Controlled with: Pressure and Compression and gauze Patient tolerated procedure: Patient tolerated procedure well Post-Debridement Measurements and Additional Note: Post-Debridement Measurements/Treatment - Nurse 1 - General Ulcer Assessment Start: 04/18/22 14:17 Freq: Status: Active Protocol: KATHRYN Activity Type Activity Date Activity User E-sign Co-sign Detail Recorded Client Recorded Date Recorded By Document 04/18/22 14:17 [facility] [id number] 04/18/22 14:23 [facility] 04/18/22 14:17 - Today's Visit Information Type of service Follow-up Visit (Physician/EMERGENCY PLANNING AND RESPONSE MANAGER ) Arrival Mode Ambulatory Transfer Assistance None Accompanied by Patient Identification Verified (Name & Yes ) Patient Requires Transmission-Based No Precautions Finger Stick Blood Sugar(mg/dl) (if 201 indicated): Blood Sugar Stated by Patient Height and Weight Height 5 ft 8 in Weight 282 lb Weight in Pounds 282.0 lbs Body Mass Index (BMI) 42.8 BMI Classification Obese BSA - Cameron 2.37 Vital Signs Temperature (97.8 F-99.1 F) 97.2 F L Temperature Source Temporal Pulse Rate (60-100) 71 Pulse Location Monitor Respiratory Rate (12-18) 16 Respiratory rate source Observation Oxygen Delivery Method Room Air Blood Pressure (90/60-120/80) 115/59 L Blood Pressure Mean (mm Hg) 77 Source Monitor Position Sitting Blood Pressure Location Left Arm History Since Last Visit- (Skip if this is Patient's initial visit) Left Footwear Regular Shoe Right Footwear Regular Shoe Pain Scale: 0-10 Numeric Is Patient Pain Free? Yes - Nurse 1 - General Ulcer Measurement Start: 04/18/22 14:17 Freq: Status: Active Protocol: Activity Type Activity Date Activity User E-sign Co-sign Detail Recorded Client Recorded Date Recorded By Document 04/18/22 14:17 [facility] [id number] 04/18/22 14:23 [facility] 04/18/22 14:17 Wound Center Nurse 1 #4- R GREAT TOE -Combined with other wound No -Current Size (cm) - Length 0.1 -Current Size (cm) - Width 0.1 -Current Size (cm) - Depth 0.1 -Total Square Cm 0.01 -Date of Last Picture (Recall this 04/18/22 field) -Photo Taken Yes -Epithelialization None Present -Tunneling No -Undermining/Tunneling No -Circular Undermining No -Exudate Amt None Present -Wound Margin Distinct, Outline Attached -Texture (Flory-wound Skin Appearance) Assessed -Moisture (Flory-wound Skin Appearance) Assessed,Dry/ Scaly -Color (Flory-wound Skin Appearance) Assessed, Ecchymosis -Temperature (Flory-wound Skin No Abnormality Appearance) (Pt Warm) -Tenderness on Palpation (Flory-wound Yes Skin Appearance) -Ulcer Cleansing Rinsed/ Irrigated with Saline -Foul Odor after Cleansing No -Anesthetic Used 5% Lidocaine Gel WC - Nurse 2 - General Ulcer CM Notes Start: 04/18/22 14:17 Freq: Status: Active Protocol: Activity Type Activity Date Activity User E-sign Co-sign Detail Recorded Client Recorded Date Recorded By Document 04/18/22 14:46 [id number] 04/18/22 14:53 04/18/22 14:46 Wound Center Nurse 2 -Time 14:48 -Correct Patient Yes -Correct Side, Site, Position Yes -Correct Procedure Yes -Procedure Performed Yes -Type of Procedure Debridement -Clinical Debridement Subcutaneous -Tissue Removed Subcutaneous -Post Debridement (cm) - Length 1.0 -Post Debridement (cm) - Width 1.6 -Post Debridement (cm) - Depth 0.1 -Total Square (Post) (cm) 1.60 -Area of Debridement (cm) - Length 1.0 -Area of Debridement (cm) - Width 1.6 -Total Square (Area) (cm) 1.60 -Tunneling No -Undermining/Tunneling No -Circular Undermining No -Wound/Ulcer Outcome Not Healed -Ulcer Cleansing Rinsed/ Irrigated with Saline -Foul Odor after Cleansing No -Bioengineered Tissue No -Bleeding Controlled with Pressure -Treatment Response Procedure Tolerated Well -Offloading Yes -Type of Offloading Surgical Shoe -Debridement - Subq, 1st 20sq cm Yes Pain Scale: 0-10 Numeric Is Patient Pain Free? Yes - Nurse 3 - General Ulcer D/C NN Start: 04/18/22 14:17 Freq: Status: Active Protocol: Activity Type Activity Date Activity User E-sign Co-sign Detail Recorded Client Recorded Date Recorded By Document 04/25/22 14:10 [facility] [id number] 04/25/22 14:10 [facility] 04/25/22 14:10 Wound Care Nurse 3 #4- R GREAT TOE -Ulcer Cleansing Rinsed/ Irrigated with Saline -Negative Pressure Wound Therapy Continue -Setting (mmHg) 150 -Negative Pressure is Continuous -Regranex (If Applicable) Continue -NPWT Application Charge NPWT & Debridement (nc ) Pain Scale: 0-10 Numeric Is Patient Pain Free? Yes WC - Visit Discharge Discharge Condition Stable Ambulatory Status Ambulatory,Cane Transportation Private Auto Assessment/Plan Assessment/Plan (1) Open wound of right great toe without damage to nail: CODE(S): S91.101A - Unspecified open wound of right great toe without damage to nail, initial encounter (2) Edema of both lower extremities: CODE(S): R60.0 - Localized edema (3) Lymphedema of both lower extremities: CODE(S): I89.0 - Lymphedema, not elsewhere classified (4) Diabetes type 2, uncontrolled: CODE(S): E11.65 - Type 2 diabetes mellitus with hyperglycemia QUALIFIERS: Glycemic state: with hyperglycemia Qualified Code(s): E11.65 - Type 2 diabetes mellitus with hyperglycemia (5) Venous (peripheral) insufficiency: CODE(S): I87.2 - Venous insufficiency (chronic) (peripheral) PLAN: Plan Patient was evaluated at the wound center today. Wound care - Moistened Fibrocol + covered with gauze daily after washing with soap and water. Off load- wear Darco shoe to prevent pressure to the toe. Completed Keflex as prescribed by his PCP. He does have a history of significant edema/lymphedema where he often gets blisters that form, drain, and will create wounds. He has not been wearing his compression because it has been too painful to his toe to wear the compression. He obtained his two layer compression stockings that he was instructed how to place them. They are snug but should stretch to make putting the on and off easier. His is here to learn how to place them. Encouraged him to continue to use his home compression pumps. 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 He had been referred to a vascular physician in the past but never went. He states he has lymphedema pumps at home and he uses them. He saw Dr. Beaver and on 02/28/22 and Inferior vena cava venogram with intravascular ultrasound of the IVC and bilateral common and external iliac veins and Angioplasty and stenting of the right common iliac vein. He had a follow up with Dr. Beaver on 03/24/22, he is stay on ASA indefinitely and be on Plavix for 1 year, he is to follow up with him in a year for a venous duplex. Instructed patient that he needs to keep his legs elevated when sitting, avoid standing for long periods of time to prevent further swelling, encouraged him to walk as much as possible. Encourage patient to sleep in a bed instead of a chair, to help with his edema. Reinforced to patient that he will always need to wear compression, for the rest of his life to help prevent the severe edema. Reinforced patient to eat a low carbohydrate and low-sodium diet to help control both his diabetes and his swelling in his legs. Follow-up one week.
[2022-04-25 14:55] VITALS: BP 113/51; PULSE 70; TEMP 36.2; BMI 42.8
== END 2022-04-27 23:59 | disposition home or self-care (01) ==
LOC: WC 14:00
PROVIDERS: PCP Family Medicine; Visit Provider Nurse Practitioner Family
DX: E11.621 Type 2 diabetes mellitus with foot ulcer (principal); L97.512 Non-pressure chronic ulcer of other part of right foot with fat layer exposed; E11.65 Type 2 diabetes mellitus with hyperglycemia; Z68.41 Body mass index [BMI] 40.0-44.9, adult; Z79.4 Long term (current) use of insulin; I25.10 Atherosclerotic heart disease of native coronary artery without angina pectoris; I87.2 Venous insufficiency (chronic) (peripheral); I10 Essential (primary) hypertension; R60.0 Localized edema; I89.0 Lymphedema, not elsewhere classified; G47.33 Obstructive sleep apnea (adult) (pediatric); E66.9 Obesity, unspecified; Z79.82 Long term (current) use of aspirin; Z79.02 Long term (current) use of antithrombotics/antiplatelets; Z79.899 Other long term (current) drug therapy
CPT/HCPCS: 11042

== ENCOUNTER 2022-05-24 08:00 | Outpatient (RCR) | payer MEDICAID, SELFPAY ==
[2022-04-28 00:43] VITALS: BP 113/51; PULSE 70; RESP 16; TEMP 36.2; BMI 42.8
[2022-05-02 13:12] VITALS: BP 121/57; PULSE 65; RESP 20; TEMP 36.5; BMI 42.8
--- NOTE | 2022-05-02 14:47 | PCM.WC.PN ---
History of Present Illness Date of Service: 05/02/22 Chief Complaint: Right great toe ulcer History of Wound: Patient is a pleasant 66 yo gentleman that presents to the wound healing center for evaluation and treatment of chronic blistering and edema to bilateral lower legs. He underwent treatment here last year and was discharged with plan to maintain control of edema with 20-30 mmHg compression stockings. 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 He reports that for the last couple years he has been having intermittent increased swelling in his lower legs and development of blisters bilaterally that break open and become wounds. He reports having blisters that have now healed. He states he has been sleeping in a bed. He has not been wearing his compression. He was treated for cellulitis with Clindamycin 12/01/21 from his PCP at [facility]. He had vascular testing 11/16 which showed incompetence of right superficial saphenous vein. He saw Dr. Beaver and on 02/28/22 and Inferior vena cava venogram with intravascular ultrasound of the IVC and bilateral common and external iliac veins and Angioplasty and stenting of the right common iliac vein. He had a follow up with Dr. Beaver on 03/24/22, he is stay on ASA indefinitely and be on Plavix for 1 year, he is to follow up with him in a year for a venous duplex. He presents today, 04/18/22 with a new blister/wound on right great toe which he obtained when he tripped on weights that were on the floor. He noticed bruising that was no resolving. Wound care - Bactroban daily covered wit gauze. He denies any erythema, fever, chills, or odor. There is drainage/bleeding from blister/ulcer. Progress of Wound: Right great toe ulcer is larger. It has extended and looks much worse. He now has bruising under the nail of the great toe on the lateral aspect of the nail. There is dry scabbing at the tip of the great toe along with some bleeding. He does not want to wear a surgical shoe, therefore his shoes (that are diabetic shoes) are putting pressure on the great toe ulcer. He does have good pedal pulse and capillary refill on the left foot. He has neuropathy in his right great toe. Objective Data Objective Data Vital Signs: Vital Signs Temp Pulse Resp BP 97.7 F L 65 20 H 121/57 H 05/02/22 13:12 05/02/22 13:12 05/02/22 13:12 05/02/22 13:12 Weight: 282 lb Body Mass Index (BMI) 42.8 Charges/Coding Procedures Integumentary [id number]: [id number] Yudi subq tissue 20 sq cm/< Debridement Note Debridement Note Wound debrided: great toe wound Laterality: Right Wound Grade/Stage: Stage II Type of Debridement: Excisional debridement Anesthesia Used: 5% Lidocaine Gel Depth: Down to and including healthy tissue and in the subcutaneous layer Percentage of wound debrided: 100 Instrument Used: 5mm curette and #15 blade (and pickups also used ) Tissue Removed: Devitalized tissue and slough Severity: Fat Layer Exposed Amount of bleeding with debridement: Mild Bleeding Controlled with: Pressure and Compression and gauze Patient tolerated procedure: Patient tolerated procedure well Debridement Free Text: Removed blistered area on the medial aspect of the great toe where there was moisture under it, so that it is easier to do the wound care. Removed dry, scabbing over the tip of the toe. The tissue on the tip is deep red with several deep fissures in the tissue. Post-Debridement Measurements and Additional Note: Post-Debridement Measurements/Treatment - Nurse 1 - General Ulcer Assessment Start: 05/02/22 13:12 Freq: Status: Active Protocol: [email or web address] [email or web address] Activity Type Activity Date Activity User E-sign Co-sign Detail Recorded Client Recorded Date Recorded By Document 05/02/22 13:12 [id number] 05/02/22 13:20 DL 05/02/22 13:12 - Today's Visit Information Type of service Follow-up Visit (Physician/NET SQL DEVELOPER ) Arrival Mode Ambulatory Transfer Assistance None Patient Identification Verified (Name & Yes ) Patient Requires Transmission-Based No Precautions Finger Stick Blood Sugar(mg/dl) (if 201 indicated): Blood Sugar Stated by Patient Height and Weight Body Mass Index (BMI) 42.8 BMI Classification Obese Vital Signs Temperature (97.8 F-99.1 F) 97.7 F L Temperature Source Temporal Pulse Rate (60-100) 65 Pulse Location Monitor Respiratory Rate (12-18) 20 H Respiratory rate source Observation Blood Pressure (90/60-120/80) 121/57 H Blood Pressure Mean (mm Hg) 78 Source Monitor History Since Last Visit- (Skip if this is Patient's initial visit) Have you changed medications since your No last visit? Any new allergies or adverse reactions No Had a fall/change in ADL's that may No increase risk of falls Signs or symptoms of abuse and/or No neglect since last visit Have you been in the hospital since your No last visit? Has dressing in place as prescribed Yes Has compression in place as prescribed N/A Has offloadiing in place as prescribed N/A Experienced any changes in pain level or No management Pain Scale: 0-10 Numeric Is Patient Pain Free? Yes WC - Nurse 1 - General Ulcer Measurement Start: 05/02/22 13:12 Freq: Status: Active Protocol: Activity Type Activity Date Activity User E-sign Co-sign Detail Recorded Client Recorded Date Recorded By Document 05/02/22 13:12 DL [id number] 05/02/22 13:20 DL 05/02/22 13:12 Wound Center Nurse 1 #4- R GREAT TOE -Current Size (cm) - Length 1 -Current Size (cm) - Width 0.5 -Current Size (cm) - Depth 0.5 -Total Square Cm 0.5 -Photo Taken Yes -Exudate Amt Medium -Exudate Type Serosanguineous -Wound Margin Distinct, Outline Attached -Granulation Amt Small (1-33%) -Granulation Quality Red -Necrosis Amt Large (67-100%) -Necrotic Tissue Type Adherent Slough -Structure Exposed N/A -Texture (Flory-wound Skin Appearance) Localized Edema ,Scarring -Color (Flory-wound Skin Appearance) Ecchymosis, Erythema -Temperature (Flory-wound Skin No Abnormality Appearance) (Pt Warm) -Ulcer Cleansing Rinsed/ Irrigated with Saline -Foul Odor after Cleansing No -Anesthetic Used 5% Lidocaine Gel WC - Nurse 2 - General Ulcer CM Notes Start: 05/02/22 13:12 Freq: Status: Active Protocol: Activity Type Activity Date Activity User E-sign Co-sign Detail Recorded Client Recorded Date Recorded By Document 05/02/22 13:45 REMY [id number] 05/02/22 14:03 JF Edit Result 05/02/22 13:45 JF (1) [id number] 05/02/22 14:07 JF (1) #4- R GREAT TOE - Post Debridement (cm) - Length 1.5 => 1.2 - Post Debridement (cm) - Width 1.6 => 2.5 - Total Square (Post) (cm) 2.40 => 3.00 - Area of Debridement (cm) - Length 1.5 => 1.2 - Area of Debridement (cm) - Width 1.6 => 2.5 - Total Square (Area) (cm) 2.40 => 3.00 05/02/22 13:45 Wound Center Nurse 2 -Time 13:49 -Correct Patient Yes -Correct Side, Site, Position Yes -Correct Procedure Yes -Procedure Performed Yes -Type of Procedure Debridement -Clinical Debridement Subcutaneous -Tissue Removed Subcutaneous -Post Debridement (cm) - Length 1.2 -Post Debridement (cm) - Width 2.5 -Post Debridement (cm) - Depth 0.1 -Total Square (Post) (cm) 3.00 -Area of Debridement (cm) - Length 1.2 -Area of Debridement (cm) - Width 2.5 -Total Square (Area) (cm) 3.00 -Undermining/Tunneling No -Circular Undermining No -Wound/Ulcer Outcome Not Healed -Ulcer Cleansing Rinsed/ Irrigated with Saline -Foul Odor after Cleansing No -Bioengineered Tissue No -Bleeding Controlled with Pressure,Silver Nitrate -Treatment Response Procedure Tolerated Well -Offloading No -Debridement - Subq, 1st 20sq cm Yes Pain Scale: 0-10 Numeric Is Patient Pain Free? Yes Assessment/Plan Assessment/Plan (1) Edema of both lower extremities: CODE(S): R60.0 - Localized edema (2) Lymphedema of both lower extremities: CODE(S): I89.0 - Lymphedema, not elsewhere classified (3) Diabetes type 2, uncontrolled: CODE(S): E11.65 - Type 2 diabetes mellitus with hyperglycemia QUALIFIERS: Glycemic state: with hyperglycemia Qualified Code(s): E11.65 - Type 2 diabetes mellitus with hyperglycemia (4) Venous (peripheral) insufficiency: CODE(S): I87.2 - Venous insufficiency (chronic) (peripheral) (5) Skin ulcer of right great toe with fat layer exposed: CODE(S): L97.512 - Non-pressure chronic ulcer of other part of right foot with fat layer exposed (6) Neuropathy: CODE(S): G62.9 - Polyneuropathy, unspecified PLAN: Plan Patient was evaluated at the wound center today. Wound care - Moistened Fibrocol + covered with gauze daily after washing with soap and water. Make sure the gauze is not too tight on his toe. Off load- wear Darco shoe to prevent pressure to the toe. Stressed how important it is to prevent pressure on the right great toe, especially since he has neuropathy in that toe and is not able to feel the pressure on it. Completed Keflex as prescribed by his PCP. He does have a history of significant edema/lymphedema where he often gets blisters that form, drain, and will create wounds. He has not been wearing his compression because it has been too painful to his toe to wear the compression. He obtained his two layer compression stockings that he was instructed how to place them. Encouraged him to continue to use his home compression pumps. 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 He had been referred to a vascular physician in the past but never went. He states he has lymphedema pumps at home and he uses them. He saw Dr. Beaver and on 02/28/22 and Inferior vena cava venogram with intravascular ultrasound of the IVC and bilateral common and external iliac veins and Angioplasty and stenting of the right common iliac vein. He had a follow up with Dr. Beaver on 03/24/22, he is stay on ASA indefinitely and be on Plavix for 1 year, he is to follow up with him in a year for a venous duplex. Instructed patient that he needs to keep his legs elevated when sitting, avoid standing for long periods of time to prevent further swelling. Encourage patient to sleep in a bed instead of a chair, to help with his edema. Reinforced to patient that he will always need to wear compression, for the rest of his life to help prevent the severe edema. Reinforced patient to eat a low carbohydrate and low-sodium diet to help control both his diabetes and his swelling in his legs. Due to the right great toe ulcer rapidly changing, will refer him to one of the podiatrists at the wound healing center for further treatment and management. Will order arterial and venous studies since he has not had any recently. Follow-up one week with one of the podiatrists. Call or come in sooner if develop questions or concerns.
[2022-05-10 08:09] VITALS: BP 125/57; PULSE 65; RESP 18; TEMP 35.4; BMI 42.8
--- NOTE | 2022-05-10 09:25 | HP.PCM_ITS ---
History of Present Illness Date of Service: 05/10/22 Chief Complaint: Right great toe ulcer Progress of Wound: This 66-year old male presents to clinic for a right distal hallux ulceration which started 4 weeks ago when he stubbed his toe on a set of dumbbells on the ground. Patient has been dealing with the issue for 4 weeks. Patient is type II diabetic with peripheral neuropathy. Patient denies any constitutional to current denies any pain to the site. Patient has been noncompliant with use of a surgical shoe stating that it is uncomfortable and he typically wears his diabetic shoes. Patient has been dressing site with Fibracol and cleansing it daily. Patient has no other complaints at this time. [facility] Medical History Adrenal adenoma Ambulates with cane Arthritis Atherosclerosis of coronary artery of [place] heart without angina pectoris Cardiology follow-up encounter Degeneration of cervical disc without myelopathy Degeneration of intervertebral disc Diabetes Diabetes type 2, uncontrolled Epigastric abdominal pain Essential (primary) hypertension Former smoker Former tobacco use Gastric reflux GERD (gastroesophageal reflux disease) Gout Hidradenitis High cholesterol History of claustrophobia History of echocardiogram Hx MRSA infection Hypertension Injury of back Insulin dependent diabetes mellitus Lumbosacral neuritis Microalbuminuria Mixed hyperlipidemia Morbid obesity Neuropathy Non-healing open wound of right groin Nonhealing skin ulcer with fat layer exposed Open wound of right great toe without damage to nail SANIA (obstructive sleep apnea) Pain in limb Personal history of colonic polyps Prurigo nodularis Restless legs Right groin pain Screening for intestinal cancer Shortness of breath on exertion Spondylosis of cervical region without myelopathy or radiculopathy Superficial thrombophlebitis of right leg Walker as ambulation aid Wears dentures Wears glasses Home Medications insulin degludec 200 unit/mL (3 mL) subcutaneous pen (Tresiba FlexTouch U-200 insulin) 128 unit subcut DAILY 03/22/17 [History Last Taken 11/12/17] cyclobenzaprine 10 mg tablet 10 mg PO TID PRN muscle spasm 07/15/20 [History Last Taken Unknown] gabapentin 800 mg tablet 800 mg PO TID Pain 07/15/20 [History Last Taken 02/28/22] metformin 500 mg tablet,extended release 24 hr 1,500 mg PO QAM 07/15/20 [History Last Taken 08/09/20] acetaminophen 650 mg tablet,extended release 650 mg PO Q8H PRN Pain 08/03/21 [History Last Taken Unknown] insulin aspart U-100 100 unit/mL (3 mL) subcutaneous pen 54 unit subcut TID 08/03/21 [History Last Taken Unknown] trazodone 50 mg tablet 50 mg PO QHS PRN Sleep 08/03/21 [History Last Taken Unknown] dulaglutide 0.75 mg/0.5 mL subcutaneous pen injector 0.75 mg subcut QWEEK [History Last Taken Unknown] clopidogrel 75 mg tablet (Plavix) 75 mg PO DAILY #90 tabs 02/28/22 [Rx Last Taken Unknown] albuterol sulfate 90 mcg/actuation aerosol inhaler (ProAir HFA) 2 puff inh alation Q4H PRN 03/08/22 [History Last Taken Unknown] aspirin 81 mg chewable tablet 81 mg PO DAILY@0800 #90 tabs 03/08/22 [Rx Last Taken Unknown] budesonide-formoterol HFA 160 mcg-4.5 mcg/actuation aerosol inhaler (Symbicort) 2 puff inhalation BID 03/08/22 [History Last Taken Unknown] furosemide 40 mg tablet 60 mg PO BID 90 days #270 tabs 03/08/22 [Rx Last Taken Unknown] glycopyrrolate 9 mcg-formoterol 4.8 mcg HFA aerosol inhaler (Bevespi Aerosphere) 2 puff inhalation BID 03/08/22 [History Last Taken Unknown] hydrochlorothiazide 25 mg tablet 25 mg PO DAILY #90 tabs 03/08/22 [Rx Last Taken Unknown] isosorbide mononitrate 60 mg tablet,extended release 24 hr 60 mg PO DAILY #90 tabs 03/08/22 [Rx Last Taken Unknown] losartan 100 mg tablet 100 mg PO DAILY #90 tabs 03/08/22 [Rx Last Taken Unknown] metoprolol succinate 50 mg tablet,extended release 24 hr (Toprol XL) 50 mg PO DAILY #90 tabs 03/08/22 [Rx Last Taken Unknown] omeprazole 20 mg capsule,delayed release 20 mg PO DAILY PRN GERD 03/08/22 [History Last Taken Unknown] rosuvastatin 20 mg tablet 20 mg PO DAILY #90 tabs 03/08/22 [Rx Last Taken Unknown] tiotropium bromide 2.5 mcg/actuation mist for inhalation (Spiriva Respimat) 2 puff inhalation DAILY 03/08/22 [History Last Taken Unknown] potassium chloride 10 mEq capsule,extended release 10 meq PO BID 03/18/22 [History Last Taken Unknown] cephalexin 500 mg capsule 500 mg PO 4X/DAY 04/18/22 [History Last Taken Unknown] mupirocin 2 % topical ointment 1 applic topical TID 04/18/22 [History Last Taken Unknown] Allergy/AdvReac Type Severity Reaction Status Date / Time amlodipine AdvReac lower Verified 03/24/22 10:15 extremity edema Latex, Natural Rubber AdvReac Rash Verified 03/24/22 10:15 Family History Mother Diabetes Hypertension Brain tumor Father Cirrhosis Other High cholesterol Surgical History History of appendectomy History of cholecystectomy History of left heart catheterization (08/10/20) History of myringotomy History of tonsillectomy Hx of surgical procedure Hx of umbilical hernia repair Left ear drum surgery S/P angioplasty with stent (02/28/22) Social History Smoking Status: Former smoker quit date: 05/26/11 pack-years: 25 second hand exposure: No alcohol intake: never substance use type: does not use what type of physical activity do you participate in: none seatbelt use: always ROS Constitutional Constitutional: Denies chills, daytime sleepiness or headache(s) Eyes Eyes: Denies acute decrease in peripheral vision, change in vision or double vision ENT HEENT: Denies change in voice, epistaxis or facial pain Cardiovascular Cardiovascular: Denies abdominal edema, abdominal pain or chest pain at rest Respiratory/Chest Respiratory/Chest: Denies change in phlegm color, dusky skin or dyspnea Gastrointestinal Gastrointestinal: Denies bloating, constipation or cramping Vital Signs Vital Signs Vital Signs: 05/10/22 08:09 Temperature 95.8 F L Temperature Source Temporal Pulse Rate 65 Respiratory Rate 18 Blood Pressure 125/57 H Blood Pressure Mean 79 Blood Pressure Source Monitor Blood Pressure Position Sitting Blood Pressure Location Right Arm Oxygen Delivery Method Room Air Weight Weight: 127.913 kg Body Mass Index (BMI) 42.8 Physical Exam Narrative Patient alert oriented person place and time. Patient ambulating without assistance and diabetic shoe gear. Vascular: Dorsalis pedis posterior tibial pulses palpable 1 out of 4 bilateral lower extremity. Absent digital hair growth. Skin thinning atrophic changes noted. No gross edema. Neurologic light touch protective sensation absent to bilateral feet. Dermatologic: Full-thickness ulceration to distal tuft of the right hallux. Onycholytic nail noted. Predebridement the wound was small, upon debridement the tip of toenail was removed atraumatically and nailbed wound was noted as well as an increased wound size. No evidence of deep probing undermining. Mild erythema to site secondary likely secondary to trauma no other signs of infection. Musculoskeletal: No gross deformity contributing to wound formation. Muscular strength full to bilateral lower extremity compartments. Debridement Note Debridement Note Post-Debridement Measurements and Additional Note: Post-Debridement Measurements/Treatment ALMITA - Nurse 1 - General Ulcer Assessment Start: 05/02/22 13:12 Freq: Status: Active Protocol: KATHRYN Activity Type Activity Date Activity User E-sign Co-sign Detail Recorded Client Recorded Date Recorded By Document 05/02/22 13:12 DL [id number] 05/02/22 13:20 DL Document 05/10/22 08:09 MW [id number] 05/10/22 08:14 MW 05/02/22 05/10/22 13:12 08:09 - Today's Visit Information Type of service Follow-up Visit Follow-up Visit (Physician/EXHIBITS CURATOR (Physician/EXHIBITS CURATOR ) ) Arrival Mode Ambulatory Ambulatory Transfer Assistance None None Accompanied by Patient Identification Verified (Name & Yes Yes ) Patient Requires Transmission-Based No No Precautions Finger Stick Blood Sugar(mg/dl) (if 201 indicated): Blood Sugar Stated by Patient Height and Weight Body Mass Index (BMI) 42.8 42.8 BMI Classification Obese Obese Vital Signs Temperature (97.8 F-99.1 F) 97.7 F L 95.8 F L Temperature Source Temporal Temporal Pulse Rate (60-100) 65 65 Pulse Location Monitor Monitor Respiratory Rate (12-18) 20 H 18 Respiratory rate source Observation Observation Oxygen Delivery Method Room Air Blood Pressure (90/60-120/80) 121/57 H 125/57 H Blood Pressure Mean 78 79 Source Monitor Monitor Position Sitting Blood Pressure Location Right Arm History Since Last Visit- (Skip if this is Patient's initial visit) Have you changed medications since your No No last visit? Any new allergies or adverse reactions No No Had a fall/change in ADL's that may No No increase risk of falls Signs or symptoms of abuse and/or No No neglect since last visit Have you been in the hospital since your No No last visit? Has dressing in place as prescribed Yes No Has compression in place as prescribed N/A Yes Has offloadiing in place as prescribed N/A N/A Experienced any changes in pain level or No management Left Footwear Regular Shoe Right Footwear Regular Shoe Pain Scale: 0-10 Numeric Is Patient Pain Free? Yes Yes WC - Nurse 1 - General Ulcer Measurement Start: 05/02/22 13:12 Freq: Status: Active Protocol: Activity Type Activity Date Activity User E-sign Co-sign Detail Recorded Client Recorded Date Recorded By Document 05/02/22 13:12 DL [id number] 05/02/22 13:20 DL Document 05/10/22 08:09 MW [id number] 05/10/22 08:14 MW 05/02/22 05/10/22 13:12 08:09 Wound Center Nurse 1 #4- R GREAT TOE -Combined with other wound No -Current Size (cm) - Length 1 2.0 -Current Size (cm) - Width 0.5 5.5 -Current Size (cm) - Depth 0.5 0.1 -Total Square Cm 0.5 11.00 -Date of Last Picture (Recall this 05/10/22 field) -Photo Taken Yes Yes -Epithelialization None Present -Tunneling No -Undermining/Tunneling No -Circular Undermining No -Exudate Amt Medium Small -Exudate Type Serosanguineous Serosanguineous -Wound Margin Distinct, Flat & Intact Outline Attached -Granulation Amt Small (1-33%) Small (1-33%) -Granulation Quality [place] -Slough/Fibrin Yes -Necrosis Amt Large (67-100%) Large (67-100%) -Necrotic Tissue Type Adherent Slough Adherent Slough -Structure Exposed N/A N/A -Texture (Flory-wound Skin Appearance) Localized Edema Assessed, ,Scarring Localized Edema -Moisture (Flory-wound Skin Appearance) Assessed,Dry/ Scaly -Color (Lfory-wound Skin Appearance) Ecchymosis, No Abnormality, Erythema Assessed -Temperature (Flory-wound Skin No Abnormality No Abnormality Appearance) (Pt Warm) (Pt Warm) -Tenderness on Palpation (Flory-wound No Skin Appearance) -Ulcer Cleansing Rinsed/ Rinsed/ Irrigated with Irrigated with Saline Saline -Foul Odor after Cleansing No No -Anesthetic Used 5% Lidocaine 5% Lidocaine Gel Gel Lower Limb Edema Present No WC - Nurse 2 - General Ulcer CM Notes Start: 05/02/22 13:12 Freq: Status: Active Protocol: Activity Type Activity Date Activity User E-sign Co-sign Detail Recorded Client Recorded Date Recorded By Document 05/02/22 13:45 [id number] 05/02/22 14:03 Edit Result 05/02/22 13:45 JF (1) [id number] 05/02/22 14:07 Document 05/10/22 08:26 [id number] 05/10/22 08:30 (1) #4- R GREAT TOE - Post Debridement (cm) - Length 1.5 => 1.2 - Post Debridement (cm) - Width 1.6 => 2.5 - Total Square (Post) (cm) 2.40 => 3.00 - Area of Debridement (cm) - Length 1.5 => 1.2 - Area of Debridement (cm) - Width 1.6 => 2.5 - Total Square (Area) (cm) 2.40 => 3.00 05/02/22 05/10/22 13:45 08:26 Wound Center Nurse 2 #4- R GREAT TOE -Time 13:49 08:27 -Correct Patient Yes Yes -Correct Side, Site, Position Yes Yes -Correct Procedure Yes Yes -Procedure Performed Yes Yes -Type of Procedure Debridement Debridement -Clinical Debridement Subcutaneous Subcutaneous -Tissue Removed Subcutaneous Subcutaneous -Post Debridement (cm) - Length 1.2 3.5 -Post Debridement (cm) - Width 2.5 3.6 -Post Debridement (cm) - Depth 0.1 0.2 -Total Square (Post) (cm) 3.00 12.60 -Area of Debridement (cm) - Length 1.2 3.5 -Area of Debridement (cm) - Width 2.5 3.6 -Total Square (Area) (cm) 3.00 12.60 -Tunneling No -Undermining/Tunneling No No -Circular Undermining No No -Wound/Ulcer Outcome Not Healed Not Healed -Ulcer Cleansing Rinsed/ Rinsed/ Irrigated with Irrigated with Saline Saline -Foul Odor after Cleansing No No -Bioengineered Tissue No No -Bleeding Controlled with Pressure,Silver Pressure Nitrate -Treatment Response Procedure Procedure Tolerated Well Tolerated Well -Offloading No Yes -Type of Offloading Surgical Shoe -Debridement - Subq, 1st 20sq cm Yes Yes Pain Scale: 0-10 Numeric Is Patient Pain Free? Yes Yes WC - Nurse 3 - General Ulcer D/C NN Start: 05/02/22 13:12 Freq: Status: Active Protocol: Activity Type Activity Date Activity User E-sign Co-sign Detail Recorded Client Recorded Date Recorded By Document 05/10/22 08:36 [facility] [id number] 05/10/22 08:37 [facility] 05/10/22 08:36 Wound Care Nurse 3 #4- R GREAT TOE -Ulcer Cleansing Soap and Water -Foul Odor after Cleansing No -Other Dressing betadine paint; secured w/ coban -Primary Dressing Covered/Secured with Dry Gauze -Other Covering drsg per mw rn Treatment Response Procedure Tolerated Well Pain Scale: 0-10 Numeric Is Patient Pain Free? Yes Assessment/Plan Assessment/Plan (1) Type 2 diabetes mellitus with diabetic polyneuropathy: CODE(S): E11.42 - Type 2 diabetes mellitus with diabetic polyneuropathy (2) Non-pressure chronic ulcer of other part of right foot with fat layer exposed: CODE(S): L97.512 - Non-pressure chronic ulcer of other part of right foot with fat layer exposed PLAN: Exam performed, all findings discussed with patient. Order radiographs to foot rule out deep tissue injury. Patient missed his arterial studies due to illness. Planning to reschedule. Patient noncompliant with offloading via surgical shoe. Discussed this with patient in detail. Recommended use of surgical shoe to prevent wound worsening. Discussed that any delays in healing may increase risk of infection which could be potentially life or limb threatening. Wound was excisionally debrided to the right hallux down to including level subcutaneous tissue of all nonviable tissue using a #15 blade without incident. Hemostasis obtained with light compression. No anesthesia due to neuropathy. Patient tolerated procedure well. Pre and postdebridement measurements document nursing notes. Wound dressed with Betadine paint DSD, patient will cleanse site daily with soap and water dressed with Betadine paint and DSD. Patient will offload site with surgical shoe. Per patient he is uncertain of his most recent A1c reporting that is around 7. Discussed that tight blood glucose regulation is essential to wound healing. No concerns for infection at this time. Will consider nutritional supplementation advanced wound care products pending any delays in healing. Follow-up in 1 week
--- NOTE | 2022-05-16 12:47 | VDLE_ITS ---
Reason For Study: Ulcer RIGHT LEFT CFV is compressible, spontaneous, phasic, CFV is compressible, spontaneous, phasic, competent and demonstrates normal competent, and demonstrates normal augmentation. augmentation. FV is compressible, spontaneous, phasic, FV is compressible, spontaneous, phasic, competent and demonstrates normal competent and demonstrates normal augmentation. augmentation. POP V is compressible, spontaneous, phasic, POP V is compressible, spontaneous, phasic, competent and demonstrates normal competent and demonstrates normal augmentation. augmentation. T/P Trunk is compressible. T/P Trunk is compressible. PTV is compressible. PTV is compressible. RT PerV is compressible. LT PerV is compressible. SFJ is competent and measures 0.88 x 0.97 cm. SFJ is competent and measures 0.99 x 0.99 cm. GSV proximal thigh measures 0.61 x 0.65 cm. GSV proximal thigh measures 0.56 x 0.56 cm. GSV at knee measures 0.52 x 0.53 cm. GSV at knee measures 0.36 x 0.34 cm. GSV is competent throughout. GSV is competent throughout. SSV at junction is competent and measures SSV proximal calf is competent and measures 0.35 x 0.36 cm. 0.12 x 0.13 cm. Procedure This is a venous duplex using B-mode, color flow and spectral Doppler. Exam performed in department. Patient was scanned in reverse Trendelenburg position during reflux assessment. VL/Venous Duplex US - Caesar Extrem Interpretation Summary Deep veins of the bilateral lower extremities are patent and compressible segme ntally. There is no evidence of bilateral lower extremity deep vein thrombosis. The bilateral great saphenous veins appear patent and compressible segmentally. Negative for reflux bilateral Ordering Physician: Ivett Matias Referring Physician: Domo Richards Performed By: Dalia Etienne RVT
--- NOTE | 2022-05-16 12:47 | ART_ITS ---
Reason For Study: Ulcer Procedure A bilateral lower extremity continuous wave Doppler with analog waveform analysis,segmental pressures,and ankle brachial indexes without exercise. Left Segmental Pressures Left posterior tibial artery = 143mmHg. Left dorsalis pedis artery = >254mmHg. Left digit = 106 mmHg. The left dorsalis pedis waveforms are triphasic. The left posterior tibial artery waveforms are triphasic. Right Segmental Pressures Right brachial= 141mmHg. Right posterior tibial artery = 147mmHg. Right dorsalis pedis artery = 206mmHg. The right dorsalis pedis waveforms are triphasic. The right posterior tibial artery waveforms are triphasic. Indices The right ankle brachial index by the dorsalis pedis is 1.46. The right ankle brachial index by the posterior tibial artery is 1.04. The left ankle brachial index by the dorsalis pedis is NC. The left ankle brachial index by the posterior tibial artery is 1.01. The left digital-brachial index is 0.75. VL/Lower Ext Art Exam w/o Exercis Interpretation Summary Right OMAR 1.46, may be artificially elevated due to non-compressible vessels. D oppler/PVR waveforms of the right leg normal at rest. No TBI performed Left OMAR 1.01, normal. TBI and Doppler/PVR waveforms of the left leg normal at rest. Ordering Physician: Ivett Matias Referring Physician: Domo Richards Performed By: Dalia Etienne RVT
[2022-05-17 08:26] VITALS: BP 150/85; PULSE 67; RESP 16; TEMP 36.3; BMI 42.8
[2022-05-24 08:12] VITALS: BP 100/51; PULSE 73; RESP 18; TEMP 36.9; BMI 42.8
--- NOTE | 2022-05-24 09:17 | PN.PCM_ITS ---
History of Present Illness Date of Service: 05/24/22 Chief Complaint: Right great toe ulcer Progress of Wound: Patient presents with a small residual diabetic ulceration to the right medial hallux. Patient denies constitutional. Notes improvement. Denies pain. Patient notes that he does wear his surgical shoe when at home but due to cold weather wore his diabetic shoe gear today. Objective Data Objective Data Vital Signs: Vital Signs Temp Pulse Resp BP O2 Del Method 98.5 F 73 18 100/51 L Room Air 05/24/22 08:12 05/24/22 08:12 05/24/22 08:12 05/24/22 08:12 05/24/22 08:12 Oxygen Delivery Method Room Air Weight: 127.913 kg Body Mass Index (BMI) 42.8 Physical Exam Narrative Patient alert oriented person place and time. Patient ambulating without assistance and diabetic shoe gear. Vascular: Dorsalis pedis posterior tibial pulses palpable 1 out of 4 bilateral lower extremity. Absent digital hair growth. Skin thinning atrophic changes noted. No gross edema. Neurologic light touch protective sensation absent to bilateral feet. Dermatologic: Full-thickness wound to right medial hallucal IPJ. Demonstrates mixed fiber granular base. Debridement, 100% granular base postdebridement. Some periwound hyperkeratosis noted. Musculoskeletal: Hallux limitus noted to the right foot. May be contributing to wound formation. Muscular strength full to bilateral lower extremity compartments. Debridement Note Debridement Note Post-Debridement Measurements and Additional Note: Post-Debridement Measurements/Treatment - Nurse 1 - General Ulcer Assessment Start: 05/02/22 13:12 Freq: Status: Active Protocol: KATHRYN Activity Type Activity Date Activity User E-sign Co-sign Detail Recorded Client Recorded Date Recorded By Document 05/02/22 13:12 DL [id number] 05/02/22 13:20 DL Document 05/10/22 08:09 MW [id number] 05/10/22 08:14 MW Document 05/17/22 08:26 [id number] 05/17/22 08:28 Document 05/24/22 08:12 [id number] 05/24/22 08:19 MW 05/02/22 05/10/22 05/17/22 13:12 08:09 08:26 - Today's Visit Information Type of service Follow-up Visit Follow-up Visit Nurse-only (Physician/SOFTWARE DEVELOPMENT ADVISOR (Physician/SOFTWARE DEVELOPMENT ADVISOR Visit ) ) Arrival Mode Ambulatory Ambulatory Ambulatory Transfer Assistance None None Transfer Assist (Other) Accompanied by Patient Identification Verified (Name & Yes Yes Yes ) Patient Requires Transmission-Based No No No Precautions Safety Precautions Finger Stick Blood Sugar(mg/dl) (if 201 indicated): Blood Sugar Stated by Patient Height and Weight Body Mass Index (BMI) 42.8 42.8 42.8 BMI Classification Obese Obese Obese Vital Signs Temperature (97.8 F-99.1 F) 97.7 F L 95.8 F L 97.3 F L Temperature Source Temporal Temporal Temporal Pulse Rate (60-100) 65 65 67 Pulse Location Monitor Monitor Monitor Respiratory Rate (12-18) 20 H 18 16 Respiratory rate source Observation Observation Observation Oxygen Delivery Method Room Air Blood Pressure (90/60-120/80) 121/57 H 125/57 H 150/85 H Blood Pressure Mean (mm Hg) 78 79 106 Source Monitor Monitor Monitor Position Sitting Semi-Fowlers Blood Pressure Location Right Arm Right Arm History Since Last Visit- (Skip if this is Patient's initial visit) Have you changed medications since your No No last visit? Any new allergies or adverse reactions No No Had a fall/change in ADL's that may No No increase risk of falls Signs or symptoms of abuse and/or No No neglect since last visit Have you been in the hospital since your No No last visit? Has dressing in place as prescribed Yes No Has compression in place as prescribed N/A Yes Has offloadiing in place as prescribed N/A N/A Experienced any changes in pain level or No management Left Footwear Regular Shoe Diabetic Shoe Right Footwear Regular Shoe Diabetic Shoe Pain Scale: 0-10 Numeric Is Patient Pain Free? Yes Yes Yes 05/24/22 08:12 - Today's Visit Information Type of service Follow-up Visit (Physician/SOFTWARE DEVELOPMENT ADVISOR ) Arrival Mode Ambulatory Transfer Assistance None Transfer Assist (Other) Accompanied by Patient Identification Verified (Name & Yes ) Patient Requires Transmission-Based No Precautions Safety Precautions NA Finger Stick Blood Sugar(mg/dl) (if indicated): Blood Sugar Height and Weight Body Mass Index (BMI) 42.8 BMI Classification Obese Vital Signs Temperature (97.8 F-99.1 F) 98.5 F Temperature Source Temporal Pulse Rate (60-100) 73 Pulse Location Monitor Respiratory Rate (12-18) 18 Respiratory rate source Observation Oxygen Delivery Method Room Air Blood Pressure (90/60-120/80) 100/51 L Blood Pressure Mean (mm Hg) 67 Source Monitor Position Sitting Blood Pressure Location Right Arm History Since Last Visit- (Skip if this is Patient's initial visit) Have you changed medications since your No last visit? Any new allergies or adverse reactions No Had a fall/change in ADL's that may No increase risk of falls Signs or symptoms of abuse and/or No neglect since last visit Have you been in the hospital since your No last visit? Has dressing in place as prescribed Yes Has compression in place as prescribed Yes Has offloadiing in place as prescribed N/A Experienced any changes in pain level or No management Left Footwear Regular Shoe Right Footwear Regular Shoe Pain Scale: 0-10 Numeric Is Patient Pain Free? Yes WC - Nurse 1 - General Ulcer Measurement Start: 05/02/22 13:12 Freq: Status: Active Protocol: Activity Type Activity Date Activity User E-sign Co-sign Detail Recorded Client Recorded Date Recorded By Document 05/02/22 13:12 DL [id number] 05/02/22 13:20 DL Document 05/10/22 08:09 MW [id number] 05/10/22 08:14 MW Document 05/17/22 08:26 [id number] 05/17/22 08:28 JF Document 05/24/22 08:12 [id number] 05/24/22 08:19 MW 05/02/22 05/10/22 05/17/22 13:12 08:09 08:26 Wound Center Nurse 1 #4- R GREAT TOE -Combined with other wound No No -Current Size (cm) - Length 1 2.0 0.9 -Current Size (cm) - Width 0.5 5.5 0.4 -Current Size (cm) - Depth 0.5 0.1 0.1 -Total Square Cm 0.5 11.00 0.36 -Date of Last Picture (Recall this 05/10/22 field) -Photo Taken Yes Yes No -Epithelialization None Present Small 1-33% -Tunneling No No -Undermining/Tunneling No No -Circular Undermining No No -Exudate Amt Medium Small Small -Exudate Type Serosanguineous Serosanguineous Serosanguineous -Wound Margin Distinct, Flat & Intact Flat & Intact Outline Attached -Granulation Amt Small (1-33%) Small (1-33%) Medium (34-66%) -Granulation Quality [place] Red -Slough/Fibrin Yes Yes -Necrosis Amt Large (67-100%) Large (67-100%) Medium (34-66%) -Necrotic Tissue Type Adherent Slough Adherent Slough Adherent Slough -Structure Exposed N/A N/A N/A -Texture (Flory-wound Skin Appearance) Localized Edema Assessed, Assessed ,Scarring Localized Edema -Moisture (Flory-wound Skin Appearance) Assessed,Dry/ Assessed,Dry/ Scaly Scaly -Color (Flory-wound Skin Appearance) Ecchymosis, No Abnormality, Assessed Erythema Assessed -Temperature (Flory-wound Skin No Abnormality No Abnormality No Abnormality Appearance) (Pt Warm) (Pt Warm) (Pt Warm) -Tenderness on Palpation (Flory-wound No No Skin Appearance) -Ulcer Cleansing Rinsed/ Rinsed/ Soap and Water Irrigated with Irrigated with Saline Saline -Foul Odor after Cleansing No No -Anesthetic Used 5% Lidocaine 5% Lidocaine Gel Gel Lower Limb Edema Present No NA 05/24/22 08:12 Wound Center Nurse 1 #4- R GREAT TOE -Combined with other wound No -Current Size (cm) - Length 0.1 -Current Size (cm) - Width 0.1 -Current Size (cm) - Depth 0.1 -Total Square Cm 0.01 -Date of Last Picture (Recall this 05/24/22 field) -Photo Taken Yes -Epithelialization None Present -Tunneling No -Undermining/Tunneling No -Circular Undermining No -Exudate Amt None Present -Exudate Type -Wound Margin Flat & Intact -Granulation Amt None Present (0 %) -Granulation Quality N/A -Slough/Fibrin Yes -Necrosis Amt Large (67-100%) -Necrotic Tissue Type Adherent Slough -Structure Exposed N/A -Texture (Flory-wound Skin Appearance) Assessed,Callus -Moisture (Flory-wound Skin Appearance) Assessed,Dry/ Scaly -Color (Flory-wound Skin Appearance) No Abnormality, Assessed -Temperature (Flory-wound Skin No Abnormality Appearance) (Pt Warm) -Tenderness on Palpation (Flory-wound No Skin Appearance) -Ulcer Cleansing Rinsed/ Irrigated with Saline -Foul Odor after Cleansing No -Anesthetic Used 5% Lidocaine Gel Lower Limb Edema Present No WC - Nurse 2 - General Ulcer CM Notes Start: 05/02/22 13:12 Freq: Status: Active Protocol: Activity Type Activity Date Activity User E-sign Co-sign Detail Recorded Client Recorded Date Recorded By Document 05/02/22 13:45 [id number] 05/02/22 14:03 Edit Result 05/02/22 13:45 JF (1) [id number] 05/02/22 14:07 Document 05/10/22 08:26 [id number] 05/10/22 08:30 Document 05/24/22 08:34 [id number] 05/24/22 08:36 JF (1) #4- R GREAT TOE - Post Debridement (cm) - Length 1.5 => 1.2 - Post Debridement (cm) - Width 1.6 => 2.5 - Total Square (Post) (cm) 2.40 => 3.00 - Area of Debridement (cm) - Length 1.5 => 1.2 - Area of Debridement (cm) - Width 1.6 => 2.5 - Total Square (Area) (cm) 2.40 => 3.00 05/02/22 05/10/22 05/24/22 13:45 08:26 08:34 Wound Center Nurse 2 #4- R GREAT TOE -Time 13:49 08:27 08:34 -Correct Patient Yes Yes Yes -Correct Side, Site, Position Yes Yes Yes -Correct Procedure Yes Yes Yes -Procedure Performed Yes Yes Yes -Type of Procedure Debridement Debridement Debridement -Clinical Debridement Subcutaneous Subcutaneous Subcutaneous -Tissue Removed Subcutaneous Subcutaneous Subcutaneous -Post Debridement (cm) - Length 1.2 3.5 1.5 -Post Debridement (cm) - Width 2.5 3.6 0.7 -Post Debridement (cm) - Depth 0.1 0.2 0.1 -Total Square (Post) (cm) 3.00 12.60 1.05 -Area of Debridement (cm) - Length 1.2 3.5 1.5 -Area of Debridement (cm) - Width 2.5 3.6 0.7 -Total Square (Area) (cm) 3.00 12.60 1.05 -Tunneling No No -Undermining/Tunneling No No No -Circular Undermining No No No -Wound/Ulcer Outcome Not Healed Not Healed Not Healed -Ulcer Cleansing Rinsed/ Rinsed/ Rinsed/ Irrigated with Irrigated with Irrigated with Saline Saline Saline -Foul Odor after Cleansing No No No -Bioengineered Tissue No No No -Bleeding Controlled with Pressure,Silver Pressure Pressure Nitrate -Treatment Response Procedure Procedure Procedure Tolerated Well Tolerated Well Tolerated Well -Offloading No Yes No -Type of Offloading Surgical Shoe -Debridement - Subq, 1st 20sq cm Yes Yes Yes Pain Scale: 0-10 Numeric Is Patient Pain Free? Yes Yes Yes - Nurse 3 - General Ulcer D/C NN Start: 05/02/22 13:12 Freq: Status: Active Protocol: Activity Type Activity Date Activity User E-sign Co-sign Detail Recorded Client Recorded Date Recorded By Document 05/10/22 08:36 [facility] [id number] 05/10/22 08:37 [facility] Document 05/17/22 08:26 [id number] 05/17/22 08:28 Document 05/24/22 08:45 [id number] 05/24/22 08:46 MW 05/10/22 05/17/22 05/24/22 08:36 08:26 08:45 Wound Care Nurse 3 #4- R GREAT TOE -Ulcer Cleansing Soap and Water Rinsed/ Rinsed/ Irrigated with Irrigated with Saline Saline -Foul Odor after Cleansing No No No -Negative Pressure Wound Therapy N/A -Primary Dressing Applied C Hydrogel ($) -Other Dressing betadine paint; betadine secured w/ coban -Primary Dressing Covered/Secured with Dry Gauze Dry Gauze, Dry Gauze, Secured with Secured with Tape Tape -Other Covering drsg per mw randi varghese to secure Treatment Response Procedure Procedure Tolerated Well Tolerated Well Vital Signs Temperature (97.8 F-99.1 F) 97.3 F L Temperature Source Temporal Pulse Rate (60-100) 67 Pulse Location Monitor Respiratory Rate (12-18) 16 Respiratory rate source Observation Blood Pressure (90/60-120/80) 150/85 H Blood Pressure Mean (mm Hg) 106 Source Monitor Position Semi-Fowlers Blood Pressure Location Right Arm Pain Scale: 0-10 Numeric Is Patient Pain Free? Yes Yes Yes Teaching: Wound Center Dressing Your Wound -Person Taught Patient,Family -Teaching Method Discussion, Demonstration -Response to teaching Verbalize understanding WC - Visit Discharge Discharge Condition Stable Stable Ambulatory Status Ambulatory Ambulatory Transportation Private Auto Private Auto Accompanied by Medication Reconcilliation completed & Yes No provided to patient/care provider Clinical Summary of Care Provided Yes Yes Notes: Patient's wound in stable, they will continue with soap and water for cleaning and betadine/ gauze daily. Patient is scheduled to return to see Dr Elmore next Monday. Assessment/Plan Assessment/Plan (1) Non-pressure chronic ulcer of other part of right foot with fat layer exposed: CODE(S): L97.512 - Non-pressure chronic ulcer of other part of right foot with fat layer exposed PLAN: Exam performed. Arterial studies reviewed demonstrate adequate blood flow at this time. The patient may have some calcified vessels, but no vascular referral indicated at this time. Wound to the right medial hallucal IPJ was excisionally debrided down to including level of subcutaneous tissue of all nonviable tissue using a #15 blade without incident. Patient tolerated procedure well. Oral consent was obtained. Hemostasis obtained with light compression. Pre and postdebridement measurements document nursing notes. Will transition dressing to daily cleanses with soap and water washing dressing hydrogel directly to the wound site along with a dry sterile dressing. Discussed multiple offloading options. At this time patient will continue surgical shoe with heel weightbearing. We will consider total contact cast and follow-up. There is an issue with driving which is why is deferred today. Follow-up in 1 week. (2) Type 2 diabetes mellitus with diabetic polyneuropathy: CODE(S): E11.42 - Type 2 diabetes mellitus with diabetic polyneuropathy
== END 2022-05-28 23:59 | disposition home or self-care (01) ==
LOC: WC 08:00
PROVIDERS: PCP Family Medicine; Visit Provider Podiatrist
DX: E11.621 Type 2 diabetes mellitus with foot ulcer (principal); L97.512 Non-pressure chronic ulcer of other part of right foot with fat layer exposed; E11.65 Type 2 diabetes mellitus with hyperglycemia; E11.42 Type 2 diabetes mellitus with diabetic polyneuropathy; Z68.41 Body mass index [BMI] 40.0-44.9, adult; Z79.4 Long term (current) use of insulin; R60.0 Localized edema; M20.5X1 Other deformities of toe(s) (acquired), right foot; I89.0 Lymphedema, not elsewhere classified; I10 Essential (primary) hypertension; E78.00 Pure hypercholesterolemia, unspecified; I87.2 Venous insufficiency (chronic) (peripheral); I25.10 Atherosclerotic heart disease of native coronary artery without angina pectoris; E66.9 Obesity, unspecified; G47.33 Obstructive sleep apnea (adult) (pediatric); Z79.82 Long term (current) use of aspirin; Z79.02 Long term (current) use of antithrombotics/antiplatelets; Z79.899 Other long term (current) drug therapy; Z87.891 Personal history of nicotine dependence; L60.1 Onycholysis
CPT/HCPCS: 11042; 93923; 93970; 99212; G0463

== ENCOUNTER 2022-06-14 08:00 | Outpatient (RCR) | payer MEDICAID, SELFPAY ==
[2022-05-29 00:34] VITALS: BP 100/51; PULSE 73; RESP 18; TEMP 36.9; BMI 42.8
[2022-05-31 08:06] VITALS: BP 148/92; PULSE 75; RESP 16; TEMP 36.1; BMI 42.8
--- NOTE | 2022-05-31 08:46 | PN.PCM_ITS ---
History of Present Illness Date of Service: 05/31/22 Chief Complaint: Right great toe ulcer Progress of Wound: Patient following up on right medial hallux wound. denies constitutionals, compliance with weighbtearing restrictions, dressing care. Patient controlling his blood sugar well. no other complaints. Objective Data Objective Data Vital Signs: Vital Signs Temp Pulse Resp BP O2 Del Method 96.9 F L 75 16 148/92 H Room Air 05/31/22 08:06 05/31/22 08:06 05/31/22 08:06 05/31/22 08:06 05/31/22 08:06 Oxygen Delivery Method Room Air Weight: 127.913 kg Body Mass Index (BMI) 42.8 Physical Exam Narrative Patient alert oriented person place and time. Patient ambulating without assistance and diabetic shoe gear. Vascular: Dorsalis pedis posterior tibial pulses palpable 1 out of 4 bilateral lower extremity. Absent digital hair growth. Skin thinning atrophic changes noted. No gross edema. Neurologic light touch protective sensation absent to bilateral feet. Dermatologic: Full-thickness wound to right medial hallucal IPJ. Demonstrates mixed fiber granular base. Debridement, 100% granular base postdebridement. Some periwound hyperkeratosis noted. Musculoskeletal: Hallux limitus noted to the right foot. May be contributing to wound formation. Muscular strength full to bilateral lower extremity compartments. Debridement Note Debridement Note Post-Debridement Measurements and Additional Note: Post-Debridement Measurements/Treatment - Nurse 1 - General Ulcer Assessment Start: 05/31/22 08:06 Freq: Status: Active Protocol: .LOWEXT Activity Type Activity Date Activity User E-sign Co-sign Detail Recorded Client Recorded Date Recorded By Document 05/31/22 08:06 [facility] [id number] 05/31/22 08:13 [facility] 05/31/22 08:06 - Today's Visit Information Type of service Follow-up Visit (Physician/TESTER ELECTRONIC SCALE ) Arrival Mode Ambulatory Transfer Assistance None Accompanied by Patient Identification Verified (Name & Yes ) Patient Requires Transmission-Based No Precautions Height and Weight Body Mass Index (BMI) 42.8 BMI Classification Obese Vital Signs Temperature (97.8 F-99.1 F) 96.9 F L Temperature Source Temporal Pulse Rate (60-100) 75 Pulse Location Monitor Respiratory Rate (12-18) 16 Respiratory rate source Observation Oxygen Delivery Method Room Air Blood Pressure (90/60-120/80) 148/92 H Blood Pressure Mean (mm Hg) 110 Source Monitor Position Sitting Blood Pressure Location Right Forearm History Since Last Visit- (Skip if this is Patient's initial visit) Have you changed medications since your No last visit? Any new allergies or adverse reactions No Had a fall/change in ADL's that may No increase risk of falls Signs or symptoms of abuse and/or No neglect since last visit Have you been in the hospital since your No last visit? Has dressing in place as prescribed Yes Has compression in place as prescribed N/A Has offloadiing in place as prescribed N/A Experienced any changes in pain level or No management Left Footwear Diabetic Shoe Right Footwear Diabetic Shoe Pain Scale: 0-10 Numeric Is Patient Pain Free? Yes WC - Nurse 1 - General Ulcer Measurement Start: 05/31/22 08:06 Freq: Status: Active Protocol: Activity Type Activity Date Activity User E-sign Co-sign Detail Recorded Client Recorded Date Recorded By Document 05/31/22 08:06 [facility] [id number] 05/31/22 08:13 [facility] 05/31/22 08:06 Wound Center Nurse 1 #4- R GREAT TOE -Combined with other wound No -Current Size (cm) - Length 0.1 -Current Size (cm) - Width 0.1 -Current Size (cm) - Depth 0.1 -Total Square Cm 0.01 -Date of Last Picture (Recall this 05/31/22 field) -Photo Taken Yes -Epithelialization None Present -Tunneling No -Undermining/Tunneling No -Circular Undermining No -Exudate Amt None Present -Wound Margin Distinct, Outline Attached -Granulation Amt None Present (0 %) -Slough/Fibrin Yes -Necrosis Amt Large (67-100%) -Necrotic Tissue Type Eschar -Texture (Flory-wound Skin Appearance) Assessed, Scarring -Moisture (Flory-wound Skin Appearance) Assessed,Dry/ Scaly -Color (Flory-wound Skin Appearance) Assessed -Temperature (Flory-wound Skin No Abnormality Appearance) (Pt Warm) -Tenderness on Palpation (Flory-wound No Skin Appearance) -Ulcer Cleansing Rinsed/ Irrigated with Saline -Foul Odor after Cleansing No -Anesthetic Used 5% Lidocaine Gel #5- R LAT GR TOE -Combined with other wound No -Current Size (cm) - Length 0.7 -Current Size (cm) - Width 0.4 -Current Size (cm) - Depth 0.1 -Total Square Cm 0.28 -Date of Last Picture (Recall this 05/31/22 field) -Photo Taken Yes -Epithelialization None Present -Tunneling No -Undermining/Tunneling No -Circular Undermining No -Exudate Amt Small -Exudate Type Serosanguineous -Wound Margin Flat & Intact -Granulation Amt Medium (34-66%) -Granulation Quality [place] -Slough/Fibrin Yes -Necrosis Amt Medium (34-66%) -Necrotic Tissue Type Adherent Slough -Texture (Flory-wound Skin Appearance) Assessed, Scarring -Moisture (Flory-wound Skin Appearance) Assessed,Dry/ Scaly -Color (Flory-wound Skin Appearance) Assessed -Temperature (Flory-wound Skin No Abnormality Appearance) (Pt Warm) -Tenderness on Palpation (Floyr-wound No Skin Appearance) -Ulcer Cleansing Rinsed/ Irrigated with Saline -Foul Odor after Cleansing No -Anesthetic Used 5% Lidocaine Gel WC - Nurse 2 - General Ulcer CM Notes Start: 05/31/22 08:06 Freq: Status: Active Protocol: Activity Type Activity Date Activity User E-sign Co-sign Detail Recorded Client Recorded Date Recorded By Document 05/31/22 08:26 REMY [id number] 05/31/22 08:29 JF Edit Result 05/31/22 08:26 JF (1) [id number] 05/31/22 08:30 JF (1) #5- R LAT GR TOE - Type of Offloading Surgical Shoe => Total Contact Cast => (TCC) - Right ($) 05/31/22 08:26 Wound Center Nurse 2 #4- R GREAT TOE -Correct Patient No -Correct Side, Site, Position No -Correct Procedure No -Procedure Performed No -Post Debridement (cm) - Length 0 -Post Debridement (cm) - Width 0 -Post Debridement (cm) - Depth 0 -Total Square (Post) (cm) 0 -Area of Debridement (cm) - Length 0 -Area of Debridement (cm) - Width 0 -Total Square (Area) (cm) 0 -Wound/Ulcer Outcome Healed- Epithelialized #5- R LAT GR TOE -Time 08:27 -Correct Patient Yes -Correct Side, Site, Position Yes -Correct Procedure Yes -Procedure Performed Yes -Type of Procedure Debridement -Clinical Debridement Subcutaneous -Tissue Removed Subcutaneous -Post Debridement (cm) - Length 1.0 -Post Debridement (cm) - Width 0.7 -Post Debridement (cm) - Depth 0.1 -Total Square (Post) (cm) 0.70 -Area of Debridement (cm) - Length 1.0 -Area of Debridement (cm) - Width 0.7 -Total Square (Area) (cm) 0.70 -Tunneling No -Undermining/Tunneling No -Circular Undermining No -Wound/Ulcer Outcome Not Healed -Ulcer Cleansing Rinsed/ Irrigated with Saline -Foul Odor after Cleansing No -Bioengineered Tissue No -Bleeding Controlled with Pressure -Treatment Response Procedure Tolerated Well -Offloading Yes -Type of Offloading Total Contact Cast (TCC) - Right ($) -Debridement - Subq, 1st 20sq cm Yes Pain Scale: 0-10 Numeric Is Patient Pain Free? Yes Assessment/Plan Assessment/Plan (1) Non-pressure chronic ulcer of other part of right foot with fat layer exposed: CODE(S): L97.512 - Non-pressure chronic ulcer of other part of right foot with fat layer exposed PLAN: Exam performed. Arterial studies reviewed demonstrate adequate blood flow at this time. The patient may have some calcified vessels, but no vascular referral indicated at this time. Wound to the right medial hallucal IPJ was excisionally debrided down to including level of subcutaneous tissue of all nonviable tissue using a #15 blade without incident. Patient tolerated procedure well. Oral consent was obtained. Hemostasis obtained with light compression. Pre and postdebridement measurements document nursing notes. Dressed with hydrogel/DSD. Total contact cast applied to better offload wound follow up in 1 week. (2) Type 2 diabetes mellitus with diabetic polyneuropathy: CODE(S): E11.42 - Type 2 diabetes mellitus with diabetic polyneuropathy
[2022-06-07 08:04] VITALS: BP 146/67; PULSE 78; RESP 16; TEMP 36.2; BMI 42.8
--- NOTE | 2022-06-07 09:02 | PCM.WC.PN ---
History of Present Illness Date of Service: 06/07/22 Chief Complaint: Right great toe ulcer Progress of Wound: Patient following up on right medial hallux wound. denies constitutionals, compliance with weighbtearing restrictions, dressing care. Patient controlling his blood sugar well. no other complaints. Some issues with TCC rubbing the opposite leg during sleep. Objective Data Objective Data Vital Signs: Vital Signs Temp Pulse Resp BP O2 Del Method 97.1 F L 78 16 146/67 H Room Air 06/07/22 08:04 06/07/22 08:04 06/07/22 08:04 06/07/22 08:04 06/07/22 08:04 Oxygen Delivery Method Room Air Weight: 127.913 kg Body Mass Index (BMI) 42.8 Physical Exam Narrative Patient alert oriented person place and time. Patient ambulating without assistance and diabetic shoe gear. Vascular: Dorsalis pedis posterior tibial pulses palpable 1 out of 4 bilateral lower extremity. Absent digital hair growth. Skin thinning atrophic changes noted. No gross edema. Neurologic light touch protective sensation absent to bilateral feet. Dermatologic: Full-thickness wound to right medial hallucal IPJ. Demonstrates mixed fiber granular base. Debridement, 100% granular base postdebridement. Some periwound hyperkeratosis noted. Musculoskeletal: Hallux limitus noted to the right foot. May be contributing to wound formation. Muscular strength full to bilateral lower extremity compartments. Debridement Note Debridement Note Post-Debridement Measurements and Additional Note: Post-Debridement Measurements/Treatment - Nurse 1 - General Ulcer Assessment Start: 05/31/22 08:06 Freq: Status: Active Protocol: KATHRYN Activity Type Activity Date Activity User E-sign Co-sign Detail Recorded Client Recorded Date Recorded By Document 05/31/22 08:06 [facility] [id number] 05/31/22 08:13 [facility] Document 06/07/22 08:04 [facility] [id number] 06/07/22 08:14 [facility] 05/31/22 06/07/22 08:06 08:04 - Today's Visit Information Type of service Follow-up Visit Follow-up Visit (Physician/FIREWORKS ASSEMBLY SUPERVISOR (Physician/FIREWORKS ASSEMBLY SUPERVISOR ) ) Arrival Mode Ambulatory Ambulatory Transfer Assistance None None Accompanied by Patient Identification Verified (Name & Yes Yes ) Patient Requires Transmission-Based No No Precautions Finger Stick Blood Sugar(mg/dl) (if 201 indicated): Blood Sugar Stated by Patient Height and Weight Body Mass Index (BMI) 42.8 42.8 BMI Classification Obese Obese Vital Signs Temperature (97.8 F-99.1 F) 96.9 F L 97.1 F L Temperature Source Temporal Temporal Pulse Rate (60-100) 75 78 Pulse Location Monitor Monitor Respiratory Rate (12-18) 16 16 Respiratory rate source Observation Observation Oxygen Delivery Method Room Air Room Air Blood Pressure (90/60-120/80) 148/92 H 146/67 H Blood Pressure Mean (mm Hg) 110 93 Source Monitor Monitor Position Sitting Sitting Blood Pressure Location Right Forearm Left Arm History Since Last Visit- (Skip if this is Patient's initial visit) Have you changed medications since your No No last visit? Any new allergies or adverse reactions No No Had a fall/change in ADL's that may No No increase risk of falls Signs or symptoms of abuse and/or No No neglect since last visit Have you been in the hospital since your No No last visit? Has dressing in place as prescribed Yes Yes Has compression in place as prescribed N/A Yes Has offloadiing in place as prescribed N/A Yes Experienced any changes in pain level or No No management Left Footwear Diabetic Shoe Diabetic Shoe Right Footwear Diabetic Shoe [place]/Foam Pain Scale: 0-10 Numeric Is Patient Pain Free? Yes Yes WC - Nurse 1 - General Ulcer Measurement Start: 05/31/22 08:06 Freq: Status: Active Protocol: Activity Type Activity Date Activity User E-sign Co-sign Detail Recorded Client Recorded Date Recorded By Document 05/31/22 08:06 [facility] [id number] 05/31/22 08:13 [facility] Document 06/07/22 08:04 [facility] [id number] 06/07/22 08:14 BM 05/31/22 06/07/22 08:06 08:04 Wound Center Nurse 1 #4- R GREAT TOE -Combined with other wound No -Current Size (cm) - Length 0.1 -Current Size (cm) - Width 0.1 -Current Size (cm) - Depth 0.1 -Total Square Cm 0.01 -Date of Last Picture (Recall this 05/31/22 field) -Photo Taken Yes -Epithelialization None Present -Tunneling No -Undermining/Tunneling No -Circular Undermining No -Exudate Amt None Present -Wound Margin Distinct, Outline Attached -Granulation Amt None Present (0 %) -Slough/Fibrin Yes -Necrosis Amt Large (67-100%) -Necrotic Tissue Type Eschar -Texture (Flory-wound Skin Appearance) Assessed, Scarring -Moisture (Flory-wound Skin Appearance) Assessed,Dry/ Scaly -Color (Flory-wound Skin Appearance) Assessed -Temperature (Flory-wound Skin No Abnormality Appearance) (Pt Warm) -Tenderness on Palpation (Flory-wound No Skin Appearance) -Ulcer Cleansing Rinsed/ Irrigated with Saline -Foul Odor after Cleansing No -Anesthetic Used 5% Lidocaine Gel #5- R LAT GR TOE -Combined with other wound No No -Current Size (cm) - Length 0.7 0.7 -Current Size (cm) - Width 0.4 0.3 -Current Size (cm) - Depth 0.1 0.1 -Total Square Cm 0.28 0.21 -Date of Last Picture (Recall this 05/31/22 06/07/22 field) -Photo Taken Yes Yes -Epithelialization None Present -Tunneling No No -Undermining/Tunneling No No -Circular Undermining No No -Exudate Amt Small Small -Exudate Type Serosanguineous Serosanguineous -Wound Margin Flat & Intact Distinct, Outline Attached -Granulation Amt Medium (34-66%) -Granulation Quality [place] -Slough/Fibrin Yes -Necrosis Amt Medium (34-66%) -Necrotic Tissue Type Adherent Slough -Texture (Flory-wound Skin Appearance) Assessed, Assessed, Scarring Scarring -Moisture (Flory-wound Skin Appearance) Assessed,Dry/ Assessed,Dry/ Scaly Scaly -Color (Flory-wound Skin Appearance) Assessed Assessed -Temperature (Flory-wound Skin No Abnormality No Abnormality Appearance) (Pt Warm) (Pt Warm) -Tenderness on Palpation (Flory-wound No No Skin Appearance) -Ulcer Cleansing Rinsed/ Soap and Water Irrigated with Saline -Foul Odor after Cleansing No No -Anesthetic Used 5% Lidocaine 5% Lidocaine Gel Gel Lower Limb Edema Present Yes Right Calf (cm) 48 Right Ankle (cm) 29.2 WC - Nurse 2 - General Ulcer CM Notes Start: 05/31/22 08:06 Freq: Status: Active Protocol: Activity Type Activity Date Activity User E-sign Co-sign Detail Recorded Client Recorded Date Recorded By Document 05/31/22 08:26 [id number] 05/31/22 08:29 JF Edit Result 05/31/22 08:26 JF (1) [id number] 05/31/22 08:30 JF Document 06/07/22 08:24 [id number] 06/07/22 08:26 JF (1) #5- R LAT GR TOE - Type of Offloading Surgical Shoe => Total Contact Cast => (TCC) - Right ($) 05/31/22 06/07/22 08:26 08:24 Wound Center Nurse 2 #4- R GREAT TOE -Correct Patient No -Correct Side, Site, Position No -Correct Procedure No -Procedure Performed No -Post Debridement (cm) - Length 0 -Post Debridement (cm) - Width 0 -Post Debridement (cm) - Depth 0 -Total Square (Post) (cm) 0 -Area of Debridement (cm) - Length 0 -Area of Debridement (cm) - Width 0 -Total Square (Area) (cm) 0 -Wound/Ulcer Outcome Healed- Epithelialized #5- R LAT GR TOE -Time 08:27 08:26 -Correct Patient Yes Yes -Correct Side, Site, Position Yes Yes -Correct Procedure Yes Yes -Procedure Performed Yes Yes -Type of Procedure Debridement Debridement -Clinical Debridement Subcutaneous Subcutaneous -Tissue Removed Subcutaneous Subcutaneous -Post Debridement (cm) - Length 1.0 0.7 -Post Debridement (cm) - Width 0.7 0.4 -Post Debridement (cm) - Depth 0.1 0.2 -Total Square (Post) (cm) 0.70 0.28 -Area of Debridement (cm) - Length 1.0 0.7 -Area of Debridement (cm) - Width 0.7 0.4 -Total Square (Area) (cm) 0.70 0.28 -Tunneling No No -Undermining/Tunneling No No -Circular Undermining No No -Wound/Ulcer Outcome Not Healed Not Healed -Ulcer Cleansing Rinsed/ Rinsed/ Irrigated with Irrigated with Saline Saline -Foul Odor after Cleansing No No -Bioengineered Tissue No No -Bleeding Controlled with Pressure Pressure -Treatment Response Procedure Procedure Tolerated Well Tolerated Well -Offloading Yes Yes -Type of Offloading Total Contact Surgical Shoe Cast (TCC) - Right ($) -Debridement - Subq, 1st 20sq cm Yes Yes Pain Scale: 0-10 Numeric Is Patient Pain Free? Yes Yes - Nurse 3 - General Ulcer D/C NN Start: 05/31/22 08:06 Freq: Status: Active Protocol: Activity Type Activity Date Activity User E-sign Co-sign Detail Recorded Client Recorded Date Recorded By Document 06/07/22 08:32 DL [id number] 06/07/22 08:34 DL 06/07/22 08:32 Wound Care Nurse 3 #5- R LAT GR TOE -Ulcer Cleansing Rinsed/ Irrigated with Saline -Foul Odor after Cleansing No -Other Dressing hydrogel/ coban -Primary Dressing Covered/Secured with Dry Gauze,Other -Other Covering coban Treatment Response Procedure Tolerated Well Pain Scale: 0-10 Numeric Is Patient Pain Free? Yes WC - Visit Discharge Discharge Condition Stable Ambulatory Status Ambulatory Transportation Private Auto Notes: Dressing applied per Carolina Delgado today in clinic. Assessment/Plan Assessment/Plan (1) Non-pressure chronic ulcer of other part of right foot with fat layer exposed: CODE(S): L97.512 - Non-pressure chronic ulcer of other part of right foot with fat layer exposed PLAN: Exam performed. Arterial studies reviewed demonstrate adequate blood flow at this time. The patient may have some calcified vessels, but no vascular referral indicated at this time. Wound to the right medial hallucal IPJ was excisionally debrided down to including level of subcutaneous tissue of all nonviable tissue using a #15 blade without incident. Patient tolerated procedure well. Oral consent was obtained. Hemostasis obtained with light compression. Pre and postdebridement measurements document nursing notes. Dressed with hydrogel/DSD. Return to see regular shoe due to issues with the operating closing when from [facility]. Wound significantly improved and almost healed at this time. follow up in 1 week. (2) Type 2 diabetes mellitus with diabetic polyneuropathy: CODE(S): E11.42 - Type 2 diabetes mellitus with diabetic polyneuropathy
[2022-06-14 08:11] VITALS: BP 147/65; PULSE 72; RESP 18; TEMP 36.6; BMI 42.8
--- NOTE | 2022-06-14 09:45 | PN.PCM_ITS ---
History of Present Illness Date of Service: 06/14/22 Chief Complaint: Right great toe ulcer Progress of Wound: Patient following up on right medial hallux wound. denies constitutionals, compliance with weighbtearing restrictions, dressing care. Patient controlling his blood sugar well. no other complaints. offloading with surgical shoe, wound improving today. Objective Data Objective Data Vital Signs: Vital Signs Temp Pulse Resp BP O2 Del Method 97.9 F 72 18 147/65 H Room Air 06/14/22 08:11 06/14/22 08:11 06/14/22 08:11 06/14/22 08:11 06/07/22 08:04 Oxygen Delivery Method Room Air Weight: 127.913 kg Body Mass Index (BMI) 42.8 Physical Exam Narrative Patient alert oriented person place and time. Patient ambulating without assistance and diabetic shoe gear. Vascular: Dorsalis pedis posterior tibial pulses palpable 1 out of 4 bilateral lower extremity. Absent digital hair growth. Skin thinning atrophic changes noted. No gross edema. Neurologic light touch protective sensation absent to bilateral feet. Dermatologic: Full-thickness wound to right medial hallucal IPJ. Demonstrates mixed fiber granular base. Debridement, 100% granular base postdebridement. Some periwound hyperkeratosis noted. Musculoskeletal: Hallux limitus noted to the right foot. May be contributing to wound formation. Muscular strength full to bilateral lower extremity compartments. Debridement Note Debridement Note Post-Debridement Measurements and Additional Note: Post-Debridement Measurements/Treatment - Nurse 1 - General Ulcer Assessment Start: 05/31/22 08:06 Freq: Status: Active Protocol: ALMITA.LOWEXT Activity Type Activity Date Activity User E-sign Co-sign Detail Recorded Client Recorded Date Recorded By Document 05/31/22 08:06 [facility] [id number] 05/31/22 08:13 [facility] Document 06/07/22 08:04 [facility] [id number] 06/07/22 08:14 BM Document 06/14/22 08:11 DL [id number] 06/14/22 08:16 DL 05/31/22 06/07/22 06/14/22 08:06 08:04 08:11 - Today's Visit Information Type of service Follow-up Visit Follow-up Visit Follow-up Visit (Physician/WAFER CLEANER (Physician/WAFER CLEANER (Physician/WAFER CLEANER ) ) ) Arrival Mode Ambulatory Ambulatory Ambulatory Transfer Assistance None None None Accompanied by Patient Identification Verified (Name & Yes Yes Yes ) Patient Requires Transmission-Based No No No Precautions Finger Stick Blood Sugar(mg/dl) (if 201 202 indicated): Blood Sugar Stated by Stated by Patient Patient Height and Weight Body Mass Index (BMI) 42.8 42.8 42.8 BMI Classification Obese Obese Obese Vital Signs Temperature (97.8 F-99.1 F) 96.9 F L 97.1 F L 97.9 F Temperature Source Temporal Temporal Temporal Pulse Rate (60-100) 75 78 72 Pulse Location Monitor Monitor Monitor Respiratory Rate (12-18) 16 16 18 Respiratory rate source Observation Observation Observation Oxygen Delivery Method Room Air Room Air Blood Pressure (90/60-120/80) 148/92 H 146/67 H 147/65 H Blood Pressure Mean (mm Hg) 110 93 92 Source Monitor Monitor Monitor Position Sitting Sitting Blood Pressure Location Right Forearm Left Arm History Since Last Visit- (Skip if this is Patient's initial visit) Have you changed medications since your No No No last visit? Any new allergies or adverse reactions No No No Had a fall/change in ADL's that may No No No increase risk of falls Signs or symptoms of abuse and/or No No No neglect since last visit Have you been in the hospital since your No No No last visit? Has dressing in place as prescribed Yes Yes Yes Has compression in place as prescribed N/A Yes No Has offloadiing in place as prescribed N/A Yes Yes Experienced any changes in pain level or No No No management Left Footwear Diabetic Shoe Diabetic Shoe Surgical Shoe with pressure relief insole Right Footwear Diabetic Shoe [place]/Foam Surgical Shoe with pressure relief insole Pain Scale: 0-10 Numeric Is Patient Pain Free? Yes Yes Yes WC - Nurse 1 - General Ulcer Measurement Start: 05/31/22 08:06 Freq: Status: Active Protocol: Activity Type Activity Date Activity User E-sign Co-sign Detail Recorded Client Recorded Date Recorded By Document 05/31/22 08:06 [facility] [id number] 05/31/22 08:13 BM Document 06/07/22 08:04 [facility] [id number] 06/07/22 08:14 BM Document 06/14/22 08:11 DL [id number] 06/14/22 08:16 DL 05/31/22 06/07/22 06/14/22 08:06 08:04 08:11 Wound Center Nurse 1 #4- R GREAT TOE -Combined with other wound No -Current Size (cm) - Length 0.1 -Current Size (cm) - Width 0.1 -Current Size (cm) - Depth 0.1 -Total Square Cm 0.01 -Date of Last Picture (Recall this 05/31/22 field) -Photo Taken Yes -Epithelialization None Present -Tunneling No -Undermining/Tunneling No -Circular Undermining No -Exudate Amt None Present -Wound Margin Distinct, Outline Attached -Granulation Amt None Present (0 %) -Slough/Fibrin Yes -Necrosis Amt Large (67-100%) -Necrotic Tissue Type Eschar -Texture (Flory-wound Skin Appearance) Assessed, Scarring -Moisture (Flroy-wound Skin Appearance) Assessed,Dry/ Scaly -Color (Flory-wound Skin Appearance) Assessed -Temperature (Flory-wound Skin No Abnormality Appearance) (Pt Warm) -Tenderness on Palpation (Flory-wound No Skin Appearance) -Ulcer Cleansing Rinsed/ Irrigated with Saline -Foul Odor after Cleansing No -Anesthetic Used 5% Lidocaine Gel #5- R LAT GR TOE -Combined with other wound No No -Current Size (cm) - Length 0.7 0.7 0.3 -Current Size (cm) - Width 0.4 0.3 0.2 -Current Size (cm) - Depth 0.1 0.1 0.2 -Total Square Cm 0.28 0.21 0.06 -Date of Last Picture (Recall this 05/31/22 06/07/22 field) -Photo Taken Yes Yes Yes -Epithelialization None Present -Tunneling No No -Undermining/Tunneling No No -Circular Undermining No No -Exudate Amt Small Small None Present -Exudate Type Serosanguineous Serosanguineous -Wound Margin Flat & Intact Distinct, Thickened Outline Attached -Granulation Amt Medium (34-66%) Small (1-33%) -Granulation Quality [place] -Slough/Fibrin Yes -Necrosis Amt Medium (34-66%) Small (1-33%) -Necrotic Tissue Type Adherent Slough Adherent Slough -Structure Exposed N/A -Texture (Flory-wound Skin Appearance) Assessed, Assessed, Callus Scarring Scarring -Moisture (Flory-wound Skin Appearance) Assessed,Dry/ Assessed,Dry/ Dry/Scaly Scaly Scaly -Color (Flory-wound Skin Appearance) Assessed Assessed No Abnormality -Temperature (Flory-wound Skin No Abnormality No Abnormality No Abnormality Appearance) (Pt Warm) (Pt Warm) (Pt Warm) -Tenderness on Palpation (Flory-wound No No No Skin Appearance) -Ulcer Cleansing Rinsed/ Soap and Water Rinsed/ Irrigated with Irrigated with Saline Saline -Foul Odor after Cleansing No No No -Anesthetic Used 5% Lidocaine 5% Lidocaine 5% Lidocaine Gel Gel Gel Lower Limb Edema Present Yes Right Calf (cm) 48 47 Right Ankle (cm) 29.2 28.7 WC - Nurse 2 - General Ulcer CM Notes Start: 05/31/22 08:06 Freq: Status: Active Protocol: Activity Type Activity Date Activity User E-sign Co-sign Detail Recorded Client Recorded Date Recorded By Document 05/31/22 08:26 [id number] 05/31/22 08:29 Edit Result 05/31/22 08:26 JF (1) [id number] 05/31/22 08:30 Document 06/07/22 08:24 [id number] 06/07/22 08:26 Document 06/14/22 08:30 [id number] 06/14/22 08:34 JF (1) #5- R LAT GR TOE - Type of Offloading Surgical Shoe => Total Contact Cast => (TCC) - Right ($) 05/31/22 06/07/22 06/14/22 08:26 08:24 08:30 Wound Center Nurse 2 #4- R GREAT TOE -Correct Patient No -Correct Side, Site, Position No -Correct Procedure No -Procedure Performed No -Post Debridement (cm) - Length 0 -Post Debridement (cm) - Width 0 -Post Debridement (cm) - Depth 0 -Total Square (Post) (cm) 0 -Area of Debridement (cm) - Length 0 -Area of Debridement (cm) - Width 0 -Total Square (Area) (cm) 0 -Wound/Ulcer Outcome Healed- Epithelialized #5- R LAT GR TOE -Time 08:27 08:26 08:33 -Correct Patient Yes Yes Yes -Correct Side, Site, Position Yes Yes Yes -Correct Procedure Yes Yes Yes -Procedure Performed Yes Yes Yes -Type of Procedure Debridement Debridement Debridement -Clinical Debridement Subcutaneous Subcutaneous Subcutaneous -Tissue Removed Subcutaneous Subcutaneous Subcutaneous -Post Debridement (cm) - Length 1.0 0.7 0.6 -Post Debridement (cm) - Width 0.7 0.4 0.3 -Post Debridement (cm) - Depth 0.1 0.2 0.1 -Total Square (Post) (cm) 0.70 0.28 0.18 -Area of Debridement (cm) - Length 1.0 0.7 0.6 -Area of Debridement (cm) - Width 0.7 0.4 0.3 -Total Square (Area) (cm) 0.70 0.28 0.18 -Tunneling No No No -Undermining/Tunneling No No No -Circular Undermining No No No -Wound/Ulcer Outcome Not Healed Not Healed Not Healed -Ulcer Cleansing Rinsed/ Rinsed/ Rinsed/ Irrigated with Irrigated with Irrigated with Saline Saline Saline -Foul Odor after Cleansing No No No -Bioengineered Tissue No No No -Bleeding Controlled with Pressure Pressure Pressure -Treatment Response Procedure Procedure Procedure Tolerated Well Tolerated Well Tolerated Well -Offloading Yes Yes Yes -Type of Offloading Total Contact Surgical Shoe Surgical Shoe Cast (TCC) - Right ($) -Debridement - Subq, 1st 20sq cm Yes Yes Yes Pain Scale: 0-10 Numeric Is Patient Pain Free? Yes Yes Yes WC - Nurse 3 - General Ulcer D/C NN Start: 05/31/22 08:06 Freq: Status: Active Protocol: Activity Type Activity Date Activity User E-sign Co-sign Detail Recorded Client Recorded Date Recorded By Document 06/07/22 08:32 DL [id number] 06/07/22 08:34 DL Document 06/14/22 08:40 DL [id number] 06/14/22 08:41 DL 06/07/22 06/14/22 08:32 08:40 Wound Care Nurse 3 #5- R LAT GR TOE -Ulcer Cleansing Rinsed/ Rinsed/ Irrigated with Irrigated with Saline Saline -Foul Odor after Cleansing No No -Other Dressing hydrogel/ coban -Primary Dressing Covered/Secured with Dry Gauze,Other Dry Gauze & Roll Gauze, Secured with Tape -Other Covering coban coban Treatment Response Procedure Procedure Tolerated Well Tolerated Well Pain Scale: 0-10 Numeric Is Patient Pain Free? Yes Yes WC - Visit Discharge Discharge Condition Stable Stable Ambulatory Status Ambulatory Ambulatory Transportation Private Auto Private Auto Notes: Pt discharged Notes: Dressing applied per Carolina Delgado today in clinic. Assessment/Plan Assessment/Plan (1) Non-pressure chronic ulcer of other part of right foot with fat layer exposed: CODE(S): L97.512 - Non-pressure chronic ulcer of other part of right foot with fat layer exposed PLAN: Exam performed. Arterial studies reviewed demonstrate adequate blood flow at this time. Wound to the right medial hallucal IPJ was excisionally debrided down to including level of subcutaneous tissue of all nonviable tissue using a #15 blade without incident. Patient tolerated procedure well. Oral consent was obtained. Hemostasis obtained with light compression. Pre and postdebridement measurements document nursing notes. Dressed with hydrogel/DSD. Return to see regular shoe due to issues with the operating closing when from [facility]. Wound significantly improved and almost healed at this time. follow up in 1 week. (2) Type 2 diabetes mellitus with diabetic polyneuropathy: CODE(S): E11.42 - Type 2 diabetes mellitus with diabetic polyneuropathy
== END 2022-06-14 16:01 | disposition home or self-care (01) ==
LOC: WC 08:00
PROVIDERS: PCP Family Medicine; Visit Provider Podiatrist
DX: E11.621 Type 2 diabetes mellitus with foot ulcer (principal); L97.512 Non-pressure chronic ulcer of other part of right foot with fat layer exposed; E11.42 Type 2 diabetes mellitus with diabetic polyneuropathy; Z79.4 Long term (current) use of insulin; Z79.02 Long term (current) use of antithrombotics/antiplatelets; Z79.82 Long term (current) use of aspirin; Z79.899 Other long term (current) drug therapy
CPT/HCPCS: 11042; 29445

== ENCOUNTER 2022-12-26 16:23 | Emergency (ER) | payer MEDICARE, MEDICAID, SELFPAY ==
[2022-12-26 16:25] VITALS: BP 132/80; PULSE 140; RESP 20; TEMP 37.3; O2SAT 97
--- NOTE | 2022-12-26 17:39 | EKG12_ITS ---
Test Reason : FEVER Blood Pressure : / mmHG Vent. Rate : 075 BPM Atrial Rate : 074 BPM P-R Int : 168 ms QRS Dur : 088 ms QT Int : 400 ms P-R-T Axes : 000 -07 055 degrees QTc Int : 446 ms Sinus rhythm with occasional Premature ventricular complexes and Premature atrial complexes Possible Anterior infarct , age undetermined Abnormal ECG Confirmed by ONEAL LOCO, OLEGARIO ([id number]), business editor LYNETTE RAMIREZ ([id number]) on 12/27/2022 11:06:14 AM Referred By: Confirmed By:OLEGARIO NO MD
[2022-12-26 17:57] LABS: Absolute Lymphocyte Count 1.04 X10^3/uL (0.83-4.51); Absolute Neutrophil Count 5.9 X10^3/uL (2.0-7.7); Basophil# 0.05 X10^3/uL; Basophil% 0.7 % (0-1); Eosinophil# 0.06 X10^3/uL; Eosinophils% 0.8 % (0-5); Hematocrit 39.4 % (40-54); Hemoglobin 12.9 g/dL (13.0-16.5); Lymphocyte # 1.04 X10^3/ul (0.83-4.51); Lymphocyte % 13.8 % (19-41); Mean Corp Hgb Conc 32.7 g/dL (32-36); Mean Corpuscular Hgb 28.7 pg (27.0-32.0); Mean Corpuscular Volume 87.8 fL (80-94); Mean Platelet Vol. 10.4 fl (6.2-12.0); Monocyte% 5.3 % (0-10); NRBC Flagged by Analyzer 0 % (0-5); Neutrophil # 5.93 X10^3/uL (2.7-7.7); Neutrophil % 78.9 % (47-70); Platelet Count 182 K/mm3 (150-450); RBC Distribution Width CV 16.9 % (11.6-14.6); RBC Distribution Width SD 54.4 fl (35.1-43.9); Red Blood Count 4.49 M/mm3 (4.6-6.2); White Blood Count 7.5 K/mm3 (4.4-11.0)
[2022-12-26 18:09] LABS: Lactic Acid 1.2 mmol/L (0.4-1.9)
[2022-12-26 18:22] LABS: Anion Gap 6 (5-15); BUN 19 mg/dL (7-18); BUN/Creat Ratio 16.1 RATIO (10-20); Chloride 98 mmol/L (98-107); Creatinine, Serum 1.18 mg/dL (0.70-1.30); EST Glomerular Filtration Rate 66 mL/min (>60); Est Glom Filt Rate - Afr Amer 80 mL/min (>60); Glucose 98 mg/dL (74-106); Potassium 3.5 mmol/L (3.5-5.1); Sodium Level 134 mmol/L (136-145)
--- NOTE | 2022-12-26 18:38 | CT_ITS ---
EXAM: CT NECK WITH INTRAVENOUS CONTRAST CLINICAL INDICATION: Fever, dysphonia, difficulty swallowing TECHNIQUE: Helically acquired images were obtained of the neck with intravenous contrast. This CT exam was performed using one or more of the following dose reduction techniques: automated exposure control, adjustment of the mA and/or kV according to patient size, and/or use of iterative reconstruction technique. CONTRAST: IV 75mL Isovue-370 RADIATION DOSE: CTDIvol = 19.54 mGy, DLP = 644.51 mGy-cm COMPARISON: No relevant prior studies available. FINDINGS: NASOPHARYNX: Unremarkable. SUPRAHYOID NECK: Unremarkable. Oropharynx, oral cavity, parapharyngeal space and retropharyngeal space are unremarkable. INFRAHYOID NECK: Unremarkable. The larynx, hypopharynx and supraglottis are unremarkable. SUBMANDIBULAR/PAROTID GLANDS: Unremarkable. Glands are normal in size. THYROID: Unremarkable. No enlarged or calcified nodules. BONES/JOINTS: Degenerative changes in the cervical spine. No acute fracture. SOFT TISSUES: Unremarkable. VASCULATURE: No acute findings. LYMPH NODES: Unremarkable. No lymphadenopathy. LUNG APICES: Unremarkable as visualized. OTHER FINDINGS: There is no airway narrowing. Less than 50% stenosis of the right and left proximal ICAs. CT/Soft Tissue Neck WITH Contrast IMPRESSION: There is no airway narrowing. Electronically Signed: Donnell Burgos MD at 19:02 EDT ,
--- NOTE | 2022-12-26 18:52 | EDS_ITS ---
HPI History of Present Illness Chief Complaint: Fever Detail of Chief Complaint: Temperature to 102, sore throat, change in voice difficulty swallowing Informant: patient and spouse/S.O. Onset/Context/Timing Onset: Days Context: Sudden Onset Timing: Continuous Quality: Documented temperature to 102.0 ?F, pharyngeal symptoms Location: Posterior pharynx/throat Current Severity: Mild Maximum Severity: Severe Worsened by: Attempt to swallow liquids or solids Relieved by: Nothing Associated Symptoms Associated Symptoms: Chills Narrative Narrative: Patient is a 67-year-old male who has history of type 2 diabetes, hyperlipidemia, obstructive sleep apnea, neuropathy, COPD, bilateral lymphedema who was sent to the emergency department by his doctor because of temperature of 102.0 ?F. He denies headache, visual, ocular auditory symptoms. He denies ear pain or ringing's ears. He denies congestion or postnasal drainage. He does complain of sore throat, change in voice and states he has not eaten for the past 1.5 days because it hurts to swallow liquids or solids and he has difficulty swallowing. He denies swelling of his lips or tongue. He denies cough or shortness of breath. He denies chest pain. He denies nausea, vomiting diarrhea. He denies dysuria, frequency, urgency or hematuria. Prior similar symptoms: No Recent Illness/Hospitalization: No PFSH PFSH Medical History Adrenal adenoma Ambulates with cane Arthritis Atherosclerosis of coronary artery of [place] heart without angina pectoris Cardiology follow-up encounter Degeneration of cervical disc without myelopathy Degeneration of intervertebral disc Diabetes Diabetes type 2, uncontrolled Epigastric abdominal pain Essential (primary) hypertension Former smoker Former tobacco use Gastric reflux GERD (gastroesophageal reflux disease) Gout Hidradenitis High cholesterol History of claustrophobia History of echocardiogram Hx MRSA infection Hypertension Injury of back Insulin dependent diabetes mellitus Lumbosacral neuritis Microalbuminuria Mixed hyperlipidemia Morbid obesity Neuropathy Non-healing open wound of right groin Nonhealing skin ulcer with fat layer exposed Open wound of right great toe without damage to nail SANIA (obstructive sleep apnea) Pain in limb Personal history of colonic polyps Prurigo nodularis Restless legs Right groin pain Screening for intestinal cancer Shortness of breath on exertion Spondylosis of cervical region without myelopathy or radiculopathy Superficial thrombophlebitis of right leg Walker as ambulation aid Wears dentures Wears glasses Home Medications insulin degludec 200 unit/mL (3 mL) subcutaneous pen (Tresiba FlexTouch U-200 insulin) 128 unit subcut DAILY 03/22/17 [History Last Taken 11/12/17] cyclobenzaprine 10 mg tablet 10 mg PO TID PRN muscle spasm 07/15/20 [History Last Taken Unknown] gabapentin 800 mg tablet 800 mg PO TID Pain 07/15/20 [History Last Taken 02/28/22] metformin 500 mg tablet,extended release 24 hr 1,500 mg PO QAM 07/15/20 [History Last Taken 08/09/20] acetaminophen 650 mg tablet,extended release 650 mg PO Q8H PRN Pain 08/03/21 [History Last Taken Unknown] insulin aspart U-100 100 unit/mL (3 mL) subcutaneous pen 54 unit subcut TID 08/03/21 [History Last Taken Unknown] trazodone 50 mg tablet 50 mg PO QHS PRN Sleep 08/03/21 [History Last Taken Unknown] dulaglutide 0.75 mg/0.5 mL subcutaneous pen injector 0.75 mg subcut QWEEK 08/17/21 [History Last Taken Unknown] clopidogrel 75 mg tablet (Plavix) 75 mg PO DAILY #90 tabs 02/28/22 [Rx Last Taken Unknown] albuterol sulfate 90 mcg/actuation aerosol inhaler (ProAir HFA) 2 puff inhalation Q4H PRN 03/08/22 [History Last Taken Unknown] aspirin 81 mg chewable tablet 81 mg PO DAILY@0800 #90 tabs 03/08/22 [Rx Last T aken Unknown] furosemide 40 mg tablet 60 mg (1.5 x 40 mg) PO BID 90 days #270 tabs 03/08/22 [Rx Last Taken Unknown] hydrochlorothiazide 25 mg tablet 25 mg PO DAILY #90 tabs 03/08/22 [Rx Last Taken Unknown] isosorbide mononitrate 60 mg tablet,extended release 24 hr 60 mg PO DAILY #90 tabs 03/08/22 [Rx Last Taken Unknown] losartan 100 mg tablet 100 mg PO DAILY #90 tabs 03/08/22 [Rx Last Taken Unknown] metoprolol succinate 50 mg tablet,extended release 24 hr (Toprol XL) 50 mg PO DAILY #90 tabs 03/08/22 [Rx Last Taken Unknown] omeprazole 20 mg capsule,delayed release 20 mg PO DAILY PRN GERD 03/08/22 [History Last Taken Unknown] rosuvastatin 20 mg tablet 20 mg PO DAILY #90 tabs 03/08/22 [Rx Last Taken Unknown] potassium chloride 10 mEq capsule,extended release 10 meq PO BID 03/18/22 [History Last Taken Unknown] mupirocin 2 % topical ointment 1 applic topical TID 04/18/22 [History Last Taken Unknown] budesonide-formoterol HFA 160 mcg-4.5 mcg/actuation aerosol inhaler (Symbicort) 2 puff inhalation BID #3 ea 06/13/22 [Rx Last Taken Unknown] tiotropium bromide 2.5 mcg/actuation mist for inhalation (Spiriva Respimat) 2 puff inhalation DAILY #3 ea 10/13/22 [Rx Last Taken Unknown] Allergy/AdvReac Type Severity Reaction Status Date / Time amlodipine AdvReac lower Verified 12/26/22 16:25 extremity edema Latex, Natural Rubber AdvReac Rash Verified 12/26/22 16:25 Family History Mother Diabetes Hypertension Brain tumor Father Cirrhosis Other High cholesterol Surgical History History of appendectomy History of cholecystectomy History of left heart catheterization (08/10/20) History of myringotomy History of tonsillectomy Hx of surgical procedure Hx of umbilical hernia repair Left ear drum surgery S/P angioplasty with stent (02/28/22) Social History Smoking Status: Former smoker quit date: 05/26/11 pack-years: 25 second hand exposure: No alcohol intake: never substance use type: does not use what type of physical activity do you participate in: none seatbelt use: always ROS ROS ED Constitutional Constitutional ED: Reports chills, fever(s) and sweats; Denies subjective or weight loss Eyes Eyes: Denies blurry vision, change in vision or diplopia ENT ENT ED: Reports sore throat and other Details: And detailed in HPI narrative ; Denies ear pain or rhinorrhea Cardiovascular Cardiovascular: Reports racing heartbeat; Denies chest pain, orthopnea, palpitations or paroxysmal nocturnal dyspnea Respiratory/Chest Respiratory/Chest: Denies cough, dyspnea, dyspnea on exertion, orthopnea or paroxysmal nocturnal dyspnea Gastrointestinal Gastrointestinal: Denies abdominal pain, diarrhea, nausea or vomiting Genitourinary Genitourinary ED: Denies dysuria, hematuria or urinary frequency Musculoskeletal Musculoskeletal: Reports neck pain; Denies arthralgias, back pain or myalgias Integumentary Denies abscess, Abrasions or rash Neurologic Neurologic: Reports weakness; Denies headache(s) or paresthesias Psychiatric Psychiatric: Reports anxiety Endocrine Endocrinology: Denies cold intolerance, heat intolerance, polydipsia or polyuria Hematologic/Lymphatic Hematologic/Lymphatic: Reports systems reviewed and no addt'l complaints, except as documented EXAM Physical Exam Const Vital Signs: 12/26/22 16:25 12/26/22 18:51 12/26/22 20:12 Temperature 99.1 F 98.5 F Temperature Source Temporal Oral Pulse Rate 140 H 69 Respiratory Rate 20 H 18 Respiratory Effort Short of Breath Respiratory Pattern Tachypnea Blood Pressure 132/80 H 142/70 H Blood Pressure Mean 97 94 Pulse Ox 97 95 Oxygen Delivery Method Room Air Room Air Positive well nourished, well developed and obese Constitutional Narrative: Patient does not look well. General Appearance ED: well developed and pallor; Negative for cyanotic, diaphoretic or NAD Nutritional Appearance: obese HEENT Reports dry mucous membranes HEENT Narrative: Patient has a significant gag reflex and unable to see uvula or posterior pharynx. Only able to see the soft palate which is unremarkable. Mouth ED: Yes dry mucous membranes Mouth: dry mucous membranes Eyes PERRL and EOMs intact bilaterally General Eye ED: Negative for pale conjunctiva or scleral icterus Neck no lymphadenopathy, supple and no JVD Neck Narrative: Trachea appears line. There is no in-store expiratory stridor. Does have dysphonia. Chest Wall inspection of chest normal and palpation of chest normal Resp normal respiratory effort and clear to auscultation bilaterally Cardio regular rhythm, S1 normal heart sound, S2 normal heart sound and no murmurs Rate: tachycardic GI normal to inspection, nondistended, normoactive bowel sounds, non-tender and non-distended; Negative for hepatosplenomegaly or no masses Back/Spine no CVA tenderness Extremity normal to inspection General Extremety ED: Yes edema; Negative for tenderness General Extremity: edema Neuro oriented x3 and CN's II-XII intact bilaterally Sensorium / Orientation: alert Motor Exam: strength 5/5 throughout Psych mental status grossly normal Skin no rashes or lesions noted, no wounds and skin turgor normal General Skin Exam: pallor; Negative for jaundice MDM MDM MDM Narrative Medical decision making narrative: Frontal diagnosis would include pharyngitis, retropharyngeal abscess, parapharyngeal abscess, angioedema, mass, epiglottitis. CT of the neck with IV contrast was ordered. Appropriate blood work was ordered. 1 L of normal saline was ordered. Lab Data Labs: Laboratory Results - last 24 hr 12/26/22 17:10 WBC 7.5 RBC 4.49 L Hgb 12.9 L Hct 39.4 L MCV 87.8 MCH 28.7 MCHC 32.7 RDW Std Deviation 54.4 H RDW Coeff of Salome 16.9 H Plt Count 182 MPV 10.4 Immature Gran % (Auto) 0.500 Neut % (Auto) 78.9 H Lymph % (Auto) 13.8 L [place] % (Auto) 5.3 Eos % (Auto) 0.8 Baso % (Auto) 0.7 Absolute Neuts (auto) 5.9 Absolute Lymphs (auto) 1.04 Nucleated RBC % 0 Sodium 134 L Potassium 3.5 Chloride 98 Carbon Dioxide 30.0 Anion Gap 6 BUN 19 H Creatinine 1.18 Est GFR (MDRD) Af Amer 80 Est GFR (MDRD) Non-Af 66 BUN/Creatinine Ratio 16.1 Glucose 98 Lactic Acid 1.2 Calcium 9.0 Radiography Diagnostic Testing: Clinical Impression(s) from Imaging Studies Soft Tissue Neck CT 12/26/22 18:38 IMPRESSION: There is no airway narrowing. Electronically Signed: Donnell Burgos MD at 19:02 EDT , EKG Initial EKG: Attestation: I personally reviewed and interpreted this EKG as follows: Interpretation: Sinus Rhythm (To 75. There are premature ventricular complexes noted. ME interval is 160 ms per cures duration 88 ms. QT duration 100 ms. [place] is normal. There is decreased anterior force. There is an ossific changes noted as well which may be due to artifact.) Treatment and Re-Evaluation :: Patient did pass p.o. challenge. He was discharged with a bottle of Magic mouthwash. Discharge Plan Triage Chief Complaint: Fever ED Provider: Kelvin Gamboa Dx/Rx/DC Orders Clinical Impression: Fever, Essential (primary) hypertension, Morbid obesity, Type 2 diabetes mellitus with diabetic polyneuropathy, Throat pain in adult Instructions: ED FUO Adult, ED Fever Control (Adult) Prescriptions: No Action gabapentin 800 mg tablet 800 mg PO TID cyclobenzaprine 10 mg tablet 10 mg PO TID PRN (Reason: muscle spasm) dulaglutide 0.75 mg/0.5 mL pen injector 0.75 mg subcut QWEEK Patient Comments: Inject 0.75 mg subcutaneously one time a week. acetaminophen 650 mg tablet extended release 650 mg PO Q8H PRN (Reason: Pain) trazodone 50 mg tablet 50 mg PO QHS PRN (Reason: Sleep) albuterol sulfate [ProAir HFA] 90 mcg/actuation HFA aerosol inhaler 2 puff inhalation Q4H PRN metoprolol succinate [Toprol XL] 50 mg tablet extended release 24 hr 50 mg PO DAILY Qty: 90 3RF furosemide 40 mg tablet 60 mg PO BID 90 Days Qty: 270 3RF aspirin 81 mg tablet,chewable 81 mg PO DAILY@0800 Qty: 90 3RF hydrochlorothiazide 25 mg tablet 25 mg PO DAILY Qty: 90 3RF isosorbide mononitrate 60 mg tablet extended release 24 hr 60 mg PO DAILY Qty: 90 3RF losartan 100 mg tablet 100 mg PO DAILY Qty: 90 3RF rosuvastatin 20 mg tablet 20 mg PO DAILY Qty: 90 3RF budesonide-formoterol [Symbicort] 160-4.5 mcg/actuation HFA aerosol inhaler 2 puff inhalation BID Qty: 3 3RF omeprazole 20 mg capsule,delayed release(DR/EC) 20 mg PO DAILY PRN (Reason: GERD) insulin aspart U-100 100 unit/mL (3 mL) insulin pen 54 unit SC TID insulin degludec [Tresiba FlexTouch U-200] 200 UNIT/ML insulin pen 128 unit SC DAILY Patient Comments: took half a dose this am, 1/2/18 metformin 500 mg tablet extended release 24 hr 1,500 mg PO QAM clopidogrel [Plavix] 75 mg tablet 75 mg PO DAILY Qty: 90 3RF mupirocin 2 % Ointment 1 applic TOPICAL TID potassium chloride 10 mEq capsule, extended release 10 meq PO BID Spiriva Respimat 2.5 mcg/actuation mist 2 puff inhalation DAILY Qty: 3 3RF Primary Care Provider: Domo Richards Referrals: Domo Richards MD [Primary Care Provider] - 3-5 Days Disposition Disposition: Home, Self Care
[2022-12-26] MEDS: 0.9% Normal Saline 1,000 ML 1000 ML IV (18:57)
[2022-12-26] MEDS: BMX LIQUID 180 ML PO (20:10)
[2022-12-26 20:12] VITALS: BP 142/70; PULSE 69; RESP 18; TEMP 36.9; O2SAT 95
== END 2022-12-26 21:02 | disposition home or self-care (01) ==
PROVIDERS: Emergency Provider Emergency Medicine; PCP Family Medicine; Visit Provider Emergency Medicine
DX: R07.0 Pain in throat (principal); J44.9 Chronic obstructive pulmonary disease, unspecified; E11.42 Type 2 diabetes mellitus with diabetic polyneuropathy; E66.01 Morbid (severe) obesity due to excess calories; Z79.4 Long term (current) use of insulin; R50.9 Fever, unspecified; I25.10 Atherosclerotic heart disease of native coronary artery without angina pectoris; I10 Essential (primary) hypertension; E78.2 Mixed hyperlipidemia; G47.33 Obstructive sleep apnea (adult) (pediatric); Z79.82 Long term (current) use of aspirin; Z79.84 Long term (current) use of oral hypoglycemic drugs; Z79.899 Other long term (current) drug therapy; Z87.891 Personal history of nicotine dependence
CPT/HCPCS: 70491; 80048; 83605; 85025; 87040; 93005; 96361; 96365; 99283; J7030; Q9967; A4216; J0295

== ENCOUNTER 2023-04-11 05:02 | Day surgery (SDC) | payer MEDICARE, MEDICAID, SELFPAY ==
[2023-04-11] VITALS (8 sets, daily range): BP systolic 84–143; BP diastolic 55–63; PULSE 65–71; RESP 14–18; TEMP 36.6–36.9; O2SAT 95–100; BMI 45.2
[2023-04-11] MEDS: Lactated Ringers 1,000 ML 15 ML IV (05:51)
--- NOTE | 2023-04-11 05:56 | HP.PCM_ITS ---
History and Physical Date of Admission: 04/11/23 Visit Reasons: UPPER & LOWER FOR ANEMIA Chief Complaint: scopes for anemia Case Monitor Required: No Is patient in pain?: No Allergies amlodipine Adverse Reaction (Verified 03/06/23 13:48) lower extremity edemaLatex, Natural Rubber Adverse Reaction (Verified 03/06/23 13:48) Rash Medications insulin degludec 200 unit/mL (3 mL) subcutaneous pen (Tresiba FlexTouch U-200 insulin) 128 unit subcut DAILY 03/22/17 [History Confirmed 03/06/23] cyclobenzaprine 10 mg tablet 10 mg PO TID PRN muscle spasm 07/15/20 [History Confirmed 03/06/23] gabapentin 800 mg tablet 800 mg PO TID Pain 07/15/20 [History Confirmed 03/06/23] metformin 500 mg tablet,extended release 24 hr 1,500 mg PO QAM 07/15/20 [History Confirmed 03/06/23] acetaminophen 650 mg tablet,extended release 650 mg PO Q8H PRN Pain 08/03/21 [History Confirmed 03/06/23] insulin aspart U-100 100 unit/mL (3 mL) subcutaneous pen 54 unit subcut TID 08/03/21 [History Confirmed 03/06/23] trazodone 50 mg tablet 50 mg PO QHS PRN Sleep 08/03/21 [History Confirmed 03/06/23] dulaglutide 0.75 mg/0.5 mL subcutaneous pen injector 0.75 mg subcut QWEEK 08/17/21 [History Confirmed 03/06/23] albuterol sulfate 90 mcg/actuation aerosol inhaler (ProAir HFA) 2 puff inhalation Q4H PRN 03/08/22 [History Confirmed 03/06/23] furosemide 40 mg tablet 60 mg (1.5 x 40 mg) PO BID 90 days #270 tabs 03/08/22 [Rx Confirmed 03/06/23] hydrochlorothiazide 25 mg tablet 25 mg PO DAILY #90 tabs 03/08/22 [Rx Confirmed 03/06/23] losartan 100 mg tablet 100 mg PO DAILY #90 tabs 03/08/22 [Rx Confirmed 10/10/22] metoprolol succinate 50 mg tablet,extended release 24 hr (Toprol XL) 50 mg PO DAILY #90 tabs 10/11/22 [Rx Confirmed 03/06/23] omeprazole 20 mg capsule,delayed release 20 mg PO DAILY PRN GERD 03/08/22 [History Confirmed 10/10/22] rosuvastatin 20 mg tablet 20 mg PO DAILY #90 tabs 03/08/22 [Rx Confirmed 03/06/23] potassium chloride 10 mEq capsule,extended release 10 meq PO BID 03/18/22 [History Confirmed 03/06/23] mupirocin 2 % topical ointment 1 applic topical TID 04/18/22 [History Confirmed 03/06/23] budesonide-formoterol HFA 160 mcg-4.5 mcg/actuation aerosol inhaler (Symbicort) 2 puff inhalation BID #3 ea 06/13/22 [Rx Confirmed 03/06/23] tiotropium bromide 2.5 mcg/actuation mist for inhalation (Spiriva Respimat) 2 puff inhalation DAILY #3 ea 02/14/23 [Rx] aspirin 81 mg chewable tablet 81 mg PO DAILY@0800 #90 tabs 02/27/23 [Rx Confirmed 03/06/23] isosorbide mononitrate 60 mg tablet,extended release 24 hr 60 mg PO DAILY #90 tabs 02/27/23 [Rx Confirmed 03/06/23] cyclobenzaprine 10 mg tablet 10 mg PO TID 03/06/23 [History Confirmed 03/06/23] glycopyrrolate 9 mcg-formoterol 4.8 mcg HFA aerosol inhaler (Bevespi Aerosphere) 2 puff inhalation BID 03/06/23 [History Confirmed 03/06/23] [facility] Medical History Adrenal adenoma Ambulates with cane Arthritis Atherosclerosis of coronary artery of [place] heart without angina pectoris Cardiology follow-up encounter Degeneration of cervical disc without myelopathy Degeneration of intervertebral disc Diabetes Diabetes type 2, uncontrolled Epigastric abdominal pain Essential (primary) hypertension Former smoker Former tobacco use Gastric reflux GERD (gastroesophageal reflux disease) Gout Hidradenitis High cholesterol History of claustrophobia History of echocardiogram Hx MRSA infection Hypertension Injury of back Insulin dependent diabetes mellitus Lumbosacral neuritis Microalbuminuria Mixed hyperlipidemia Morbid obesity Neuropathy Non-healing open wound of right groin Nonhealing skin ulcer with fat layer exposed Open wound of right great toe without damage to nail SANIA (obstructive sleep apnea) Pain in limb Personal history of colonic polyps Prurigo nodularis Restless legs Right groin pain Screening for intestinal cancer Shortness of breath on exertion Spondylosis of cervical region without myelopathy or radiculopathy Superficial thrombophlebitis of right leg Walker as ambulation aid Wears dentures Wears glasses Surgical History History of appendectomy History of cholecystectomy History of left heart catheterization (08/10/20) History of myringotomy History of tonsillectomy Hx of surgical procedure Hx of umbilical hernia repair Left ear drum surgery S/P angioplasty with stent (02/28/22) Family History Mother Diabetes Hypertension Brain tumorFather CirrhosisOther High cholesterol Social History Smoking Status: Former smoker quit date: 05/26/11 pack-years: 25 second hand exposure: No alcohol intake: never substance use type: does not use what type of physical activity do you participate in: none seatbelt use: always HPI HPI HPI: 67-year-old gentleman is being referred by Dr. Domo Richards for unspecified an emia and a written copy of my surgical consult recommendations will be returned to him. As of December 26, 2022 white count was 7.5 with a hemoglobin 12.9 hematocrit 39.4 platelet count of 182,000. It has congestive heart failure lower extremity swelling. He does not require oxygen at home. He does treat his asthma. He has not noticed any bright red blood per rectum or melena. He is only on a low-dose aspirin. I assisted him with a open access colonoscopy October 09, 2018. He had a mid transverse colon polyp tubular adenoma and a proximal rectal polyp hyperplastic. He has not any history of peptic ulcer disease. ROS General General: No weight change, appetite, fatigue, colon cancer, breast cancer or weakness HEENT HEENT: No difficulty swallowing, eye injury, eye surgery, swollen glands or hoarseness Endo Endocrine: Yes diabetes mellitus; No thyroid disease, thyroid cancer, Hair loss, heat intolerance or cold intolerance Skin Skin: No rash or changing moles Breast Breast: No left breast lump, right breast lump, nipple discharge, breast pain, abnormal mammogram, abnormal US or breast enlargement Musc Musculoskeletal: Yes back problems, arthritis and gout; No rheumatoid arthritis or joint pain Cardio Cardiovascular: Yes high blood pressure; No murmur, pacemaker, heart disease, atrial fibrillation, heart attack, heart stent, palpitations, shortness of breat with exertion or chest pain Psych Psychiatric: No depression, anxiety or hearing voices Resp Respiratory: Yes shortness of breath, No sleep apnea, Yes cough, Yes COPD, No asthma, No emphysema and No wheezing Gastro Gastrointestinal: No abdominal pain, No nausea or vomiting, No diarrhea, No constipation, No blood in stool, Yes acid reflux, No hemorrhoids, No ulcers, No gallbladder problem and No black,tarry stools Hao Hematologic: Yes blood thinners, No blood disorders, No bleeding, No anemia and No blood clots Neuro Neurologic: No system reviewed and no additional complaints, except as documented, No as per HPI, No abnormal gait, No abnormal hearing, No abnormal movements, No abnormal speech, No behavioral changes, No burning sensations, No confusion, No convulsions, No disequilibrium, No dizziness, No localized weakness, No frequent falls, No headache(s), No lack of coordination, No loss of vision, No memory loss, No numbness, No other visual disturbances, No radicular pain, No restless legs, No sensory deficit, No syncope, No tingling, No tremor(s), No weakness and No other Exam Const General: cooperative, comfortable and no acute distress Nutritional Appearance: obese morbidly obese [facility] Head: normal to inspection Eyes General: appearance normal, both eyes and all related structures Neck Neck: normal visual inspection Chest Chest palpation & inspection: normal inspection of the chest Resp Effort & Inspection: normal respiratory effort Auscultation: clear to auscultation bilaterally Cardio Rate: regular rate Rhythm: regular rhythm GI Palpation: soft and no hepatosplenomegaly Other: Overweight, unable to detect internal organs Skin General: no rashes or lesions noted Neuro General: patient alert, patient awake and patient oriented x3 Extrem Other: Notable bilateral extremity nonpitting swelling Psych Appearance: grossly normal Assessment and Plan Assessment and Plan (1) Anemia: Status: Acute Qualifiers: Anemia type: unspecified type Qualified Code(s): D64.9 - Anemia, unspecified Plan: 67-year-old gentleman with referral for anemia. I propose for him a esophagogastroduodenoscopy with possible biopsy and colonoscopy with possible biopsy or polypectomy as indicated. He is aware of the technique, benefit, risk, alternatives. He has had an opportunity to ask and have questions answered. We will schedule and proceed at his discretion. I will need to utilize an adult colonoscope. Previous colonoscopy September 2018 Plan Copy: Dr. Domo Villagomez M.D., F.A.C.S. I have examined the patient and the H&P has been reviewed. There are no clinical changes since date of exam. Max Villagomez M.D., F.A.C.S.
--- NOTE | 2023-04-11 06:30 | IMM_PTH ---
PATIENT: CHRIS COTE LOC: EN U#:[id number] AGE/SX: 67/M ROOM: RE04/11/[address]: Dr. Max Villagomez MD : 1955 BED: DIS: 04/11/2023 SPEC #: [id number] RECD: 04/11/23 13:42 STATUS: ANGELINA RELigia #: [id number] DEENA: 04/11/23 06:[address]: Max Villagomez DEPT: IMMUNOHISTOCHEMISTRY RECD BY: Italia Viramontes ENTERED: 04/11/23 13:43 SP TYPE: IMMUNO OTHR DR: Dr. Domo Richards MD Tissues: A - Stomach, NOS Procedures: H Pylori (initial) PHYSICIAN & INSTITUTION [place] [id number] SPECIMEN INFORMATION: Tissue Source: A - Gastric antrum Clinical Info: Anemia Specimen Number: [id number] CPT code: 66336 METHODOLOGY: Deparaffinized sections of prefer/formalin-fixed tissue or PAP/DQ stained slides are incubated with monoclonal/polyclonal antibodies/oligonucleotide probes. Localization is made via biotin free immunoperoxidase method. Appropriate controls are performed and reacted as expected. Results on target cell population are indicated in the following table: RESULTS: ANTIBODY / CLONE RESULT Block A H Pylori (polyclonal) negative These tests were developed and their performance characteristics determined by [facility]. They may not have been cleared or approved by the U.S. Food and Drug Administration. The FDA has determined that such clearance or approval is not necessary. The above immunohistochemical/dualISH markers are ordered and reviewed by the Pathologist. INTERPRETATION: A. Gastric antrum, biopsy: Negative for Helicobacter pylori organisms. AM:christian 04/12/2023
--- NOTE | 2023-04-11 06:30 | EGD_PTH ---
[id number] LOC: EN U#:[id number] AGE/SX: 67/M ROOM: RE04/11/[address]: Dr. Max Villagomez MD : 1955 BED: DIS: 04/11/2023 SPEC #: [id number] RECD: 04/11/23 08:24 STATUS: ANGELINA GARIMA #: [id number] DEENA: 04/11/23 06:[address]: Max Villagomez DEPT: SURGICAL PATHOLOGY RECD BY: Dixie England ENTERED: 04/11/23 10:53 SP TYPE: EGD BIOPSY OTHR DR: Dr. Domo Richards MD Tissues: A - Gastric mucous membrane B - Esophagus, NOS C - Esophagus, NOS D - Esophagus, NOS E - Transverse colon F - Transverse colon G - Transverse colon Procedures: Special Stain Group II Surgery Specimen Level IV Alcian Blue/PAS (control) HEADER OPERATION: Colonoscopy, EGD, biopsy PRE-OP DIAGNOSIS: Anemia TISSUE SUBMITTED: A - Gastric antrum biopsy for histo and H. pylori, B - Lesser curvature nodule biopsy, C - Greater curvature biopsy, D - Distal esophagus biopsy, E - Mid transverse polyp biopsy, F - Mid transverse polyp #2 biopsy, G - Distal transverse polyp MICROSCOPIC DIAGNOSIS A. Gastric antrum, biopsy: Chronic gastritis. See comment. B. Gastric lesser curvature nodule, biopsy: Polypoid fragment of gastric mucosa with chronic inflammation. C. Gastric greater curvature, biopsy: Fragments of fundic gland polyp. Mild chronic inflammation. D. Distal esophagus, biopsy: Gastroesophageal junctional mucosa with chronic inflammation. Focal changes of reflux. No evidence of goblet cell metaplasia. See comment. E. Mid transverse colon polyp, biopsy: Tubular adenoma. F. Mid transverse colon polyp #2, biopsy: Fragments of tubular adenoma. G. Distal transverse colon polyp, biopsy: Fragment of benign colonic mucosa and fecal debris. See comment. AM:christian 04/12/2023 COMMENT A. The results of immunohistochemistry for Helicobacter pylori will be reported separately ([id number]). D. Alcian blue/PAS stain with matched control supports the above diagnosis. G. Neither hyperplastic nor adenomatous change is identified. Clinical correlation is suggested. MICROSCOPIC DESCRIPTION Slides are reviewed. GROSS DESCRIPTION A - Received in fixative is one container labeled with the patient's name and designated gastric antrum. The specimen consists of one irregular fragment of light arnold soft tissue that measures 0.3 x 0.2 x 0.1 cm. The specimen is totally submitted in one cassette. B - Received in fixative is one container labeled with the patient's name and designated lesser curvature nodule. The specimen consists of two irregular fragments of light arnold soft tissue that in aggregate measure 0.2 x 0.2 x 0.1 cm. The specimen is totally submitted in one cassette. C - Received in fixative is one container labeled with the patient's name and designated greater curvature biopsy. The specimen consists of one irregular fragment of light arnold soft tissue that measures 0.6 x 0.2 x 0.1 cm. The specimen is totally submitted in one cassette. D - Received in fixative is one container labeled with the patient's name and designated distal esophagus biopsy. The specimen consists of multiple irregular fragments of light arnold soft tissue that in aggregate measure 1.0 x 0.6 x 0.1 cm. The specimen is totally submitted in one cassette. E - Received in fixative is one container labeled with the patient's name and designated mid transverse polyp. The specimen consists of one irregular fragment of light arnold soft tissue that measures 0.5 x 0.5 x 0.1 cm. The specimen is totally submitted in one cassette. F - Received in fixative is one container labeled with the patient's name and designated mid transverse polyp. The specimen consists of two irregular fragments of light arnold soft tissue that in aggregate measure 0.8 x 0.6 x 0.1 cm. The specimen is totally submitted in one cassette. G - Received in fixative is one container labeled with the patient's name and designated distal transverse polyp. The specimen consists of multiple irregular fragments of light arnold soft tissue that in aggregate measure 1.5 x 0.5 x 0.1 cm. The specimen is totally submitted in one cassette. / AM:christian 04/11/2023 TC:3 CPT: 40709 x7, 41369
--- NOTE | 2023-04-11 07:27 | OP.EGD_ITS ---
Patient Name: Vinicio Richmond Procedure Date: 04/11/2023 6:19 AM Date of : 1955 Age: 67 Procedure: Upper GI endoscopy Indications: Iron deficiency anemia Providers: Max Villagomez MD Medicines: See the Anesthesia note for documentation of the administered medications Complications: No immediate complications. Procedure: Pre-Anesthesia Assessment: - Prior to the procedure, a History and Physical was performed, and patient medications and allergies were reviewed. The patient's tolerance of previous anesthesia was also reviewed. The risks and benefits of the procedure and the sedation options and risks were discussed with the patient. All questions were answered, and informed consent was obtained. Prior Anticoagulants: The patient has taken no anticoagulant or antiplatelet agents. ASA Grade Assessment: III - A patient with severe systemic disease. After reviewing the risks and benefits, the patient was deemed in satisfactory condition to undergo the procedure. After obtaining informed consent, the endoscope was passed under direct vision. Throughout the procedure, the patient's blood pressure, pulse, and oxygen saturations were monitored continuously. The gastroscope was introduced through the mouth, and advanced to the second part of duodenum. The upper GI endoscopy was accomplished without difficulty. The patient tolerated the procedure well. Scope In: 6:39:14 AM Scope Out: 6:47:32 AM Total Procedure Duration Time 0 hours 8 minutes 18 seconds Findings: A small hiatal hernia was present. LA Grade A (one or more mucosal breaks less than 5 mm, not extending between tops of 2 mucosal folds) esophagitis with no bleeding was found 44 cm from the incisors. Biopsies were taken with a cold forceps for histology. Diffuse mild inflammation characterized by granularity was found in the gastric body. Biopsies were taken with a cold forceps for histology. Localized nodular mucosa was found on the lesser curvature of the stomach. Biopsies were taken with a cold forceps for histology. Diffuse mildly erythematous mucosa without bleeding was found in the gastric antrum. Biopsies were taken with a cold forceps for histology. The examined duodenum was normal. Impression: - Small hiatal hernia. - LA Grade A reflux esophagitis with no bleeding. Biopsied. - Chronic gastritis. Biopsied. - Nodular mucosa in the lesser curvature of the stomach. Biopsied. - Erythematous mucosa in the antrum. Biopsied. - Normal examined duodenum. Recommendation: - Discharge patient to home. - Resume previous diet. - Continue present medications. - Telephone my office for pathology results in 1 week. Findings do not seem to correlate with significant active blood loss. Findings appear to be more chronic changes Procedure Code(s): --- Professional --- 72393, Esophagogastroduodenoscopy, flexible, transoral; with biopsy, single or multiple Diagnosis Code(s): --- Professional --- K44.9, Diaphragmatic hernia without obstruction or gangrene K21.00, Gastro-esophageal reflux disease with esophagitis, without bleeding K29.50, Unspecified chronic gastritis without bleeding K31.89, Other diseases of stomach and duodenum D50.9, Iron deficiency anemia, unspecified CPT copyright 2021 [employer]. All rights reserved. The codes documented in this report are preliminary and upon wood products manufacturer review may be revised to meet current compliance requirements. Max Villagomez MD 04/11/2023 7:26:49 AM This report has been signed electronically. Number of Addenda: 0 Note Initiated On: 04/11/2023 6:19 AM
--- NOTE | 2023-04-11 07:28 | OP.CCLET_ITS ---
04/11/2023 Domo Richards Re : Upper GI endoscopy procedure for Vinicio Richmond Dear Maurice This procedure was performed on Tuesday, April 11, 2023. My impressions and recommendations are as follows: Impressions : - Small hiatal hernia. - LA Grade A reflux esophagitis with no bleeding. Biopsied. - Chronic gastritis. Biopsied. - Nodular mucosa in the lesser curvature of the stomach. Biopsied. - Erythematous mucosa in the antrum. Biopsied. - Normal examined duodenum. Recommendations : - Discharge patient to home. - Resume previous diet. - Continue present medications. - Telephone my office for pathology results in 1 week. Findings do not seem to correlate with significant active blood loss. Findings appear to be more chronic changes My findings are described in the full procedure note, which is enclosed. If I can be of further assistance, please feel free to contact me at Doctor phone number(s): Work: . Sincerely, Max Villagomez MD 04/11/2023 7:26:49 AM This report has been signed electronically.
--- NOTE | 2023-04-11 07:32 | OP.COLON_ITS ---
Patient Name: Vinicio Richmond Procedure Date: 04/11/2023 6:47 AM Date of : 1955 Age: 67 Procedure: Colonoscopy Indications: Iron deficiency anemia Providers: Max Villagomez MD Medicines: See the Anesthesia note for documentation of the administered medications Patient Profile: Last Colonoscopy: September 2018. Complications: No immediate complications. Procedure: Pre-Anesthesia Assessment: - Prior to the procedure, a History and Physical was performed, and patient medications and allergies were reviewed. The patient's tolerance of previous anesthesia was also reviewed. The risks and benefits of the procedure and the sedation options and risks were discussed with the patient. All questions were answered, and informed consent was obtained. Prior Anticoagulants: The patient has taken no anticoagulant or antiplatelet agents. ASA Grade Assessment: III - A patient with severe systemic disease. After reviewing the risks and benefits, the patient was deemed in satisfactory condition to undergo the procedure. After I obtained informed consent, the scope was passed under direct vision. Throughout the procedure, the patient's blood pressure, pulse, and oxygen saturations were monitored continuously. The adult colonoscope was introduced through the anus and advanced to the cecum, identified by appendiceal orifice and ileocecal valve. The colonoscopy was extremely difficult due to the patient's body habitus. Successful completion of the procedure was aided by applying abdominal pressure. The patient tolerated the procedure well. The quality of the bowel preparation was fair. The ileocecal valve and the appendiceal orifice were photographed. Scope In: 6:50:38 AM Scope Withdrawal Time 0 hours 10 minutes 26 seconds Scope Out: 7:19:59 AM Total Procedure Duration Time 0 hours 29 minutes 21 seconds Findings: The digital rectal exam findings include non-thrombosed internal hemorrhoids and internal hemorrhoids that prolapse with straining, but spontaneously regress to the resting position (Grade II). A 4 mm polyp was found in the mid transverse colon. The polyp was sessile. The polyp was removed with a cold biopsy forceps. Resection and retrieval were complete. A 5 mm polyp was found in the mid transverse colon. The polyp was sessile. The polyp was removed with a cold biopsy forceps. Resection and retrieval were complete. A 6 mm polyp was found in the distal transverse colon. The polyp was sessile. The polyp was removed with a hot snare. Resection and retrieval were complete. Impression: - Preparation of the colon was fair. - Non-thrombosed internal hemorrhoids and internal hemorrhoids that prolapse with straining, but spontaneously regress to the resting position (Grade II) found on digital rectal exam. - One 4 mm polyp in the mid transverse colon, removed with a cold biopsy forceps. Resected and retrieved. - One 5 mm polyp in the mid transverse colon, removed with a cold biopsy forceps. Resected and retrieved. - One 6 mm polyp in the distal transverse colon, removed with a hot snare. Resected and retrieved. Recommendation: - Repeat colonoscopy in 5 years for surveillance based on pathology results. - Telephone my office for pathology results in 1 week These findings do not correlate with anemia.. - Continue present medications. Procedure Code(s): --- Professional --- 01101, Colonoscopy, flexible; with removal of tumor(s), polyp(s), or other lesion(s) by snare technique 64649, 59, Colonoscopy, flexible; with biopsy, single or multiple Diagnosis Code(s): --- Professional --- K64.1, Second degree hemorrhoids D12.3, Benign neoplasm of transverse colon (hepatic flexure or splenic flexure) D50.9, Iron deficiency anemia, unspecified CPT copyright 2021 [employer]. All rights reserved. The codes documented in this report are preliminary and upon collaborating supervising physician review may be revised to meet current compliance requirements. aMx Villagomez MD 04/11/2023 7:32:10 AM This report has been signed electronically. Number of Addenda: 0 Note Initiated On: 04/11/2023 6:47 AM
--- NOTE | 2023-04-11 07:32 | OP.CCLET_ITS ---
04/11/2023 Domo Richards Re : Colonoscopy procedure for Vinicio Bazzir Maurice This procedure was performed on Tuesday, April 11, 2023. My impressions and recommendations are as follows: Impressions : - Preparation of the colon was fair. - Non-thrombosed internal hemorrhoids and internal hemorrhoids that prolapse with straining, but spontaneously regress to the resting position (Grade II) found on digital rectal exam. - One 4 mm polyp in the mid transverse colon, removed with a cold biopsy forceps. Resected and retrieved. - One 5 mm polyp in the mid transverse colon, removed with a cold biopsy forceps. Resected and retrieved. - One 6 mm polyp in the distal transverse colon, removed with a hot snare. Resected and retrieved. Recommendations : - Repeat colonoscopy in 5 years for surveillance based on pathology results. - Telephone my office for pathology results in 1 week These findings do not correlate with anemia.. - Continue present medications. My findings are described in the full procedure note, which is enclosed. If I can be of further assistance, please feel free to contact me at Doctor phone number(s): Work: . Sincerely, Max Villagomez MD 04/11/2023 7:32:10 AM This report has been signed electronically.
== END 2023-04-11 08:18 | disposition home or self-care (01) ==
LOC: EN 05:05 → AC 05:05
PROVIDERS: PCP Family Medicine; Referring Provider Family Medicine; Visit Provider Surgery
PROC: 0DJD8ZZ Inspection of Lower Intestinal Tract, Via Natural or Artificial Opening Endoscopic (ICD-10-PCS; CPT 45378; principal; 2023-04-11 06:25)
DX: D12.3 Benign neoplasm of transverse colon (principal); J44.9 Chronic obstructive pulmonary disease, unspecified; E11.40 Type 2 diabetes mellitus with diabetic neuropathy, unspecified; E66.01 Morbid (severe) obesity due to excess calories; Z68.42 Body mass index [BMI] 45.0-49.9, adult; Z79.4 Long term (current) use of insulin; K29.50 Unspecified chronic gastritis without bleeding; I25.10 Atherosclerotic heart disease of native coronary artery without angina pectoris; K44.9 Diaphragmatic hernia without obstruction or gangrene; E78.2 Mixed hyperlipidemia; Z87.891 Personal history of nicotine dependence; I10 Essential (primary) hypertension; Z79.84 Long term (current) use of oral hypoglycemic drugs; D50.9 Iron deficiency anemia, unspecified; Z79.82 Long term (current) use of aspirin; Z79.01 Long term (current) use of anticoagulants; Z86.010 Personal history of colon polyps; Z87.19 Personal history of other diseases of the digestive system; K64.1 Second degree hemorrhoids; K21.00 Gastro-esophageal reflux disease with esophagitis, without bleeding; Z79.02 Long term (current) use of antithrombotics/antiplatelets; Z90.49 Acquired absence of other specified parts of digestive tract
CPT/HCPCS: 45380; 45385; 43239; 88305; 88313; 88342; J7120; J2405

== ENCOUNTER 2024-08-13 08:40 | Outpatient (RCR) | payer MEDICARE, SELFPAY ==
--- NOTE | 2024-08-14 08:16 | HP.PTEVAL ---
Patient's Visit Information Visit Information Visit Information: CHRIS COTE is a 68 year old M referred to Physical Therapy by Dr. Domo Richards MD with a diagnosis of Neuropathy and emphezema. Date of Evaluation: 08/13/24 Physical Therapist: Peyton Montana MPT Visit Plan Plan: Pt was seen only for a wheelchair evaluation Subjective Subjective: Pt reports that they are pushing for him to get a powered wheelchair. He has a regular wheelchair but he can not get around due to his weak arms and probably his weight too. He reports that his legs are really bad with neuropathy, and his emphysema/COPD and has a heart condition (heart A-fib). He feels that he needs to have the power wheelchair because he can not walk and hard for him to leave the house to do anything. He uses a can and walker so he does not fall around the apartment. He can not walk very far. He has a ramp at his apartment that he can use to get down to his apartment. He has some trouble getting out of chairs. He does not go up and down the steps. He has to use a scooter that is owned by a store if he goes to a store but they are hard to use. He does not sleep well at night and has a hard time falling asleep due to leg pain. Pt is 5'8 and 270 pounds Neck, shoulder, ARM, and hand pain 10/10. Back, hip, knee, leg, foot pain 9/10 Pt reports that his is not able to push him in wheelchair due to her bad knees. He is not able to propel manual wheelchair due to Pain B leg pain: Pain Intensity (Out of 10): 9 Objective Objective: Gait: 44 feet and had to stop holding on the the hallway rail (had to stop due to pain up and down his legs and reports SOB). Very slow gait and uses hallway railing majority of the time. Pt was able to walk 181 feet with no AD with very slow colin, small guarded steps, and some veering and SOB back to the treatment room from the waiting room. Pt has decreased B foot sensation with eyes closed. Worse on the L than the R. LE MMT R hip flex 9.5# and L 7.2 R knee ext 10.1# and L 9.1# R knee flex 7.4 and L 7. UE MMT: R shoulder flex 6.1# and L 5.7# R shoulder ABD 5.1# and L 6.3# Shoulder AROM: Shoulder flex/ABD B approx 120 degrees. Limited IR of B shoulders and some limitation in ER of B shoulders LE AROM: Decreased B hip flex, knee ext (painful) and DF B Standing heel and toe raises: Pt is able to toe raise with decreased ROM and heel raise with UE support with decreased ROM 30 sec sit to stand: Needs to use his arms to get out of the chair and only able to get up once and sit back down once due to weakness, pain (pain in legs and back), and SOB. Balance/Special Test Scores Lower Extremity Functional Score: 43 Rehabilitation Potential Rehabilitation Potential: Fair Anticipated Interventions Text: Thank you for the opportunity to evaluate your patient. For Medicare and Medicare HMO plans, please review the plan of care and approve it. It will need to be FAXED BACK to us at [phone] for Medicare purposes. For Medicare only, by signing this I certify the plan of care. Please let me know if there are questions or concerns regarding this plan of care. Physician Signature: Date:
== END 2024-08-13 19:00 | disposition home or self-care (01) ==
LOC: PT 08:40
PROVIDERS: PCP Family Medicine; Referring Provider Family Medicine; Visit Provider Family Medicine
DX: G62.9 Polyneuropathy, unspecified (principal); J43.9 Emphysema, unspecified
CPT/HCPCS: 97162

== ENCOUNTER → 2025-02-03 | Outpatient (CLI) | payer MEDICARE, SELFPAY ==
--- NOTE | 2025-02-03 08:46 | AAVD_ITS ---
Reason For Study Reason For Study: HX Iliac Vein Stent Inferior Vena Cava Mid inferior vena cava measures 1.80 x 1.94 cm. in the cross-sectional axis. Mid inferior vena cava measures 1.83 cm. in the longitudinal axis. The inferior vena cava has spontaneous, phasic flow throughout. Unable to visualize prox and dist IVC. Left Common Iliac Vein Left common iliac vein measures 1.42 x 1.64 cm. in the cross-sectional axis. Left common iliac vein measures 1.36 cm. in the longitudinal axis. The left common iliac vein has spontaneous, phasic flow throughout. Unable to visualize stent. Right Common Iliac Vein Right common iliac vein measures 1.56 x 1.56 cm. in the cross-sectional axis. Right common iliac vein measures 1.48 cm. in the longitudinal axis. The right common iliac vein has spontaneous, phasic flow throughout. Unable to visualize stent. Procedure Aorta IVC Iliac vasculature or bypass grafts 54347. The exam was of poor technical quality due to body habitus and bowel gas. Lmited views obtained. Exam performed in department. VL/Abd Aortic/IVC Duplex scan Interpretation Summary Limited study due to bowel gas and body habitus. In visualized segments, inferior vena cava and bilateral iliac veins patent wit h normal venous flow pattern. Ordering Physician: Anh Slater Referring Physician: Domo Richards Performed By: Eben Cooper RVT
== END | disposition home or self-care (01) ==
LOC: CVS 08:46
PROVIDERS: PCP Family Medicine; Referring Provider Physician Assistant; Visit Provider Physician Assistant
DX: Z48.812 Encounter for surgical aftercare following surgery on the circulatory system (principal)
CPT/HCPCS: 93978